=== PATIENT | female | born 1945 | race Caucasian/White ===

== ENCOUNTER 2019-11-10 08:01 | Outpatient (CLI) | payer MEDICARE, SELFPAY ==
--- NOTE | ~2019-11-10 | US_ITS ---
EXAMINATION: US art doppler w press LE BI DATE: 11/10/2019 08:52 INDICATION: Bilateral lower limb peripheral arterial occlusive disease. TECHNIQUE: Segmental pressures and plethysmographic and Doppler waveforms of the brachial and lower e xtremity arteries were obtained. COMPARISON: None. FINDINGS: Right brachial artery pressure of 104 mm Hg. Left brachial artery pressure unable to be obtained due to the presence of a dialysis graft. The right and left high-thigh pressure indices are 1.06 and 1.15 , respectively (normal > 1.2). The right ankle-brachial index (TY) is 1.22 (normal >= 0.9-1). The right great toe-brachial index (T BI) is 0.97 (normal >= 0.6-0.8). The right lower extremity segmental pressure gradients are increased between the right above and below the knee popliteal arteries between the sysvy-giz-zuaa popliteal a rtery and the right dorsalis pedis artery and between the right dorsalis pedis and posterior tibial a rteries (normal gradients <= 20-30 mmHg between adjacent levels on the same leg or the same levels on the two legs). Arterial waveforms are biphasic with brisk systolic upstrokes throughout. The left TY is 0.52. The left TBI is 0.64. The left lower extremity segmental pressure gradients are increased between the left yrvkv-yta-iffk popliteal artery and left dorsalis pedis artery as well as between the left dorsalis pedis artery and the contralateral right dorsalis pedis artery. Arterial w aveforms are biphasic with brisk systolic upstrokes throughout with the exception of the left posteri or tibial artery which no flow is evident on color Doppler. IMPRESSION: 1. Normal right TY and TBI with no significant arterial occlusive disease to the right lower limb. 2. Arterial occlusive disease in the left lower limb with no evident flow in the left posterior tibia l artery and with decreased pressures at the left dorsalis pedis artery resulting in moderately decre ased left TY. The left TBI however remains within normal limits. Reviewed, dictated and finalized at location A. IMPRESSION: 1. Normal right TY and TBI with no significant arterial occlusive disease to t he right lower limb. 2. Arterial occlusive disease in the left lower limb with no evident flow in th e left posterior tibial artery and with decreased pressures at the left dorsali s pedis artery resulting in moderately decreased left TY. The left TBI however remains within normal limits.
== END 2019-11-10 08:02 | disposition home or self-care (01) ==
PROVIDERS: PCP Nurse Practitioner Family; Visit Provider Podiatrist Foot & Ankle Surgery
DX: I73.9 Peripheral vascular disease, unspecified (principal)
CPT/HCPCS: 93923

== ENCOUNTER 2019-12-20 12:03 | Inpatient (IN) | payer MEDICARE, SELFPAY ==
[2019-12-20] VITALS (9 sets, daily range): BP systolic 84–152; BP diastolic 49–73; PULSE 70–106; RESP 16–20; TEMP 36.4–36.9; O2SAT 96–100; BMI 18.1
[2019-12-20 12:25] LABS: Basophils Absolute Auto 0.1 K/mm3 (0.0-0.1); Basophils Percent Auto 0.5 % (0.2-1.2); Eosinophils Absolute Auto 0.1 K/mm3 (0-0.3); Eosinophils Percent Auto 0.8 % (0-4.4); Hematocrit 37.5 % (37.0-47.0); Hemoglobin 12.2 g/dL (12.0-15.0); Immature Granulocyte Absolute 0.02 K/mm3 (0.00-0.031); Immature Granulocyte Percent A 0.2 % (0-0.5); Lymphocytes Absolute Auto 1.59 K/mm3 (0.9-3.2); Lymphocytes Percent Auto 16.5 % (18.3-44.2); Mean Corpuscular HGB Conc 32.5 g/dl (32-36); Mean Corpuscular Hemoglobin 31.4 pg (26-34); Mean Corpuscular Volume 96.4 fl (80-100); Mean Platelet Volume 9.7 fl (7.4-10.4); Monocytes Absolute Auto 0.6 K/mm3 (0.1-0.6); Monocytes Percent Auto 6.1 % (2.6-8.5); Neutrophils Absolute Auto 7.3 K/mm3 (1.3-6.7); Neutrophils Percent Auto 75.9 % (45.5-73.1); Platelet Count Result 330 k/mm3 (150-375); Red Blood Count 3.89 M/mm3 (4.2-5.4); White Blood Count 9.6 K/mm3 (4.5-10.0)
[2019-12-20 12:39] LABS: Alanine Aminotransferase 11 U/L (4-35); Albumin Level 4.6 g/dL (3.5-5.1); Alkaline Phosphatase 92 U/L (38-126); Aspartate Amino Transferase 19 U/L (14-36); Bilirubin,Total 0.5 mg/dL (0.2-1.3); Blood Urea Nitrogen 71 mg/dL (7-17); Carbon Dioxide 16 mmol/L (22-30); Chloride 102 mmol/L (98-107); Estimated CRCL calculation 8 ml/min; Estimated Glomerular Filt Rate 10; Glucose 102 mg/dL (65-105); Lipase 198 U/L (23-300); Potassium 4.3 mmol/L (3.4-5.0); Sodium 133 mmol/L (137-145)
[2019-12-20 13:19] LABS: Add Urine Microscopic? YES; Appearance Urine Cloudy (Clear); Bacteria Urine Trace /hpf; Bilirubin Urine Negative (Negative); Blood Urine 1+ (Negative); Color Urine Yellow (Yellow); Glucose Urine UA Negative (Negative); Ketones Urine Negative (Negative); Leukocyte Esterase Ur 3+ LEU/UL (Negative); Mucus Urine Rare /lpf; Nitrate Urine Negative (Negative); Protein Urine 1+ mg/dL (Negative); RBC Urine 21-50 /hpf (0-2); Specific Grav Ur 1.011 (1.001-1.035); Squamous Epithelial Cell Urine Few /hpf (Few); Urobilinogen Urine Negative mg/dL (<2.0); WBC Urine >75 /hpf
--- NOTE | 2019-12-20 13:49 | ED.GENADULT ---
HPI - General Adult General Chief complaint: Nausea/Vomiting/Diarrhea Stated complaint: n/v Time Seen by Provider: 12/20/19 13:16 Source: patient and family History of Present Illness HPI narrative: 74 years old white female, on dialysis for the last 2 years, last dialysis was 2 days ago, patient did not finish the whole course of treatment because of developing nausea and dry heaves, patient was sent home at that time. 1 day later patient was doing okay, woke up this morning with dry heaves. Patient tripped and fell yesterday, hit the head on the wall and the way down, did not black out. Patient on Eliquis for atrial fibrillation. Currently her main complaint is nausea. Patient denies any fever, chills, vomiting, diarrhea, constipation, urinary symptoms. Patient is able to make urine. Patient lives in a [place] [facility]. Patient denying any pain. Or exposure to anybody with known COVID-19. Related Data Home Medications Medication Instructions Recorded Confirmed apixaban [Eliquis] 2.5 mg PO BID 12/20/19 aspirin [Aspir-81] 81 mg PO DAILY 12/20/19 atorvastatin 40 mg PO DAILY 12/20/19 azathioprine 25 mg PO DAILY 12/20/19 cholecalciferol (vitamin D3) 50 mcg PO DAILY 12/20/19 [Vitamin D3] furosemide 80 mg PO BID 12/20/19 metoprolol succinate 25 mg PO DAILY 12/20/19 vit A,C and A-yihybv-hqoazqcp 1 tablet PO BID 12/20/19 [I-Boris] vitamin B complex 1 tablet PO DAILY 12/20/19 Allergies Allergy/AdvReac Type Severity Reaction Status Date / Time No Known Allergies Allergy Verified 12/20/19 12:52 Review of Systems Review of Systems: Narrative: CONSTITUTIONAL: Denies fever, chills, or sweats. EYES: Denies visual changes, redness, or discharge. ENT: Denies rhinorrhea, congestion, sore throat, or otalgia. CARDIOVASCULAR: Denies chest pain, palpitations, or edema. RESPIRATORY: Denies cough or dyspnea. GASTROINTESTINAL: Denies abdominal pain, nausea, vomiting, or diarrhea. GENITOURINARY: Denies dysuria or hematuria. SKIN: Denies rash or itching. MUSCULOSKELETAL: Denies back pain, joint pain, or myalgia. NEUROLOGIC: Denies headache, numbness, or weakness. PSYCHIATRIC: Denies anxiety or depression. PMFSH Social History Social History Gender identity (if verbalized by the patient): Female Exam Narrative: Exam Narrative: General appearance: Well-developed, well-nourished, patient looks comfortable, malnourished, laying down in bed without any sign of distress or pain, patient son at the bedside. Skin: Normal color Head: Normocephalic, nontraumatic Eyes: Clear conjunctiva ENT: Oropharynx normal, ears normal, nose normal Neck: Supple, nontender Chest and respiratory: Airway patent, no respiratory distress, no accessory muscle use Heart: Regular rate/rhythm Abdomen: Soft, nontender, no organomegaly, quiet bowel sounds Vascular: Normal peripheral pulses, normal capillary refill. Musculoskeletal: Normal range of motion, nontender back Neurologic: Alert and oriented ?3, [facility] is normal as tested, no gross motor deficit Course Course Emergency Course: Stable Vital Signs Vital signs: Vital Signs Temperature 36.9 C 12/20/19 12:13 Pulse Rate 90 12/20/19 12:13 Respiratory Rate 17 12/20/19 12:13 Blood Pressure 96/49 L 12/20/19 12:13 Pulse Oximetry 96 12/20/19 12:13 Temperature 36.9 C 12/20/19 12:13 Pulse Rate 75 12/20/19 13:08 Respiratory Rate 17 12/20/19 13:08 Blood Pressure 121/65 12/20/19 13:08 Pulse Oximetry 100 12/20/19 13:08 Medical Decision Making MDM Narrative Medical decision making narrative: Patient main complaint is nausea. Patient believes
--- NOTE | 2019-12-20 16:00 | PC.NURSE ---
This patient, Chichi Amado, was admitted to Medical Room 348-. Patient/family oriented to hospital policies and general routines including ID bracelet, bed and alarms, visiting hours, pain management, procedures, bathroom and other care routines, personal items, smoking policy, room service/diet, and visiting hours. Valuables list has been completed. Information on how to activate the Rapid Response Team has been discussed. Patient/Family are encouraged to report perceived risks to care and to ask questions if they do not understand what they are told or what they should do.
[2019-12-20] MEDS: LACTATED RINGERS 1,000 ML 50 ML IV CONT (16:49)
--- NOTE | 2019-12-20 22:31 | PM.IMHP ---
H&P: HPI History of Present Illness Chief complaint: urinary tract infection,nausea,dialysis patient Narrative: Chichi Amado is a 74 year old female who has end-stage renal disease and is on dialysis Saturday. The patient does still continue to make some urine. She has not had any urinary symptoms but has been having dry heaves. She said that the dry heaves started Saturday when she was in dialysis. And they gave her something for it and ended helped a little bit but not much. The next day on Saturday she was feeling fine and did a lot of things on Saturday but then for the in the evening she started to feel little queasy again. When she woke up today she was feeling nauseated and having dry heaves. She stated that she could tailor ate the dry he is any longer. She was also feeling weak and she lives at the [facility] and she has rales in the bathroom. The patient stated that she felt a little dizzy get off the toilet and she just slid on the wall and hit her head and the rales caught her and she had a small bowel bladder her head. She is on Eliquis for history of PE had a cardiac emboli. She has not had any exposure that she is aware of any infectious disease. She has not had any fever chills but is feeling weak and having dry heaves. Urine was positive for UTI. The patient stated it was a voided specimen. Dr. Roman has been consulted for Nephrology. Patient was started on Rocephin. Patient's dialysis was cut short on Saturday but they felt like she had had enough of it. Date of service 12/20/2019 Review of Systems Review of Systems: All systems reviewed & are unremarkable except as noted in HPI and below Constitutional: Constitutional: Reports as per HPI and Reports no additional constitutional complaints Eyes: Eyes: Reports as per HPI and Reports no additional eye complaints ENT: Reports system reviewed and no additional complaints, except as documented and Reports Normal hearing present Cardiovascular: Cardiovascular: Reports no additional cardiovascular complaints Respiratory: Respiratory: Reports no additional respiratory complaints and Reports no additional respiratory complaints Gastrointestinal: Gastrointestinal: Reports as per HPI and Reports no additional gastrointestinal complaints Musculoskeletal: Musculoskeletal: Reports no additional musculoskeletal complaints Integumentary/Breasts: Skin/Breast: Reports system reviewed and no additional complaints, except as docu and Reports as per HPI Neurologic: Reports system reviewed and no additional complaints, except as documented, Reports as per HPI and Reports Normal hearing present Psychiatric: Psychiatric: Reports no additional psychiatric complaints and Reports as per HPI Endocrine: Endocrine: Reports no additional endocrine complaints Hematologic/Lymphatic: Hematologic/Lymphatic: Reports no additional hematologic/lymphatic complaints Allergic/Immunologic: Allergic/Immunologic: Reports no additional allergic/immunologic complaints [facility] Past Medical History Medical History (Updated 12/20/19 @ 22:40 by Karolina Hamlin NP) Chronic anemia Diastolic dysfunction Grade 3 History of CVA (cerebrovascular accident) History of iritis History of pulmonary embolism On Eliquis History of thrombosis Ascending aorta thrombus Hyperlipidemia Hypertension Moderate mitral valve regurgitation Osteoarthritis Rheumatoid arthritis Surgical History Surgical History (Updated 12/20/19 @ 22:40 by Karolina Hamlin NP) H/O bilateral cataract extraction History of bilateral tubal ligation History of shoulder surgery S/P dialysis catheter insertion Av fistula left forearm Family History Family History Mother Cancer Father Diabetes mellitus Sibling Lymphoma Colon cancer Pancreatic cancer Social History Social History (Updated 12/20/19 @ 22:41 by Karolina Hamlin NP) Social History
[2019-12-21] VITALS (18 sets, daily range): BP systolic 65–136; BP diastolic 31–64; PULSE 75–104; RESP 12–18; TEMP 36–37.1; O2SAT 95–100; BMI 18.1
[2019-12-21 05:51] LABS: Basophils Absolute Auto 0.1 K/mm3 (0.0-0.1); Basophils Percent Auto 0.8 % (0.2-1.2); Eosinophils Absolute Auto 0.2 K/mm3 (0-0.3); Hematocrit 35.2 % (37.0-47.0); Hemoglobin 11.5 g/dL (12.0-15.0); Immature Granulocyte Absolute 0.03 K/mm3 (0.00-0.031); Immature Granulocyte Percent A 0.4 % (0-0.5); Lymphocytes Percent Auto 20.6 % (18.3-44.2); Mean Corpuscular HGB Conc 32.7 g/dl (32-36); Mean Corpuscular Hemoglobin 31.3 pg (26-34); Mean Corpuscular Volume 95.9 fl (80-100); Mean Platelet Volume 9.9 fl (7.4-10.4); Monocytes Absolute Auto 0.7 K/mm3 (0.1-0.6); Monocytes Percent Auto 9.9 % (2.6-8.5); Neutrophils Absolute Auto 4.8 K/mm3 (1.3-6.7); Neutrophils Percent Auto 65.3 % (45.5-73.1); Platelet Count Result 297 k/mm3 (150-375); Red Blood Count 3.67 M/mm3 (4.2-5.4); Red Cell Distribution Width 12.9 % (11.5-14.5); White Blood Count 7.3 K/mm3 (4.5-10.0)
[2019-12-21 06:16] LABS: Alanine Aminotransferase 10 U/L (4-35); Alkaline Phosphatase 81 U/L (38-126); Aspartate Amino Transferase 16 U/L (14-36); Bilirubin,Total 0.1 mg/dL (0.2-1.3); Blood Urea Nitrogen 75 mg/dL (7-17); CRP 0.7 mg/dL (<1.0); Calcium 9.2 mg/dL (8.4-10.2); Carbon Dioxide 16 mmol/L (22-30); Chloride 105 mmol/L (98-107); Estimated CRCL calculation 9 ml/min; Estimated Glomerular Filt Rate 11; Glucose 86 mg/dL (65-105); Lipase 188 U/L (23-300); Magnesium 2.5 mg/dL (1.6-2.3); Potassium 3.7 mmol/L (3.4-5.0); Sodium 134 mmol/L (137-145)
[2019-12-21 06:56] LABS: Hepatitis B Surface Antigen Negative (Negative)
[2019-12-21 07:02] LABS: HAV RESULT Negative (Negative); Hepatitis B Core IgM Result Negative (Negative)
--- NOTE | 2019-12-21 07:14 | PM.CNNEP ---
Assessment and Plan Assessment and plan (1) Dialysis patient: Code(s): Z99.2 - Dependence on renal dialysis Status: Acute Assessment and Plan: Chichi has been on dialysis for couple of years. She has been doing well on the treatments. She does not look like she has much fluid on. Will try for a L today. She did get some IV fluids in the emergency room last night. Her potassium is okay. (2) Urinary tract infection: Qualifiers: Hematuria presence: without hematuria Urinary tract infection type: site unspecified Qualified Code(s): N39.0 - Urinary tract infection, site not specified Code(s): N39.0 - Urinary tract infection, site not specified Status: Acute Assessment and Plan: The patient has a bladder infection. Cultures are pending. Ceftriaxone is on board. She does make some urine. She does not have any pain with urination. I suspect this is the cause for her nausea and vomiting. She is doing better today with symptomatic medications and treatment of the UTI. Lipase is okay. Something wrong with the pancreas. She has no belly pain and her symptoms are resolved now. (3) Moderate mitral valve regurgitation: Code(s): I34.0 - Nonrheumatic mitral (valve) insufficiency Status: Acute Assessment and Plan: She has had this issue for a long time. Her volume status is been well-controlled with the dialysis. (4) Chronic anemia: Code(s): D64.9 - Anemia, unspecified Status: Chronic Assessment and Plan: She has anemia of chronic kidney disease. She gets Epogen at the dialysis unit. She also gets occasional Iron a for Tsats are low. (5) Hypertension: Code(s): I10 - Essential (primary) hypertension Status: Chronic Assessment and Plan: Blood pressure had historically been high. She does well now with just metoprolol. (6) Rheumatoid arthritis: Code(s): M06.9 - Rheumatoid arthritis, unspecified Status: Chronic History of Present Illness Reason for Consult Consult date: 12/21/19 Chief Complaint Chief complaint: urinary tract infection,nausea,dialysis patient History of Present Illness Narrative: But really is a very pleasant 74-year-old lady who has multiple medical problems including end-stage renal disease on dialysis 3 times a week, hyperlipidemia, hypertension, rheumatoid arthritis on Azathioprine, diastolic dysfunction, mitral regurgitation,, anemia, history of a stroke, pulmonary embolism on Eliquis, who says she was well until Saturday when she started having nausea and vomiting. This took her off dialysis a little early. She went home and she eventually felt better. She slept well Saturday night and Saturday. Then Saturday night she developed nausea and vomiting again. Once again she could not hold anything down. This continued until yesterday when she went to the emergency room. In the ER she was evaluated. No x-rays were done. Labs were unremarkable. She was admitted and given symptomatic medications. She feels better now. She has no skin rash. No chest pain or shortness of breath. No belly pain. No bloody or black bowel movements. No coffee-ground emesis or blood in her emesis. Nobody else in her house is sick. She has not had any fevers. Review of Systems Constitutional: Constitutional: Reports no additional constitutional complaints Eyes: Eyes: Reports no additional eye complaints ENT: Reports system reviewed and no additional complaints, except as documented Cardiovascular: Cardiovascular: Reports no additional cardiovascular complaints Respiratory: Respiratory: Reports no additional respiratory complaints Gastrointestinal: Gastrointestinal: Reports no additional gastrointestinal complaints Genitourinary: Genitourinary: Reports no additional female genitourinary complaints Musculoskeletal: Musculoskeletal: Reports no additional musculoskeletal complaints Integumentary/Breasts:
[2019-12-21 07:21] LABS: Hepatitis B Surface Anti Res Indeterminate
[2019-12-21] MEDS: APIXABAN 2.5 MG TABLET PO ×2 (08:15→17:22)
[2019-12-21] MEDS: FUROSEMIDE 80 MG TABLET PO ×2 (08:16→17:22)
[2019-12-21] MEDS: OPTI-GEN TAB 1 TABLET PO ×2 (08:16→17:22)
[2019-12-21] MEDS: azaTHIOprine 25 MG TABLET PO (08:16)
[2019-12-21] MEDS: VITAMIN B COMPLEX CAPSULE 1 CAP PO (08:17)
[2019-12-21 08:20] LABS: Hepatitis C Virus Antibody Negative (Negative)
[2019-12-21] MEDS: CHOLECALCIFEROL 1,000 UNIT TABLET 2000 UNITS PO (13:46)
--- NOTE | 2019-12-21 13:59 | PM.EVENT ---
Event Note Event Note Event Note: The patient is on dialysis and tolerating it well. her blood pressure is doing well. No cramping or shortness of breath. She was seen at 12:50 p.m.
[2019-12-21] MEDS: ONDANSETRON INJ 4 MG/2 ML VIAL IV PUSH (14:25)
--- NOTE | 2019-12-21 16:24 | PM.IMPN ---
Progress Note: A&P Assessment and Plan (1) Urinary tract infection: Qualifiers: Hematuria presence: without hematuria Urinary tract infection type: site unspecified Qualified Code(s): N39.0 - Urinary tract infection, site not specified Code(s): N39.0 - Urinary tract infection, site not specified Status: Acute Assessment and Plan: Patient was started on Rocephin. Blood cultures pending and urine culture growing 100,000 gram-negative rods. Patient still urinates on her own. Patient had d dialysis today. And minimal fluid removed with her nausea and decreased oral intake she had at home. (2) Dialysis patient: Code(s): Z99.2 - Dependence on renal dialysis Status: Acute Assessment and Plan: Resumed per Nephrology, Saturday. (3) Hyperlipidemia: Code(s): E78.5 - Hyperlipidemia, unspecified Status: Chronic Assessment and Plan: Continue with Lipitor. (4) Diastolic dysfunction: Code(s): I51.89 - Other ill-defined heart diseases Status: Chronic Assessment and Plan: Continue with Lasix and metoprolol. Above with soft blood pressure decrease metoprolol to only 12.5 HS (5) Rheumatoid arthritis: Code(s): M06.9 - Rheumatoid arthritis, unspecified Status: Chronic Assessment and Plan: Continue with imuran (6) Hypertension: Code(s): I10 - Essential (primary) hypertension Status: Chronic Assessment and Plan: Continue with Lasix and metoprolol. For and has above decrease metoprolol to 12.5 HS (7) Chronic anemia: Code(s): D64.9 - Anemia, unspecified Status: Chronic Assessment and Plan: Patient's H&H actually is within normal limits at this time. Patient is on Eliquis for history of having a a cardiac emboli and a PE. Subjective Date/time seen: 12/21/19 16:24 Interval history: Date of visit 12/20. 74-year-old white female on chronic hemodialysis admitted with nausea and urinary tract infection. No fever no chills but is on immunosuppressant for her rheumatoid arthritis. Feels better today and tolerated breakfast. Saw her at hemodialysis Exam Narrative: Exam Narrative: Blood pressure 110/60 pulse is 84 and regular afebrile Lungs clear CV regular rate rhythm Abdomen is soft nontender bowel sounds normal active Extremities without edema distal pulse 2 + Neuro alert cooperative no focal deficits Objective Data Vital Signs Vital Signs: Vital Signs - 24 hr 12/20/19 20:00 12/21/19 00:00 12/21/19 04:27 Temperature 36.4 C 36.1 C L 36.4 C L Pulse Rate 70 81 96 Pulse Rate [Left] Respiratory Rate 16 12 18 Blood Pressure 122/58 L 136/58 L 119/56 L Pulse Oximetry 98 98 97 12/21/19 10:24 12/21/19 10:45 12/21/19 11:00 Temperature Pulse Rate 79 75 84 Pulse Rate [Left] Respiratory Rate Blood Pressure 120/41 L 131/64 100/53 L Pulse Oximetry 12/21/19 11:30 12/21/19 11:45 12/21/19 12:00 Temperature Pulse Rate 83 100 104 H Pulse Rate [Left] Respiratory Rate Blood Pressure 117/55 L 97/54 L 71/38 L Pulse Oximetry 12/21/19 12:15 12/21/19 12:30 12/21/19 12:34 Temperature Pulse Rate 91 94 92 Pulse Rate [Left] Respiratory Rate Blood Pressure 100/52 L 65/31 L 91/45 L Pulse Oximetry 12/21/19 12:45 12/21/19 13:00 12/21/19 13:30 Temperature 37.1 C Pulse Rate 89 81 Pulse Rate [Left] Respiratory Rate Blood Pressure 91/48 L 90/40 L Pulse Oximetry 12/21/19 13:34 12/21/19 14:00 Temperature 36.4 C Pulse Rate 90 Pulse Rate [Left] 86 Respiratory Rate 16 12 Blood Pressure 86/49 L Pulse Oximetry 95 Intake/Output Intake/Output: Intake & Output 12/18/19 12/19/19 12/20/19 12/21/19 23:59 23:59 23:59 23:59 Intake Total 686 540 Output Total 250 850 Balance 436 -310 Meds/Results Medications: Active Medications Generic Name Dose Route Start Last Admin Trade Name Freq PRN Reason S
[2019-12-21] MEDS: ACETAMINOPHEN 325 MG TABLET 650 MG PO (18:33)
[2019-12-21] MEDS: ATORVASTATIN 40 MG TABLET PO (20:27)
[2019-12-21] MEDS: ASPIRIN 81 MG ENTERIC TABLET PO (20:27)
[2019-12-22 04:00] VITALS: BP 98/50; PULSE 89; RESP 16; TEMP 36.6; O2SAT 95
[2019-12-22 05:25] LABS: Hemoglobin 11.4 g/dL (12.0-15.0); Mean Corpuscular HGB Conc 33.5 g/dl (32-36); Mean Corpuscular Hemoglobin 31.1 pg (26-34); Mean Corpuscular Volume 92.9 fl (80-100); Platelet Count Result 314 k/mm3 (150-375); Red Blood Count 3.66 M/mm3 (4.2-5.4); Red Cell Distribution Width 12.9 % (11.5-14.5); White Blood Count 8.1 K/mm3 (4.5-10.0)
[2019-12-22 05:40] LABS: Albumin Level 4.1 g/dL (3.5-5.1); Blood Urea Nitrogen 42 mg/dL (7-17); Calcium 9.4 mg/dL (8.4-10.2); Carbon Dioxide 23 mmol/L (22-30); Chloride 95 mmol/L (98-107); Estimated CRCL calculation 12 ml/min; Estimated Glomerular Filt Rate 15; Glucose 92 mg/dL (65-105); Phosphorus 5.4 mg/dL (2.5-4.5); Potassium 3.7 mmol/L (3.4-5.0); Sodium 131 mmol/L (137-145)
--- NOTE | 2019-12-22 07:41 | PM.PNNEP ---
Progress Note: A&P Assessment and Plan (1) Dialysis patient: Code(s): Z99.2 - Dependence on renal dialysis Status: Acute Assessment and Plan: Patient has end-stage renal disease. She is due for dialysis tomorrow if she is still here. (2) Urinary tract infection: Qualifiers: Hematuria presence: without hematuria Urinary tract infection type: site unspecified Qualified Code(s): N39.0 - Urinary tract infection, site not specified Code(s): N39.0 - Urinary tract infection, site not specified Status: Acute Assessment and Plan: The patient has a bladder infection. Cultures Show E coli, pansensitive. Ceftriaxone is on board. She does make some urine. She does not have any pain with urination. Generally improving with treatment. Okay for discharge from kidney standpoint a time others or ready. (3) Moderate mitral valve regurgitation: Code(s): I34.0 - Nonrheumatic mitral (valve) insufficiency Status: Acute Assessment and Plan: She has had this issue for a long time. Her volume status is been well-controlled with the dialysis. (4) Chronic anemia: Code(s): D64.9 - Anemia, unspecified Status: Chronic Assessment and Plan: She has anemia of chronic kidney disease. Hemoglobin above 11 so will hold off on EPO. (5) Hypertension: Code(s): I10 - Essential (primary) hypertension Status: Chronic Assessment and Plan: Blood pressure had historically been high. Blood pressure a bit low overnight so will not take any fluid off tomorrow. (6) Rheumatoid arthritis: Code(s): M06.9 - Rheumatoid arthritis, unspecified Status: Chronic Assessment and Plan: Seems to be well controlled. Subjective Date/time seen: 12/22/19 07:41 Interval history: Patient is alert. She feels better today. She had some nausea yesterday after dialysis. She was not very hungry last night after dialysis for dinner. Review of Systems Cardiovascular: Cardiovascular: Reports no additional cardiovascular complaints Respiratory: Respiratory: Reports no additional respiratory complaints Gastrointestinal: Gastrointestinal: Reports no additional gastrointestinal complaints Genitourinary: Genitourinary: Reports no additional female genitourinary complaints Exam Narrative: Exam Narrative: WDWN in NAD skin no rash head ncat lungs clear cor reg no rub abd BS+ nontender and soft ext no edema. Objective Data Vital Signs Vital Signs: Vital Signs - 24 hr 12/21/19 10:24 12/21/19 10:45 12/21/19 11:00 Temperature Pulse Rate 79 75 84 Pulse Rate [Left] Respiratory Rate Blood Pressure 120/41 L 131/64 100/53 L Pulse Oximetry 12/21/19 11:30 12/21/19 11:45 12/21/19 12:00 Temperature Pulse Rate 83 100 104 H Pulse Rate [Left] Respiratory Rate Blood Pressure 117/55 L 97/54 L 71/38 L Pulse Oximetry 12/21/19 12:15 12/21/19 12:30 12/21/19 12:34 Temperature Pulse Rate 91 94 92 Pulse Rate [Left] Respiratory Rate Blood Pressure 100/52 L 65/31 L 91/45 L Pulse Oximetry 12/21/19 12:45 12/21/19 13:00 12/21/19 13:30 Temperature 37.1 C Pulse Rate 89 81 Pulse Rate [Left] Respiratory Rate Blood Pressure 91/48 L 90/40 L Pulse Oximetry 12/21/19 13:34 12/21/19 14:00 12/21/19 20:26 Temperature 36.4 C 36.8 C Pulse Rate 90 96 Pulse Rate [Left] 86 Respiratory Rate 16 12 14 Blood Pressure 86/49 L 100/52 L Pulse Oximetry 95 100 12/22/19 04:00 Temperature 36.6 C Pulse Rate 89 Pulse Rate [Left] Respiratory Rate 16 Blood Pressure 98/50 L Pulse Oximetry 95 Intake/Output Intake/Output: Intake & Output 12/19/19 12/20/19 12/21/19 12/22/19 23:59 23:59 23:59 23:59 Intake Total 686 660 200 Output Total 250 950 Balance 436 -290 200 Meds/Results Medications: Active Medications Generic Name Dose Route Start Last Admin
[2019-12-22] MEDS: APIXABAN 2.5 MG TABLET PO ×2 (08:24→16:49)
[2019-12-22] MEDS: CHOLECALCIFEROL 1,000 UNIT TABLET 2000 UNITS PO (08:25)
[2019-12-22] MEDS: OPTI-GEN TAB 1 TABLET PO ×2 (08:25→16:49)
[2019-12-22] MEDS: azaTHIOprine 25 MG TABLET PO (08:25)
[2019-12-22] MEDS: VITAMIN B COMPLEX CAPSULE 1 CAP PO (08:25)
[2019-12-22] MEDS: FUROSEMIDE 80 MG TABLET PO ×2 (08:25→16:49)
[2019-12-22] MEDS: CALCIUM CARBONATE (TUMS) 500 MG (200 MG ELEMENTAL) PO (09:38)
[2019-12-22 14:31] VITALS: BP 125/54; PULSE 81; RESP 14; TEMP 36.3; O2SAT 99
[2019-12-22 15:06] LABS: SARS-CoV-2 RNA PCR Negative
--- NOTE | 2019-12-22 15:27 | PM.DS ---
DS: Admitting Diagnosis Admitting Diagnosis Admitting Diagnosis: Urinary tract infection, site not specified DS: Discharge Diagnosis Discharge Diagnosis (1) Urinary tract infection: Qualifiers: Hematuria presence: without hematuria Urinary tract infection type: site unspecified Qualified Code(s): N39.0 - Urinary tract infection, site not specified Code(s): N39.0 - Urinary tract infection, site not specified Status: Acute Assessment and Plan: Patient was started on Rocephin. Blood cultures NGTD. Urine culture growing 100,000 colonies of EColi that is galo sensitive. Rocephin started and now Day 3. Clinically improving. Continue abx to complete a course. (2) Dialysis patient: Code(s): Z99.2 - Dependence on renal dialysis Status: Acute Assessment and Plan: Stable. HD resumed per Nephrology. We continued her Icqnpm-Uidrzczlo-Caawsz schedule. (3) Hyperlipidemia: Code(s): E78.5 - Hyperlipidemia, unspecified Status: Chronic Assessment and Plan: LFTs okay. We continued with Lipitor. (4) Diastolic dysfunction: Code(s): I51.89 - Other ill-defined heart diseases Status: Chronic Assessment and Plan: Stable. HD to control fluid status. Continue with Lasix and metoprolol. Soft blood pressure so we decreased metoprolol to only 12.5 HS. (5) Rheumatoid arthritis: Code(s): M06.9 - Rheumatoid arthritis, unspecified Status: Chronic Assessment and Plan: Stable. Continue with imuran. (6) Hypertension: Code(s): I10 - Essential (primary) hypertension Status: Chronic Assessment and Plan: Blood pressure monitored closely. We continued with Lasix and metoprolol but decreased the dose of the metoprolol. (7) Chronic anemia: Code(s): D64.9 - Anemia, unspecified Status: Chronic Assessment and Plan: Hgb stable in the 11-12 range. Patient is on Eliquis for history of having a a cardiac emboli and a PE. DS: Summary Hospital Course Reason for hospitalization: 74yo female with ESRD here for n/v felt related to UTI. Please see H&Pfor details. Hospital Course: Se above. Time Spent with Patient Time attestation: Total time spent providing and/or coordinating discharge services:32 minutes Time spent: Greater than 30 minutes Specific discharge activities: Discussed with nephrology and with patient education and discharge instructions. Exam Narrative: Exam Narrative: AF 125/52 81 14 99% Gen - NARD Chest - CTA bilaterally, nml RR CV - RRR S1/S2 Abd -soft, NT/ND Ext - thrill and bruit in the LUE. no pedal edema. Neuro - nonfocal. DS: Data Data Completed and Pending Labs on day of discharge: Labs from last 24 hours 12/22/19 12/22/19 12/22/19 05:37 05:12 05:12 WBC 8.1 RBC 3.66 L Hgb 11.4 L Hct 34.0 L MCV 92.9 MCH 31.1 MCHC 33.5 RDW 12.9 Plt Count 314 MPV 10.0 Sodium 131 L Potassium 3.7 Chloride 95 L Carbon Dioxide 23 BUN 42 H D Creatinine 3.00 H Estim Creat Clear Calc 12 Estimated GFR 15 L Glucose 92 Calcium 9.4 Phosphorus 5.4 H Albumin 4.1 SARS-CoV-2 RNA (RT-PCR) Negative Preliminary micro results at discharge 12/20/19 22:56 Blood Culture - Preliminary Blood 12/20/19 22:54 Blood Culture - Preliminary Blood Discharge Plan Discharge Attending physician on discharge: Leon Underwood Consulting providers: Veronica Roman Discharging Clinician: Leon Underwood Anticipated Discharge Date/Time: 12/22/19 15:39 Patient Disposition: NH Care Home/Asst Living Activity: as tolerated Diet: renal Discharge Instructions: Take precaution to avoid falls Rise slowly from a lying or sitting position. Pause before standing or walking. Patient Instructions: Ceftriaxone (By injection), Apixaban (By mouth), Urinary Tract Infection in
--- NOTE | 2019-12-22 17:48 | PC.NURSE ---
Proof of Negative Covid test sent with Patient.
--- NOTE | 2019-12-28 11:16 | PC.NURSE ---
Blood cx is negative
== END 2019-12-22 17:10 | DRG 689 ==
LOC: ANHED 14:58 → ANH3MED 16:03
PROVIDERS: Family Medicine; General Practice; Internal Medicine Nephrology; Nurse Practitioner; Admitting Provider Family Medicine; Emergency Provider Emergency Medicine; PCP Nurse Practitioner Family; Visit Provider Internal Medicine
DX: N39.0 Urinary tract infection, site not specified (principal); N18.6 End stage renal disease; I13.11 Hypertensive heart and chronic kidney disease without heart failure, with stage 5 chronic kidney disease, or end stage renal disease; D63.1 Anemia in chronic kidney disease; Z99.2 Dependence on renal dialysis; B96.20 Unspecified Escherichia coli [E. coli] as the cause of diseases classified elsewhere; Z11.59 Encounter for screening for other viral diseases; I34.0 Nonrheumatic mitral (valve) insufficiency; I48.91 Unspecified atrial fibrillation; E78.5 Hyperlipidemia, unspecified; M06.9 Rheumatoid arthritis, unspecified; M19.90 Unspecified osteoarthritis, unspecified site; Z66 Do not resuscitate; Z79.01 Long term (current) use of anticoagulants; Z79.82 Long term (current) use of aspirin; Z86.711 Personal history of pulmonary embolism; Z86.73 Personal history of transient ischemic attack (TIA), and cerebral infarction without residual deficits; Z87.891 Personal history of nicotine dependence; Z98.42 Cataract extraction status, left eye; Z98.41 Cataract extraction status, right eye
CPT/HCPCS: 36415; 80053; 80069; 80074; 81001; 83690; 83735; 84443; 85025; 85027; 86140; 86706; 87040; 87077; 87086; 87088; 87186; 87635; 96365; 99285; A9270; C9803; J0696; J2405; J7120; U0003

== ENCOUNTER 2023-05-07 09:37 | Outpatient (CLI) | payer MEDICARE, SELFPAY ==
--- NOTE | ~2023-05-07 | US_ITS ---
EXAMINATION: US carotid duplex BI DATE: 05/07/2023 10:50 INDICATION: Carotid bruits TECHNIQUE: Grayscale, color Doppler, and pulsed Doppler images of the cervical carotid arteries were obtained. The degree of vessel stenosis is placed in one of the following categories: normal, <50%, 5 0-69%, >=70% but less than near-occlusion, near-occlusion, or total occlusion. Note that percent sten osis relative to normal distal artery lumen diameter is indirectly measured from velocity measurement s as described by Davy, et al. Radiology 2003; 229:340-346. Notes: Normal: Peak systolic velocity <125 centimeters/sec and no plaque <50%. Peak systolic velocity <125 ( EDV <40; ICA/CCA PSV ratio <2.0; used these factors only a tandem lesions or low cardiac output or co ntralateral disease) 50-69 %: PSV 125-230 (EDV 40-100; ratio 2-4) >= 70% but less than near occlusion: PSV greater than 230 (EDV > 100; ratio> 4.0) Near Occlusion: PSV that is variable; markedly narrowed lumen Occlusion: Absent flow on color/spectral Doppler and no lumen on null scale. COMPARISON: 04/29/2018. FINDINGS: RIGHT: The right common carotid artery (CCA) peak systolic velocity (PSV) is 126 cm/s. The right internal ca rotid artery (ICA) PSV is 129 cm/s. The right ICA end-diastolic velocity (EDV) is 31 cm/s. The right ICA/CCA PSV ratio is 1.0. The external carotid artery (ECA) PSV is 42 cm/s. There is antegrade flow i n the right vertebral artery. LEFT: The left CCA PSV is 155 cm/s. The left ICA PSV is 135 cm/s. The left ICA EDV is 31 cm/s. The left ICA /CCA PSV ratio is 0.9. The ECA PSV is 143 cm/s. There is antegrade flow in the left vertebral artery . IMPRESSION: 1. 50-69% stenosis in the right internal carotid artery by sonographic criteria. 2. 50-69% stenosis in the left internal carotid artery by sonographic criteria. Reviewed, dictated and finalized at location L. [employer] IMPRESSION: 1. 50-69% stenosis in the right internal carotid artery by sonographic criteria . 2. 50-69% stenosis in the left internal carotid artery by sonographic criteria.
== END 2023-05-07 09:38 | disposition home or self-care (01) ==
PROVIDERS: PCP Nurse Practitioner Family; Visit Provider Internal Medicine Cardiovascular Disease
DX: R09.89 Other specified symptoms and signs involving the circulatory and respiratory systems (principal); I65.23 Occlusion and stenosis of bilateral carotid arteries
CPT/HCPCS: 93880

== ENCOUNTER 2023-10-08 08:59 | Outpatient (CLI) | payer MEDICARE, SELFPAY ==
--- NOTE | ~2023-10-08 | US_ITS ---
EXAMINATION: US art doppler w press LE DATE: 10/08/2023 10:14 INDICATION: Peripheral arterial disease. Claudication. Atherosclerosis of picayune arteries of extremit ies. TECHNIQUE: Segmental pressures and plethysmographic and Doppler waveforms of the brachial and lower e xtremity arteries were obtained. COMPARISON: Arterial Doppler and segmental pressures 11/10/2019 FINDINGS: Right brachial artery pressure is 86 mm Hg. Left brachial artery pressure was not measured due to the dialysis graft. The right ankle-brachial index (TY) is 1.12 (normal >= 0.9-1.0). The right great toe-brachial index (TBI) is .044 (normal >= 0.65). Arterial Doppler waveforms are biphasic from common femoral artery to dorsalis pedis and monophasic in posterior tibial artery. The left TY could not be measured due to inability to cuff occlude the arteries. The left TBI is 1.1 3. Arterial Doppler waveforms are biphasic in common femoral artery, at least triphasic in superficia l femoral artery and popliteal artery, and monophasic at the ankle. IMPRESSION: 1. Decreased right TBI and normal right TY, consistent with right-sided arterial occlusive disease. Note that TY may be overestimated if arteries are calcified. 2. No significant left-sided arterial occlusive disease. Reviewed, dictated and finalized at location A. IMPRESSION: 1. Decreased right TBI and normal right TY, consistent with right-sided arteri al occlusive disease. Note that TY may be overestimated if arteries are calcif ied. 2. No significant left-sided arterial occlusive disease.
== END 2023-10-08 09:00 | disposition home or self-care (01) ==
PROVIDERS: PCP Nurse Practitioner Family; Visit Provider Internal Medicine Cardiovascular Disease
DX: I70.213 Atherosclerosis of native arteries of extremities with intermittent claudication, bilateral legs (principal)
CPT/HCPCS: 93923

== ENCOUNTER 2023-12-19 15:46 | Outpatient (CLI) | payer MEDICARE, MEDICAID, SELFPAY ==
[2023-12-19 16:17] LABS: Hematocrit 36.1 % (37.0-47.0); Hemoglobin 11.2 g/dL (12.0-15.0); Mean Corpuscular Hemoglobin 29.4 pg (26-34); Mean Corpuscular Volume 94.8 fl (80-100); Mean Platelet Volume 8.5 fl (7.4-10.4); Platelet Count Result 339 k/mm3 (150-375); Red Blood Count 3.81 M/mm3 (4.2-5.4); Red Cell Distribution Width 13.3 % (11.5-14.5); White Blood Count 2.3 K/mm3 (4.5-10.0)
[2023-12-19 16:29] LABS: Band Neutrophils Percent 6 % (0-6); Metamyelocytes Percent 14 %; Monocytes Absolute Manual 0.41 K/mm3 (0.1-0.90); Monocytes Percent Manual 18 % (3-9); Neutrophils Absolute Manual 0.46 K/mm3 (1.7-7.2); Neutrophils Percent Manual 14 % (46-73); Total Cells Counted 50
[2023-12-19 16:30] LABS: Platelet Estimate Adequate (Adequate); Schistocytes None Seen
[2023-12-19 16:31] LABS: Atypical Lymphocytes Present
[2023-12-19 17:06] LABS: Iron 21 ug/dL (37-170)
[2023-12-19 17:10] LABS: Alanine Aminotransferase 18 U/L (6-35); Albumin Level 4.2 g/dL (3.5-5.1); Alkaline Phosphatase 104 U/L (38-126); Anion Gap 12 mmol/L (4-12); Aspartate Amino Transferase 22 U/L (14-36); Bilirubin,Total 0.3 mg/dL (0.2-1.3); Blood Urea Nitrogen 41 mg/dL (7-17); Calcium 9.6 mg/dL (8.4-10.2); Carbon Dioxide 27 mmol/L (22-30); Chloride 96 mmol/L (98-107); Estimated Glomerular Filt Rate 19; Glucose 97 mg/dL (65-110); Potassium 4.5 mmol/L (3.4-5.0); Sodium 135 mmol/L (137-145)
[2023-12-19 17:15] LABS: Percent Iron Saturation 10 % (20-50)
[2023-12-19 18:22] LABS: Folic Acid > 20.0 ng/mL (2.76->20)
[2023-12-24 08:17] LABS: Anti Nuclear Antibody Pattern Nuclear, Homogeneous
[2023-12-24 10:48] LABS: Soluble Transferrin Receptor 1.04 mg/L (0.76-1.76)
[2023-12-26 23:13] LABS: Methylmalonic Acid 497 nmol/L (69-390)
[2023-12-27 15:18] LABS: Erythropoietin (EPO) 9.8 mIU/mL (2.6-18.5)
== END 2023-12-19 15:47 | disposition home or self-care (01) ==
PROVIDERS: PCP Nurse Practitioner Family; Visit Provider Internal Medicine Hematology & Oncology
DX: D72.819 Decreased white blood cell count, unspecified (principal); D64.9 Anemia, unspecified
CPT/HCPCS: 36415; 80053; 82607; 82668; 82728; 82746; 83540; 83550; 83921; 84238; 85025; 86038; 86039; 88184

== ENCOUNTER 2024-01-07 07:53 | Outpatient (CLI) | payer MEDICARE, MEDICAID, SELFPAY ==
--- NOTE | ~2024-01-07 | US_ITS ---
US abdomen complete EXAMINATION: US Abdomen Complete INDICATION: Leukopenia PROCEDURE: Realtime High Resolution abdomen ultrasound. COMPARISON: No prior studies for comparison FINDINGS: Gallbladder within normal limits. No gallstones, pericholecystic fluid, gallbladder wall t hickening or biliary dilatation. Common bile duct measures 3 mm. Liver echotexture within normal limits without focal mass. Pancreas within normal limits. Pancreati c tail is obscured by bowel gas. Spleen contains calcifications, consistent with chronic granulomato us disease.. Renal echotexture is within normal limits bilaterally without hydronephrosis, contour de forming mass or renal stone. There are small bilateral renal cysts, largest in the right kidney measu ring 1.1 cm. Right kidney measures 8.1 cm. Left kidney measures 8.9 cm. Visualized aspects of the aorta and IVC are within normal limits. Portal vein is patent. No sonograph ic Lees's sign indicated by the technologist. IMPRESSION: 1: Small bilateral renal cysts. Reviewed, dictated and finalized at location B.
== END 2024-01-07 07:54 | disposition home or self-care (01) ==
PROVIDERS: PCP Internal Medicine Hematology & Oncology; Visit Provider Internal Medicine Hematology & Oncology
DX: N20.0 Calculus of kidney (principal); D72.819 Decreased white blood cell count, unspecified
CPT/HCPCS: 76700

== ENCOUNTER 2024-06-05 13:08 | Outpatient (CLI) | payer MEDICARE, MEDICAID, SELFPAY ==
[2024-06-05 13:34] LABS: Hematocrit 35.8 % (37.0-47.0); Hemoglobin 11.3 g/dL (12.0-15.0); Mean Corpuscular HGB Conc 31.6 g/dl (32-36); Mean Corpuscular Hemoglobin 30.1 pg (26-34); Mean Corpuscular Volume 95.5 fl (80-100); Platelet Count Result 283 k/mm3 (150-375); Red Blood Count 3.75 M/mm3 (4.2-5.4); Red Cell Distribution Width 13.8 % (11.5-14.5); White Blood Count 2.7 K/mm3 (4.5-10.0)
[2024-06-05 13:43] LABS: Atypical Lymphocytes Present; Band Neutrophils Percent 2 % (0-6); Eosinophils Absolute Manual 0.05 K/mm3 (0.02-0.50); Eosinophils Percent Manual 2 % (0-4); Lymphocytes Absolute Manual 1.13 K/mm3 (1.1-4.5); Monocytes Percent Manual 15 % (3-9); Neutrophils Percent Manual 39 % (46-73); Platelet Estimate Adequate (Adequate); Schistocytes None Seen; Total Cells Counted 100
[2024-06-05 13:44] LABS: Giant Platelets Present
[2024-06-05 15:54] LABS: Iron 63 ug/dL (37-170)
[2024-06-05 16:16] LABS: Percent Iron Saturation 30 % (20-50); TOTAL IRON BINDING CAPACITY 213 ug/dL (261-462)
[2024-06-05 16:19] LABS: Anion Gap 0 mmol/L (4-12); Blood Urea Nitrogen 12 mg/dL (7-17); Calcium 9.1 mg/dL (8.4-10.2); Carbon Dioxide 37 mmol/L (22-30); Chloride 98 mmol/L (98-107); Estimated Glomerular Filt Rate 40; Glucose 150 mg/dL (65-110); Potassium 3.5 mmol/L (3.4-5.0); Sodium 135 mmol/L (137-145)
[2024-06-05 17:27] LABS: Folic Acid > 20.0 ng/mL (2.76->20); Vitamin B12 > 1000.0 pg/mL (239-931)
[2024-06-10 20:49] LABS: Methylmalonic Acid 275 nmol/L (69-390)
== END 2024-06-05 13:09 | disposition home or self-care (01) ==
LOC: ANHLAB 13:10
PROVIDERS: PCP Internal Medicine Hematology & Oncology; Visit Provider Internal Medicine Hematology & Oncology
DX: D64.9 Anemia, unspecified (principal)
CPT/HCPCS: 36415; 80048; 82607; 82728; 82746; 83540; 83550; 83921; 85025; 88184

== ENCOUNTER 2024-12-10 14:00 | Outpatient (CLI) | payer MEDICARE, MEDICAID, SELFPAY ==
--- OUTSIDE RECORDS SUMMARY | 2024-12-10 14:03 | XMS_ITS | Clinical Summary ---
Author Organization [facility] Doris Mireles Address [address] [address] Care Team Providers Care Internist Medical Doctor Md Name Role Phone Unavailable Primary Care Provider Unavailabl e Allergies No known active allergies Medications apixaban (ELIQUIS) 2.5 mg tablet Take 2.5 mg by mouth 2 times daily. Active atorvastatin (LIPITOR) 40 mg tablet Take 40 mg by mouth. 07/29/2021 Active ezetimibe (ZETIA) 10 mg tablet Take 10 mg by mouth daily. 05/30/2021 Active lisinopriL (PRINIVIL) 10 mg tablet Take 10 mg by mouth daily. Active aspirin (ECOTRIN EC) 81 mg Tablet, Delayed Release (E.C.) Take 81 mg by mouth daily. Active CALCIUM CARBONATE-VITAM IN D3 ORAL Take by mouth. Active vitamin B complex-vitamin C-folic acid 1 mg Capsule Take 1 Capsule by mouth daily. Active Vit C-Vit A-Mipwnk-TyJb-L utein (PRESERVISION) 226-90-0.8-5 mg Capsule Take 1 Capsule by mouth daily. Active cyanocobalamin (VITAMIN B-12) 500 mcg tablet Take 500 mcg by mouth daily. Active Active Problems Problem Noted Date Diagnosed Date Leukopenia 01/03/2024 Encounters Date Type Department Care Team Description 11/18/2024 External Device Data STL ABSTRACTION Provider, Abstract 11/17/2024 External Device Data STL ABSTRACTION Provider, Abstract 10/22/2024 External Device Data STL ABSTRACTION Provider, Abstract 10/21/2024 External Device Data ST[facility] ABSTRACTION Provider, Abstract 10/20/2024 External Device Data STL ABSTRACTION Provider, Abstract 10/06/2024 External Device Data STL ABSTRACTION Provider, Abstract from Last 3 Months Family History Medical History Relation Name Comments No Known Problems Brother 1 gene Diabetes Brother 2 cash Heart Disease Brother 2 cash Pancreatic Cancer Brother 2 cash Colon Cancer Brother 3 vani Diabetes Brother 4 avinash Heart Disease Brother 4 avinash Lymphoma Brother 4 avinash No Known Problems Child 1 No Known Problems Child 2 Heart Disease Father Cancer Mother Relation Name Status Comments Brother 1 gene Brother 2 cash Brother 3 vani Brother 4 avinash Child 1 Alive Child 2 Alive Father Mother Social History Tobacco Use Types Packs/Day Years Used Date Smoking Tobacco: Former Cigarettes 2 50 Q uit: 12/18/2006 Tobacco Cessation:Counseling Given: Not Answered Alcohol Use Standard Drinks/Week Comments Yes 0 (1 standard drink = 0.6 oz pur e alcohol) socially Comments Unknown Sex and Gender Information Value Date Recorded Sex Assigned at Not on file Legal Sex Female 10:18 AM CDT Gender Identity Not on file Sexual Orientation Not on file Last Filed Vital Signs Vital Sign Reading Time Taken Comments Blood Pressure 139/73 06/16/2024 3:40 PM HOSE TURNER Pulse 62 06/16/2024 3:40 PM HO[facility] TURNER Temperature 36.1 C (97 F) 06/16/2024 3:40 PM HO[facility] TURNER Respiratory Rate 16 06/16/2024 3:40 PM HO[facility] TURNER Oxygen Saturation 92% 06/16/2024 3:40 PM HO[facility] TURNER Inhaled Oxygen Concentration - - Weight 57.6 kg (127 lb) 06/16/2024 3:40 PM HO[facility] TURNER Height 167.6 cm (5' 6) 12/19/2023 2:53 PM CDT Body Mass Index 20.5 12/19/2023 2:53 PM CDT Plan of Treatment Upcoming Encounters Date Type Department Care Team (Late st Contact Info) Description 12/10/2024 2:30 PM CDT Office Visit [facility] Oncology and Hematology - Carlos A [address] [place] [address] William Barcenas MD [address] [place] [address] Health Maintenance Due Date Last Done Comments Traditional Medicare (ACO) A nnual Wellness Visit 1964 OSTEOPOROSIS SCREENING 2010 ZOSTER VACCINE (2 of 3) 02/28/2012 01/03/2012 RSV VACCINE (60+ or ) (1 - 1-dose 75+ series) 2020 INFLUENZA VACCINE (#1) 2025 02/15/2019 DTAP/TDAP/TD VACCINES (3 - T d or Tdap) 03/03/2030 03/03/2020, 07/16/2011, 06/03/2004 PNEUMOCOCCAL VACCINE 50+ YEARS Completed 1 , 01/15/2018, 05/16/2017, Additional history exists Procedures Procedure Name Priority Date/Time Associated Diagnosis Comments VITAMIN B12 AND FOLATE Routine 12/05/2024 10:09 AM CDT Chronic anemia IRON, TIBC, AND PERCENT SATURATION Routine 12/05/2024 10:09 AM CDT Chronic anemia FERRITIN Routine 12/05/2024 10:09 AM CDT Chronic anemia from Last 3 Months Results * (ABNORMAL) VITAMIN B12 AND FOLATE (12/05/2024 10:09 AM CDT) VITAMIN B12 1175(H) 200 - 1100 pg/mL [email or web address] FOLATE, SERUM >24.0 ng/mL [email or web address] Comment: Reference Range Low: <3.4 Borderline: 3.4-5.4 Normal: >5.4 FASTING:YES FASTING: YES Test Performed at: [facility] [address] [place] [address] Analia Brown MD Blood 12/05/2024 10:0 9 AM CDT 12/05/2024 10:10 AM CDT us William Barcenas MD CHEMISTRY ORDERABLES Final Resu lt [facility] [phone] [facility] [address] [place] [address] * (ABNORMAL) IRON, TIBC, AND PERCENT SATURATION (12/05/2024 10:09 AM CDT) IRON 67 45 - 160 mcg/dL [facility] TIBC 224(L) 250 - 450 mcg/dL (calc) [facility] IRON % SATURATION 30 16 - 45 % (calc) [facility] Comment: FASTING:YES FASTING: YES Test Performed at: [email or web address] [address] [place] [address] Analia Brown MD Blood 12/05/2024 10:0 9 AM CDT 12/05/2024 10:10 AM CDT William Barcenas MD CHEMISTRY ORDERABLES Final Resu lt Performing Organization Address City/[facility]/ZIP Co de Phone Number [facility] [phone] [facility] [address] * (ABNORMAL) FERRITIN (12/05/2024 10:09 AM CDT) FERRITIN 479(H) 16 - 288 ng/mL [facility] Comment: Test Performed at: [email or web address] [address] JenniferPriya Brown MD Blood 12/05/2024 10:0 9 AM CDT 12/05/2024 10:10 AM CDT William Barcenas MD CHEMISTRY ORDERABLES Final Resu lt [facility] [phone] [facility] [address] from Last 3 Months Insurance MEDICARE PART A AND B [facility] [place] L[place]URPHY [id number] [facility] [address]
--- OUTSIDE RECORDS SUMMARY | 2024-12-10 14:04 | XMS_ITS | Data Portability ---
Author Organization [place] - [facility] Badge, Main Office Address [address] [place] [address] Assessment No assessment recorded. Plan of Treatment Reminders Order Date Submit Date Provider Last Modified By Organization Details Last Modified Time Details Appointments Medicare Wellness 2024 08:00A Malena Lee NP Not available Not available Not available Lab TSH, serum or plasma 2023 024 Not available 08/22/2023 09:09:39 vitamin D, 25-hydrox y, total, serum 2023 024 Not available 08/22/2023 09:09:26 BMP, serum or plasma 2023 024 Not available 08/22/2023 09:08:39 CBC w/ auto diff 2023 024 Not available 08/22/2023 09:08:53 lipid panel, serum 2023 024 Not available 08/22/2023 09:09:04 hepatic function panel, serum 2023 024 Not available 08/22/2023 09:09:15 Referral home health referral - wound care referral Call son Stoney Amado to schedule an appointme nt. 2023 024 [facility], [address] [place], [address], 09/07/2023 09:06:45 Procedures None recorded. Surgeries None recorded. Imaging None recorded. Medication Orders atorvasta tin 40 mg tablet 2024 025 [facility] #[id number], [address], [place], [id number], 08/27/2024 08:43:08 atorvasta tin 40 mg tablet 2023 024 [facility] #[id number], [address], [place], [id number], 02/27/2024 08:44:19 clotrimaz ole-betam ethasone 1 %-0.05 % topical cream 2023 024 [facility] #46659, [address], [place], [id number], 02/27/2024 08:44:18 zinc oxide 20 % topical ointment 2023 024 [email or web address] 77 [facility] #[id number], [address], [place], [id number], 02/27/2024 08:30:41 Eliquis 5 mg tablet 2022 023 [email or web address] [facility] #[id number], [address], [place], [id number], 02/12/2023 08:52:27 Patient TargetsNo targets recorded. Patient Instructions Encounter Date Encounter Id Patient Instructions Last Modified By Organization Details Last Modified Time 02/27/2024 [id number] dementia rating scale-2* YANELIS Not available 02/27/2024 09:33:20 depression screening* YANELIS Not available 02/27/2024 09:33:10 alcohol misuse* YANELIS Not available 02/27/2024 09:33:04 multi-dimensiona l health assessment questionnaire* YANELIS Not available 02/27/2024 09:33:15 Personalized a [facility] Plan and Screening Recommendations Advance Directives - Do you have one? No I have no recommendations Advance Directives - Do we have your advance directive on file in your health record? I have no recommendations Primary Prevention/Interven tion (prevents or decreases the chance of common diseases from occurring) Smoking Risk: Non Smoker I have no recommendations Alcohol Misuse Screening: Negative I have no recommendations Weight: Appropriate try to lose 10% of your body weight Physical activity: Need more exercise/physical activity minimum of 20-30 minutes activity that causes mild breathlessness/day Nutrition: Average Eat Heart Healthy Diet Fall Risk (screened today): Low I have no recommendations Vaccines Pneumococcal: No further needed Influenza: Recommended today Chronic Disease Risks Stroke: Low Risk I have no recommendations Heart Attack: Low risk I have no recommendations Clogging of the Arteries: Low risk I have no recommendations Diabetes: Low Risk I have no recommendations Secondary Prevention/Interven tion (detects treatable diseases before they may cause symptoms, disability, or ) Breast Cancer Screening with mammogram: No screening necessary Cervical/Uterine/Ov sterling Cancer Screening: No screening necessary Osteoporosis Screening: No screening necessary Date Screening Last Performed: Colon Cancer Screening: No screening necessary Date Screening Last Performed: Eye Disease Screening: Recommended today Dementia Risk: Low I have no recommendations Depression Screening: Negative I have no recommendations [email or web address] Not available 02/26/2024 15:01:32 Reason for Referral Home Health Referral for Pre ssure injury of sacral region of back wound care referral Call son Stoney Amado [phone] to schedule an appointment. Referring Physician: Nohemy Valdez, Family Medicine, Encounter Date: 08/22/2023 Results Created Date Observation Date Name Description Value Unit Range Abnormal Flag Note LastModifiedBy Organization Detail LastModifiedTime 08/22/19 24 08/22/2023 CBC/C OMPLE TE BLD COUNT W/DIF F white blood cells 1.9 x10'3 /uL 4.2-10 .8 critical low Not Available [facility] (Lab) [address] [place], [address], 08/22/2023 22:01:42 08/22/19 24 08/22/2023 CBC/C OMPLE TE BLD COUNT W/DIF F red blood cells 4.21 x10'6 /uL 3.80-5 .20 Not Available [facility] (Lab) [address] [place], [address], 08/22/2023 22:01:42 08/22/19 24 08/22/2023 CBC/C OMPLE TE BLD COUNT W/DIF F hemoglobin 12.7 g/dL 12.0-1 5.6 Not Available [facility] (Lab) [address] [place], [address], 08/22/2023 22:01:42 08/22/19 24 08/22/2023 CBC/C OMPLE TE BLD COUNT W/DIF F hematocrit 39.8 % 35.7-4 5.7 Not Available [facility] (Lab) [address] [place], [address], 08/22/2023 22:01:42 08/22/19 24 08/22/2023 CBC/C OMPLE TE BLD COUNT W/DIF F mean red cell volume 94.5 fL 82.0-9 9.0 Not Available [facility] (Lab) [address] [place], [address], 08/22/2023 22:01:42 08/22/19 24 08/22/2023 CBC/C OMPLE TE BLD COUNT W/DIF F mean red cell hemoglobin 30.2 pg 27.0-3 3.0 Not Available [facility] (Lab) [address] [place], [address], 08/22/2023 22:01:42 08/22/19 24 08/22/2023 CBC/C OMPLE TE BLD COUNT W/DIF F mean RBC HGB concentratio n 31.9 g/dL 31.0-3 6.0 Not Available [facility] (Lab) [address] [place], [address], 08/22/2023 22:01:42 08/22/19 24 08/22/2023 CBC/C OMPLE TE BLD COUNT W/DIF F red cell distribution width 13.5 % 11.8-1 5.5 Not Available [facility] (Lab) [address] [place], [address], 08/22/2023 22:01:42 08/22/19 24 08/22/2023 CBC/C OMPLE TE BLD COUNT W/DIF F platelets 335 x10'3 /uL 150-40 0 Not Available [facility] (Lab) [address] [place], [address], 08/22/2023 22:01:42 08/22/19 24 08/22/2023 CBC/C OMPLE TE BLD COUNT W/DIF F mean platelet volume 10.0 fL 9.0-12 .4 Not Available [facility] (Lab) [address] [place], [address], 08/22/2023 22:01:42 08/22/19 24 08/22/2023 CBC/C OMPLE TE BLD COUNT W/DIF F neutrophils 23 % 39.0-7 2.0 low Not Available [facility] (Lab) [address] [place], [address], 08/22/2023 22:01:42 08/22/19 24 08/22/2023 CBC/C OMPLE TE BLD COUNT W/DIF F bands 1 % 0-3 Not Available [facility] (Lab) [address] [place], [address], 08/22/2023 22:01:42 08/22/19 24 08/22/2023 CBC/C OMPLE TE BLD COUNT W/DIF F lymphocytes 47 % 16.0-4 7.0 Not Available [facility] (Lab) [address] [place], [address], 08/22/2023 22:01:42 08/22/19 24 08/22/2023 CBC/C OMPLE TE BLD COUNT W/DIF F monocytes 27 % 5.0-12 .0 high Not Available [facility] (Lab) [address] [place], [address], 08/22/2023 22:01:42 08/22/19 24 08/22/2023 CBC/C OMPLE TE BLD COUNT W/DIF F eosinophils 2 % 1.0-7. 0 Not Available [facility] (Lab) [address] [place], [address], 08/22/2023 22:01:42 08/22/19 24 08/22/2023 CBC/C OMPLE TE BLD COUNT W/DIF F neutrophils, absolute count 0.52 x10'3 /uL 1.5-8. 0 low Not Available [facility] (Lab) [address] [place], [address], 08/22/2023 22:01:42 08/22/19 24 08/22/2023 CBC/C OMPLE TE BLD COUNT W/DIF F nucleated red blood cells 0.0 % -0 Not Available [facility] (Lab) [address] [place], [address], 08/22/2023 22:01:42 08/22/19 24 08/22/2023 CBC/C OMPLE TE BLD COUNT W/DIF F NRBC# 0.00 x10'3 /uL Not Available [facility] (Lab) [address] [place], [address], 08/22/2023 22:01:42 08/22/19 24 08/22/2023 BASIC METAB OLIC PANEL sodium 136 mmol/ L 137-14 5 low Not Available [facility] (Lab) [address] [place], [address], 08/22/2023 20:51:30 08/22/19 24 08/22/2023 BASIC METAB OLIC PANEL potassium 4.9 mmol/ L 3.5-5. 1 Not Available [facility] (Lab) [address] [place], [address], 08/22/2023 20:51:30 08/22/19 24 08/22/2023 BASIC METAB OLIC PANEL chloride 99 mmol/ L 98-107 Not Available [facility] (Lab) [address] [place], [address], 08/22/2023 20:51:30 08/22/19 24 08/22/2023 BASIC METAB OLIC PANEL carbon dioxide 30 mmol/ L 22-30 Not Available [facility] (Lab) [address] [place], [address], 08/22/2023 20:51:30 08/22/19 24 08/22/2023 BASIC METAB OLIC PANEL anion gap 11.9 mmol/ L 14-22 low Not Available [facility] (Lab) [address] [place], [address], 08/22/2023 20:51:30 08/22/19 24 08/22/2023 BASIC METAB OLIC PANEL glucose 104 mg/dL 70-99 high Not Available [facility] (Lab) [address] [place], [address], 08/22/2023 20:51:30 08/22/19 24 08/22/2023 BASIC METAB OLIC PANEL BUN 38 mg/dL 8-19 high Not Available [facility] (Lab) [address] [place], [address], 08/22/2023 20:51:30 08/22/19 24 08/22/2023 BASIC METAB OLIC PANEL creatinine 2.23 mg/dL 0.66-1 .25 high Not Available [facility] (Lab) [address] [place], [address], 08/22/2023 20:51:30 08/22/19 24 08/22/2023 BASIC METAB OLIC PANEL GFR 21 Refer ence Range : Hermann ge GFR Healt hy Adult : >60 mL/mi n/1.7 3 m2 Chron ic Kidne y Disea se: 15-60 mL/mi n/1.7 3 m2 Kidne y Failu re: <15/m L/min /1.73 m2 www.n iddk. nih.g ov The MDRD study equat ion has not been valid ated in child placido <18 years of age; pregn ant women ; the elder ly >85 years of age; or in some racia l or ethni c subgr oups, such as Hispa nics. Outsi de the valid ated romulo eters , estim ated GFR is less accur ate, requi ring clini renae judgm ent on a case- by-ca se basis . Clini renae inter preta tion for other races and ages must be made by the clini fabi. The MDRD study equat ion has not been valid ated for the evalu ation of serum creat inine relat ed to nutri lalitha l statu s or medic ation usage . For perso ns <18 years of age, a pedia tric GFR calcu lator is avail able on the [facility] websi te: https ://lucy mcqueen.darius sears.o rg/pr sudheer waller s/pardeepo qi/gf r_cal culat or Not Available [facility] (Lab) [address] [place], [address], 08/22/2023 20:51:30 08/22/1908/22/2023 BASIC METAB OLIC PANEL calcium 9.6 mg/dL 8.4-10 .2 Not Available [facility] (Lab) [address] [place], [address], 08/22/2023 20:51:30 08/22/1908/22/2023 LIPID PANEL cholesterol 109 mg/dL 140-19 9 low NIH YESENIA NSUS RECOM MENDA TION FOR TONIO STERO L: ADULT CHILD LOW RISK: <200 <170 BORDE RLINE : <200- 239 ----- HIGH RISK: >240 >200 Not Available [facility] (Lab) [address] [place], [address], 08/22/2023 20:51:35 08/22/19 24 08/22/2023 LIPID PANEL triglyceride s 104 mg/dL 0-150 NIH YESENIA NSUS REPOR T RECOM MENDA TION FOR TRIGL YCERI DARRYN: ADULT CHILD LOW RISK: <150 ----- BODER LINE: 150-1 99 ----- HIGH RISK: >200 ----- Not Available [facility] (Lab) [address] [place], [address], 08/22/2023 20:51:35 08/22/19 24 08/22/2023 LIPID PANEL HDL cholesterol 47 mg/dL 40- Not Available [facility] (Lab) [address] [place], [address], 08/22/2023 20:51:35 08/22/19 24 08/22/2023 LIPID PANEL LDL cholesterol, calculated 41 mg/dL 0-130 NIH YESENIA NSUS REPOR T RECOM MENDA TIONS FOR LDL: ADULT CHILD LOW RISK <130 <110 (OPTI MAL LDL) <100 ----- HOSSEINDE RLINE : 130-1 59 ----- HIGH RISK: >160 >130 A TRIGL YCERI DE RESUL T >400 INVAL IDATE S THE CALCU LATIO N FOR LDL FRACT IONAT ION - THE LDL RESUL T WILL NOT BE REPOR BIANCA. Not Available [facility] (Lab) [address] [place], [address], 08/22/2023 20:51:35 08/22/19 24 08/22/2023 HEPAT IC/LI SERGEY PANEL alkaline phosphatase 96 U/L 38-126 Not Available [facility] (Lab) [address] [place], [address], 08/22/2023 20:51:40 08/22/19 24 08/22/2023 HEPAT IC/LI SERGEY PANEL alanine aminotransfe rase 19 U/L 0-35 Not Available [facility] (Lab) [address] [place], [address], 08/22/2023 20:51:40 08/22/19 24 08/22/2023 HEPAT IC/LI SERGEY PANEL aspartate aminotransfe rase 29 U/L 15-37 Not Available [facility] (Lab) [address] [place], [address], 08/22/2023 20:51:40 08/22/19 24 08/22/2023 HEPAT IC/LI SERGEY PANEL bilirubin, total 0.50 mg/dL 0.20-1 .30 Not Available [facility] (Lab) [address] [place], [address], 08/22/2023 20:51:40 08/22/19 24 08/22/2023 HEPAT IC/LI SERGEY PANEL bilirubin, conjugated (direct) 0.00 mg/dL 0.00-0 .30 Not Available [facility] (Lab) [address] [place], [address], 08/22/2023 20:51:40 08/22/19 24 08/22/2023 HEPAT IC/LI SERGEY PANEL biliurubin,u ncong. (indirect) 0.30 mg/dL 0.00-1 .1 Not Available [facility] (Lab) [address] [place], [address], 08/22/2023 20:51:40 08/22/19 24 08/22/2023 HEPAT IC/LI SERGEY PANEL total protein 6.2 g/dL 6.3-8. 2 low Not Available [facility] (Lab) [address] [place], [address], 08/22/2023 20:51:40 08/22/19 24 08/22/2023 HEPAT IC/LI SERGEY PANEL albumin 3.8 g/dL 3.0-4. 4 Not Available [facility] (Lab) [address] [place], [address], 08/22/2023 20:51:40 08/22/19 24 08/22/2023 HEPAT IC/LI SERGEY PANEL globulin 2.4 g/dL 2.6-4. 2 low Not Available [facility] (Lab) [address] [place], [address], 08/22/2023 20:51:40 08/22/19 24 08/22/2023 HEPAT IC/LI SERGEY PANEL A/G ratio 1.6 ratio 1.0-2. 0 Not Available [facility] (Lab) [address] [place], [address], 08/22/2023 20:51:40 08/22/19 24 08/22/2023 TSH thyroid-stim ulating hormone 1.540 uIU/m L 0.465- 4.680 Not Available [facility] (Lab) [address] [place], [address], 08/22/2023 21:01:53 08/22/19 24 08/22/2023 VITAM IN D 25-HY DROXY [id number] 60.1 NG/mL 30-100 Vitam in D Statu s: Defic ient: <20 ng/mL Insuf ficie nt: 20-29 ng/mL Suffi cient : 30-10 0 ng/mL Not Available [facility] (Lab) [address] [place], [address], 08/22/2023 21:06:02 05/07/20 23 05/07/2023 US, duple x, carot id arter y No observ ation record ed. [email or web address] [facility] [address], [place], [address], 05/08/2023 09:03:29 05/07/20 23 05/07/2023 US, echoc ardio gram, trans thora cic, compl ete No observ ation record ed. [email or web address] [facility] [address], [place], [address], 05/08/2023 09:03:46 10/08/19 24 10/08/2023 US, doppl er, arter ial No observ ation record ed. [email or web address] [facility] [address], [place], [address], 11/26/2023 16:10:58 Result Notes None recorded. 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 Not Available [facility] 3 00:53:09 Urinary tract infectious disease 68417010 Active Not Available [facility] 3 00:53:09 Acid reflux 617276190 Active 2017 Not Available [facility] 3 00:53:09 Rheumatoid arthritis 82700479 Active 2017 Not Available [facility] 3 00:53:09 Kidney disease 94454563 Active 2017 Not Available [facility] 3 00:53:09 Esophageal dysphagia 55358032 Active 2022 MARS Osborn [address], [place], [address] , [facility] 3 08:33:25 Constipation 28372663 Active 2022 MARS Osborn [address], [address], [place], [address] , [facility] 3 08:36:52 Hyperlipidemi a 57412520 Active 2023 Nohemy Valdez MD [address], [place], [address] , [facility] 4 16:03:38 Pressure injury of sacral region of back 339178816 Active 2023 Nohemy Valdez MD [address], [place], [address] , [facility] 4 08:45:01 Vitamin D deficiency 83473131 Active 2023 Nohemy Valdez MD [address], [place], [address] , [facility] 4 08:54:22 Unintentional weight loss 452960484 Active 2023 Nohemy Valdez MD [address], [place], [address] , [facility] 4 08:54:30 Hypoxia 186585019 Active 2023 Nohemy Valdez MD [address], [place], [address] , [facility] 4 09:05:03 Skin irritation 263631621 Active 2023 PRIMITIVO Hartley [address] [place], [address] , [facility] 4 08:43:15 Problem Notes None recorded. Procedures Surgical History Date Name Laterality Status Provider Name and Address Organization Details Recorded Time 4 Medicare Wellness CPT Code, subsequent completed Kati Noguera RN [employer] 02/26/2024 14:44:35 3 Medicare Wellness CPT Code, subsequent completed MARS Osborn [address] [address], [place], [address], [facility] 08/09/2022 08:30:20 Imaging Results None recorded. Procedure Notes None recorded. Medical Equipment None Reported. Allergies Allergen ID Allergen Name Allergen Category Reaction Reaction Severity Criticality Documentation Date Start Date Code Code System Note Provider Name and Address Organization Details Recorded Time 1116 lisinopri l medicatio n Not available Not available Not available 08/01/2022 72681 RxNorm Not Available [facility] 3 01:00:59 1117 egg extract food,medi cation Not available Not available Not available 08/01/2022 96755 15 RxNorm Nohemy Valdez MD [address], [place], [address], [facility] 4 08:50:53 1118 Diovan medicatio n Not available Not available Not available 08/01/2022 22870 2 RxNorm Not Available [facility] 3 01:00:59 Medications Name Sig Start Date Stop Date Status Note LastModified by Organization Details LastModified Time furosemide 40 mg tablet 10/08 completed renal Not Available Not Available Not Available atorvastat in 40 mg tablet TAKE 1 TABLET BY MOUTH EVERY DAY 2024 active Not Available Not Available Not Avai lable Augmentin 875 mg-125 mg tablet Take 1 tablet every 12 hours by oral route for 10 days. 02/06 completed Not Available Not Available Not Available atorvastat in 80 mg tablet Take 1 tablet every day by oral route for 90 days. active Not Available Not Available No t Available prednisone 10 mg tablet 07/21 completed Not Available Not Available Not Available pravastati n 40 mg tablet 02/26 completed Not Available Not Available Not Available sucralfate 1 gram tablet 07/21 completed Not Available Not Available Not Available lisinopril 20 mg tablet TK 1 T PO QD active Not Available Not Available No t Available ondansetro n HCl 4 mg tablet TAKE 1 TABLET BY MOUTH THREE TIMES DAILY NEEDED 08/21 completed Not Available Not Available Not Available prednisone 20 mg tablet 08/21 completed Not Available Not Available Not Available prednisone 5 mg tablet 07/21 completed Not Available Not Available Not Available metolazone 5 mg tablet 11/20 completed Not Available Not Available Not Available amoxicilli n 250 mg-potassi um clavulanat e 125 mg tablet TAKE 1 TABLET BY MOUTH TWICE DAILY 08/27 completed Not Available Not Available Not Available azathiopri ne 50 mg tablet TAKE 1/2 TABLET BY MOUTH EVERY OTHER DAY 08/21 completed Not Available Not Available Not Available ciprofloxa elieser 250 mg tablet TAKE 1 TABLET BY MOUTH TWICE DAILY UNTIL ALL TAKEN 02/26 completed Not Available Not Available Not Available levofloxac in 250 mg tablet 07/21 completed Not Available Not Available Not Available amlodipine 5 mg tablet active Not Available Not Available Not Available ciprofloxa elieser 500 mg tablet TK 1 T PO AFTER DIALYSIS ON 12/22 AND AGAIN ON 12/24 THEN STOP active Not Available Not Available No t Available zinc oxide 20 % topical ointment apply to affected area bid 02/26 completed Not Available Not Available Not Available ondansetro n 8 mg disintegra ting tablet Place 1 tablet every 8 hours by translin gual route as needed. 08/21 completed Not Available Not Available Not Available oxycodone- acetaminop hen 5 mg-325 mg tablet 08/21 completed Not Available Not Available Not Available potassium chloride ER 20 mEq tablet,ext ended release(pa rt/cryst) 10/08 completed renal Not Available Not Available Not Available famotidine 20 mg tablet 08/21 completed Not Available Not Available Not Available pravastati n 80 mg tablet Take 1 tablet every day by oral route for 90 days. 08/21 completed Not Available Not Available Not Available prednisolo ne acetate 1 % eye drops,susp ension 08/21 completed Not Available Not Available Not Available furosemide 80 mg tablet Take 1 tablet twice daily by oral route. 02/12 completed Not Available Not Available Not Available sodium bicarbonat e 650 mg tablet TK 1 T PO QD 10/08 completed caused dry heaves Not Available Not Available Not Available amlodipine 10 mg tablet Take 1 tablet every day by oral route for 90 days. 11/20 completed Not Available Not Available Not Available pantoprazo le 40 mg tablet,del ayed release 07/21 completed Not Available Not Available Not Available clotrimazo le-betamet hasone 1 %-0.05 % topical cream APPLY TOPICALL Y TO THE AFFECTED AND SURROUND ING AREAS TWICE DAILY IN THE MORNING AND IN THE EVENING active Not Available Not Available No t Available lisinopril 10 mg tablet TAKE 1 TABLET BY MOUTH FOUR DAYS A WEEK ON NON-DIAL YSIS DAYS active Not Available Not Available No t Available promethazi ne 25 mg tablet Take 1 tablet every 8 hours by oral route as needed for 15 days. 08/21 completed Not Available Not Available Not Available losartan 25 mg tablet 08/21 completed Not Available Not Available Not Available nitroglyce rin 0.4 mg sublingual tablet active Not Available Not Available Not Available hydrocorti sone 2.5 % topical cream APPLY THIN LAYER TOPICALL Y TO THE AFFECTED AREA TWICE DAILY FOR ITCHING active Not Available Not Available No t Available pravastati n 20 mg tablet active Not Available Not Available Not Available lisinopril 5 mg tablet active Not Available Not Available Not Available furosemide 20 mg tablet 08/02 completed Not Available Not Available Not Available gabapentin 100 mg capsule 04/02 completed Not Available Not Available Not Available metoprolol succinate ER 25 mg tablet,ext ended release 24 hr Take one tablet PO daily for BPs greater than 150/90 active Not Available Not Available No t Available ergocalcif grzegorz (vitamin D2) 1,250 mcg (50,000 unit) capsule Take 1 capsule every week by oral route. 02/26 completed Not Available Not Available Not Available hydroxychl oroquine 200 mg tablet 08/21 completed Not Available Not Available Not Available levofloxac in 500 mg tablet 07/21 completed Not Available Not Available Not Available methylpred nisolone 4 mg tablets in a dose pack active Not Available Not Available Not Available albuterol sulfate HFA 90 mcg/actuat ion aerosol inhaler Inhale 2 puffs q 4hrs prn sob 08/21 completed Not Available Not Available Not Available clindamyci n phosphate 1 % topical solution ANNI 2 GTS D TO PROCEDUR E SITE active Not Available Not Available No t Available oxycodone 5 mg tablet 08/21 completed Not Available Not Available Not Available ezetimibe 10 mg tablet active Not Available Not Available Not Available nitrofuran toin monohydrat e/macrocry stals 100 mg capsule TK 1 C PO Q 12 H FOR 7 DAYS 07/21 completed Not Available Not Available Not Available calcium acetate(ph osphate binders) 667 mg capsule 03/12 completed Not Available Not Available Not Available Antacid 200 mg (as calcium carbonate 500 mg) chewable tablet [employer] T[employer] SPECIALIST ONE T PO Q 6 H PRF INGESTIO N. 08/21 completed Not Available Not Available Not Available aspirin Take one 81mg tablet daily 2018 active Not Available Not Available Not Avai lable Nexium 08/21 completed Not Available Not Available Not Available sevelamer carbonate 800 mg tablet 03/12 completed Not Available Not Available Not Available Kionex (with sorbitol) 15 gram-19.3 gram/60 mL oral suspension 03/12 completed Not Available Not Available Not Available Uloric 40 mg tablet 04/02 completed Not Available Not Available Not Available Uloric 80 mg tablet 07/21 completed Not Available Not Available Not Available Suprep Bowel Prep Kit 17.5 gram-3.13 gram-1.6 gram oral solution 07/21 completed Not Available Not Available Not Available Vitamin D3 50 mcg (2,000 unit) capsule TK 1 T PO DAILY 02/26 completed Not Available Not Available Not Available ICaps AREDS Take 1 tablet BID with food 2018 active Not Available Not Available Not Avai lable Eliquis 5 mg tablet TAKE 1/2 (ONE-SAMANTHA F) TABLET BY MOUTH TWICE DAILY active Not Available Not Available No t Available Eliquis 2.5 mg tablet Take 1 tablet twice a day by oral route. 02/26 completed Not Available Not Available Not Available Prolensa 0.07 % eye drops 08/21 completed Not Available Not Available Not Available Humira(CF) 40 mg/0.4 mL subcutaneo us syringe kit Inject 0.4 mL every 2 weeks by subcutan eous route. 08/21 completed Not Available Not Available Not Available Vitals Date Recorded Body height Body mass index (BMI) Body weight Body temperature Heart rate Oxygen saturation Oxygen saturation in Arterial blood by Pulse oximetry Systolic And Diastolic Provider Name and Address Organization Details Last Updated DateTime 4 172.72 cm 18.9 kg/m2 91108.4 5 g 97.3 [degF] 103 /min 93 % 93 % 110/64 mm[Hg] Gregorio Marina RN [place] [facility] 4 08:21:09 Date Recorded Body height Body mass index (BMI) Body weight Body temperature Heart rate Oxygen saturation Oxygen saturation in Arterial blood by Pulse oximetry Systolic And Diastolic Provider Name and Address Organization Details Last Updated DateTime 5 172.72 cm 19.3 kg/m2 62273.2 3 g 98.5 [degF] 97 /min 93 % 93 % 118/60 mm[Hg] Rosario Nunez MA [facility] [employer] [facility] 5 08:29:33 Date Recorded Body temperature Provider Name a nd Address Organization Details Last Updated DateTime 10/17/2023 97.6 [degF] Nohemy Valdez MD [address] [place] [address], [facility] [address], [place], [address], [facility] [employer] [facility] 10/17/2023 11:17:40 Date Recorded Body height Body mass index (BMI) Body weight Heart rate Oxygen saturation Oxygen saturation in Arterial blood by Pulse oximetry Systolic And Diastolic Provider Name and Address Organization Details Last Updated DateTime 4 172.72 cm 19.3 kg/m2 50022.2 3 g 100 /min 91 % 91 % 112/62 mm[Hg] Gregorio Marina RN [facility] [employer] [facility] 4 11:16:46 Date Recorded Body height Body mass index (BMI) Body weight Body temperature Heart rate Oxygen saturation Oxygen saturation in Arterial blood by Pulse oximetry Systolic And Diastolic Provider Name and Address Organization Details Last Updated DateTime 3 172.72 cm 19.3 kg/m2 52963.2 3 g 94 [degF] 99 /min 94 % 94 % 112/60 mm[Hg] Maria A Lemus RN [facility] [employer] [facility] 3 08:19:10 Date Recorded Body height Body mass index (BMI) Body weight Body temperature Heart rate Oxygen saturation Oxygen saturation in Arterial blood by Pulse oximetry Systolic And Diastolic Provider Name and Address Organization Details Last Updated DateTime 4 172.72 cm 18.9 kg/m2 09777.4 5 g 96.9 [degF] 112 /min 96 % 96 % 110/64 mm[Hg] Gregorio Marina RN [facility] [employer] [facility] 4 08:28:28 Social History Question Answer Notes LastModified by Organizat ion Details LastModified Time Tobacco Smoking Status Former Smoker Not Available [employer] 08/01/2022 00:45:10 Do You Wear A Helmet When Biking? No MIGRATION.[id number] Information not available 08/01/2022 What Is Your Level Of Caffeine Consumption? Occasional MIGRATION.[id number] Information not available 08/01/2022 In The 14 Days Before Symptom Onset, Have You Had Close Contact With A Laboratory-confir med COVID-19 While That Case Was Ill? No MIGRATION.[id number] 5623 Information not available 08/01/2022 In The 14 Days Before Symptom Onset, Have You Had Close Contact With A Person Who Is Under Investigation For COVID-19 While That Person Was Ill? No MIGRATION.485070 9714 Information not available 08/01/2022 What Type Of Diet Are You Following? REGULAR MIGRATION.834140 5649 Information not available 08/01/2022 What Is The Highest Grade Or Level Of School You Have Completed Or The Highest Degree You Have Received? [id number] MIGRATION.812887 3207 Information not available 08/01/2022 Have There Been Any Changes To Your Family Or Social Situation? No MIGRATION.212288 2758 Information not available 08/01/2022 When Did You Quit Smoking? 6-10yearssince lastcigarette MIGRATION.259144 6192 Information not available 08/01/2022 Are There Any Guns Present In Your Home? No MIGRATION.544712 6801 Information not available 08/01/2022 Do You Use Insect Repellent Routinely? No MIGRATION.893972 2865 Information not available 08/01/2022 What Was The Date Of Your Most Recent Tobacco Screening? 08/27/2024 Information not available 08/27/2024 Do You Have Any Pets? No MIGRATION.201259 7669 Information not available 08/01/2022 What Is Your Relationship Status? MIGRATION.911190 2597 Information not available 08/01/2022 Do You Use Your Seat Belt Or Car Seat Routinely? Yes MIGRATION.857545 9443 Information not available 08/01/2022 Do You Have Smoke And Carbon Monoxide Detectors In Your Home? Yes MIGRATION.484940 8999 Information not available 08/01/2022 Are You Passively Exposed To Smoke? No MIGRATION.877947 9868 Information not available 08/01/2022 Are There Any Smokers In Your House? No MIGRATION.468792 9547 Information not available 08/01/2022 Do You Participate In Social Media? No MIGRATION.267364 0938 Information not available 08/01/2022 Do You Use Sunscreen Routinely? Yes MIGRATION.218893 1833 Information not available 08/01/2022 Has Tobacco Cessation Counseling Been Provided? No MIGRATION.061792 8408 Information not available 08/01/2022 Have You Recently Traveled Abroad? No MIGRATION.823470 7338 Information not available 08/01/2022 Are You Currently In School? No Information not available 08/27/2024 Do You Have Any Dietary Restrictions? No MIGRATION.810390 3408 Information not available 08/01/2022 Sex: Unknown Functional Status Question Answer Note LastModified by Organizat ion Details LastModified Time Do you use any illicit or recreational drugs? No MIGRATION.[id number] 26 Information not available 08/01/2022 Do you or have you ever used any other forms of tobacco or nicotine? No MIGRATION.68866048 26 Information not available 08/01/2022 What is your level of alcohol consumption? None MIGRATION.68100151 26 Information not available 08/01/2022 Are you currently employed? No Information not available 08/27/2024 Are you able to walk? YESLIMIT MIGRATION.26751314 26 Information not available 08/01/2022 What is your exercise level? None MIGRATION.77047921 26 Information not available 08/01/2022 Mental Status Question Answer Note LastModified by Organizat ion Details LastModified Time Do you feel stressed (tense, restless, nervous, or anxious, or unable to sleep at night)? [id number] MIGRATION.[id number] 6 Information not available 08/01/2022 Family History Nothing Reported. Medical History No medical history recorded. Gynecological History Statement/Question Response How many live births 2 Date of Last Colonoscopy Most Recent Bone Density Date of LMP Dislike of Light during Menstrual Headac he N Menses Monthly N Date of Last Pap Smear Current Control Method Menopause Most Recent Mammogram Obstetrics History GPAL:G 2 P 2 0 0 2 Type Value Multiple Births 0 Full Term 2 Induced 0 Spontaneous 0 Premature 0 Living 2 Ectopics 0 Total 2 Immunizations Vaccine Type Date Status Note Provider Nam e and Address Organization Details Recorded Time COVID-19, mRNA, LNP-S, PF, 30 mcg/0.3 mL dose 1 completed Not Available [facility] 08/01/2022 01:00:46 COVID-19, mRNA, LNP-S, PF, 30 mcg/0.3 mL dose 1 completed Not Available [facility] 08/01/2022 01:00:46 Influenza, split virus, quadrivalent, preservative 9 completed Not Available [facility] 08/01/2022 01:00:46 SARS-COV-2 (COVID-19) vaccine, UNSPECIFIED 1 completed Not Available [facility] 08/01/2022 01:00:46 Pneumococcal conjugate PCV 13 9 completed Not Available [facility] 08/01/2022 01:00:46 pneumococcal polysaccharide PPV23 8 completed Not Available [facility] 08/01/2022 01:00:46 Tdap 0 completed Not Available [facility] 08/01/2022 01:00:46 Past Encounters Encounter ID Performer Location Encounter Start Date Encounter Closed Date Diagnosis/Indication Diagnosis SNOMED-CT Code Diagnosis ICD10 Code Diagnosis Note [id number] [facility] [place] [address] [place] [address] 08/02/2020 00:00:00 08/03/2020 19:56:[id number] [facility] Primary [facility] [place] [address] [place] [address] 02/07/2021 00:00:00 02/07/2021 14:03:[id number] [facility] Primary [facility] [place] [address] [place] [address] 08/03/2021 00:00:00 08/03/2021 13:13:[id number] [facility] Primary [facility] [place] [address] [place] [address] 12/12/2021 00:00:00 12/12/2021 13:57:[id number] [facility] Primary Care [place] brabour [address] [facility] [address] [place] [address] 02/06/2022 00:00:00 02/06/2022 11:02:[id number] [facility] Primary Care [place] barbour [address] [facility] [address] [place] [address] 08/09/2022 08:08:40 08/09/2022 08:53:18 Adult health examination 047232748 Z00.01 Screening for disorder 847554126 Z13.9 Esophageal dysphagia 408 82249 R13.19 ChronicPt reports previous esophageal dilations unsuccessf ul.Will refer to GI for further evaluation /tx. Advised to cut food up smaller, chew food thoroughly , and drink water frequently between bites of food. History of cerebrovascular accident 497478541 Z86.73 stable with blood thinners. No c/o BRIAN, cp, sob, mental status changes, new or worsening weakness. No difficulty with speech. Continue with Eliquis 2.5mg BID (cuts 5mg dose in half). Constipation 23562525 K5 9.00 New problemPat ient presents with constipati on. Recommend increasing oral fluids with non-caffei nated, non-alcoho lic beverages. Increase daily dietary fiber. May drink prune juice or pear juice to initiate bowel regularity and then decrease as needed to maintain a once daily or every other day bowel habit. Tylenol or Motrin may be used as needed for cramping. High fiber diet with whole grains, fruits and veggies. Fiber supplement with Metamucil or Citracel. Increase water, fluid intake-Rec ommend at least 6-8 8oz glasses day. Avoid straining. May take miralax BID. Follow up as needed, or sooner if new symptoms develop. Kidney disease 95051303 N08 ChronicCon tinue to f/u with renal (Dr. Quintanilla) as scheduled. Dialysis 3x/week. Dialysis fistula in left arm patent. Strong bruit. [id number] Nohemy Valdez MD [facility] Primary Care [facility] [address] [facility] [address] [place] [address] 02/12/2023 08:10:06 02/12/2023 08:59:31 Esophageal dysphagia 51774574 R13.19 ChronicPt reports previous esophageal dilations unsuccessf ul.Referre d to GI previously , but pt declines. Advised to cut food up smaller, chew food thoroughly , and drink water frequently between bites of food. Constipation 36658854 K5 9.00 StablePati ent presents with well controlled constipati on. Continue with increased oral fluids with non-caffei nated, non-alcoho lic beverages. Increase daily dietary fiber. May drink prune juice or pear juice to initiate bowel regularity and then decrease as needed to maintain a once daily or every other day bowel habit. Tylenol or Motrin may be used as needed for cramping. High fiber diet with whole grains, fruits and veggies. Fiber supplement with Metamucil or Citracel. Maintain good water/flui d intake. Recommend at least 6-8 8oz glasses day. Avoid straining. May take miralax BID. Follow up as needed, or sooner if new symptoms develop. History of cerebrovascular accident 265263195 Z86.73 Stable with blood thinners.N o c/o BRIAN, cp, sob, mental status changes, new or worsening weakness. No difficulty with speech. Continue with Eliquis 2.5mg BID (cuts 5mg dose in half). Kidney disease 91603666 N08 ChronicCon tinue to f/u with renal (Dr. Quintanilla) as scheduled. Dialysis 3x/week (MWF). Dialysis fistula in left arm patent. Strong bruit. [id number] Nohemy Valdez MD [facility] Primary Care [address] [place] [address] 08/22/2023 08:09:57 08/22/2023 09:00:11 Chronic kidney disease stage 3 741622138 N18.30 Hyperlipidemia 59217495 E78.5 Pressure i njury of sacral region of back 456494479 L89.159 stage 1 ulcerTry to increase protein intake by 30 grams per dayZinc oxide bid to affected areaStand 5 minutes each hourAir mattress orderedHom e health referral wound care orderedf/u in 6-8 weeks or sooner if needed Vitamin D deficiency 347 03983 E55.9 Unintentio nal weight loss 416790530 R63.4 Hypoxia 293637545 R09.02 resolved nowok to discontinu e oxygen and equipment [id number] Nohemy Valdez MD [facility] Primary Care [address] [address] 10/17/2023 11:11:18 10/17/2023 11:28:56 Pressure injury of sacral region of back 220971796 L89.159 stage 1 ulcerTry to increase protein intake by 30 grams per dayZinc oxide bid to affected areaStand 5 minutes each hourAir mattress orderedHom e health referral wound care orderedf/u in 6-8 weeks or sooner if needed 10/17/23: healed well, f/u prn Chronic ki dney disease stage 3 169446391 N18.30 has dialysis 3x per weeklabs done at least once per week Unintentio nal weight loss 611879584 R63.4 resolved nowf/u in 6 [id number] [facility] Primary Care [address] [address] 02/27/2024 08:21:24 02/27/2024 08:49:17 Adult health examination 482049839 Z00.00 Discussed medication compliance and routine follow up.Discuss ed healthy diet and routine exercise.David saldivarwed vaccine records and made recommenda tions as needed.Enc ouraged annual eye and dental exams, as well as twice yearly dental cleanings. Will check screening labs as listed below. Screening for disorder 675388326 Z13.9 Chronic ki dney disease stage 3 908174524 N18.30 dialysis MWF Hyperlipidemia 06916274 E78.5 Will refill medication s as listed below.Labs are UTD. Rheumatoid arthritis 698 73041 M06.9 Vitamin D deficiency 347 61332 E55.9 Skin irritation 48657082 7 L30.[id number] [facility] Primary Care [address] [address] 08/27/2024 08:22:45 08/27/2024 08:43:12 Chronic kidney disease stage 3 220292543 N18.30 dialysis MWF Hyperlipidemia 50723962 E78.5 Will refill medication s as listed below.Labs are UTD. Rheumatoid arthritis 698 74475 M06.9 Vitamin D deficiency 347 83629 E55.9 Health Concerns Section Related Observation LastModified by Organization Detai ls LastModified Time None Recorded Concern Status LastModified by Organization Details LastModified Time None Recorded Advance Directives Directive None Recorded Payers Insurance Date Sequence Insurance Name Policy Number Policy Trejo Covered Member ID Trejo Member ID Guarantor Name 08/27/2024 1 [place] Chichi Amado [id number] Chichi Amado 08/27/2024 2 [place] [id number] Chichi Amado [id number] Chichi Amado Notes Date Note Type Note Provider Name and Address Organization Details Recorded Time 02/12/2023 text/html 1. Pt in office with son for 6 month f/u appt. Pts son reports nephrology took her off the furosemide a couple of months ago and she has been getting labs done weekly. Still going to dialysis MWF.2. Pts son reports pt is not hearing well. Pt states she is fine.3. Pt states she hasn't been having any issues with swallowing lately. Didn't go to see GI as previously recommended. MARS Osborn [address] [employer], [address], [place], [address], [employer] 02/12/2023 18:45:39 08/22/2023 text/html Here to f/u accompanied by her son she has sore on her tailbone, has been present for several months and getting worse. Can be painful. She is putting hydrocortisone cream that she had on hand. Has lesion on right neck x 7-8 months, has gotten bigger, no tenderness, no drainage. appetite is down but stable, weight down about 3 pounds she was given oxygen and equipment in the past, does not need it now and would like the equipment picked up Nohemy Valdez MD [address], [address], [place], [address], [employer] 08/22/2023 09:06:00 10/17/2023 text/html Here to f/u accompanied by her son she has sore on her tailbone, has been present for several months and getting worse. Can be painful. She is putting hydrocortisone cream that she had on hand. Has lesion on right neck x 7-8 months, has gotten bigger, no tenderness, no drainage. appetite is down but stable, weight down about 3 pounds 10/17/23: sore is well healed, appetite is fine, weight is up 3 pounds. No change in sleep or bowel habits. Nohemy Valdez MD [address], [address], [place], [address], [employer] 10/20/2023 09:45:22 02/27/2024 text/html Patient is a 78 year old female that presents to the office accompanied by son for Medicare wellness. Patient reports she is doing well on current medications. Patient goes to [facility] for dialysis Saturday and Saturday. Patient sees a new property and equipment clerk next week because hers moved, she will be staying with the same office. Patient reports skin irritation of buttock is still present, has been present for about 6 months. Patient reports it will periodically improve but then comes back. Patient has tried Desonide cream and Hydrocortisone cream. Patient reports it rarely bothers her but it does often itch. Patient denies chest pain and shortness of breath, nausea vomiting and diarrhea. [id number] d Mar [id number] DRSV-scheduled Mar 19 PRIMITIVO Hartley [address], [address], [place], [address], [employer] 02/27/2024 09:56:39 08/27/2024 text/html Patient is a 78 year old female that presents to the office accompanied by son for 6 month follow up. Patient reports she is doing well and has no concerns at this time. Patient goes to [facility] for dialysis Saturday and Saturday. Patient sees Cardiology annually. Patient reports skin irritation of buttock has greatly improved since switching to Hydrocortisone cream. PRIMITIVO Hartley [address], [address], [place], [address], [employer] 08/27/2024 08:43:44 OBGyn Episode No OBEpisode recorded.
--- OUTSIDE RECORDS SUMMARY | 2024-12-10 14:04 | XMS_ITS | Clinical Summary ---
Author Organization [facility] Address [address] [place] [address] Care Team Providers Care Sales Stock Associate Name Role Phone Roxann Faulkner Malena TERRAZZO WORKER APPRENTICE-CURRICULUM DIRECTOR Primary Care Provider Source Comments [facility],non-owned Affiliates and Associated Physician Practices is amultiple site organization consisting of ambulatory clinics and hospital sitesin [place], [place], [place] and [place]. This disclosure is being madepursuant to the Care Everywhere program and may not contain all information available regarding this patient. Last updated 18.[facility] Allergies No known active allergies Medications * Be aware that medications may not be up to date on this document. Alwaysverify current medications with the patient. apixaban (ELIQUIS) 2.5 MG tablet Take 2.5 mg by mouth 2 times daily Active aspirin (ASPIRIN) 81 MG tablet Take one 81mg tablet daily Active metoprolol succinate XL 24hr (TOPROL XL) 25 MG tablet Take 37.5 mg by mouth once daily Active atorvastatin (LIPITOR) 40 MG tablet Take 40 mg by mouth once daily 04/11/2018 Active furosemide (LASIX) 80 MG tablet Take 80 mg by mouth 2 times daily Active Cholecalciferol (VITAMIN D3) 400 units tablet Take 2,000 Units by mouth once daily Active Multiple Vitamins-Mineral s (ICAPS AREDS 2) CHEW Take 1 tablet by mouth 2 times daily Active B Complex-C (SUPER B COMPLEX PO) Take 1 tablet by mouth once daily Active calcium carbonate (TUMS) 500 MG chew tablet Take 1 tablet by mouth daily with food Active Active Problems Problem Noted Date Diagnosed Date ESRD (end stage renal disease) 06/02/2019 Stage 5 chronic kidney disease 11/05/2018 Chronic diastolic heart failure 10/08/2018 Benign essential hypertension 09/14/2018 Aortic atherosclerosis 06/23/2018 CVA, old, alterations of sensations 06/23/2018 Rheumatoid arthritis 07/04/2017 Peripheral vascular disease 09/07/2016 Mixed hyperlipidemia 09/08/2007 Social History Tobacco Use Types Packs/Day Years Used Date Smoking Tobacco: Former Cigarettes Q uit: 2006 Smokeless Tobacco: Never Tobacco Cessation:Counseling Given: No Alcohol Use Standard Drinks/Week Comments Not Currently 0 (1 standard drink = 0.6 oz pur e alcohol) Comments No Sex and Gender Information Value Date Recorded Sex Assigned at Not on file Legal Sex Female 6:56 AM [employer]STRUMENT SHOP SUPERVISOR Gender Identity Not on file Sexual Orientation Not on file Last Filed Vital Signs Vital Sign Reading Time Taken Comments Blood Pressure 154/67 06/02/2019 3:35 PM [employer]STRUMENT [employer] SUPERVISOR Pulse 76 06/02/2019 3:35 PM [employer]STRUMENT [employer]OP SUPERVISOR Temperature 36.4 C (97.5 F) 06/02/2019 3:35 PM INSTRUMENT SHOP SUPERVISOR Respiratory Rate 16 04/23/2019 9:28 AM INSTRUMENT SHOP SUPERVISOR Oxygen Saturation 97% 06/02/2019 3:35 PM INSTRUMENT SHOP SUPERVISOR Inhaled Oxygen Concentration - - Weight 47.2 kg (104 lb) 06/02/2019 3:35 PM INSTRUMENT SHOP SUPERVISOR Height 167.6 cm (5' 6) 06/02/2019 3:35 PM INSTRUMENT SHOP SUPERVISOR Body Mass Index 16.79 06/02/2019 3:35 PM INSTRUMENT SHOP SUPERVISOR Plan of Treatment Health Maintenance Due Date Last Done Comments BONE DENSITY TESTING 1945 DTAP/TDAP/TD VACCINES (1 - Tdap) 1964 PNEUMOCOCCAL VACCINE 50+ (1 of 1 - PCV) 1995 ZOSTER VACCINE (1 of 2) 1995 Respiratory Syncytial Virus (RSV) Vaccine Pt: or over 60 yrs (1 - 1-dose 75+ series) 2020 COVID-19 VACCINE (2023-2 5 season) 2024 DEPRESSION SCREENING 06/03/2024 INFLUENZA VACCINE (Season Ended) 2025 02/16/20 19 HEPATITIS B VACCINE Aged Out No longe r eligible based on patient's age to complete this topic HIB VACCINE Aged Out No longer eligi ble based on patient's age to complete this topic HPV VACCINE Aged Out No longer eligi ble based on patient's age to complete this topic MENINGOCOCCAL (Group B) VACC INE SHARED DECISION-MAKING Aged Out No longer eligibl e based on patient's age to complete this topic MENINGOCOCCAL GROUPS A/C/Y/W VACCINE Aged Out No longer eligible b ased on patient's age to complete this topic Medical Devices Implanted Type Area Brimmer Blocker Device Identifier Shelf Expiration Date Model / Serial / Lot Stent Eprsth 5cm 7mm Hep Ntnl Eptfe Vbhn Implanted:Qty: 1 on 04/23/2019 by Deric Lopez MD at [facility] Left: Arm [employer] 04/15/2021 [id number] / / [id number] [place] [address] MEDICARE [facility] MEDICARE [facility] Member Subscriber Plan / Payer (Ef fective 2011-Present) Name:Genie Amado Relation to Subscriber:Self Name:GENIE AMADO Payer ID:[id number] (NAIC) Type:PPO Address: [address] [place] [id number] Care Teams Sales Stock Associate Relationship Specialty Start Date End Date Roxann Faulkner, TERRAZZO WORKER APPRENTICE-CURRICULUM DIRECTOR [address] [phone] PCP - General 12/30/18
--- OUTSIDE RECORDS SUMMARY | 2024-12-10 14:04 | XMS_ITS | Clinical Summary ---
Author Organization [facility] [address] [facility] [address] Address [address] [place] [address] Care Team Providers Care Tax Consultant Name Role Phone Saba Lee NP Primary Care Provider [phone] Allergies Active Allergy Reactions Criticality Noted Date Comments Alcohol Antiseptic Pads Itching Low 08/09/2020 Chlorhexidine Rash Medium 08/09/2020 Povidone-Iodine Rash Medium 08/09/2020 Valsartan Unknown 02/26/2023 Medications aspirin 81 mg tablet Take 1 tablet (81 mg total) by mouth daily Active cholecalcifero l (VITAMIN D-3) 1,000 unit Take 1 tablet/capsule (1,000 Units total) by mouth daily Active vit C/E/Zn/coppr/l utein/zeaxan (PRESERVISION AREDS-2 ORAL) Take 2 tablets by mouth daily Active oxygenIndicati ons:Dyspnea Administer into each nostril as needed Active vitamin b complex tablet Take 1 tablet by mouth daily Active calcium carbonate (TUMS) 500 mg calcium (200 mg of elemental calcium) chewable tablet Take 1 tablet/chew tab (500 mg total) by mouth daily Active atorvastatin (LIPITOR) 80 mg tablet Take 1 tablet (80 mg total) by mouth daily 90 tablet 3 11/23/19 21 Active Additional Information Patient taking differently: 40 mgoral Daily, Reported on 02/26/2023 lisinopriL (PRINIVIL,ZEST RIL) 10 mg tablet TAKE 1 TABLET BY MOUTH FOUR DAYS A WEEK ON NON-DIALYSIS DAYS 03/18/20 24 Active cyanocobalamin (Vitamin B-12) 500 mcg tabletIndicati ons:Prevention of Vitamin B12 Deficiency Take 1 tablet (500 mcg total) by mouth daily Active ezetimibe (ZETIA) 10 mg tablet TAKE 1 TABLET(10 MG) BY MOUTH DAILY 90 tablet 1 08/04/19 25 Active Eliquis 5 mg tablet TAKE 1/2 TABLET(2.5 MG) BY MOUTH TWICE DAILY 30 tablet 5 12/08/19 25 Active apixaban (ELIQUIS) 5 mg tablet Take 0.5 tablets (2.5 mg total) by mouth 2 (two) times a day 30 tablet 5 05/21/20 24 025 Discontinued Active Problems Problem Noted Date Diagnosed Date Bilateral carotid artery stenosis 02/26/2023 Mixed hyperlipidemia 05/30/2021 Labile hypertension 11/22/2020 Dizziness 04/05/2020 ESRD on hemodialysis ([facility]) 03/02/2019 Anemia due to chronic kidney disease, on chronic dialysis 03/02/2019 PADILLA (dyspnea on exertion) 10/30/2018 Acute renal failure superimp osed on stage 3 chronic kidney disease 10/30/2018 Chronic heart failure with p reserved ejection fraction ([facility]) 10/08/2018 Pulmonary HTN ([facility] 10/08/2018 CVA, old, alterations of sensations 06/23/2018 Aortic atherosclerosis 06/23/2018 Essential hypertension 06/23/2018 PVC (premature ventricular contraction) 06/23/19 19 Weakness 06/23/2018 Claudication in peripheral vascular disease ([facility]) 06/23/2018 Chronic anticoagulation 06/23/2018 Recurrent falls 06/23/2018 Resolved Problems Problem Noted Date Diagnosed Date Resolved Date Stage 3 chronic kidney disease 10/08/2018 08/29/2023 Dyslipidemia 06/23/2018 05/30/2021 Medical History Medical History Date Comments Chronic kidney disease COPD (chronic obstructive pulmonary disease) (HC C) Rheumatoid arthritis (HCC) Hypertension Cataract Stroke (HCC) Family History Medical History Relation Name Comments Cancer Brother 1 Theodore Pringle Cancer Brother 2 Kurt Pringle Memory loss Brother 3 Antony Pringle Relation Name Status Comments Brother 1 Theodore Pringle Brother 2 Kurt Ayalayer Brother 3 Antony Pringle Social History Tobacco Use Types Packs/Day Years Used Date Smoking Tobacco: Former Cigarettes Q uit: 2007 Smokeless Tobacco: Never Tobacco Cessation:Counseling Given: Not Answered Alcohol Use Standard Drinks/Week Comments No 0 (1 standard drink = 0.6 oz pur e alcohol) Comments Unknown Sex and Gender Information Value Date Recorded Sex Assigned at Not on file 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 Gender Identity Not on file Sexual Orientation Not on file Obstetrics History Last Filed Vital Signs Vital Sign Reading Time Taken Comments Blood Pressure 96/50 03/11/2024 1:41 PM CDT Pulse 84 03/11/2024 1:41 PM CDT Temperature 36.4 C (97.5 F) 01/12/2020 3:07 PM CDT Respiratory Rate 16 12/03/2019 10:12 AM CDT Oxygen Saturation 94% 03/11/2024 1:41 PM CDT Inhaled Oxygen Concentration - - Weight 56.7 kg (125 lb) 03/11/2024 1:41 PM CDT Height 167.6 cm (5' 6) 03/11/2024 1:41 PM CDT Body Mass Index 20.18 03/11/2024 1:41 PM CDT Plan of Treatment Health Maintenance Due Date Last Done Comments Depression Screening 1945 Fall Risk Assessment 1945 Hepatitis C Screening 1945 Osteoporosis Screening-Bone Density Scan 1945 Hepatitis B Screening 1963 Well Visit 65+ 2010 Zoster Vaccine (2 of 3) 02/28/2012 01/03/2012 Influenza Vaccine (#1) 2025 02/15/2019, 2017 DTaP/Tdap/Td Vaccine (3 - Td or Tdap) 03/03/2030 03/03/2020, 07/16/2011, 06/03/2004 Breast Cancer Screening-Mammogram Discontinued 02/14/2017, 12/12/2015, 12/09/2014, Additional history exists Pneumococcal vaccine 65+ Completed 019, 01/15/2018, 05/16/2017, Additional history exists Insurance MEDICARE [facility] MEDICARE [facility] MEDICARE [facility] Care Teams Tax Consultant Relationship Specialty Start Date End Date Saba Lee NP [address] [place] [address] PCP - General Family Medicine 03/11/24
--- OUTSIDE RECORDS SUMMARY | 2024-12-10 14:04 | XMS_ITS | Referral Summary ---
Author Organization [facility] [address] [facility] [address] Address [address] [place] [address] Care Team Providers Care Electronics Processor Name Role Phone Saba Lee NP Primary Care Provider [phone] Allergies Active Allergy Reactions Criticality Noted Date [...] hypertension 11/22/2020 Dizziness 04/05/2020 ESRD on hemodialysis ([facility]) 03/02/2019 Anemia due to chronic kidney disease, on chronic dialysis 03/02/2019 PADILLA (dyspnea on exertion) 10/30/2018 Acute renal failure superimp osed on stage 3 chronic kidney disease 10/30/2018 Chronic heart failure with p reserved ejection fraction ([facility]) 10/08/2018 Pulmonary HTN ([facility]) 10/08/2018 CVA, old, alterations of sensations 06/23/2018 Aortic atherosclerosis 06/23/2018 Essential hypertension 06/23/2018 PVC (premature ventricular contraction) 06/23/19 19 Weakness 06/23/2018 Claudication in peripheral vascular disease ([facility]) 06/23/2018 Chronic anticoagulation 06/23/2018 Recurrent falls 06/23/2018 Resolved Problems Problem Noted Date Diagnosed Date Resolved Date Stage 3 chronic kidney disease 10/08/2018 08/29/2023 Dyslipidemia 06/23/2018 05/30/2021 Social History Tobacco Use Types Packs/Day Years Used Date Smoking Tobacco: Former Cigarettes Q uit: 2007 Smokeless Tobacco: Never Tobacco Cessation:Counseling Given: Not Answered Alcohol Use Standard Drinks/Week Comments No 0 (1 standard drink = 0.6 oz pur e alcohol) Comments Unknown Sex and Gender Information Value Date Recorded Sex Assigned at Not on file 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
--- OUTSIDE RECORDS SUMMARY | 2024-12-10 14:04 | XMS_ITS | Clinical Summary ---
Author Organization [facility] Address [address] [place] [phone] Phone Care Team Providers Care Data Support Specialist Name Role Phone Kaushik Alejandrochristie Malena [facility] Primary Care Provider [phone] Allergies No known active allergies Medications amLODIPine (NORVASC) 5 MG tablet Take 5 mg by mouth 1 (one) time each day. Active apixaban (ELIQUIS) 5 MG tablet Take 5 mg by mouth 2 (two) times a day. Active metoprolol succinate XL (TOPROL-XL) 25 MG 24 hr tablet Take 37.5 mg by mouth 1 (one) time each day. Active atorvastatin (LIPITOR) 20 MG tablet Take 20 mg by mouth 1 (one) time each day. Active aspirin 81 MG tablet Take 81 mg by mouth 1 (one) time each day. Active adalimumab (HUMIRA) 40 MG/0.8ML Prefilled Syringe Kit Inject 40 mg under the skin every 14 (fourteen) days. Active Cholecalciferol (VITAMIN D3) 2000 units tablet Take by mouth. Active Active Problems Problem Noted Date Diagnosed Date Stage 5 chronic kidney disease 11/05/2018 Chronic kidney disease stage 4 09/14/2018 Benign essential hypertension 09/14/2018 Hyperlipidemia 09/14/2018 Social History Tobacco Use Types Packs/Day Years Used Date Smoking Tobacco: Former Cigarettes Q uit: 09/18/2006 Smokeless Tobacco: Never Alcohol Use Standard Drinks/Week Comments No 0 (1 standard drink = 0.6 oz pur e alcohol) AUDIT-C Answer Date Recorded Frequency of Alcohol Consumption Never 09/18/2018 Average Number of Drinks Not on file 019 Frequency of Binge Drinking Not on file 09/01 Comments Unknown Sex and Gender Information Value Date Recorded Sex Assigned at Not on file Legal Sex Female 8:10 AM MDT Gender Identity Not on file Sexual Orientation Not on file Last Filed Vital Signs Vital Sign Reading Time Taken Comments Blood Pressure 126/70 09/18/2018 9:04 AM CDT Pulse 84 09/18/2018 9:04 AM CDT Temperature 36.5 C (97.7 F) 09/18/2018 9:04 AM CDT Respiratory Rate - - Oxygen Saturation - - Inhaled Oxygen Concentration - - Weight 56.2 kg (124 lb) 09/18/2018 9:04 AM CDT Height 167.6 cm (5' 6) 09/18/2018 9:04 AM CDT Body Mass Index 20.01 09/18/2018 9:04 AM CDT Plan of Treatment Health Maintenance Due Date Last Done Comments Pneumococcal PPSV23/PCV13 65 + Years / Low and Medium Risk (1 of 2 - PCV) 1995 Influenza Vaccine (#1) [address] [place] [address] [place] [phone] [facility] Care Teams Data Support Specialist Relationship Specialty Start Date End Date Roxann Faulkner, MARS [address] [place] [address] [place] [address] PCP - General 09/18/18
[2024-12-10 14:25] LABS: Hematocrit 38.1 % (37.0-47.0); Hemoglobin 12.3 g/dL (12.0-15.0); Immature Granulocyte Percent A 0.3 % (0-0.5); Lymphocytes Absolute Auto 0.98 K/mm3 (0.9-3.2); Mean Corpuscular HGB Conc 32.3 g/dl (32-36); Mean Corpuscular Hemoglobin 30.2 pg (26-34); Mean Corpuscular Volume 93.6 fl (80-100); Nucleated Red Blood Cells Absolute Auto 0.000 K/mm3 (0.0-0.012); Nucleated Red Blood Cells Perc 0.0 % (0.0-0.2); Platelet Count Result 279 k/mm3 (150-375); Red Blood Count 4.07 M/mm3 (4.2-5.4); White Blood Count 3.7 K/mm3 (4.5-10.0)
[2024-12-10 14:29] LABS: Blood Urea Nitrogen 37 mg/dL (8-26); Carbon Dioxide 28 mmol/L (22-30); Chloride 99 mmol/L (98-109); Estimated Glomerular Filt Rate 18; Glucose 112 mg/dL (70-105); Ionized Calcium (POC) 1.20 mmol/L (1.11-1.31); Potassium 4.3 mmol/L (3.5-4.9); Sodium 138 mmol/L (138-146)
== END 2024-12-10 14:01 | disposition home or self-care (01) ==
PROVIDERS: PCP Internal Medicine Hematology & Oncology; Visit Provider Internal Medicine Hematology & Oncology
DX: D64.9 Anemia, unspecified (principal)
CPT/HCPCS: 36415; 80047; 85025

== ENCOUNTER 2025-01-27 17:09 | Emergency (ER) | payer MEDICARE, MEDICAID, SELFPAY ==
--- NOTE | ~2025-01-27 | XR_ITS ---
EXAMINATION: XR hip RT 2V w AP pelvis, 01/27/2025 17:20 CDT HISTORY: PAIN NO INJURY COMPARISON: No comparisons available. Findings: No acute fracture or malalignment. No significant degenerative changes. Soft tissues unremarkable. Impression: No acute fracture or malalignment. Reviewed, dictated and finalized at location A. Impression: No acute fracture or malalignment.
--- OUTSIDE RECORDS SUMMARY | 2025-01-27 17:11 | XMS_ITS | Clinical Summary ---
Author Organization [facility] Address [address] [place] [address] Phone Care Team Providers Care Speech/Language Therapist Name Role Phone Kaushik Alejandrochristie Malena [facility] Primary Care Provider [phone] Allergies No known active allergies Medications amLODIPine [...] 1995 Influenza Vaccine (#1) 2025 Insurance MEDICARE [facility] Care Teams Speech/Language Therapist Relationship Specialty Start Date End Date Roxann Faulkner, AMRS [address] [place] [address] [place] [address] PCP - General 09/18/18
--- OUTSIDE RECORDS SUMMARY | 2025-01-27 17:11 | XMS_ITS | Clinical Summary ---
Author Organization [facility] Doris Mireles Address [address] [place] [address] Care Team Providers Care Applications Architect Name Role Phone Unavailable Primary Care Provider [...] Capsule by mouth daily. Active Vit C-Vit Z-Phtfcy-QvIr-L utein (PRESERVISION) 226-90-0.8-5 mg Capsule Take 1 Capsule by mouth daily. Active cyanocobalamin (VITAMIN B-12) 500 mcg tablet Take 500 mcg by mouth daily. Active Active Problems Problem Noted Date Diagnosed Date Leukopenia 01/03/2024 Encounters Date Type Department Care Team Description 01/19/2025 External Device Data STL ABSTRACTION Provider, Abstract 12/16/2024 External Device Data STL ABSTRACTION Provider, Abstract 12/16/2024 External Device Data ST[facility] ABSTRACTION Provider, Abstract 12/16/2024 External Device Data ST[place] ABSTRACTION Provider, Abstract 12/15/2024 External Device Data ST[place] ABSTRACTION Provider, Abstract 12/10/2024 2:30 PM CDT Office Visit [facility] - [place] [address] [facility] [address] [place] [address] William Barcenas MD Chronic anemia (Primary Dx) 11/18/2024 External Device Data STL ABSTRACTION Provider, [...] Sign Reading Time Taken Comments Blood Pressure 114/60 12/10/2024 2:30 PM CDT Pulse 78 12/10/2024 2:30 PM CDT Temperature 36.4 C (97.5 F) 12/10/2024 2:30 PM CDT Respiratory Rate 15 12/10/2024 2:30 PM CDT Oxygen Saturation 93% 12/10/2024 2:30 PM CDT Inhaled Oxygen Concentration - - Weight 60.4 kg (133 lb 3.2 oz) 12/10/2024 2:30 P M CDT Height 167.6 cm (5' 6) 12/19/2023 2:53 PM CDT Body Mass Index 21.5 12/19/2023 2:53 PM CDT Plan of Treatment Upcoming Encounters Date Type Department Care Team (Late st Contact Info) Description 06/29/2025 2:15 PM FLIGHT CREW SCHEDULER Office Visit [facility] [place] [address] [facility] [address] [place] [address] [place] [phone] William Barcenas MD [address] [facility] [address] [place] [phone] Health Maintenance Due Date Last Done Comments OSTEOPOROSIS SCREENING 2010 ZOSTER VACCINE (2 of [...] VITAMIN B12 1175(H) 200 - 1100 pg/mL [facility] FOLATE, SERUM >24.0 ng/mL [facility] Comment: Reference Range Low: <3.4 Borderline: 3.4-5.4 Normal: >5.4 FASTING:YES FASTING: YES Test Performed at: [facility] [address] [place] [address] Analia Brown MD Blood 12/05/2024 10:0 9 AM CDT 12/05/2024 10:10 AM CDT William Barcenas MD CHEMISTRY ORDERABLES Final Resu lt [facility] [phone] [facility] [address] [place] [address] * (ABNORMAL) IRON, TIBC, AND PERCENT SATURATION (12/05/2024 10:09 AM CDT) IRON 67 45 - 160 mcg/dL [facility] TIBC 224(L) 250 - 450 mcg/dL (calc) [facility] IRON % SATURATION 30 16 - 45 % (calc) [facility] Comment: FASTING:YES FASTING: YES Test Performed at: [facility] [address] [address] [place] [address] Analia Brown MD Blood 12/05/2024 10:0 9 AM CDT 12/05/2024 10:10 AM CDT us William Barcenas MD CHEMISTRY ORDERABLES Final Resu lt [facility] [phone] [facility] [address] [place] [address] * (ABNORMAL) FERRITIN (12/05/2024 10:09 AM CDT) FERRITIN 479(H) 16 - 288 ng/mL [facility] Comment: Test Performed at: [facility] [address] [address] [place] [address] Analia Brown MD Blood 12/05/2024 10:0 9 AM CDT 12/05/2024 10:10 AM CDT us William Barcenas MD CHEMISTRY ORDERABLES Final Resu lt [facility] [phone] [facility] [address] [place] [address] from Last 3 Months Insurance MEDICARE PART A AND B [facility] Member Subscriber Plan / Payer (Ef fective 2023-Present) Name:Chichi Amado Relation to Subscriber:Self Name:Chichi Amado Payer ID:Not on file Group ID:Not on file Type:HMO Address: [address]
--- OUTSIDE RECORDS SUMMARY | 2025-01-27 17:11 | XMS_ITS | Clinical Summary ---
Author Organization [facility] Address [address] [place] [address] Care Team Providers Care Dining Room Cashier Name Role Phone Roxann Faulkner Malena SHUTTLE REPAIRER-LINUX CONSULTANT Primary Care Provider Source Comments [facility],non-owned Affiliates and Associated Physician Practices is amultiple site organization consisting of ambulatory clinics and hospital sitesin [place], [place], [place] and [place]. This disclosure is being madepursuant to the Care Everywhere program and may not contain all information available regarding this patient. 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 Gender Identity Not on file Sexual Orientation Not on file Last Filed Vital Signs Vital Sign Reading Time Taken Comments Blood Pressure 154/67 06/02/2019 3:35 PM ABRASIVE WATER JET CUTTER OPERATOR Pulse 76 06/02/2019 3:35 PM ABRASIVE WATER JET CUTTER OPERATOR Temperature 36.4 C (97.5 F) 06/02/2019 3:35 PM ABRASIVE WATER JET CUTTER OPERATOR Respiratory Rate 16 04/23/2019 9:28 AM ABRASIVE WATER JET CUTTER OPERATOR Oxygen Saturation 97% 06/02/2019 3:35 PM ABRASIVE WATER JET CUTTER OPERATOR Inhaled Oxygen Concentration - - Weight 47.2 kg (104 lb) 06/02/2019 3:35 PM ABRASIVE WATER JET CUTTER OPERATOR Height 167.6 cm (5' 6) 06/02/2019 3:35 PM ABRASIVE WATER JET CUTTER OPERATOR Body Mass Index 16.79 06/02/2019 3:35 PM ABRASIVE WATER JET CUTTER OPERATOR Plan of Treatment Health Maintenance Due Date Last Done Comments BONE DENSITY TESTING 1945 DTAP/TDAP/TD VACCINES (1 - Tdap) 1964 PNEUMOCOCCAL VACCINE 50+ (1 of 1 - PCV) 1995 ZOSTER VACCINE (1 of 2) 1995 Respiratory Syncytial Virus (RSV) Vaccine Pt: or over 60 yrs (1 - 1-dose 75+ series) 2020 COVID-19 VACCINE (2023-2 5 season) 2024 DEPRESSION SCREENING 06/03/2024 INFLUENZA VACCINE (#1) 2025 02/15/2019 HEPATITIS B VACCINE Aged Out No longe [...] this topic Medical Devices Implanted Type Area Maintenance And Engineering Manager Device Identifier Shelf Expiration Date Model / Serial / Lot Stent Eprsth 5cm 7mm Hep Ntnl Eptfe Vbhn Implanted:Qty: 1 on 04/23/2019 by Deric Lopez MD at [facility] Left: Arm [employer] 04/15/2021 [id number] / / [id number] [place] [address] MEDICARE [facility] MEDICARE [facility] Member Subscriber Plan / Payer (Ef fective 2011-Present) Name:Genie Amado Relation to Subscriber:Self Name:GENIE AMADO Payer ID:[id number] (NAIC) Type:PPO Address: [address] [place] [id number] Care Teams Dining Room Cashier Relationship Specialty Start Date End Date Roxann Faulkner, SHUTTLE REPAIRER-LINUX CONSULTANT [address] [place] [phone] PCP - General 12/30/18
--- OUTSIDE RECORDS SUMMARY | 2025-01-27 17:11 | XMS_ITS | Clinical Summary ---
Author Organization [facility] [address] [facility] [address] Address [address] [place] [address] Care Team Providers Care Handstitching Machine Armhole Feller Name Role Phone Saba Lee NP Primary Care Provider Allergies Active Allergy Reactions Criticality Noted Date Comments Alcohol Antiseptic Pads Itching Low 08/09/2020 Chlorhexidine Rash Medium 08/09/2020 Povidone-Iodine Rash Medium 08/09/2020 Valsartan Unknown 02/26/2023 Medications aspirin 81 mg tablet Take 1 tablet (81 mg total) by mouth daily Active cholecalciferol (VITAMIN D-3) 1,000 unit Take 1 tablet/capsule (1,000 Units total) by mouth daily Active vit C/E/Zn/coppr/serina tein/zeaxan (PRESERVISION AREDS-2 ORAL) Take 2 tablets by mouth daily Active oxygenIndicatio ns:Dyspnea Administer into each nostril as needed Active vitamin b complex tablet Take 1 tablet by mouth daily Active calcium carbonate (TUMS) 500 mg calcium (200 mg of elemental calcium) chewable tablet Take 1 tablet/chew tab (500 mg total) by mouth daily Active atorvastatin (LIPITOR) 80 mg tablet Take 1 tablet (80 mg total) by mouth daily 90 tablet 3 1 Active Additional Information Patient taking differently: 40 mgoral Daily, Reported on 02/26/2023 lisinopriL (PRINIVIL,ZESTR [place]) 10 mg tablet TAKE 1 TABLET BY MOUTH FOUR DAYS A WEEK ON NON-DIALYSIS DAYS 4 Active cyanocobalamin (Vitamin B-12) 500 mcg tabletIndicatio ns:Prevention of Vitamin B12 Deficiency Take 1 tablet (500 mcg total) by mouth daily Active ezetimibe (ZETIA) 10 mg tablet TAKE 1 TABLET(10 MG) BY MOUTH DAILY 90 tablet 1 5 Active Eliquis 5 mg tablet TAKE 1/2 TABLET(2.5 MG) BY MOUTH TWICE DAILY 30 tablet 5 5 Active Active Problems Problem Noted Date Diagnosed Date Bilateral carotid artery stenosis 02/26/2023 Mixed hyperlipidemia 05/30/2021 Labile hypertension 11/22/2020 Dizziness 04/05/2020 ESRD on hemodialysis ([facility]) 03/02/2019 Anemia due to chronic kidney disease, on chronic dialysis 03/02/2019 PADILLA (dyspnea on exertion) 10/30/2018 Acute renal failure superimp osed on stage 3 chronic kidney disease 10/30/2018 Chronic heart failure with p reserved ejection fraction ([facility]) 10/08/2018 Pulmonary HTN ([facility]) 10/08/2018 CVA, old, alterations of sensations 06/23/2018 Aortic atherosclerosis 06/23/2018 Essential hypertension 06/23/2018 PVC (premature ventricular contraction) 06/23/19 19 Weakness 06/23/2018 Claudication in peripheral vascular disease ([facility]) 06/23/2018 Chronic anticoagulation 06/23/2018 Recurrent falls 06/23/2018 Resolved Problems Problem Noted Date Diagnosed Date Resolved Date Stage 3 chronic kidney disease 10/08/2018 08/29/2023 Dyslipidemia 06/23/2018 05/30/2021 Medical History Medical History Date Comments Chronic kidney disease COPD (chronic obstructive pulmonary disease) Rheumatoid arthritis ([facility] Hypertension Cataract Stroke ([facility]) Family History Medical History Relation Name Comments [...] on file Legal 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
--- NOTE | 2025-01-27 19:55 | ED.GENADULT ---
HPI - General Adult General Chief complaint: Unspecified Stated complaint: RIGHT HIP PAIN Time Seen by Provider: 01/27/25 19:50 History of Present Illness HPI narrative: Patient is a 79-year-old female who presents to the emergency department this evening complaining of right hip pain for the past 2 days. Patient denies any recent falls or trauma, denies any MVC, states that she just woke up and noticed that her right hip was sore. Denies any history of hip replacement, denies any additional symptoms or concerns. Related Data Home Medications ?Medication ?Instructions ?Recorded ?Confirmed ?Last Taken ?Type apixaban 2.5 mg tablet (Eliquis) 2.5 mg PO BID 12/20/19 12/20/19 12/20/19 09:00 History aspirin 81 mg tablet,delayed 81 mg PO DAILY 12/20/19 12/20/19 Unknown History release (Aspir-) atorvastatin 40 mg tablet 40 mg PO DAILY 12/20/19 12/20/19 Unknown History azathioprine 50 mg tablet 25 mg PO DAILY 12/20/19 12/20/19 12/20/19 09:00 History cholecalciferol (vitamin D3) 50 50 mcg PO DAILY 12/20/19 12/20/19 12/20/19 09:00 History mcg (2,000 unit) capsule (Vitamin D3) furosemide 80 mg tablet 80 mg PO BID 12/20/19 12/20/19 12/20/19 09:00 History vit A 300 mcg-C 200 mg-E 27 1 tablet PO BID 12/20/19 12/20/19 12/20/19 09:00 History mg-lutein 2 mg and minerals tablet (I-Boris) vitamin B complex 1 tablet PO DAILY 12/20/19 12/20/19 12/20/19 09:00 History Allergies Allergy/AdvReac Type Severity Reaction Status Date / Time No Known Allergies Allergy Verified 05/08/23 09:13 Review of Systems Review of Systems: All systems are reviewed and are negative unless stated otherwise in the HPI. [facility] Past Medical History Medical History Osteoarthritis History of CVA (cerebrovascular accident) History of iritis Hypertension Rheumatoid arthritis Chronic anemia Diastolic dysfunction Grade 3 Moderate mitral valve regurgitation Hyperlipidemia History of pulmonary embolism On Eliquis History of thrombosis Ascending aorta thrombus Surgical History Surgical History History of shoulder surgery H/O bilateral cataract extraction History of bilateral tubal ligation S/P dialysis catheter insertion Av fistula left forearm Family History Family History Mother Cancer Father Diabetes mellitus Sibling Lymphoma Colon cancer Pancreatic cancer Social History Social History Social History: The patient is . She has a son and a daughter. Her son Toby is her durable power erisa attorney for healthcare. She is retired from [employer]. She [facility] at [facility]. She smoked 1 and half to 2 packs of cigarettes a day for 45 years but quit in 2006. She denies any alcohol use marijuana use or substance abuse. The patient is a DNR. Smoking status: Former smoker Alcohol intake: former Substance use: never Gender identity (if verbalized by the patient): Female Spiritual care concerns: No Exam Narrative: General: Alert, awake, afebrile, in no acute distress. HEENT: PERRL, no rhinorrhea, no post nasal drip, oropharynx clear. Neck: Trachea midline, no JVD, no lymphadenopathy. Cardiovascular: Regular rate and rhythm, no murmurs, rubs or gallops, no peripheral edema. Respiratory: Clear to auscultation bilaterally, no tachypnea, no wheezing, no rhonchi, no rubs, no respiratory distress. Abdomen: Soft, nontender, nondistended, no rebound, no guarding, no peritoneal signs. Musculoskeletal: No joint swelling or deformity, normal muscle tone, intact bilateral hip flexions and knee extension. Skin: No rashes or petechia, no signs of infection. Psychiatric: Alert and oriented, normal behavior and judgment for situation. Neurological: Alert and oriented to person, place, and time. Follows all commands. No focal deficits, speech is clear and fluent. Medical Decision Making MDM Narrative Medical decision making narrative: The patient was evaluated by myself in the emergency department. History is obtained from patient who is an independent historian and physical exam was performed. External medical records were reviewed at this time. Imaging studies obtained included AP pelvis with right hip x-rays which was independently interpreted by me revealing no acute process, which is pending final radiology interpretation. Differential diagnosis considerations include fracture, dislocation, osteoarthritis. Comorbidities impacting this visit include none. I have evaluated and discussed social determinants of health with the patient that could potentially impact subsequent diagnosis and treatment plans. On repeat assessment of the patient, reevaluation revealed that the patient is doing well and is in no acute distress. Patient symptoms have improved since she arrived to our emergency department. Repeat vital signs were all reviewed and noted to be stable. Differential diagnosis and treatment plan were discussed with the patient at bedside. Patient agrees with discussion and after shared medical decision making agrees with discharge. All questions were answered to the patient's satisfaction. Patient will follow up with Orthopedics in 3-5 days. Patient was provided with strict return precautions and instructed to return to the emergency department if any new or worsening symptoms develop. The patient was discharged in stable condition. Discharge Plan Discharge Clinical Impression: Acute pain of right hip Patient Disposition: Home Condition: Improved Instructions: Antibiotic Form, Hip Pain (ED) Additional Instructions: Please follow-up with your orthopedic doctor you were provided with today within the next 3-5 days. Return to emergency department if any new or worsening symptoms develop. Patient Language: Swedish Prescriptions: No Action atorvastatin 40 mg Tablet 40 mg PO DAILY azathioprine 50 mg Tablet 25 mg PO DAILY aspirin [Aspir-81] 81 mg Tablet,Delayed Release (Dr/Ec) 81 mg PO DAILY furosemide 80 mg Tablet 80 mg PO BID vitamin B complex Tablet 1 tablet PO DAILY I-Boris 1,000 unit-200 mg-60 unit-2 mg Tablet 1 tablet PO BID cholecalciferol (vitamin D3) [Vitamin D3] 50 mcg (2,000 unit) Capsule 50 mcg PO DAILY Eliquis 2.5 mg Tablet 2.5 mg PO BID metoprolol succinate 25 mg capsule,sprinkle,ER 24hr 12.5 mg PO HS Qty: 15 2RF ciprofloxacin HCl [Cipro] 500 mg tablet 500 mg PO .q48 Qty: 2 0RF Rx Instructions: Given AFTER dialysis on 12/22 and again on 12/24 then stop Follow-up/Referrals: William Barcenas MD [Primary Care Provider, Hematology] Raad Muniz MD [Physician, Orthopedics] - 3 Days Time of Disposition: 19:55
--- OUTSIDE RECORDS SUMMARY | 2025-01-27 20:03 | XMS_ITS | Clinical Summary ---
Author Organization [facility] Address [address] [place] [id number] Phone Care Team Providers Care Distribution A Class Lineman Name Role Phone Kaushik Alejandrochristie Malena [facility] Primary Care Provider [phone] Allergies No known active allergies Medications amLODIPine [...] 1995 Influenza Vaccine (#1) 2025 Insurance MEDICARE [facility] Care Teams Distribution A Class Lineman Relationship Specialty Start Date End Date Roxann Faulkner, MARS [address] [place] [address] [place] [address] PCP - General 09/18/18
--- OUTSIDE RECORDS SUMMARY | 2025-01-27 20:03 | XMS_ITS | Clinical Summary ---
Author Organization [facility] Doris Mireles Address [address] [place] [address] Care Team Providers Care Livestock Farm Workers Name Role Phone Unavailable Primary Care Provider [...] Capsule by mouth daily. 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 [address] [place] [phone] Health Maintenance Due Date Last Done [...] VITAMIN B12 1175(H) 200 - 1100 pg/mL [facility] FOLATE, SERUM >24.0 ng/mL [facility] Comment: Reference Range Low: <3.4 Borderline: 3.4-5.4 Normal: >5.4 FASTING:YES FASTING: YES Test Performed at: [facility] [address] [place] [address] Analia Brown MD Blood 12/05/2024 10:0 9 AM CDT 12/05/2024 10:10 AM CDT William Barcenas MD CHEMISTRY ORDERABLES Final Resu lt [facility] [phone] [facility] [address] [place] [address] * (ABNORMAL) IRON, TIBC, AND PERCENT SATURATION (12/05/2024 10:09 AM CDT) IRON 67 45 - 160 mcg/dL [facility] TIBC 224(L) 250 - 450 mcg/dL (calc) [facility] IRON % SATURATION 30 16 - 45 % (calc) [facility] Comment: FASTING:YES FASTING: YES Test Performed at: [facility] [address] [place] [address] Analia Brown MD Blood 12/05/2024 10:0 9 AM CDT 12/05/2024 10:10 AM CDT us William Barcenas MD CHEMISTRY ORDERABLES Final Resu lt [facility] [phone] [facility] [address] [place] [address] * (ABNORMAL) FERRITIN (12/05/2024 10:09 AM CDT) FERRITIN 479(H) 16 - 288 ng/mL [facility] Comment: Test Performed at: [facility] [address] [facility] [place] [address] Analia Brown MD Blood 12/05/2024 10:0 9 AM CDT 12/05/2024 10:10 AM CDT us William Barcenas MD CHEMISTRY ORDERABLES Final Resu lt [facility] [phone] [facility] [address] [place] [address] from Last 3 Months Insurance MEDICARE PART A AND B [facility] Member Subscriber Plan / Payer (Ef fective 2023-Present) Name:Chichi Amado Relation to Subscriber:Self Name:Chichi Amado Payer ID:Not on file Group ID:Not on file Type:HMO Address: [address]
--- OUTSIDE RECORDS SUMMARY | 2025-01-27 20:03 | XMS_ITS | Clinical Summary ---
Author Organization [facility] Address [address] [place] [address] Care Team Providers Care Crystalizer Operator Name Role Phone Roxann Faulkner Malena INSPECTOR BICYCLE-NEUROCRITICAL CARE PHYSICIAN Primary Care Provider Source Comments [facility],non-owned Affiliates and Associated Physician Practices is amultiple site organization consisting of ambulatory clinics and hospital sitesin [place], [place], [place] and [place]. This disclosure is being madepursuant to the Care Everywhere program and may not contain all information available regarding this patient. 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 NAILING MACHINE OPERATOR Gender Identity Not on file Sexual Orientation Not on file Last Filed Vital Signs Vital Sign Reading Time Taken Comments Blood Pressure 154/67 06/02/2019 3:35 PM AUTOMATIC NAILING MACHINE OPERATOR Pulse 76 06/02/2019 3:35 PM AUTOMATIC NAILING MACHINE OPERATOR Temperature 36.4 C (97.5 F) 06/02/2019 3:35 PM AUTOMATIC NAILING MACHINE OPERATOR Respiratory Rate 16 04/23/2019 9:28 AM AUTOMATIC NAILING MACHINE OPERATOR Oxygen Saturation 97% 06/02/2019 3:35 PM AUTOMATIC NAILING MACHINE OPERATOR Inhaled Oxygen Concentration - - Weight 47.2 kg (104 lb) 06/02/2019 3:35 PM AUTOMATIC NAILING MACHINE OPERATOR Height 167.6 cm (5' 6) 06/02/2019 3:35 PM AUTOMATIC NAILING MACHINE OPERATOR Body Mass Index 16.79 06/02/2019 3:35 PM AUTOMATIC NAILING MACHINE OPERATOR Plan of Treatment Health Maintenance Due [...] this topic Medical Devices Implanted Type Area Guard Dance Hall Device Identifier Shelf Expiration Date Model / Serial / Lot Stent Eprsth 5cm 7mm Hep Ntnl Eptfe Vbhn Implanted:Qty: 1 on 04/23/2019 by Deric Lopez MD at [facility] Left: Arm [employer] 04/15/2021 [id number] / / [id number] [place] [address] MEDICARE [facility] MEDICARE [facility] Member Subscriber Plan / Payer (Ef fective 2011-Present) Name:Genie Amado Relation to Subscriber:Self Name:GENIE AMADO Payer ID:[id number] (NAIC) Type:PPO Address: [address] [place] [id number] Care Teams Crystalizer Operator Relationship Specialty Start Date End Date Roxann Faulkner, INSPECTOR BICYCLE-NEUROCRITICAL CARE PHYSICIAN [address] [place] [phone] PCP - General 12/30/18
--- OUTSIDE RECORDS SUMMARY | 2025-01-27 20:03 | XMS_ITS ---
Author Organization [facility] ([facility]) Address [address] [place] [id number] Care Team Providers Care Customer Support Specialist Name Role Phone Unavailable Unavailable Unavailable Allergies, Adverse Reactions, Alerts Allergy Name Allergy Type Status Severity Reaction(s) Onset Date Inactive Date Treating Clinician Comments Chlorhexidine Allergy Active Moderate Allergy 2021-06 17:59: 16 Betadine Allergy Active Moderate Allergy 2021-06 17:58: 58 Alcohol Allergy Active Mild Allergy 2021-06 17:58: 32 Medications Ordered Medication Name Filled Medication Name Start Date Stop Date Current Medication? Ordering Clinician Indication Dosage Frequency Signature (SIG) Comments Components ONS [facility] 08-27 16:16: 26 Yes [id number] Number of Repeats Allowed: Frequency: Every Dialysis Treatment Venofer 2022-06 17:39: 07 Yes [id number] Number of Repeats Allowed: Frequency: One time a weekDosesO rdered: Maintenanc e Dose 50 Milligram Route: Intravenou s clonidine 2021-06 06:00: 00 Yes [id number] Number of Repeats Allowed: Frequency: Every 4 hours as needed acetaminoph en 2021-06 06:00: 00 Yes [id number] Number of Repeats Allowed: Frequency: Every 4 hours as needed Normal Saline Solution 0.9% NaCl 2021-06 06:00: 00 Yes [id number] Number of Repeats Allowed: Frequency: As needed Oxygen 2021-06 06:00: 00 Yes [id number] Number of Repeats Allowed: Frequency: As needed Antacid Extra Strength 2021-06 06:00: 00 Yes [id number] Number of Repeats Allowed: Frequency: Every 4 hours as needed Insta-Gluco se 2021-06 06:00: 00 Yes [id number] Number of Repeats Allowed: Frequency: Every 30 minutes as needed ondansetron hydrochlori de 2021-06 06:00: 00 Yes [id number] Number of Repeats Allowed: Frequency: Every 4 hours as needed diphenhydra mine hydrochlori de 2021-06 06:00: 00 Yes [id number] Number of Repeats Allowed: Frequency: Every 4 hours as needed Problems This patient has no known problems. Procedures Procedure Date / Time Performed Performing Clinician Janice ce Details AV Fistula 2019-01-29 05:00:00 Access Site Upper Arm (Left) Access Use Start Date 2019-05-06 06:00:0 0 DIALYSIS TREATMENT INFORMATION Conventional Hemodialysis Date Type Treatment Start Date Treatment End Date Pre-Treatment Vitals Post-Treatment Vitals Weight Gain BFR DFR Actual UF Dialysis Access Augus t 2024 In-Ce nter Hemod ialys is Treat ment 2025-01-27 T11:06:01. 000Z 2025-01-27 T14:04:46. 000Z BP Sitting (Pre-Dialysis) 168/64 mmHg BP Sitting (Post-D ialysis ) 140/ 69 mmHg Sitting Heart Rate Pre-Dialysis 98 BPM BP Standing (Post-Dialysis) 106/47 mmHg Temperature Pre-Dialysis 97.5 degF Sitting Heart Ra te Post-Dialysis 101 BPM Standing Heart Rate Post-Rosemary lysis 131 BPM Temperature Post-Dialysis 97 .5 degF January 25, 2025 In-Center Hemodialysis Treatment 5596-07-09A00:02:22.000Z 0114-60-75W10:04:27.000Z BP Sitting (Pre-Dialysis) 157/90 mmHg BP Sitting (Post-Dialysis) 122/51 mmHg Concurrent Access: falseAV Fistula Upper Arm (Left) Arterial Sitting Heart Rate Pre-Dialysis 97 BPM BP Standing (Post-Dialysis) 134/92 mmHg Temperature Pre-Dialysis 97.1 degF Sitting Heart Ra te Post-Dialysis 82 BPM Standing Heart Rate Post-Rosemary lysis 69 BPM Temperature Post-Dialysis 97 .8 degF January 22, 2025 In-Center Hemodialysis Treatment 1937-54-31Z11:04:55.000Z 3200-69-67T97:05:20.000Z BP Sitting (Pre-Dialysis) 152/71 mmHg BP Sitting (Post-Dialysis) 125/58 mmHg Concurrent Access: falseAV Fistula Upper Arm (Left) Arterial BP Standing (Pre-Dialysis) 148/68 mmHg BP Standing (P ost-Dialysis) 114/58 mmHg Sitting Heart Rate Pre-Dialysis 77 BPM Sitting Heart Rate Post-Dialysis 80 BPM Standing Heart Rate Pre-Dialysis 72 BPM Standing Heart Rate Post-Dialysis 83 BPM Temperature Pre-Dialysis 97.3 degF Temperature Post -Dialysis 97.4 degF January 20, 2025 In-Center Hemodialysis Treatment 6132-95-74W03:14:56.000Z 2544-69-04I37:12:51.000Z BP Sitting (Pre-Dialysis) 165/49 mmHg BP Sitting (Post-Dialysis) 115/61 mmHg Concurrent Access: falseAV Fistula Upper Arm (Left) Arterial Sitting Heart Rate Pre-Dialysis 78 BPM BP Standing (Post-Dialysis) 122/59 mmHg Temperature Pre-Dialysis 97.3 degF Sitting Heart Ra te Post-Dialysis 98 BPM Standing Heart Rate Post-Rosemary lysis 78 BPM Temperature Post-Dialysis 97 .5 degF January 18, 2025 In-Center Hemodialysis Treatment 4675-80-16X97:04:32.000Z 8785-46-29R63:08:15.000Z BP Sitting (Pre-Dialysis) 133/71 mmHg BP Sitting (Post-Dialysis) 102/44 mmHg Concurrent Access: falseAV Fistula Upper Arm (Left) Arterial Sitting Heart Rate Pre-Dialysis 79 BPM Sitting H eart Rate Post-Dialysis 84 BPM Temperature Pre-Dialysis 97.5 degF Temperature Post -Dialysis 97.6 degF January 15, 2025 In-Center Hemodialysis Treatment 8700-23-04H01:08:58.000Z 0996-63-22Y53:11:28.000Z BP Sitting (Pre-Dialysis) 220/101 mmHg BP Sitting (Post-Dialysis) 108/47 mmHg Concurrent Access: falseAV Fistula Upper Arm (Left) Arterial BP Standing (Pre-Dialysis) 147/109 mmHg Sitti ng Heart Rate Post-Dialysis 79 BPM Sitting Heart Rate Pre-Dialysis 79 BPM Temperatu re Post-Dialysis 97.5 degF Standing Heart Rate Pre-Dialysis 90 BPM Temperature Pre-Dialysis 96.8 degF January 13, 2025 In-Center Hemodialysis Treatment 8015-75-28B85:04:51.000Z 4623-43-12A45:04:51.000Z BP Sitting (Pre-Dialysis) 158/64 mmHg BP Sitting (Post-Dialysis) 112/48 mmHg Concurrent Access: falseAV Fistula Upper Arm (Left) Arterial BP Standing (Pre-Dialysis) 162/70 mmHg Sitti ng Heart Rate Post-Dialysis 76 BPM Sitting Heart Rate Pre-Dialysis 82 BPM Temperatu re Post-Dialysis 97.6 degF Standing Heart Rate Pre-Dialysis 86 BPM Temperature Pre-Dialysis 97.2 degF January 11, 2025 In-Center Hemodialysis Treatment 8330-31-55O64:10:00.000Z 1855-57-95B19:14:10.000Z BP Sitting (Pre-Dialysis) 168/79 mmHg BP Sitting (Post-Dialysis) 136/73 mmHg Concurrent Access: falseAV Fistula Upper Arm (Left) Arterial Sitting Heart Rate Pre-Dialysis 87 BPM BP Standing (Post-Dialysis) 124/67 mmHg Temperature Pre-Dialysis 97.2 degF Sitting Heart Ra te Post-Dialysis 104 BPM Standing Heart Rate Post-Rosemary lysis 91 BPM Temperature Post-Dialysis 97 .7 degF January 08, 2025 In-Center Hemodialysis Treatment 0624-27-26K45:14:14.000Z 1026-16-99P42:14:14.000Z BP Sitting (Pre-Dialysis) 152/68 mmHg BP Sitting (Post-Dialysis) 99/43 mmHg Concurrent Access: falseAV Fistula Upper Arm (Left) Arterial Sitting Heart Rate Pre-Dialysis 79 BPM Sitting H eart Rate Post-Dialysis 88 BPM Temperature Pre-Dialysis 97.5 degF Temperature Post -Dialysis 97.9 degF January 06, 2025 In-Center Hemodialysis Treatment 9507-07-12Q81:07:27.000Z 4102-49-70A54:08:17.000Z BP Sitting (Pre-Dialysis) 163/75 mmHg BP Sitting (Post-Dialysis) 121/49 mmHg Concurrent Access: falseAV Fistula Upper Arm (Left) Arterial Sitting Heart Rate Pre-Dialysis 80 BPM BP Standi ng (Post-Dialysis) 95/56 mmHg Temperature Pre-Dialysis 97.8 degF Sitting Heart Ra te Post-Dialysis 79 BPM Standing Heart Rate Post-Rosemary lysis 105 BPM Temperature Post-Dialysis 96 .8 degF January 04, 2025 In-Center Hemodialysis Treatment 6779-67-43R99:08:57.000Z 5051-60-77L21:09:22.000Z BP Sitting (Pre-Dialysis) 222/97 mmHg BP Sitting (Post-Dialysis) 147/54 mmHg Concurrent Access: falseAV Fistula Upper Arm (Left) Arterial Sitting Heart Rate Pre-Dialysis 89 BPM Sitting H eart Rate Post-Dialysis 87 BPM Temperature Pre-Dialysis 97.9 degF Temperature Post -Dialysis 97.5 degF January 01, 2025 In-Center Hemodialysis Treatment 3598-70-15X50:12:52.000Z 1143-45-06E01:05:22.000Z BP Sitting (Pre-Dialysis) 157/86 mmHg BP Sitting (Post-Dialysis) 109/49 mmHg Concurrent Access: falseAV Fistula Upper Arm (Left) Arterial BP Standing (Pre-Dialysis) 128/63 mmHg Sitti ng Heart Rate Post-Dialysis 81 BPM Sitting Heart Rate Pre-Dialysis 84 BPM Temperatu re Post-Dialysis 97.3 degF Standing Heart Rate Pre-Dialysis 97 BPM Temperature Pre-Dialysis 97.2 degF December 30, 2024 In-Center Hemodialysis Treatment 7287-83-66L80:05:50.000Z 4789-98-81A92:05:25.000Z BP Sitting (Pre-Dialysis) 174/78 mmHg BP Sitting (Post-Dialysis) 118/47 mmHg Concurrent Access: falseAV Fistula Upper Arm (Left) Arterial Sitting Heart Rate Pre-Dialysis 82 BPM Sitting H eart Rate Post-Dialysis 83 BPM Temperature Pre-Dialysis 97.6 degF Temperature Post -Dialysis 97.2 degF December 28, 2024 In-Center Hemodialysis Treatment 7357-21-72W32:15:59.000Z 8292-42-67V64:16:49.000Z BP Sitting (Pre-Dialysis) 124/68 mmHg BP Sitting (Post-Dialysis) 130/60 mmHg Concurrent Access: falseAV Fistula Upper Arm (Left) Arterial Sitting Heart Rate Pre-Dialysis 71 BPM Sitting H eart Rate Post-Dialysis 79 BPM Temperature Pre-Dialysis 97.7 degF Temperature Post -Dialysis 97.3 degF December 25, 2024 In-Center Hemodialysis Treatment 4226-10-95N26:08:56.000Z 9275-43-88G05:07:16.000Z BP Sitting (Pre-Dialysis) 227/112 mmHg BP Sitting (Post-Dialysis) 149/61 mmHg Concurrent Access: falseAV Fistula Upper Arm (Left) Arterial Sitting Heart Rate Pre-Dialysis 96 BPM BP Standing (Post-Dialysis) 144/57 mmHg Temperature Pre-Dialysis 97.5 degF Sitting Heart Ra te Post-Dialysis 78 BPM Standing Heart Rate Post-Rosemary lysis 80 BPM Temperature Post-Dialysis 97 .3 degF December 23, 2024 In-Center Hemodialysis Treatment 2753-12-81P32:13:01.000Z 9118-47-52B50:13:01.000Z BP Sitting (Pre-Dialysis) 114/59 mmHg BP Sitting (Post-Dialysis) 130/34 mmHg Concurrent Access: falseAV Fistula Upper Arm (Left) Arterial Sitting Heart Rate Pre-Dialysis 94 BPM BP Standi ng (Post-Dialysis) 99/57 mmHg Temperature Pre-Dialysis 97.7 degF Sitting Heart Ra te Post-Dialysis 86 BPM Standing Heart Rate Post-Rosemary lysis 85 BPM Temperature Post-Dialysis 97 .2 degF December 21, 2024 In-Center Hemodialysis Treatment 7205-65-69Q37:12:06.000Z 8638-03-16U03:10:01.000Z BP Sitting (Pre-Dialysis) 155/66 mmHg BP Sitting (Post-Dialysis) 115/42 mmHg Concurrent Access: falseAV Fistula Upper Arm (Left) Arterial BP Standing (Pre-Dialysis) 160/72 mmHg BP Standing (P ost-Dialysis) 114/49 mmHg Sitting Heart Rate Pre-Dialysis 76 BPM Sitting Heart Rate Post-Dialysis 75 BPM Standing Heart Rate Pre-Dialysis 79 BPM Standing Heart Rate Post-Dialysis 77 BPM Temperature Pre-Dialysis 97.2 degF Temperature Post -Dialysis 97.4 degF December 18, 2024 In-Center Hemodialysis Treatment 3195-40-21Y15:06:58.000Z 4268-47-74Q12:07:23.000Z BP Sitting (Pre-Dialysis) 213/98 mmHg BP Sitting (Post-Dialysis) 102/43 mmHg Concurrent Access: falseAV Fistula Upper Arm (Left) Arterial Sitting Heart Rate Pre-Dialysis 84 BPM BP Standing (Post-Dialysis) 109/62 mmHg Temperature Pre-Dialysis 96.6 degF Sitting Heart Ra te Post-Dialysis 82 BPM Standing Heart Rate Post-Rosemary lysis 92 BPM Temperature Post-Dialysis 97 .3 degF December 16, 2024 In-Center Hemodialysis Treatment 4160-76-33V36:03:32.000Z 8356-61-07L06:05:12.000Z BP Sitting (Pre-Dialysis) 147/66 mmHg BP Sitting (Post-Dialysis) 99/50 mmHg Concurrent Access: falseAV Fistula Upper Arm (Left) Arterial BP Standing (Pre-Dialysis) 136/62 mmHg Sitti ng Heart Rate Post-Dialysis 90 BPM Sitting Heart Rate Pre-Dialysis 77 BPM Temperatu re Post-Dialysis 97.3 degF Standing Heart Rate Pre-Dialysis 75 BPM Temperature Pre-Dialysis 97.8 degF December 14, 2024 In-Center Hemodialysis Treatment 9880-49-63K26:05:30.000Z 5050-74-34L45:08:00.000Z BP Sitting (Pre-Dialysis) 164/82 mmHg BP Sitting (Post-Dialysis) 105/60 mmHg Concurrent Access: falseAV Fistula Upper Arm (Left) Arterial BP Standing (Pre-Dialysis) 183/85 mmHg BP Standing (P ost-Dialysis) 99/54 mmHg Sitting Heart Rate Pre-Dialysis 81 BPM Sitting Heart Rate Post-Dialysis 81 BPM Standing Heart Rate Pre-Dialysis 82 BPM Standing Heart Rate Post-Dialysis 80 BPM Temperature Pre-Dialysis 95.7 degF Temperature Post -Dialysis 97.2 degF December 11, 2024 In-Center Hemodialysis Treatment 4720-09-54W77:04:32.000Z 2516-44-91B80:06:12.000Z BP Sitting (Pre-Dialysis) 165/78 mmHg BP Sitting (Post-Dialysis) 98/50 mmHg Concurrent Access: falseAV Fistula Upper Arm (Left) Arterial Sitting Heart Rate Pre-Dialysis 81 BPM Sitting H eart Rate Post-Dialysis 94 BPM Temperature Pre-Dialysis 96.3 degF Temperature Post -Dialysis 97.7 degF December 09, 2024 In-Center Hemodialysis Treatment 2307-56-71N19:06:03.000Z 1049-93-88S81:06:03.000Z BP Sitting (Pre-Dialysis) 150/51 mmHg BP Sitting (Post-Dialysis) 110/46 mmHg Concurrent Access: falseAV Fistula Upper Arm (Left) Arterial BP Standing (Pre-Dialysis) 155/70 mmHg BP Standing (P ost-Dialysis) 103/49 mmHg Sitting Heart Rate Pre-Dialysis 75 BPM Sitting Heart Rate Post-Dialysis 81 BPM Standing Heart Rate Pre-Dialysis 85 BPM Standing Heart Rate Post-Dialysis 84 BPM Temperature Pre-Dialysis 97.3 degF Temperature Post -Dialysis 97.6 degF December 07, 2024 In-Center Hemodialysis Treatment 0130-59-05Z82:13:48.000Z 9640-89-96Y65:14:13.000Z BP Sitting (Pre-Dialysis) 164/75 mmHg BP Sitting (Post-Dialysis) 105/55 mmHg Concurrent Access: falseAV Fistula Upper Arm (Left) Arterial BP Standing (Pre-Dialysis) 169/77 mmHg BP Standing (P ost-Dialysis) 105/58 mmHg Sitting Heart Rate Pre-Dialysis 80 BPM Sitting Heart Rate Post-Dialysis 69 BPM Standing Heart Rate Pre-Dialysis 84 BPM Standing Heart Rate Post-Dialysis 84 BPM Temperature Pre-Dialysis 96.6 degF Temperature Post -Dialysis 97.8 degF December 04, 2024 In-Center Hemodialysis Treatment 1283-43-02E80:05:16.000Z 5177-83-08E94:02:46.000Z BP Sitting (Pre-Dialysis) 139/67 mmHg BP Sitting (Post-Dialysis) 113/61 mmHg Concurrent Access: falseAV Fistula Upper Arm (Left) Arterial BP Standing (Pre-Dialysis) 147/72 mmHg BP Standing (P ost-Dialysis) 131/47 mmHg Sitting Heart Rate Pre-Dialysis 82 BPM Sitting Heart Rate Post-Dialysis 81 BPM Standing Heart Rate Pre-Dialysis 86 BPM Standing Heart Rate Post-Dialysis 77 BPM Temperature Pre-Dialysis 97.1 degF Temperature Post -Dialysis 97.6 degF December 02, 2024 In-Center Hemodialysis Treatment 2418-77-45Z39:03:00.000Z 1056-17-87I85:06:32.000Z BP Sitting (Pre-Dialysis) 177/80 mmHg BP Sitting (Post-Dialysis) 112/60 mmHg Concurrent Access: falseAV Fistula Upper Arm (Left) Arterial Sitting Heart Rate Pre-Dialysis 86 BPM Sitting H eart Rate Post-Dialysis 63 BPM Temperature Pre-Dialysis 97.2 degF Temperature Post -Dialysis 97.8 degF November 30, 2024 In-Center Hemodialysis Treatment 5154-87-13N77:05:01.000Z 8975-56-89F54:04:36.000Z BP Sitting (Pre-Dialysis) 196/86 mmHg BP Sitting (Post-Dialysis) 106/59 mmHg Concurrent Access: falseAV Fistula Upper Arm (Left) Arterial BP Standing (Pre-Dialysis) 121/98 mmHg BP Standing (P ost-Dialysis) 111/51 mmHg Sitting Heart Rate Pre-Dialysis 81 BPM Sitting Heart Rate Post-Dialysis 92 BPM Standing Heart Rate Pre-Dialysis 81 BPM Standing Heart Rate Post-Dialysis 84 BPM Temperature Pre-Dialysis 97.6 degF Temperature Post -Dialysis 97.5 degF November 27, 2024 In-Center Hemodialysis Treatment 2331-50-82Y74:05:51.000Z 9224-80-59Q60:06:16.000Z BP Sitting (Pre-Dialysis) 155/71 mmHg BP Sitting (Post-Dialysis) 100/39 mmHg Concurrent Access: falseAV Fistula Upper Arm (Left) Arterial BP Standing (Pre-Dialysis) 169/72 mmHg BP Standing (P ost-Dialysis) 104/55 mmHg Sitting Heart Rate Pre-Dialysis 71 BPM Sitting Heart Rate Post-Dialysis 83 BPM Standing Heart Rate Pre-Dialysis 73 BPM Standing Heart Rate Post-Dialysis 83 BPM Temperature Pre-Dialysis 97.2 degF Temperature Post -Dialysis 97.6 degF November 25, 2024 In-Center Hemodialysis Treatment 1283-34-33K18:06:04.000Z 2137-80-15C66:05:39.000Z BP Sitting (Pre-Dialysis) 166/74 mmHg BP Sitting (Post-Dialysis) 114/46 mmHg Concurrent Access: falseAV Fistula Upper Arm (Left) Arterial BP Standing (Pre-Dialysis) 153/83 mmHg Sitti ng Heart Rate Post-Dialysis 85 BPM Sitting Heart Rate Pre-Dialysis 79 BPM Temperatu re Post-Dialysis 97.6 degF Standing Heart Rate Pre-Dialysis 104 BPM Temperature Pre-Dialysis 96.2 degF November 23, 2024 In-Center Hemodialysis Treatment 2026-82-31K87:17:07.000Z 5324-72-61F54:19:37.000Z BP Sitting (Pre-Dialysis) 176/77 mmHg BP Sitting (Post-Dialysis) 122/52 mmHg Concurrent Access: falseAV Fistula Upper Arm (Left) Arterial BP Standing (Pre-Dialysis) 139/81 mmHg BP Standing (P ost-Dialysis) 112/54 mmHg Sitting Heart Rate Pre-Dialysis 94 BPM Sitting Heart Rate Post-Dialysis 83 BPM Standing Heart Rate Pre-Dialysis 112 BPM Standing Heart Rate Post-Dialysis 91 BPM Temperature Pre-Dialysis 96.9 degF Temperature Post -Dialysis 97.8 degF November 20, 2024 In-Center Hemodialysis Treatment 4458-93-38V63:04:44.000Z 6129-84-28X64:05:09.000Z BP Sitting (Pre-Dialysis) 153/65 mmHg BP Sitting (Post-Dialysis) 117/52 mmHg Concurrent Access: falseAV Fistula Upper Arm (Left) Arterial BP Standing (Pre-Dialysis) 159/73 mmHg Sitti ng Heart Rate Post-Dialysis 82 BPM Sitting Heart Rate Pre-Dialysis 78 BPM Temperatu re Post-Dialysis 97.8 degF Standing Heart Rate Pre-Dialysis 82 BPM Temperature Pre-Dialysis 97.4 degF November 18, 2024 In-Center Hemodialysis Treatment 6847-62-59H59:12:23.000Z 3136-76-67K93:12:23.000Z BP Sitting (Pre-Dialysis) 180/76 mmHg BP Sitting (Post-Dialysis) 102/39 mmHg Concurrent Access: falseAV Fistula Upper Arm (Left) Arterial BP Standing (Pre-Dialysis) 142/81 mmHg Sitti ng Heart Rate Post-Dialysis 61 BPM Sitting Heart Rate Pre-Dialysis 81 BPM Temperatu re Post-Dialysis 97.8 degF Standing Heart Rate Pre-Dialysis 118 BPM Temperature Pre-Dialysis 95.8 degF November 16, 2024 In-Center Hemodialysis Treatment 5311-83-93A32:05:00.000Z 5342-38-86E81:05:25.000Z BP Sitting (Pre-Dialysis) 169/76 mmHg BP Sitting (Post-Dialysis) 104/45 mmHg Concurrent Access: falseAV Fistula Upper Arm (Left) Arterial Sitting Heart Rate Pre-Dialysis 81 BPM BP Standi ng (Post-Dialysis) 99/48 mmHg Temperature Pre-Dialysis 97.8 degF Sitting Heart Ra te Post-Dialysis 78 BPM Standing Heart Rate Post-Rosemary lysis 75 BPM Temperature Post-Dialysis 97 .2 degF November 13, 2024 In-Center Hemodialysis Treatment 7948-69-36E13:13:11.000Z 6008-38-33T47:16:06.000Z BP Sitting (Pre-Dialysis) 180/79 mmHg BP Sitting (Post-Dialysis) 119/53 mmHg Concurrent Access: falseAV Fistula Upper Arm (Left) Arterial Sitting Heart Rate Pre-Dialysis 83 BPM BP Standi ng (Post-Dialysis) 102/42 mmHg Temperature Pre-Dialysis 97 degF Sitting Heart Ra te Post-Dialysis 86 BPM Standing Heart Rate Post-Rosemary lysis 93 BPM Temperature Post-Dialysis 97 .6 degF November 11, 2024 In-Center Hemodialysis Treatment 1592-40-32O12:05:33.000Z 2106-70-65B48:06:48.000Z BP Sitting (Pre-Dialysis) 160/60 mmHg BP Sitting (Post-Dialysis) 120/48 mmHg Concurrent Access: falseAV Fistula Upper Arm (Left) Arterial Sitting Heart Rate Pre-Dialysis 81 BPM Sitting H eart Rate Post-Dialysis 94 BPM Temperature Pre-Dialysis 97.8 degF Temperature Post -Dialysis 97.8 degF November 09, 2024 In-Center Hemodialysis Treatment 6874-84-21L75:11:40.000Z 0169-57-45K94:12:30.000Z BP Sitting (Pre-Dialysis) 162/77 mmHg BP Sitting (Post-Dialysis) 112/45 mmHg Concurrent Access: falseAV Fistula Upper Arm (Left) Arterial BP Standing (Pre-Dialysis) 176/75 mmHg Sitti ng Heart Rate Post-Dialysis 102 BPM Sitting Heart Rate Pre-Dialysis 78 BPM Temperatu re Post-Dialysis 97.8 degF Standing Heart Rate Pre-Dialysis 81 BPM Temperature Pre-Dialysis 97 degF November 06, 2024 In-Center Hemodialysis Treatment 1610-55-78U12:05:33.000Z 7328-51-69C88:06:23.000Z BP Sitting (Pre-Dialysis) 146/70 mmHg BP Sitting (Post-Dialysis) 123/56 mmHg Concurrent Access: falseAV Fistula Upper Arm (Left) Arterial BP Standing (Pre-Dialysis) 146/67 mmHg BP Standing (P ost-Dialysis) 114/63 mmHg Sitting Heart Rate Pre-Dialysis 80 BPM Sitting Heart Rate Post-Dialysis 78 BPM Standing Heart Rate Pre-Dialysis 82 BPM Standing Heart Rate Post-Dialysis 75 BPM Temperature Pre-Dialysis 97.8 degF Temperature Post -Dialysis 97.2 degF November 04, 2024 In-Center Hemodialysis Treatment 0955-03-09O42:58:02.000Z 7389-87-96E66:58:52.000Z BP Sitting (Pre-Dialysis) 153/69 mmHg BP Sitting (Post-Dialysis) 113/56 mmHg Concurrent Access: falseAV Fistula Upper Arm (Left) Arterial BP Standing (Pre-Dialysis) 172/78 mmHg BP Standing (P ost-Dialysis) 103/52 mmHg Sitting Heart Rate Pre-Dialysis 81 BPM Sitting Heart Rate Post-Dialysis 93 BPM Standing Heart Rate Pre-Dialysis 84 BPM Standing Heart Rate Post-Dialysis 87 BPM Temperature Pre-Dialysis 97.4 degF Temperature Post -Dialysis 97.8 degF November 02, 2024 In-Center Hemodialysis Treatment 4603-30-82A98:06:03.000Z 8539-95-67G38:03:58.000Z BP Sitting (Pre-Dialysis) 196/80 mmHg BP Sitting (Post-Dialysis) 105/45 mmHg Concurrent Access: falseAV Fistula Upper Arm (Left) Arterial BP Standing (Pre-Dialysis) 174/72 mmHg Sitti ng Heart Rate Post-Dialysis 76 BPM Sitting Heart Rate Pre-Dialysis 81 BPM Temperatu re Post-Dialysis 97.2 degF Standing Heart Rate Pre-Dialysis 111 BPM Temperature Pre-Dialysis 97.2 degF October 30, 2024 In-Center Hemodialysis Treatment 2243-25-00L45:03:06.000Z 7455-11-66Q71:06:01.000Z BP Sitting (Pre-Dialysis) 126/48 mmHg BP Sitting (Post-Dialysis) 108/46 mmHg Concurrent Access: falseAV Fistula Upper Arm (Left) Arterial BP Standing (Pre-Dialysis) 146/71 mmHg BP Standing (P ost-Dialysis) 100/45 mmHg Sitting Heart Rate Pre-Dialysis 78 BPM Sitting Heart Rate Post-Dialysis 93 BPM Standing Heart Rate Pre-Dialysis 81 BPM Standing Heart Rate Post-Dialysis 95 BPM Temperature Pre-Dialysis 98 degF Temperature Post -Dialysis 97.8 degF October 28, 2024 In-Center Hemodialysis Treatment 9872-51-89R79:07:53.000Z 6635-14-98D81:08:18.000Z BP Sitting (Pre-Dialysis) 157/71 mmHg BP Sitting (Post-Dialysis) 101/53 mmHg Concurrent Access: falseAV Fistula Upper Arm (Left) Arterial BP Standing (Pre-Dialysis) 171/79 mmHg Sitti ng Heart Rate Post-Dialysis 100 BPM Sitting Heart Rate Pre-Dialysis 95 BPM Temperatu re Post-Dialysis 97.2 degF Standing Heart Rate Pre-Dialysis 98 BPM Temperature Pre-Dialysis 97.8 degF October 26, 2024 In-Center Hemodialysis Treatment 8272-92-95M62:09:20.000Z 2139-99-39H04:08:55.000Z BP Sitting (Pre-Dialysis) 142/44 mmHg BP Sitting (Post-Dialysis) 103/47 mmHg Concurrent Access: falseAV Fistula Upper Arm (Left) Arterial BP Standing (Pre-Dialysis) 172/95 mmHg Sitti ng Heart Rate Post-Dialysis 79 BPM Sitting Heart Rate Pre-Dialysis 95 BPM Temperatu re Post-Dialysis 97.6 degF Standing Heart Rate Pre-Dialysis 103 BPM Temperature Pre-Dialysis 96.6 degF October 23, 2024 In-Center Hemodialysis Treatment 3216-43-19L43:12:11.000Z 5113-02-41P81:10:56.000Z BP Sitting (Pre-Dialysis) 174/71 mmHg BP Sitting (Post-Dialysis) 116/62 mmHg Concurrent Access: falseAV Fistula Upper Arm (Left) Arterial BP Standing (Pre-Dialysis) 181/73 mmHg Sitti ng Heart Rate Post-Dialysis 79 BPM Sitting Heart Rate Pre-Dialysis 69 BPM Temperatu re Post-Dialysis 97.8 degF Standing Heart Rate Pre-Dialysis 78 BPM Temperature Pre-Dialysis 97.8 degF October 21, 2024 In-Center Hemodialysis Treatment 9456-60-07Q65:05:52.000Z 5612-40-69A20:05:27.000Z BP Sitting (Pre-Dialysis) 155/76 mmHg BP Sitting (Post-Dialysis) 110/47 mmHg Concurrent Access: falseAV Fistula Upper Arm (Left) Arterial Sitting Heart Rate Pre-Dialysis 78 BPM BP Standing (Post-Dialysis) 104/45 mmHg Temperature Pre-Dialysis 96.2 degF Sitting Heart Ra te Post-Dialysis 87 BPM Standing Heart Rate Post-Rosemary lysis 84 BPM Temperature Post-Dialysis 97 .6 degF October 19, 2024 In-Center Hemodialysis Treatment 0743-28-80V55:01:45.000Z 8488-50-00W69:03:00.000Z BP Sitting (Pre-Dialysis) 169/79 mmHg BP Sitting (Post-Dialysis) 105/44 mmHg Concurrent Access: falseAV Fistula Upper Arm (Left) Arterial BP Standing (Pre-Dialysis) 167/85 mmHg Sitti ng Heart Rate Post-Dialysis 75 BPM Sitting Heart Rate Pre-Dialysis 79 BPM Temperatu re Post-Dialysis 97.8 degF Standing Heart Rate Pre-Dialysis 81 BPM Temperature Pre-Dialysis 97.8 degF October 16, 2024 In-Center Hemodialysis Treatment 0256-08-54H89:05:00.000Z 4064-62-53B22:08:05.000Z BP Sitting (Pre-Dialysis) 187/85 mmHg BP Sitting (Post-Dialysis) 127/74 mmHg Concurrent Access: falseAV Fistula Upper Arm (Left) Arterial BP Standing (Pre-Dialysis) 179/82 mmHg Sitti ng Heart Rate Post-Dialysis 84 BPM Sitting Heart Rate Pre-Dialysis 86 BPM Temperatu re Post-Dialysis 97.8 degF Standing Heart Rate Pre-Dialysis 81 BPM Temperature Pre-Dialysis 97.8 degF October 14, 2024 In-Center Hemodialysis Treatment [id number]:08:50.000Z [id number]:24:30.000Z BP Sitting (Pre-Dialysis) 152/85 mmHg BP Sitting (Post-Dialysis) 101/57 mmHg Concurrent Access: falseAV Fistula Upper Arm (Left) Arterial BP Standing (Pre-Dialysis) 152/82 mmHg Sitti ng Heart Rate Post-Dialysis 84 BPM Sitting Heart Rate Pre-Dialysis 122 BPM Temperatu re Post-Dialysis 97.2 degF Standing Heart Rate Pre-Dialysis 102 BPM Temperature Pre-Dialysis 97 degF October 12, 2024 In-Center Hemodialysis Treatment [id number]:07:59.000Z 9024-75-54U06:09:28.000Z BP Sitting (Pre-Dialysis) 176/76 mmHg BP Sitting (Post-Dialysis) 101/49 mmHg Concurrent Access: falseAV Fistula Upper Arm (Left) Arterial BP Standing (Pre-Dialysis) 221/85 mmHg Sitti ng Heart Rate Post-Dialysis 89 BPM Sitting Heart Rate Pre-Dialysis 74 BPM Temperatu re Post-Dialysis 97.5 degF Standing Heart Rate Pre-Dialysis 89 BPM Temperature Pre-Dialysis 97.8 degF October 09, 2024 In-Center Hemodialysis Treatment [id number]:08:03.000Z 8719-43-72O43:08:53.000Z BP Sitting (Pre-Dialysis) 132/66 mmHg BP Sitting (Post-Dialysis) 100/58 mmHg Concurrent Access: falseAV Fistula Upper Arm (Left) Arterial BP Standing (Pre-Dialysis) 116/56 mmHg Sitting Heart Rate Post-Dialysis 70 BPM Sitting Heart Rate Pre-Dialysis 95 BPM Temperatu re Post-Dialysis 98 degF Standing Heart Rate Pre-Dialysis 121 BPM Temperature Pre-Dialysis 97.5 degF October 07, 2024 In-Center Hemodialysis Treatment 3616-47-53D29:04:37.000Z 8630-33-98U95:05:02.000Z BP Sitting (Pre-Dialysis) 156/75 mmHg BP Sitting (Post-Dialysis) 118/47 mmHg Concurrent Access: falseAV Fistula Upper Arm (Left) Arterial BP Standing (Pre-Dialysis) 158/79 mmHg Sitti ng Heart Rate Post-Dialysis 92 BPM Sitting Heart Rate Pre-Dialysis 94 BPM Temperatu re Post-Dialysis 97.2 degF Standing Heart Rate Pre-Dialysis 96 BPM Temperature Pre-Dialysis 97.8 degF October 05, 2024 In-Center Hemodialysis Treatment [id number]:06:50.000Z 0972-66-82U70:07:15.000Z BP Sitting (Pre-Dialysis) 186/96 mmHg BP Sitting (Post-Dialysis) 134/51 mmHg Concurrent Access: falseAV Fistula Upper Arm (Left) Arterial BP Standing (Pre-Dialysis) 172/88 mmHg Sitti ng Heart Rate Post-Dialysis 81 BPM Sitting Heart Rate Pre-Dialysis 111 BPM Temperatu re Post-Dialysis 97.6 degF Standing Heart Rate Pre-Dialysis 98 BPM Temperature Pre-Dialysis 96.3 degF October 02, 2024 In-Center Hemodialysis Treatment 2719-33-34V83:06:07.000Z [id number]:05:42.000Z BP Sitting (Pre-Dialysis) 155/73 mmHg BP Sitting (Post-Dialysis) 103/36 mmHg Concurrent Access: falseAV Fistula Upper Arm (Left) Arterial BP Standing (Pre-Dialysis) 124/58 mmHg Sitti ng Heart Rate Post-Dialysis 81 BPM Sitting Heart Rate Pre-Dialysis 85 BPM Temperatu re Post-Dialysis 97.8 degF Standing Heart Rate Pre-Dialysis 101 BPM Temperature Pre-Dialysis 95.4 degF September 30, 2024 In-Center Hemodialysis Treatment [id number]:11:36.000Z 5942-02-80F05:11:36.000Z BP Sitting (Pre-Dialysis) 139/80 mmHg BP Sitting (Post-Dialysis) 99/57 mmHg Concurrent Access: falseAV Fistula Upper Arm (Left) Arterial BP Standing (Pre-Dialysis) 164/66 mmHg Sitti ng Heart Rate Post-Dialysis 100 BPM Sitting Heart Rate Pre-Dialysis 84 BPM Temperatu re Post-Dialysis 97.2 degF Standing Heart Rate Pre-Dialysis 78 BPM Temperature Pre-Dialysis 96.8 degF September 28, 2024 In-Center Hemodialysis Treatment 9847-08-73I50:06:45.000Z 0478-43-22N77:09:40.000Z BP Sitting (Pre-Dialysis) 165/75 mmHg BP Sitting (Post-Dialysis) 105/46 mmHg Concurrent Access: falseAV Fistula Upper Arm (Left) Arterial BP Standing (Pre-Dialysis) 129/73 mmHg Sitting Heart Rate Post-Dialysis 96 BPM Sitting Heart Rate Pre-Dialysis 82 BPM Temperatu re Post-Dialysis 98 degF Standing Heart Rate Pre-Dialysis 127 BPM Temperature Pre-Dialysis 97.8 degF September 25, 2024 In-Center Hemodialysis Treatment 0012-07-97Y74:12:17.000Z 2199-52-35I24:13:32.000Z BP Sitting (Pre-Dialysis) 144/77 mmHg BP Sitting (Post-Dialysis) 95/40 mmHg Concurrent Access: falseAV Fistula Upper Arm (Left) Arterial BP Standing (Pre-Dialysis) 166/74 mmHg Sitti ng Heart Rate Post-Dialysis 71 BPM Sitting Heart Rate Pre-Dialysis 82 BPM Temperatu re Post-Dialysis 97.3 degF Standing Heart Rate Pre-Dialysis 80 BPM Temperature Pre-Dialysis 97.8 degF September 23, 2024 In-Center Hemodialysis Treatment 1184-97-31O34:10:00.000Z 5038-46-87U08:13:06.000Z BP Sitting (Pre-Dialysis) 144/76 mmHg BP Sitting (Post-Dialysis) 118/64 mmHg Concurrent Access: falseAV Fistula Upper Arm (Left) Arterial BP Standing (Pre-Dialysis) 142/74 mmHg Sitti ng Heart Rate Post-Dialysis 63 BPM Sitting Heart Rate Pre-Dialysis 76 BPM Temperatu re Post-Dialysis 97.2 degF Standing Heart Rate Pre-Dialysis 130 BPM Temperature Pre-Dialysis 97.7 degF September 21, 2024 In-Center Hemodialysis Treatment 0683-70-97J67:00:00.000Z 5198-21-27C75:02:05.000Z BP Sitting (Pre-Dialysis) 192/78 mmHg BP Sitting (Post-Dialysis) 113/41 mmHg Concurrent Access: falseAV Fistula Upper Arm (Left) Arterial BP Standing (Pre-Dialysis) 137/82 mmHg BP Standing (P ost-Dialysis) 110/52 mmHg Sitting Heart Rate Pre-Dialysis 76 BPM Sitting Heart Rate Post-Dialysis 88 BPM Standing Heart Rate Pre-Dialysis 106 BPM Standing Heart Rate Post-Dialysis 91 BPM Temperature Pre-Dialysis 96.7 degF Temperature Post -Dialysis 97.5 degF September 18, 2024 In-Center Hemodialysis Treatment 0388-78-93J56:05:00.000Z 7317-92-78H36:11:39.000Z BP Sitting (Pre-Dialysis) 175/76 mmHg BP Sitting (Post-Dialysis) 116/50 mmHg Concurrent Access: falseAV Fistula Upper Arm (Left) Arterial BP Standing (Pre-Dialysis) 110/69 mmHg Sitti ng Heart Rate Post-Dialysis 89 BPM Sitting Heart Rate Pre-Dialysis 77 BPM Temperatu re Post-Dialysis 97.3 degF Standing Heart Rate Pre-Dialysis 123 BPM Temperature Pre-Dialysis 97.1 degF September 16, 2024 In-Center Hemodialysis Treatment 7758-96-44G19:09:34.000Z 0118-74-36B97:10:49.000Z BP Sitting (Pre-Dialysis) 188/94 mmHg BP Sitting (Post-Dialysis) 105/43 mmHg Concurrent Access: falseAV Fistula Upper Arm (Left) Arterial BP Standing (Pre-Dialysis) 137/68 mmHg BP Standing (P ost-Dialysis) 100/53 mmHg Sitting Heart Rate Pre-Dialysis 106 BPM Sitting Heart Rate Post-Dialysis 88 BPM Standing Heart Rate Pre-Dialysis 123 BPM Standing Heart Rate Post-Dialysis 101 BPM Temperature Pre-Dialysis 97.8 degF Temperature Post -Dialysis 97.2 degF September 14, 2024 In-Center Hemodialysis Treatment 7059-18-72L64:04:17.000Z 8220-84-15G95:04:42.000Z BP Sitting (Pre-Dialysis) 180/80 mmHg BP Sitting (Post-Dialysis) 95/51 mmHg Concurrent Access: falseAV Fistula Upper Arm (Left) Arterial BP Standing (Pre-Dialysis) 157/69 mmHg BP Standing (P ost-Dialysis) 101/51 mmHg Sitting Heart Rate Pre-Dialysis 83 BPM Sitting Heart Rate Post-Dialysis 91 BPM Standing Heart Rate Pre-Dialysis 73 BPM Standing Heart Rate Post-Dialysis 93 BPM Temperature Pre-Dialysis 97.4 degF September 11, 2024 In-Center Hemodialysis Treatment [id number]:06:27.000Z 4951-96-42E63:06:52.000Z BP Sitting (Pre-Dialysis) 155/53 mmHg BP Sitting (Post-Dialysis) 107/44 mmHg Concurrent Access: falseAV Fistula Upper Arm (Left) Arterial BP Standing (Pre-Dialysis) 113/63 mmHg BP Standing (P ost-Dialysis) 101/45 mmHg Sitting Heart Rate Pre-Dialysis 97 BPM Sitting Heart Rate Post-Dialysis 90 BPM Standing Heart Rate Pre-Dialysis 130 BPM Standing Heart Rate Post-Dialysis 89 BPM Temperature Pre-Dialysis 97.6 degF Temperature Post -Dialysis 97.6 degF September 09, 2024 In-Center Hemodialysis Treatment 5767-57-45O97:05:41.000Z 1494-76-10Z42:07:21.000Z BP Sitting (Pre-Dialysis) 121/70 mmHg BP Sitting (Post-Dialysis) 104/43 mmHg Concurrent Access: falseAV Fistula Upper Arm (Left) Arterial BP Standing (Pre-Dialysis) 121/70 mmHg BP Standing (P ost-Dialysis) 114/52 mmHg Sitting Heart Rate Pre-Dialysis 123 BPM Sitting Heart Rate Post-Dialysis 99 BPM Standing Heart Rate Pre-Dialysis 103 BPM Standing Heart Rate Post-Dialysis 96 BPM Temperature Pre-Dialysis 97.4 degF Temperature Post -Dialysis 97.3 degF September 07, 2024 In-Center Hemodialysis Treatment 9879-10-36X29:01:24.000Z 1653-37-98W66:03:54.000Z BP Sitting (Pre-Dialysis) 202/87 mmHg BP Sitting (Post-Dialysis) 100/48 mmHg Concurrent Access: falseAV Fistula Upper Arm (Left) Arterial BP Standing (Pre-Dialysis) 128/77 mmHg Sitti ng Heart Rate Post-Dialysis 105 BPM Sitting Heart Rate Pre-Dialysis 91 BPM Temperatu re Post-Dialysis 97.2 degF Standing Heart Rate Pre-Dialysis 89 BPM Temperature Pre-Dialysis 96.9 degF September 04, 2024 In-Center Hemodialysis Treatment 1300-69-19P75:05:04.000Z 7932-03-82E25:00:29.000Z BP Sitting (Pre-Dialysis) 133/92 mmHg BP Sitting (Post-Dialysis) 99/45 mmHg Concurrent Access: falseAV Fistula Upper Arm (Left) Arterial BP Standing (Pre-Dialysis) 131/71 mmHg BP Standing (P ost-Dialysis) 94/51 mmHg Sitting Heart Rate Pre-Dialysis 82 BPM Sitting Heart Rate Post-Dialysis 95 BPM Standing Heart Rate Pre-Dialysis 103 BPM Standing Heart Rate Post-Dialysis 107 BPM Temperature Pre-Dialysis 97 degF Temperature Post -Dialysis 97.2 degF September 02, 2024 In-Center Hemodialysis Treatment 4128-11-95T25:07:20.000Z 0328-04-94I74:02:20.000Z BP Sitting (Pre-Dialysis) 167/67 mmHg BP Sitting (Post-Dialysis) 91/43 mmHg Concurrent Access: falseAV Fistula Upper Arm (Left) Arterial BP Standing (Pre-Dialysis) 126/66 mmHg Sitti ng Heart Rate Post-Dialysis 91 BPM Sitting Heart Rate Pre-Dialysis 75 BPM Temperatu re Post-Dialysis 97.6 degF Standing Heart Rate Pre-Dialysis 88 BPM Temperature Pre-Dialysis 97.2 degF August 31, 2024 In-Center Hemodialysis Treatment 1851-95-07P71:03:57.000Z 0778-32-45S71:03:32.000Z BP Sitting (Pre-Dialysis) 181/78 mmHg BP Sitting (Post-Dialysis) 94/66 mmHg Concurrent Access: falseAV Fistula Upper Arm (Left) Arterial Sitting Heart Rate Pre-Dialysis 105 BPM Sitting H eart Rate Post-Dialysis 88 BPM Temperature Pre-Dialysis 97.6 degF Temperature Post -Dialysis 97.2 degF August 28, 2024 In-Center Hemodialysis Treatment [id number]:07:46.000Z 9449-61-42C28:07:21.000Z BP Sitting (Pre-Dialysis) 127/54 mmHg BP Sitting (Post-Dialysis) 117/56 mmHg Concurrent Access: falseAV Fistula Upper Arm (Left) Arterial BP Standing (Pre-Dialysis) 128/55 mmHg Sitti ng Heart Rate Post-Dialysis 91 BPM Sitting Heart Rate Pre-Dialysis 100 BPM Temperatu re Post-Dialysis 97.7 degF Standing Heart Rate Pre-Dialysis 113 BPM Temperature Pre-Dialysis 96.4 degF August 26, 2024 In-Center Hemodialysis Treatment 5098-85-87M65:05:56.000Z 7612-81-95D00:06:21.000Z BP Sitting (Pre-Dialysis) 173/79 mmHg BP Sitting (Post-Dialysis) 139/35 mmHg Concurrent Access: falseAV Fistula Upper Arm (Left) Arterial Sitting Heart Rate Pre-Dialysis 77 BPM Sitting H eart Rate Post-Dialysis 89 BPM Temperature Pre-Dialysis 96.7 degF Temperature Post -Dialysis 97.6 degF August 24, 2024 In-Center Hemodialysis Treatment 6743-32-04T67:06:59.000Z 2987-94-94C14:05:44.000Z BP Sitting (Pre-Dialysis) 191/81 mmHg BP Sitting (Post-Dialysis) 104/48 mmHg Concurrent Access: falseAV Fistula Upper Arm (Left) Arterial BP Standing (Pre-Dialysis) 140/84 mmHg Sitti ng Heart Rate Post-Dialysis 82 BPM Sitting Heart Rate Pre-Dialysis 87 BPM Temperatu re Post-Dialysis 97.8 degF Standing Heart Rate Pre-Dialysis 117 BPM Temperature Pre-Dialysis 97.6 degF August 21, 2024 In-Center Hemodialysis Treatment 7955-66-86M61:02:37.000Z 3073-50-25C22:58:27.000Z BP Sitting (Pre-Dialysis) 161/55 mmHg BP Sitting (Post-Dialysis) 105/45 mmHg Concurrent Access: falseAV Fistula Upper Arm (Left) Arterial BP Standing (Pre-Dialysis) 106/59 mmHg Sitti ng Heart Rate Post-Dialysis 95 BPM Sitting Heart Rate Pre-Dialysis 76 BPM Temperatu re Post-Dialysis 97.8 degF Standing Heart Rate Pre-Dialysis 107 BPM Temperature Pre-Dialysis 96.6 degF August 19, 2024 In-Center Hemodialysis Treatment [id number]:59:39.000Z 2465-51-72H16:59:14.000Z BP Sitting (Pre-Dialysis) 140/62 mmHg BP Sitting (Post-Dialysis) 98/49 mmHg Concurrent Access: falseAV Fistula Upper Arm (Left) Arterial Sitting Heart Rate Pre-Dialysis 86 BPM Sitting H eart Rate Post-Dialysis 93 BPM Temperature Pre-Dialysis 97.6 degF Temperature Post -Dialysis 97.3 degF August 17, 2024 In-Center Hemodialysis Treatment 3621-16-51C31:10:21.000Z 5791-75-16T59:13:41.000Z BP Sitting (Pre-Dialysis) 126/57 mmHg BP Sitting (Post-Dialysis) 96/41 mmHg Concurrent Access: falseAV Fistula Upper Arm (Left) Arterial BP Standing (Pre-Dialysis) 129/62 mmHg BP Standing (P ost-Dialysis) 111/62 mmHg Sitting Heart Rate Pre-Dialysis 71 BPM Sitting Heart Rate Post-Dialysis 84 BPM Standing Heart Rate Pre-Dialysis 74 BPM Standing Heart Rate Post-Dialysis 95 BPM Temperature Pre-Dialysis 97.8 degF Temperature Post -Dialysis 97.2 degF August 14, 2024 In-Center Hemodialysis Treatment [id number]:22:12.000Z 6157-59-50M86:18:02.000Z BP Sitting (Pre-Dialysis) 154/74 mmHg BP Sitting (Post-Dialysis) 98/48 mmHg Concurrent Access: falseAV Fistula Upper Arm (Left) Arterial BP Standing (Pre-Dialysis) 148/71 mmHg Sitti ng Heart Rate Post-Dialysis 74 BPM Sitting Heart Rate Pre-Dialysis 101 BPM Temperatu re Post-Dialysis 97.2 degF Standing Heart Rate Pre-Dialysis 98 BPM Temperature Pre-Dialysis 96.6 degF August 12, 2024 In-Center Hemodialysis Treatment 8451-82-21J46:25:00.000Z 9290-04-56Y49:27:11.000Z BP Sitting (Pre-Dialysis) 146/51 mmHg BP Sitting (Post-Dialysis) 111/40 mmHg Concurrent Access: falseAV Fistula Upper Arm (Left) Arterial BP Standing (Pre-Dialysis) 140/58 mmHg BP Standing (P ost-Dialysis) 101/56 mmHg Sitting Heart Rate Pre-Dialysis 77 BPM Sitting Heart Rate Post-Dialysis 79 BPM Standing Heart Rate Pre-Dialysis 76 BPM Standing Heart Rate Post-Dialysis 89 BPM Temperature Pre-Dialysis 97.8 degF Temperature Post -Dialysis 97.5 degF August 10, 2024 In-Center Hemodialysis Treatment 7660-40-07Y54:35:02.000Z 7708-14-40L44:35:02.000Z BP Sitting (Pre-Dialysis) 158/77 mmHg BP Sitting (Post-Dialysis) 110/81 mmHg Concurrent Access: falseAV Fistula Upper Arm (Left) Arterial Sitting Heart Rate Pre-Dialysis 86 BPM BP Standing (Post-Dialysis) 100/46 mmHg Temperature Pre-Dialysis 97.8 degF Sitting Heart Ra te Post-Dialysis 88 BPM Standing Heart Rate Post-Rosemary lysis 92 BPM Temperature Post-Dialysis 97 .3 degF August 07, 2024 In-Center Hemodialysis Treatment 8358-29-66P73:32:51.000Z 2234-89-89D13:34:06.000Z BP Sitting (Pre-Dialysis) 147/73 mmHg BP Sitting (Post-Dialysis) 124/69 mmHg Concurrent Access: falseAV Fistula Upper Arm (Left) Arterial BP Standing (Pre-Dialysis) 125/69 mmHg Sitting Heart Rate Post-Dialysis 77 BPM Sitting Heart Rate Pre-Dialysis 95 BPM Standing Heart Rate Pre-Dialysis 100 BPM Temperature Pre-Dialysis 97.8 degF August 05, 2024 In-Center Hemodialysis Treatment 2894-18-87B11:18:06.000Z 8938-46-04P32:21:01.000Z BP Sitting (Pre-Dialysis) 169/85 mmHg BP Sitting (Post-Dialysis) 149/43 mmHg Concurrent Access: falseAV Fistula Upper Arm (Left) Arterial Sitting Heart Rate Pre-Dialysis 69 BPM Sitting H eart Rate Post-Dialysis 78 BPM Temperature Pre-Dialysis 97.2 degF Temperature Post -Dialysis 97.8 degF August 03, 2024 In-Center Hemodialysis Treatment 8961-67-96F77:25:28.000Z 0612-09-57N62:23:48.000Z BP Sitting (Pre-Dialysis) 178/87 mmHg BP Sitting (Post-Dialysis) 122/64 mmHg Concurrent Access: falseAV Fistula Upper Arm (Left) Arterial Sitting Heart Rate Pre-Dialysis 100 BPM Sitting H eart Rate Post-Dialysis 111 BPM Temperature Pre-Dialysis 97.1 degF Temperature Post -Dialysis 97.2 degF July 31, 2024 In-Center Hemodialysis Treatment 6334-29-47D60:30:25.000Z 8576-39-67K79:29:35.000Z BP Sitting (Pre-Dialysis) 103/54 mmHg BP Sitting (Post-Dialysis) 106/64 mmHg Concurrent Access: falseAV Fistula Upper Arm (Left) Arterial BP Standing (Pre-Dialysis) 108/61 mmHg BP Standing (P ost-Dialysis) 108/43 mmHg Sitting Heart Rate Pre-Dialysis 92 BPM Sitting Heart Rate Post-Dialysis 84 BPM Standing Heart Rate Pre-Dialysis 86 BPM Standing Heart Rate Post-Dialysis 102 BPM Temperature Pre-Dialysis 97.2 degF Temperature Post -Dialysis 97.6 degF July 29, 2024 In-Center Hemodialysis Treatment [id number]:26:58.000Z 2093-13-05F67:26:33.000Z BP Sitting (Pre-Dialysis) 127/61 mmHg BP Sitting (Post-Dialysis) 118/53 mmHg Concurrent Access: falseAV Fistula Upper Arm (Left) Arterial Sitting Heart Rate Pre-Dialysis 90 BPM Sitting H eart Rate Post-Dialysis 100 BPM Temperature Pre-Dialysis 97 degF Temperature Post -Dialysis 97.8 degF July 27, 2024 In-Center Hemodialysis Treatment 7357-73-14U33:24:00.000Z 8541-84-44R45:22:51.000Z BP Sitting (Pre-Dialysis) 124/59 mmHg BP Sitting (Post-Dialysis) 116/52 mmHg Concurrent Access: falseAV Fistula Upper Arm (Left) Arterial BP Standing (Pre-Dialysis) 127/61 mmHg BP Standing (P ost-Dialysis) 121/49 mmHg Sitting Heart Rate Pre-Dialysis 85 BPM Sitting Heart Rate Post-Dialysis 87 BPM Standing Heart Rate Pre-Dialysis 87 BPM Standing Heart Rate Post-Dialysis 104 BPM Temperature Pre-Dialysis 97.8 degF Temperature Post -Dialysis 97.5 degF July 24, 2024 In-Center Hemodialysis Treatment 3859-58-81L18:42:17.000Z 3817-50-58C29:37:17.000Z BP Sitting (Pre-Dialysis) 119/63 mmHg BP Sitting (Post-Dialysis) 107/49 mmHg Concurrent Access: falseAV Fistula Upper Arm (Left) Arterial Sitting Heart Rate Pre-Dialysis 100 BPM BP Standi ng (Post-Dialysis) 97/57 mmHg Temperature Pre-Dialysis 96.7 degF Sitting Heart Ra te Post-Dialysis 87 BPM Standing Heart Rate Post-Rosemary lysis 97 BPM Temperature Post-Dialysis 97 .3 degF July 20, 2024 In-Center Hemodialysis Treatment [id number]:42:29.000Z 6012-00-91Z91:45:24.000Z BP Sitting (Pre-Dialysis) 148/80 mmHg BP Sitting (Post-Dialysis) 103/46 mmHg Concurrent Access: falseAV Fistula Upper Arm (Left) Arterial Sitting Heart Rate Pre-Dialysis 96 BPM Sitting H eart Rate Post-Dialysis 93 BPM Temperature Pre-Dialysis 97.8 degF Temperature Post -Dialysis 97.2 degF July 17, 2024 In-Center Hemodialysis Treatment 4912-36-61L01:17:23.000Z 4176-81-81B42:15:18.000Z BP Sitting (Pre-Dialysis) 131/64 mmHg BP Sitting (Post-Dialysis) 115/55 mmHg Concurrent Access: falseAV Fistula Upper Arm (Left) Arterial Sitting Heart Rate Pre-Dialysis 98 BPM Sitting H eart Rate Post-Dialysis 86 BPM Temperature Pre-Dialysis 97.2 degF Temperature Post -Dialysis 97.2 degF July 15, 2024 In-Center Hemodialysis Treatment 8574-11-55B11:33:27.000Z 2651-20-24Y24:33:19.000Z BP Sitting (Pre-Dialysis) 125/56 mmHg BP Sitting (Post-Dialysis) 94/43 mmHg Concurrent Access: falseAV Fistula Upper Arm (Left) Arterial Sitting Heart Rate Pre-Dialysis 79 BPM Sitting H eart Rate Post-Dialysis 89 BPM Temperature Pre-Dialysis 97.2 degF Temperature Post -Dialysis 97.6 degF July 13, 2024 In-Center Hemodialysis Treatment 2958-75-65Y09:38:06.000Z 3887-94-90I33:41:51.000Z BP Sitting (Pre-Dialysis) 137/63 mmHg BP Sitting (Post-Dialysis) 109/43 mmHg Concurrent Access: falseAV Fistula Upper Arm (Left) Arterial BP Standing (Pre-Dialysis) 175/74 mmHg Sitti ng Heart Rate Post-Dialysis 91 BPM Sitting Heart Rate Pre-Dialysis 78 BPM Temperatu re Post-Dialysis 97.8 degF Standing Heart Rate Pre-Dialysis 80 BPM Temperature Pre-Dialysis 96.8 degF July 10, 2024 In-Center Hemodialysis Treatment 4196-41-98F90:19:18.000Z 5736-63-63N57:20:33.000Z BP Sitting (Pre-Dialysis) 124/63 mmHg BP Sitting (Post-Dialysis) 106/92 mmHg Concurrent Access: falseAV Fistula Upper Arm (Left) Arterial Sitting Heart Rate Pre-Dialysis 80 BPM Sitting H eart Rate Post-Dialysis 92 BPM Temperature Pre-Dialysis 97.2 degF Temperature Post -Dialysis 97.3 degF July 08, 2024 In-Center Hemodialysis Treatment 8057-21-33Y71:26:57.000Z 4841-06-28Q97:31:07.000Z BP Sitting (Pre-Dialysis) 203/91 mmHg BP Sitting (Post-Dialysis) 109/46 mmHg Concurrent Access: falseAV Fistula Upper Arm (Left) Arterial Sitting Heart Rate Pre-Dialysis 80 BPM Sitting H eart Rate Post-Dialysis 79 BPM Temperature Pre-Dialysis 97.2 degF Temperature Post -Dialysis 97.2 degF July 06, 2024 In-Center Hemodialysis Treatment 8542-91-53F30:36:35.000Z 1284-39-55P77:35:20.000Z BP Sitting (Pre-Dialysis) 116/75 mmHg BP Sitting (Post-Dialysis) 97/61 mmHg Concurrent Access: falseAV Fistula Upper Arm (Left) Arterial Sitting Heart Rate Pre-Dialysis 83 BPM Sitting H eart Rate Post-Dialysis 106 BPM Temperature Pre-Dialysis 97.6 degF Temperature Post -Dialysis 97 degF July 03, 2024 In-Center Hemodialysis Treatment 0115-20-44N10:25:26.000Z 4161-27-29S84:27:31.000Z BP Sitting (Pre-Dialysis) 115/63 mmHg BP Sitting (Post-Dialysis) 100/54 mmHg Concurrent Access: falseAV Fistula Upper Arm (Left) Arterial Sitting Heart Rate Pre-Dialysis 103 BPM Sitting H eart Rate Post-Dialysis 88 BPM Temperature Pre-Dialysis 97.8 degF Temperature Post -Dialysis 97.2 degF July 01, 2024 In-Center Hemodialysis Treatment 6771-54-07H01:38:27.000Z 5903-92-76J81:38:52.000Z BP Sitting (Pre-Dialysis) 153/80 mmHg BP Sitting (Post-Dialysis) 104/58 mmHg Concurrent Access: falseAV Fistula Upper Arm (Left) Arterial Sitting Heart Rate Pre-Dialysis 104 BPM Sitting H eart Rate Post-Dialysis 111 BPM Temperature Pre-Dialysis 97.5 degF Temperature Post -Dialysis 97.2 degF June 29, 2024 In-Center Hemodialysis Treatment 8001-08-15O31:19:24.000Z 8177-87-35Q30:20:39.000Z BP Sitting (Pre-Dialysis) 163/69 mmHg BP Sitting (Post-Dialysis) 121/61 mmHg Concurrent Access: falseAV Fistula Upper Arm (Left) Arterial Sitting Heart Rate Pre-Dialysis 80 BPM BP Standing (Post-Dialysis) 104/59 mmHg Temperature Pre-Dialysis 97.8 degF Sitting Heart Ra te Post-Dialysis 100 BPM Standing Heart Rate Post-Rosemary lysis 88 BPM Temperature Post-Dialysis 97 .2 degF June 26, 2024 In-Center Hemodialysis Treatment 5558-21-75J49:28:18.000Z 0060-38-95I77:29:33.000Z BP Sitting (Pre-Dialysis) 168/79 mmHg BP Sitting (Post-Dialysis) 95/45 mmHg Concurrent Access: falseAV Fistula Upper Arm (Left) Arterial Sitting Heart Rate Pre-Dialysis 88 BPM BP Standi ng (Post-Dialysis) 89/55 mmHg Temperature Pre-Dialysis 97.1 degF Sitting Heart Ra te Post-Dialysis 87 BPM Standing Heart Rate Post-Rosemary lysis 85 BPM Temperature Post-Dialysis 97 .2 degF June 24, 2024 In-Center Hemodialysis Treatment 5398-58-32Z24:45:00.000Z 7173-03-68Y99:46:15.000Z BP Sitting (Pre-Dialysis) 174/77 mmHg BP Sitting (Post-Dialysis) 124/54 mmHg Concurrent Access: falseAV Fistula Upper Arm (Left) Arterial Sitting Heart Rate Pre-Dialysis 77 BPM BP Standing (Post-Dialysis) 104/45 mmHg Temperature Pre-Dialysis 97.3 degF Sitting Heart Ra te Post-Dialysis 82 BPM Standing Heart Rate Post-Rosemary lysis 80 BPM Temperature Post-Dialysis 97 .2 degF June 22, 2024 In-Center Hemodialysis Treatment 4074-72-90S49:51:20.000Z 6209-42-32E51:53:25.000Z BP Sitting (Pre-Dialysis) 173/85 mmHg BP Sitting (Post-Dialysis) 126/53 mmHg Concurrent Access: falseAV Fistula Upper Arm (Left) Arterial Sitting Heart Rate Pre-Dialysis 120 BPM BP Standing (Post-Dialysis) 133/61 mmHg Temperature Pre-Dialysis 97.9 degF Sitting Heart Ra te Post-Dialysis 87 BPM Standing Heart Rate Post-Rosemary lysis 88 BPM Temperature Post-Dialysis 97 .6 degF June 19, 2024 In-Center Hemodialysis Treatment 5038-59-10J03:44:53.000Z 9578-37-21C18:44:03.000Z BP Sitting (Pre-Dialysis) 133/65 mmHg BP Sitting (Post-Dialysis) 107/69 mmHg Concurrent Access: falseAV Fistula Upper Arm (Left) Arterial BP Standing (Pre-Dialysis) 116/59 mmHg BP Standing (P ost-Dialysis) 101/65 mmHg Sitting Heart Rate Pre-Dialysis 103 BPM Sitting Heart Rate Post-Dialysis 59 BPM Standing Heart Rate Pre-Dialysis 104 BPM Standing Heart Rate Post-Dialysis 59 BPM Temperature Pre-Dialysis 97.7 degF Temperature Post -Dialysis 97.2 degF June 17, 2024 In-Center Hemodialysis Treatment 7738-30-74G44:29:00.000Z 3663-26-77K21:33:17.000Z BP Sitting (Pre-Dialysis) 102/82 mmHg BP Sitting (Post-Dialysis) 119/41 mmHg Concurrent Access: falseAV Fistula Upper Arm (Left) Arterial Sitting Heart Rate Pre-Dialysis 96 BPM Sitting H eart Rate Post-Dialysis 89 BPM Temperature Pre-Dialysis 97.5 degF Temperature Post -Dialysis 97.5 degF June 15, 2024 In-Center Hemodialysis Treatment 7410-77-68V51:35:04.000Z 5374-32-22L27:35:04.000Z BP Sitting (Pre-Dialysis) 196/73 mmHg BP Sitting (Post-Dialysis) 127/57 mmHg Concurrent Access: falseAV Fistula Upper Arm (Left) Arterial Sitting Heart Rate Pre-Dialysis 80 BPM Sitting H eart Rate Post-Dialysis 80 BPM Temperature Pre-Dialysis 97.3 degF Temperature Post -Dialysis 96.8 degF June 12, 2024 In-Center Hemodialysis Treatment [id number]:28:05.000Z 2641-62-99B99:28:55.000Z BP Sitting (Pre-Dialysis) 117/59 mmHg BP Sitting (Post-Dialysis) 128/57 mmHg Concurrent Access: falseAV Fistula Upper Arm (Left) Arterial Sitting Heart Rate Pre-Dialysis 80 BPM BP Standing (Post-Dialysis) 123/54 mmHg Temperature Pre-Dialysis 97.2 degF Sitting Heart Ra te Post-Dialysis 85 BPM Standing Heart Rate Post-Rosemary lysis 87 BPM Temperature Post-Dialysis 97 .4 degF June 10, 2024 In-Center Hemodialysis Treatment [id number]:55:00.000Z 6938-26-05U15:54:35.000Z BP Sitting (Pre-Dialysis) 175/84 mmHg BP Sitting (Post-Dialysis) 105/59 mmHg Concurrent Access: falseAV Fistula Upper Arm (Left) Arterial BP Standing (Pre-Dialysis) 168/73 mmHg BP Standing (P ost-Dialysis) 106/48 mmHg Sitting Heart Rate Pre-Dialysis 111 BPM Sitting Heart Rate Post-Dialysis 102 BPM Standing Heart Rate Pre-Dialysis 92 BPM Standing Heart Rate Post-Dialysis 92 BPM Temperature Pre-Dialysis 97.2 degF Temperature Post -Dialysis 97.6 degF June 05, 2024 In-Center Hemodialysis Treatment [id number]:26:10.000Z 6381-61-44A18:25:45.000Z BP Sitting (Pre-Dialysis) 106/75 mmHg BP Sitting (Post-Dialysis) 151/59 mmHg Concurrent Access: falseAV Fistula Upper Arm (Left) Arterial BP Standing (Pre-Dialysis) 130/63 mmHg Sitting Heart Rate Post-Dialysis 92 BPM Sitting Heart Rate Pre-Dialysis 81 BPM Temperatu re Post-Dialysis 98 degF Standing Heart Rate Pre-Dialysis 84 BPM Temperature Pre-Dialysis 97.2 degF June 04, 2024 In-Center Hemodialysis Treatment 7667-74-48Y24:31:35.000Z 1365-86-39C10:30:45.000Z BP Sitting (Pre-Dialysis) 163/87 mmHg BP Sitting (Post-Dialysis) 99/50 mmHg Concurrent Access: falseAV Fistula Upper Arm (Left) Arterial Sitting Heart Rate Pre-Dialysis 103 BPM BP Standing (Post-Dialysis) 108/56 mmHg Temperature Pre-Dialysis 96.8 degF Sitting Heart Ra te Post-Dialysis 92 BPM Standing Heart Rate Post-Rosemary lysis 107 BPM Temperature Post-Dialysis 97 .8 degF June 01, 2024 In-Center Hemodialysis Treatment 1113-69-56M86:35:00.000Z 4915-49-68Q57:37:50.000Z BP Sitting (Pre-Dialysis) 174/82 mmHg BP Sitting (Post-Dialysis) 99/59 mmHg Concurrent Access: falseAV Fistula Upper Arm (Left) Arterial Sitting Heart Rate Pre-Dialysis 106 BPM Sitting H eart Rate Post-Dialysis 102 BPM Temperature Pre-Dialysis 97.8 degF Temperature Post -Dialysis 97.2 degF May 29, 2024 In-Center Hemodialysis Treatment 2097-48-60A72:34:52.000Z 1875-49-39T35:33:37.000Z BP Sitting (Pre-Dialysis) 110/67 mmHg BP Sitting (Post-Dialysis) 107/45 mmHg Concurrent Access: falseAV Fistula Upper Arm (Left) Arterial Sitting Heart Rate Pre-Dialysis 82 BPM BP Standing (Post-Dialysis) 101/52 mmHg Temperature Pre-Dialysis 97.2 degF Sitting Heart Ra te Post-Dialysis 85 BPM Standing Heart Rate Post-Rosemary lysis 88 BPM Temperature Post-Dialysis 97 .6 degF May 28, 2024 In-Center Hemodialysis Treatment 9135-06-40Z44:22:03.000Z 9957-38-56T14:20:23.000Z BP Sitting (Pre-Dialysis) 103/52 mmHg BP Sitting (Post-Dialysis) 103/43 mmHg Concurrent Access: falseAV Fistula Upper Arm (Left) Arterial BP Standing (Pre-Dialysis) 121/68 mmHg BP Standing (P ost-Dialysis) 99/55 mmHg Sitting Heart Rate Pre-Dialysis 107 BPM Sitting Heart Rate Post-Dialysis 119 BPM Standing Heart Rate Pre-Dialysis 102 BPM Standing Heart Rate Post-Dialysis 100 BPM Temperature Pre-Dialysis 97 degF Temperature Post -Dialysis 97.2 degF May 25, 2024 In-Center Hemodialysis Treatment 7740-21-85K80:29:34.000Z 0985-03-78K66:29:09.000Z BP Sitting (Pre-Dialysis) 145/74 mmHg BP Sitting (Post-Dialysis) 128/54 mmHg Concurrent Access: falseAV Fistula Upper Arm (Left) Arterial Sitting Heart Rate Pre-Dialysis 85 BPM Sitting H eart Rate Post-Dialysis 83 BPM Temperature Pre-Dialysis 97.2 degF Temperature Post -Dialysis 97.8 degF May 22, 2024 In-Center Hemodialysis Treatment 4116-23-25U12:32:48.000Z 0680-63-54I53:34:28.000Z BP Sitting (Pre-Dialysis) 130/57 mmHg BP Sitting (Post-Dialysis) 138/55 mmHg Concurrent Access: falseAV Fistula Upper Arm (Left) Arterial Sitting Heart Rate Pre-Dialysis 84 BPM Sitting H eart Rate Post-Dialysis 77 BPM Temperature Pre-Dialysis 97 degF Temperature Post -Dialysis 97.5 degF May 20, 2024 In-Center Hemodialysis Treatment 1046-93-07N97:20:33.000Z 0601-54-71T92:20:08.000Z BP Sitting (Pre-Dialysis) 186/83 mmHg BP Sitting (Post-Dialysis) 108/49 mmHg Concurrent Access: falseAV Fistula Upper Arm (Left) Arterial Sitting Heart Rate Pre-Dialysis 84 BPM Sitting H eart Rate Post-Dialysis 90 BPM Temperature Pre-Dialysis 97.2 degF Temperature Post -Dialysis 97.2 degF May 18, 2024 In-Center Hemodialysis Treatment 4497-72-25C34:28:00.000Z 7680-86-55Z51:30:26.000Z BP Sitting (Pre-Dialysis) 177/87 mmHg BP Sitting (Post-Dialysis) 103/42 mmHg Concurrent Access: falseAV Fistula Upper Arm (Left) Arterial BP Standing (Pre-Dialysis) 150/82 mmHg Sitti ng Heart Rate Post-Dialysis 88 BPM Sitting Heart Rate Pre-Dialysis 105 BPM Temperatu re Post-Dialysis 97.2 degF Standing Heart Rate Pre-Dialysis 94 BPM Temperature Pre-Dialysis 97.6 degF May 15, 2024 In-Center Hemodialysis Treatment 9044-25-83G98:09:00.000Z 4992-72-67R65:10:51.000Z BP Sitting (Pre-Dialysis) 140/74 mmHg BP Sitting (Post-Dialysis) 132/59 mmHg Concurrent Access: falseAV Fistula Upper Arm (Left) Arterial Sitting Heart Rate Pre-Dialysis 75 BPM Sitting H eart Rate Post-Dialysis 101 BPM Temperature Pre-Dialysis 97.8 degF Temperature Post -Dialysis 97.8 degF 2024 In-Center Hemodialysis Treatment 9731-33-52U09:44:28.000Z 6075-15-38E01:46:58.000Z BP Sitting (Pre-Dialysis) 123/69 mmHg BP Sitting (Post-Dialysis) 103/44 mmHg Concurrent Access: falseAV Fistula Upper Arm (Left) Arterial Sitting Heart Rate Pre-Dialysis 104 BPM Sitting H eart Rate Post-Dialysis 91 BPM Temperature Pre-Dialysis 97.3 degF Temperature Post -Dialysis 97.8 degF May 11, 2024 In-Center Hemodialysis Treatment 2766-85-53V17:35:08.000Z 5022-34-68F86:32:49.000Z BP Sitting (Pre-Dialysis) 158/72 mmHg BP Sitting (Post-Dialysis) 130/53 mmHg Concurrent Access: falseAV Fistula Upper Arm (Left) Arterial Sitting Heart Rate Pre-Dialysis 107 BPM BP Standing (Post-Dialysis) 116/48 mmHg Temperature Pre-Dialysis 97.2 degF Sitting Heart Ra te Post-Dialysis 88 BPM Standing Heart Rate Post-Rosemary lysis 102 BPM Temperature Post-Dialysis 97 .2 degF May 08, 2024 In-Center Hemodialysis Treatment 4570-83-87Z89:34:04.000Z 4528-24-75T83:33:39.000Z BP Sitting (Pre-Dialysis) 110/41 mmHg BP Sitting (Post-Dialysis) 92/60 mmHg Concurrent Access: falseAV Fistula Upper Arm (Left) Arterial Sitting Heart Rate Pre-Dialysis 98 BPM Sitting H eart Rate Post-Dialysis 77 BPM Temperature Pre-Dialysis 97.2 degF Temperature Post -Dialysis 97.2 degF May 06, 2024 In-Center Hemodialysis Treatment 3446-00-28G27:32:35.000Z 6069-26-24O24:33:50.000Z BP Sitting (Pre-Dialysis) 126/68 mmHg BP Sitting (Post-Dialysis) 125/63 mmHg Concurrent Access: falseAV Fistula Upper Arm (Left) Arterial BP Standing (Pre-Dialysis) 123/62 mmHg Sitti ng Heart Rate Post-Dialysis 105 BPM Sitting Heart Rate Pre-Dialysis 114 BPM Temperatu re Post-Dialysis 97.4 degF Standing Heart Rate Pre-Dialysis 88 BPM Temperature Pre-Dialysis 97.4 degF May 04, 2024 In-Center Hemodialysis Treatment 3816-53-80S72:45:06.000Z 5056-74-62C96:45:56.000Z BP Sitting (Pre-Dialysis) 168/73 mmHg BP Sitting (Post-Dialysis) 104/58 mmHg Concurrent Access: falseAV Fistula Upper Arm (Left) Arterial BP Standing (Pre-Dialysis) 162/72 mmHg BP Standing (P ost-Dialysis) 113/52 mmHg Sitting Heart Rate Pre-Dialysis 98 BPM Sitting Heart Rate Post-Dialysis 94 BPM Standing Heart Rate Pre-Dialysis 98 BPM Standing Heart Rate Post-Dialysis 92 BPM Temperature Pre-Dialysis 97.8 degF Temperature Post -Dialysis 97.2 degF May 01, 2024 In-Center Hemodialysis Treatment 0684-00-41L09:30:55.000Z 6179-36-89W29:30:55.000Z BP Sitting (Pre-Dialysis) 147/75 mmHg BP Sitting (Post-Dialysis) 104/48 mmHg Concurrent Access: falseAV Fistula Upper Arm (Left) Arterial Sitting Heart Rate Pre-Dialysis 79 BPM Sitting H eart Rate Post-Dialysis 76 BPM Temperature Pre-Dialysis 98.4 degF Temperature Post -Dialysis 97.7 degF April 29, 2024 In-Center Hemodialysis Treatment 0213-48-96L86:48:04.000Z 2947-97-42T59:48:07.000Z BP Sitting (Pre-Dialysis) 156/82 mmHg BP Sitting (Post-Dialysis) 114/61 mmHg Concurrent Access: falseAV Fistula Upper Arm (Left) Arterial Sitting Heart Rate Pre-Dialysis 104 BPM BP Standing (Post-Dialysis) 105/50 mmHg Temperature Pre-Dialysis 96.8 degF Sitting Heart Ra te Post-Dialysis 83 BPM Standing Heart Rate Post-Rosemary lysis 109 BPM Temperature Post-Dialysis 97 .7 degF April 27, 2024 In-Center Hemodialysis Treatment 4302-95-74B77:43:53.000Z 5880-40-12S51:46:23.000Z BP Sitting (Pre-Dialysis) 136/68 mmHg BP Sitting (Post-Dialysis) 101/57 mmHg Concurrent Access: falseAV Fistula Upper Arm (Left) Arterial BP Standing (Pre-Dialysis) 135/62 mmHg Sitti ng Heart Rate Post-Dialysis 55 BPM Sitting Heart Rate Pre-Dialysis 84 BPM Temperatu re Post-Dialysis 97.2 degF Standing Heart Rate Pre-Dialysis 84 BPM Temperature Pre-Dialysis 97.2 degF April 24, 2024 In-Center Hemodialysis Treatment 9695-68-53H73:49:00.000Z 9916-66-12B45:51:00.000Z BP Sitting (Pre-Dialysis) 126/72 mmHg BP Sitting (Post-Dialysis) 126/59 mmHg Concurrent Access: falseAV Fistula Upper Arm (Left) Arterial BP Standing (Pre-Dialysis) 131/67 mmHg BP Standing (P ost-Dialysis) 108/48 mmHg Sitting Heart Rate Pre-Dialysis 105 BPM Sitting Heart Rate Post-Dialysis 89 BPM Standing Heart Rate Pre-Dialysis 95 BPM Standing Heart Rate Post-Dialysis 97 BPM Temperature Pre-Dialysis 97.8 degF Temperature Post -Dialysis 97.4 degF April 22, 2024 In-Center Hemodialysis Treatment 1168-94-14A56:48:00.000Z 3337-79-71K01:53:32.000Z BP Sitting (Pre-Dialysis) 120/51 mmHg BP Sitting (Post-Dialysis) 108/45 mmHg Concurrent Access: falseAV Fistula Upper Arm (Left) Arterial BP Standing (Pre-Dialysis) 100/53 mmHg Sitti ng Heart Rate Post-Dialysis 78 BPM Sitting Heart Rate Pre-Dialysis 105 BPM Temperatu re Post-Dialysis 97.5 degF Standing Heart Rate Pre-Dialysis 102 BPM Temperature Pre-Dialysis 97.8 degF April 20, 2024 In-Center Hemodialysis Treatment 7590-36-92P91:50:23.000Z 5136-12-30T40:48:43.000Z BP Sitting (Pre-Dialysis) 136/68 mmHg BP Sitting (Post-Dialysis) 95/41 mmHg Concurrent Access: falseAV Fistula Upper Arm (Left) Arterial Sitting Heart Rate Pre-Dialysis 97 BPM BP Standi ng (Post-Dialysis) 98/47 mmHg Temperature Pre-Dialysis 97.2 degF Sitting Heart Ra te Post-Dialysis 80 BPM Standing Heart Rate Post-Rosemary lysis 110 BPM Temperature Post-Dialysis 97 .3 degF April 17, 2024 In-Center Hemodialysis Treatment 9403-86-90L09:37:48.000Z 8387-19-79L02:30:18.000Z BP Sitting (Pre-Dialysis) 140/62 mmHg BP Sitting (Post-Dialysis) 120/55 mmHg Concurrent Access: falseAV Fistula Upper Arm (Left) Arterial Sitting Heart Rate Pre-Dialysis 75 BPM Sitting H eart Rate Post-Dialysis 94 BPM Temperature Pre-Dialysis 97.7 degF Temperature Post -Dialysis 97.2 degF April 15, 2024 In-Center Hemodialysis Treatment 4399-97-94F46:41:10.000Z 8599-25-83F11:42:50.000Z BP Sitting (Pre-Dialysis) 172/80 mmHg BP Sitting (Post-Dialysis) 114/45 mmHg Concurrent Access: falseAV Fistula Upper Arm (Left) Arterial Sitting Heart Rate Pre-Dialysis 81 BPM BP Standi ng (Post-Dialysis) 93/54 mmHg Temperature Pre-Dialysis 97.2 degF Sitting Heart Ra te Post-Dialysis 69 BPM Standing Heart Rate Post-Rosemary lysis 76 BPM Temperature Post-Dialysis 97 .2 degF April 13, 2024 In-Center Hemodialysis Treatment 9573-76-54I81:43:59.000Z 1051-90-26D47:44:24.000Z BP Sitting (Pre-Dialysis) 139/75 mmHg BP Sitting (Post-Dialysis) 131/60 mmHg Concurrent Access: falseAV Fistula Upper Arm (Left) Arterial Sitting Heart Rate Pre-Dialysis 100 BPM Sitting H eart Rate Post-Dialysis 82 BPM Temperature Pre-Dialysis 97.2 degF Temperature Post -Dialysis 97.4 degF April 10, 2024 In-Center Hemodialysis Treatment 0176-38-18P38:28:16.000Z 9026-43-01A65:28:16.000Z BP Sitting (Pre-Dialysis) 163/67 mmHg BP Sitting (Post-Dialysis) 149/65 mmHg Concurrent Access: falseAV Fistula Upper Arm (Left) Arterial Sitting Heart Rate Pre-Dialysis 87 BPM BP Standing (Post-Dialysis) 143/89 mmHg Temperature Pre-Dialysis 98.2 degF Sitting Heart Ra te Post-Dialysis 88 BPM Standing Heart Rate Post-Rosemary lysis 90 BPM Temperature Post-Dialysis 97 .2 degF April 08, 2024 In-Center Hemodialysis Treatment 1908-12-67Z87:45:59.000Z 0022-80-64A13:40:09.000Z BP Sitting (Pre-Dialysis) 165/69 mmHg BP Sitting (Post-Dialysis) 114/50 mmHg Concurrent Access: falseAV Fistula Upper Arm (Left) Arterial BP Standing (Pre-Dialysis) 160/65 mmHg BP Standing (P ost-Dialysis) 114/57 mmHg Sitting Heart Rate Pre-Dialysis 75 BPM Sitting Heart Rate Post-Dialysis 85 BPM Standing Heart Rate Pre-Dialysis 70 BPM Standing Heart Rate Post-Dialysis 91 BPM Temperature Pre-Dialysis 97.2 degF Temperature Post -Dialysis 97.4 degF April 06, 2024 In-Center Hemodialysis Treatment 8249-45-58N94:38:10.000Z 5119-84-03G19:36:55.000Z BP Sitting (Pre-Dialysis) 151/68 mmHg BP Sitting (Post-Dialysis) 126/57 mmHg Concurrent Access: falseAV Fistula Upper Arm (Left) Arterial BP Standing (Pre-Dialysis) 159/84 mmHg BP Standing (P ost-Dialysis) 115/62 mmHg Sitting Heart Rate Pre-Dialysis 76 BPM Sitting Heart Rate Post-Dialysis 92 BPM Standing Heart Rate Pre-Dialysis 82 BPM Standing Heart Rate Post-Dialysis 108 BPM Temperature Pre-Dialysis 97 degF April 03, 2024 In-Center Hemodialysis Treatment 4686-21-10Y70:57:01.000Z 7966-69-99R97:54:56.000Z BP Sitting (Pre-Dialysis) 173/78 mmHg BP Sitting (Post-Dialysis) 119/43 mmHg Concurrent Access: falseAV Fistula Upper Arm (Left) Arterial Sitting Heart Rate Pre-Dialysis 79 BPM BP Standing (Post-Dialysis) 129/61 mmHg Temperature Pre-Dialysis 97.2 degF Sitting Heart Ra te Post-Dialysis 74 BPM Standing Heart Rate Post-Rosemary lysis 88 BPM Temperature Post-Dialysis 97 .5 degF April 01, 2024 In-Center Hemodialysis Treatment 2012-35-53R11:41:00.000Z 4664-63-25M80:45:07.000Z BP Sitting (Pre-Dialysis) 115/54 mmHg BP Sitting (Post-Dialysis) 124/51 mmHg Concurrent Access: falseAV Fistula Upper Arm (Left) Arterial BP Standing (Pre-Dialysis) 126/63 mmHg Sitti ng Heart Rate Post-Dialysis 95 BPM Sitting Heart Rate Pre-Dialysis 78 BPM Temperatu re Post-Dialysis 97.7 degF Standing Heart Rate Pre-Dialysis 82 BPM Temperature Pre-Dialysis 97.8 degF March 30, 2024 In-Center Hemodialysis Treatment 2308-10-84T63:47:39.000Z 1550-73-04Q76:46:24.000Z BP Sitting (Pre-Dialysis) 156/71 mmHg BP Sitting (Post-Dialysis) 128/70 mmHg Concurrent Access: falseAV Fistula Upper Arm (Left) Arterial BP Standing (Pre-Dialysis) 159/69 mmHg BP Standing (P ost-Dialysis) 136/63 mmHg Sitting Heart Rate Pre-Dialysis 79 BPM Sitting Heart Rate Post-Dialysis 99 BPM Standing Heart Rate Pre-Dialysis 79 BPM Standing Heart Rate Post-Dialysis 104 BPM Temperature Pre-Dialysis 97.8 degF Temperature Post -Dialysis 97.6 degF March 27, 2024 In-Center Hemodialysis Treatment [id number]:34:11.000Z 7987-79-72V46:33:46.000Z BP Sitting (Pre-Dialysis) 164/70 mmHg BP Sitting (Post-Dialysis) 103/56 mmHg Concurrent Access: falseAV Fistula Upper Arm (Left) Arterial Sitting Heart Rate Pre-Dialysis 101 BPM Sitting H eart Rate Post-Dialysis 86 BPM Temperature Pre-Dialysis 98.2 degF Temperature Post -Dialysis 97.8 degF March 25, 2024 In-Center Hemodialysis Treatment 7475-26-57O25:36:39.000Z 1339-39-97N13:39:09.000Z BP Sitting (Pre-Dialysis) 115/50 mmHg BP Sitting (Post-Dialysis) 113/50 mmHg Concurrent Access: falseAV Fistula Upper Arm (Left) Arterial BP Standing (Pre-Dialysis) 106/71 mmHg Sitti ng Heart Rate Post-Dialysis 88 BPM Sitting Heart Rate Pre-Dialysis 98 BPM Temperatu re Post-Dialysis 97.8 degF Standing Heart Rate Pre-Dialysis 89 BPM Temperature Pre-Dialysis 97.8 degF March 23, 2024 In-Center Hemodialysis Treatment 2058-10-91L84:47:33.000Z 9933-25-39L93:45:03.000Z BP Sitting (Pre-Dialysis) 157/69 mmHg BP Sitting (Post-Dialysis) 108/61 mmHg Concurrent Access: falseAV Fistula Upper Arm (Left) Arterial BP Standing (Pre-Dialysis) 162/70 mmHg Sitti ng Heart Rate Post-Dialysis 92 BPM Sitting Heart Rate Pre-Dialysis 78 BPM Temperatu re Post-Dialysis 97.8 degF Standing Heart Rate Pre-Dialysis 83 BPM Temperature Pre-Dialysis 98.2 degF March 20, 2024 In-Center Hemodialysis Treatment 2682-87-61N75:41:35.000Z 2143-30-10J59:42:25.000Z BP Sitting (Pre-Dialysis) 102/52 mmHg BP Sitting (Post-Dialysis) 94/48 mmHg Concurrent Access: falseAV Fistula Upper Arm (Left) Arterial BP Standing (Pre-Dialysis) 100/47 mmHg Sitti ng Heart Rate Post-Dialysis 84 BPM Sitting Heart Rate Pre-Dialysis 85 BPM Temperatu re Post-Dialysis 97.5 degF Standing Heart Rate Pre-Dialysis 88 BPM Temperature Pre-Dialysis 97.1 degF March 18, 2024 In-Center Hemodialysis Treatment 4400-23-69G15:33:38.000Z 3775-64-38B86:34:03.000Z BP Sitting (Pre-Dialysis) 144/72 mmHg BP Sitting (Post-Dialysis) 126/62 mmHg Concurrent Access: falseAV Fistula Upper Arm (Left) Arterial BP Standing (Pre-Dialysis) 140/70 mmHg BP Standing (P ost-Dialysis) 121/63 mmHg Sitting Heart Rate Pre-Dialysis 105 BPM Sitting Heart Rate Post-Dialysis 87 BPM Standing Heart Rate Pre-Dialysis 100 BPM Standing Heart Rate Post-Dialysis 97 BPM Temperature Pre-Dialysis 97.2 degF Temperature Post -Dialysis 97.4 degF March 16, 2024 In-Center Hemodialysis Treatment 4459-78-19B34:48:30.000Z 5375-93-24K35:51:27.000Z BP Sitting (Pre-Dialysis) 136/63 mmHg BP Sitting (Post-Dialysis) 123/60 mmHg Concurrent Access: falseAV Fistula Upper Arm (Left) Arterial BP Standing (Pre-Dialysis) 122/60 mmHg BP Standing (P ost-Dialysis) 95/49 mmHg Sitting Heart Rate Pre-Dialysis 84 BPM Sitting Heart Rate Post-Dialysis 103 BPM Standing Heart Rate Pre-Dialysis 81 BPM Standing Heart Rate Post-Dialysis 118 BPM Temperature Pre-Dialysis 97 degF Temperature Post -Dialysis 97.4 degF March 13, 2024 In-Center Hemodialysis Treatment 7889-36-68N13:34:00.000Z 4414-47-58F04:33:35.000Z BP Sitting (Pre-Dialysis) 121/53 mmHg BP Sitting (Post-Dialysis) 118/56 mmHg Concurrent Access: falseAV Fistula Upper Arm (Left) Arterial BP Standing (Pre-Dialysis) 120/49 mmHg BP Standing (P ost-Dialysis) 98/42 mmHg Sitting Heart Rate Pre-Dialysis 83 BPM Sitting Heart Rate Post-Dialysis 89 BPM Standing Heart Rate Pre-Dialysis 92 BPM Standing Heart Rate Post-Dialysis 94 BPM Temperature Pre-Dialysis 97.2 degF Temperature Post -Dialysis 97.6 degF March 11, 2024 In-Center Hemodialysis Treatment 2883-21-72J39:36:32.000Z 0305-62-02X33:36:07.000Z BP Sitting (Pre-Dialysis) 123/63 mmHg BP Sitting (Post-Dialysis) 127/64 mmHg Concurrent Access: falseAV Fistula Upper Arm (Left) Arterial Sitting Heart Rate Pre-Dialysis 79 BPM Sitting H eart Rate Post-Dialysis 84 BPM Temperature Pre-Dialysis 98.2 degF Temperature Post -Dialysis 97.4 degF March 09, 2024 In-Center Hemodialysis Treatment 6782-52-62N99:48:54.000Z 8545-57-40E16:46:49.000Z BP Sitting (Pre-Dialysis) 143/66 mmHg BP Sitting (Post-Dialysis) 120/56 mmHg Concurrent Access: falseAV Fistula Upper Arm (Left) Arterial BP Standing (Pre-Dialysis) 148/68 mmHg Sitti ng Heart Rate Post-Dialysis 85 BPM Sitting Heart Rate Pre-Dialysis 79 BPM Temperatu re Post-Dialysis 97.5 degF Standing Heart Rate Pre-Dialysis 76 BPM Temperature Pre-Dialysis 97 degF March 06, 2024 In-Center Hemodialysis Treatment 9173-62-19Y71:39:11.000Z 6332-42-98H24:38:46.000Z BP Sitting (Pre-Dialysis) 131/58 mmHg BP Sitting (Post-Dialysis) 104/55 mmHg Concurrent Access: falseAV Fistula Upper Arm (Left) Arterial Sitting Heart Rate Pre-Dialysis 78 BPM Sitting H eart Rate Post-Dialysis 83 BPM Temperature Pre-Dialysis 98.2 degF Temperature Post -Dialysis 97.6 degF March 04, 2024 In-Center Hemodialysis Treatment 3908-87-25M62:57:56.000Z 2807-96-09W19:00:26.000Z BP Sitting (Pre-Dialysis) 102/43 mmHg BP Sitting (Post-Dialysis) 102/49 mmHg Concurrent Access: falseAV Fistula Upper Arm (Left) Arterial BP Standing (Pre-Dialysis) 92/39 mmHg BP Standing (P ost-Dialysis) 104/52 mmHg Sitting Heart Rate Pre-Dialysis 62 BPM Sitting Heart Rate Post-Dialysis 85 BPM Standing Heart Rate Pre-Dialysis 68 BPM Standing Heart Rate Post-Dialysis 84 BPM Temperature Pre-Dialysis 98.6 degF Temperature Post -Dialysis 97.7 degF March 02, 2024 In-Center Hemodialysis Treatment 7324-15-60Y19:32:22.000Z 8640-80-90K49:31:57.000Z BP Sitting (Pre-Dialysis) 135/68 mmHg BP Sitting (Post-Dialysis) 118/53 mmHg Concurrent Access: falseAV Fistula Upper Arm (Left) Arterial Sitting Heart Rate Pre-Dialysis 93 BPM BP Standing (Post-Dialysis) 130/62 mmHg Temperature Pre-Dialysis 97.5 degF Sitting Heart Ra te Post-Dialysis 79 BPM Standing Heart Rate Post-Rosemary lysis 88 BPM Temperature Post-Dialysis 97 .8 degF February 28, 2024 In-Center Hemodialysis Treatment 5842-95-29R20:41:12.000Z 1501-50-38L90:42:27.000Z BP Sitting (Pre-Dialysis) 127/56 mmHg BP Sitting (Post-Dialysis) 102/54 mmHg Concurrent Access: falseAV Fistula Upper Arm (Left) Arterial BP Standing (Pre-Dialysis) 125/50 mmHg Sitti ng Heart Rate Post-Dialysis 97 BPM Sitting Heart Rate Pre-Dialysis 88 BPM Temperatu re Post-Dialysis 97.3 degF Standing Heart Rate Pre-Dialysis 81 BPM Temperature Pre-Dialysis 97.2 degF February 26, 2024 In-Center Hemodialysis Treatment 0712-73-63M20:35:48.000Z 7207-65-60M86:37:03.000Z BP Sitting (Pre-Dialysis) 121/60 mmHg BP Sitting (Post-Dialysis) 96/46 mmHg Concurrent Access: falseAV Fistula Upper Arm (Left) Arterial BP Standing (Pre-Dialysis) 121/57 mmHg BP Standing (P ost-Dialysis) 105/54 mmHg Sitting Heart Rate Pre-Dialysis 85 BPM Sitting Heart Rate Post-Dialysis 104 BPM Standing Heart Rate Pre-Dialysis 86 BPM Standing Heart Rate Post-Dialysis 66 BPM Temperature Pre-Dialysis 98.2 degF Temperature Post -Dialysis 97.6 degF February 24, 2024 In-Center Hemodialysis Treatment 8536-58-97Z19:32:00.000Z 0587-67-52N82:35:41.000Z BP Sitting (Pre-Dialysis) 121/69 mmHg BP Sitting (Post-Dialysis) 121/63 mmHg Concurrent Access: falseAV Fistula Upper Arm (Left) Arterial Sitting Heart Rate Pre-Dialysis 99 BPM BP Standing (Post-Dialysis) 116/55 mmHg Temperature Pre-Dialysis 97.7 degF Sitting Heart Ra te Post-Dialysis 94 BPM Standing Heart Rate Post-Rosemary lysis 67 BPM Temperature Post-Dialysis 97 .4 degF February 21, 2024 In-Center Hemodialysis Treatment 5889-00-29G28:40:24.000Z 0802-74-47R00:34:59.000Z BP Sitting (Pre-Dialysis) 134/62 mmHg BP Sitting (Post-Dialysis) 101/57 mmHg Concurrent Access: falseAV Fistula Upper Arm (Left) Arterial Sitting Heart Rate Pre-Dialysis 101 BPM BP Standing (Post-Dialysis) 114/46 mmHg Temperature Pre-Dialysis 97.5 degF Sitting Heart Ra te Post-Dialysis 100 BPM Standing Heart Rate Post-Rosemary lysis 80 BPM Temperature Post-Dialysis 97 .2 degF February 19, 2024 In-Center Hemodialysis Treatment 2476-11-77Z88:30:00.000Z 0565-38-45B35:36:25.000Z BP Sitting (Pre-Dialysis) 133/67 mmHg BP Sitting (Post-Dialysis) 107/59 mmHg Concurrent Access: falseAV Fistula Upper Arm (Left) Arterial Sitting Heart Rate Pre-Dialysis 81 BPM Sitting H eart Rate Post-Dialysis 95 BPM Temperature Pre-Dialysis 97.7 degF Temperature Post -Dialysis 97.2 degF February 17, 2024 In-Center Hemodialysis Treatment 8722-43-78A43:33:06.000Z 6800-10-75X19:34:21.000Z BP Sitting (Pre-Dialysis) 148/71 mmHg BP Sitting (Post-Dialysis) 109/63 mmHg Concurrent Access: falseAV Fistula Upper Arm (Left) Arterial Sitting Heart Rate Pre-Dialysis 78 BPM Sitting H eart Rate Post-Dialysis 90 BPM Temperature Pre-Dialysis 97.7 degF Temperature Post -Dialysis 97.6 degF February 14, 2024 In-Center Hemodialysis Treatment 7480-03-79S99:27:31.000Z 9150-94-44P97:26:16.000Z BP Sitting (Pre-Dialysis) 150/65 mmHg BP Sitting (Post-Dialysis) 109/50 mmHg Concurrent Access: falseAV Fistula Upper Arm (Left) Arterial BP Standing (Pre-Dialysis) 147/66 mmHg Sitti ng Heart Rate Post-Dialysis 90 BPM Sitting Heart Rate Pre-Dialysis 86 BPM Temperatu re Post-Dialysis 97.4 degF Standing Heart Rate Pre-Dialysis 59 BPM Temperature Pre-Dialysis 97.2 degF February 12, 2024 In-Center Hemodialysis Treatment 0307-31-48L06:33:43.000Z 8033-38-19Y59:34:58.000Z BP Sitting (Pre-Dialysis) 122/74 mmHg BP Sitting (Post-Dialysis) 105/49 mmHg Concurrent Access: falseAV Fistula Upper Arm (Left) Arterial Sitting Heart Rate Pre-Dialysis 93 BPM BP Standi ng (Post-Dialysis) 99/54 mmHg Temperature Pre-Dialysis 98.2 degF Sitting Heart Ra te Post-Dialysis 85 BPM Standing Heart Rate Post-Rosemary lysis 89 BPM Temperature Post-Dialysis 97 .6 degF February 10, 2024 In-Center Hemodialysis Treatment [id number]:42:00.000Z 9067-10-16B69:49:17.000Z BP Sitting (Pre-Dialysis) 130/60 mmHg BP Sitting (Post-Dialysis) 120/53 mmHg Concurrent Access: falseAV Fistula Upper Arm (Left) Arterial Sitting Heart Rate Pre-Dialysis 73 BPM BP Standing (Post-Dialysis) 114/55 mmHg Temperature Pre-Dialysis 97.8 degF Sitting Heart Ra te Post-Dialysis 79 BPM Standing Heart Rate Post-Rosemary lysis 88 BPM Temperature Post-Dialysis 97 .8 degF February 07, 2024 In-Center Hemodialysis Treatment [id number]:18:00.000Z [id number]:50:44.000Z BP Sitting (Pre-Dialysis) 108/55 mmHg BP Sitting (Post-Dialysis) 109/49 mmHg Concurrent Access: falseAV Fistula Upper Arm (Left) Arterial Sitting Heart Rate Pre-Dialysis 76 BPM BP Standing (Post-Dialysis) 106/53 mmHg Temperature Pre-Dialysis 97.3 degF Sitting Heart Ra te Post-Dialysis 89 BPM Standing Heart Rate Post-Rosemary lysis 84 BPM Temperature Post-Dialysis 97 .6 degF February 05, 2024 In-Center Hemodialysis Treatment [id number]:26:00.000Z [id number]:29:11.000Z BP Sitting (Pre-Dialysis) 146/60 mmHg BP Sitting (Post-Dialysis) 118/50 mmHg Concurrent Access: falseAV Fistula Upper Arm (Left) Arterial BP Standing (Pre-Dialysis) 148/68 mmHg BP Standing (P ost-Dialysis) 111/55 mmHg Sitting Heart Rate Pre-Dialysis 75 BPM Sitting Heart Rate Post-Dialysis 88 BPM Standing Heart Rate Pre-Dialysis 78 BPM Standing Heart Rate Post-Dialysis 86 BPM Temperature Pre-Dialysis 97.8 degF Temperature Post -Dialysis 97.4 degF February 03, 2024 In-Center Hemodialysis Treatment [id number]:49:00.000Z 7308-95-23F52:46:30.000Z BP Sitting (Pre-Dialysis) 139/72 mmHg BP Sitting (Post-Dialysis) 101/57 mmHg Concurrent Access: falseAV Fistula Upper Arm (Left) Arterial BP Standing (Pre-Dialysis) 144/73 mmHg Sitti ng Heart Rate Post-Dialysis 69 BPM Sitting Heart Rate Pre-Dialysis 103 BPM Temperatu re Post-Dialysis 97.2 degF Standing Heart Rate Pre-Dialysis 99 BPM Temperature Pre-Dialysis 97.3 degF January 31, 2024 In-Center Hemodialysis Treatment 6061-18-05L60:32:00.000Z 1024-50-98H66:38:50.000Z BP Sitting (Pre-Dialysis) 98/49 mmHg BP Sitting (Post-Dialysis) 113/52 mmHg Concurrent Access: falseAV Fistula Upper Arm (Left) Arterial BP Standing (Pre-Dialysis) 124/71 mmHg BP Standing (P ost-Dialysis) 101/50 mmHg Sitting Heart Rate Pre-Dialysis 104 BPM Sitting Heart Rate Post-Dialysis 85 BPM Standing Heart Rate Pre-Dialysis 103 BPM Standing Heart Rate Post-Dialysis 79 BPM Temperature Pre-Dialysis 96.8 degF Temperature Post -Dialysis 97.8 degF January 29, 2024 In-Center Hemodialysis Treatment [id number]:26:00.000Z 8163-36-97G73:29:27.000Z BP Sitting (Pre-Dialysis) 123/69 mmHg BP Sitting (Post-Dialysis) 114/55 mmHg Concurrent Access: falseAV Fistula Upper Arm (Left) Arterial BP Standing (Pre-Dialysis) 122/64 mmHg BP Standing (P ost-Dialysis) 128/57 mmHg Sitting Heart Rate Pre-Dialysis 69 BPM Sitting Heart Rate Post-Dialysis 100 BPM Standing Heart Rate Pre-Dialysis 63 BPM Standing Heart Rate Post-Dialysis 82 BPM Temperature Pre-Dialysis 97.2 degF Temperature Post -Dialysis 98 degF January 27, 2024 In-Center Hemodialysis Treatment 6824-15-03N03:43:00.000Z 2862-61-11E07:43:24.000Z BP Sitting (Pre-Dialysis) 134/69 mmHg BP Sitting (Post-Dialysis) 130/55 mmHg Concurrent Access: falseAV Fistula Upper Arm (Left) Arterial BP Standing (Pre-Dialysis) 111/55 mmHg Sitti ng Heart Rate Post-Dialysis 100 BPM Sitting Heart Rate Pre-Dialysis 101 BPM Temperatu re Post-Dialysis 97.8 degF Standing Heart Rate Pre-Dialysis 99 BPM Temperature Pre-Dialysis 98.8 degF January 24, 2024 In-Center Hemodialysis Treatment 8243-40-41O66:27:00.000Z 1300-83-20I06:29:40.000Z BP Sitting (Pre-Dialysis) 117/59 mmHg BP Sitting (Post-Dialysis) 122/60 mmHg Concurrent Access: falseAV Fistula Upper Arm (Left) Arterial BP Standing (Pre-Dialysis) 98/52 mmHg BP Standing (P ost-Dialysis) 114/56 mmHg Sitting Heart Rate Pre-Dialysis 114 BPM Sitting Heart Rate Post-Dialysis 102 BPM Standing Heart Rate Pre-Dialysis 113 BPM Standing Heart Rate Post-Dialysis 104 BPM Temperature Pre-Dialysis 97.2 degF Temperature Post -Dialysis 97.8 degF January 22, 2024 In-Center Hemodialysis Treatment [id number]:36:00.000Z 0105-75-00Q52:40:35.000Z BP Sitting (Pre-Dialysis) 117/59 mmHg BP Sitting (Post-Dialysis) 101/53 mmHg Concurrent Access: falseAV Fistula Upper Arm (Left) Arterial BP Standing (Pre-Dialysis) 116/65 mmHg Sitti ng Heart Rate Post-Dialysis 116 BPM Sitting Heart Rate Pre-Dialysis 104 BPM Temperatu re Post-Dialysis 97.6 degF Standing Heart Rate Pre-Dialysis 102 BPM Temperature Pre-Dialysis 97.8 degF January 20, 2024 In-Center Hemodialysis Treatment [id number]:30:00.000Z 5819-03-37M99:34:25.000Z BP Sitting (Pre-Dialysis) 96/43 mmHg BP Sitting (Post-Dialysis) 107/54 mmHg Concurrent Access: falseAV Fistula Upper Arm (Left) Arterial BP Standing (Pre-Dialysis) 114/61 mmHg BP Standing (P ost-Dialysis) 108/42 mmHg Sitting Heart Rate Pre-Dialysis 109 BPM Sitting Heart Rate Post-Dialysis 91 BPM Standing Heart Rate Pre-Dialysis 108 BPM Standing Heart Rate Post-Dialysis 95 BPM Temperature Pre-Dialysis 96.8 degF Temperature Post -Dialysis 97.6 degF January 17, 2024 In-Center Hemodialysis Treatment 4760-08-91H56:33:00.000Z 1514-39-51C23:36:02.000Z BP Sitting (Pre-Dialysis) 136/87 mmHg BP Sitting (Post-Dialysis) 114/43 mmHg Concurrent Access: falseAV Fistula Upper Arm (Left) Arterial BP Standing (Pre-Dialysis) 144/83 mmHg Sitti ng Heart Rate Post-Dialysis 90 BPM Sitting Heart Rate Pre-Dialysis 101 BPM Temperatu re Post-Dialysis 97.4 degF Standing Heart Rate Pre-Dialysis 102 BPM Temperature Pre-Dialysis 98 degF January 15, 2024 In-Center Hemodialysis Treatment [id number]:30:00.000Z 4770-53-33G77:34:12.000Z BP Sitting (Pre-Dialysis) 113/56 mmHg BP Sitting (Post-Dialysis) 106/54 mmHg Concurrent Access: falseAV Fistula Upper Arm (Left) Arterial BP Standing (Pre-Dialysis) 109/56 mmHg BP Standing (P ost-Dialysis) 108/50 mmHg Sitting Heart Rate Pre-Dialysis 102 BPM Sitting Heart Rate Post-Dialysis 102 BPM Standing Heart Rate Pre-Dialysis 102 BPM Standing Heart Rate Post-Dialysis 85 BPM Temperature Pre-Dialysis 97.8 degF Temperature Post -Dialysis 97.6 degF January 13, 2024 In-Center Hemodialysis Treatment 7431-74-25R12:34:56.000Z [id number]:34:06.000Z BP Sitting (Pre-Dialysis) 118/67 mmHg BP Sitting (Post-Dialysis) 97/41 mmHg Concurrent Access: falseAV Fistula Upper Arm (Left) Arterial BP Standing (Pre-Dialysis) 110/60 mmHg Sitti ng Heart Rate Post-Dialysis 100 BPM Sitting Heart Rate Pre-Dialysis 109 BPM Temperatu re Post-Dialysis 97.8 degF Standing Heart Rate Pre-Dialysis 109 BPM Temperature Pre-Dialysis 97.5 degF January 10, 2024 In-Center Hemodialysis Treatment 7890-06-83T80:22:00.000Z 6338-06-50V86:25:44.000Z BP Sitting (Pre-Dialysis) 112/62 mmHg BP Sitting (Post-Dialysis) 113/49 mmHg Concurrent Access: falseAV Fistula Upper Arm (Left) Arterial Sitting Heart Rate Pre-Dialysis 103 BPM BP Standing (Post-Dialysis) 117/58 mmHg Temperature Pre-Dialysis 97.2 degF Sitting Heart Ra te Post-Dialysis 84 BPM Standing Heart Rate Post-Rosemary lysis 103 BPM Temperature Post-Dialysis 97 .6 degF January 08, 2024 In-Center Hemodialysis Treatment 9973-11-96N79:24:00.000Z 0704-99-24N36:27:07.000Z BP Sitting (Pre-Dialysis) 156/80 mmHg BP Sitting (Post-Dialysis) 133/58 mmHg Concurrent Access: falseAV Fistula Upper Arm (Left) Arterial Sitting Heart Rate Pre-Dialysis 103 BPM Sitting H eart Rate Post-Dialysis 97 BPM Temperature Pre-Dialysis 97.8 degF Temperature Post -Dialysis 97.8 degF January 06, 2024 In-Center Hemodialysis Treatment 7727-49-40D59:29:00.000Z 7230-18-13A71:31:46.000Z BP Sitting (Pre-Dialysis) 138/73 mmHg BP Sitting (Post-Dialysis) 109/65 mmHg Concurrent Access: falseAV Fistula Upper Arm (Left) Arterial Sitting Heart Rate Pre-Dialysis 84 BPM Sitting H eart Rate Post-Dialysis 98 BPM Temperature Pre-Dialysis 97.2 degF Temperature Post -Dialysis 97.6 degF January 03, 2024 In-Center Hemodialysis Treatment 4154-67-28C45:31:46.000Z 2785-82-86F00:32:11.000Z BP Sitting (Pre-Dialysis) 116/64 mmHg BP Sitting (Post-Dialysis) 133/56 mmHg Concurrent Access: falseAV Fistula Upper Arm (Left) Arterial Sitting Heart Rate Pre-Dialysis 80 BPM BP Standing (Post-Dialysis) 130/74 mmHg Temperature Pre-Dialysis 97.2 degF Sitting Heart Ra te Post-Dialysis 96 BPM Standing Heart Rate Post-Rosemary lysis 95 BPM Temperature Post-Dialysis 98 .6 degF January 01, 2024 In-Center Hemodialysis Treatment [id number]:25:00.000Z 8825-63-64J74:28:37.000Z BP Sitting (Pre-Dialysis) 128/69 mmHg BP Sitting (Post-Dialysis) 134/69 mmHg Concurrent Access: falseAV Fistula Upper Arm (Left) Arterial BP Standing (Pre-Dialysis) 124/59 mmHg Sitti ng Heart Rate Post-Dialysis 108 BPM Sitting Heart Rate Pre-Dialysis 99 BPM Temperatu re Post-Dialysis 97.7 degF Standing Heart Rate Pre-Dialysis 101 BPM Temperature Pre-Dialysis 96.8 degF December 30, 2023 In-Center Hemodialysis Treatment 1572-12-46V18:27:54.000Z 8384-36-56L70:27:29.000Z BP Sitting (Pre-Dialysis) 152/67 mmHg BP Sitting (Post-Dialysis) 134/54 mmHg Concurrent Access: falseAV Fistula Upper Arm (Left) Arterial Sitting Heart Rate Pre-Dialysis 83 BPM Sitting H eart Rate Post-Dialysis 99 BPM Temperature Pre-Dialysis 97.2 degF Temperature Post -Dialysis 97.2 degF December 27, 2023 In-Center Hemodialysis Treatment 9025-86-57Y94:30:00.000Z 2292-81-56N42:41:02.000Z BP Sitting (Pre-Dialysis) 150/72 mmHg BP Sitting (Post-Dialysis) 126/58 mmHg Concurrent Access: falseAV Fistula Upper Arm (Left) Arterial Sitting Heart Rate Pre-Dialysis 100 BPM BP Standing (Post-Dialysis) 108/56 mmHg Temperature Pre-Dialysis 97.8 degF Sitting Heart Ra te Post-Dialysis 87 BPM Standing Heart Rate Post-Rosemary lysis 132 BPM Temperature Post-Dialysis 97 .6 degF December 25, 2023 In-Center Hemodialysis Treatment [id number]:35:00.000Z 2900-58-65O77:40:56.000Z BP Sitting (Pre-Dialysis) 117/88 mmHg BP Sitting (Post-Dialysis) 123/55 mmHg Concurrent Access: falseAV Fistula Upper Arm (Left) Arterial Sitting Heart Rate Pre-Dialysis 94 BPM Sitting H eart Rate Post-Dialysis 109 BPM Temperature Pre-Dialysis 97.4 degF Temperature Post -Dialysis 97.8 degF December 23, 2023 In-Center Hemodialysis Treatment 1734-11-44I83:34:35.000Z 5625-95-80A80:35:00.000Z BP Sitting (Pre-Dialysis) 157/70 mmHg BP Sitting (Post-Dialysis) 136/56 mmHg Concurrent Access: falseAV Fistula Upper Arm (Left) Arterial Sitting Heart Rate Pre-Dialysis 78 BPM BP Standing (Post-Dialysis) 138/84 mmHg Temperature Pre-Dialysis 97.2 degF Sitting Heart Ra te Post-Dialysis 81 BPM Standing Heart Rate Post-Rosemary lysis 85 BPM Temperature Post-Dialysis 97 .6 degF December 20, 2023 In-Center Hemodialysis Treatment [id number]:42:50.000Z 7518-73-13D68:41:34.000Z BP Sitting (Pre-Dialysis) 145/65 mmHg BP Sitting (Post-Dialysis) 134/68 mmHg Concurrent Access: falseAV Fistula Upper Arm (Left) Arterial Sitting Heart Rate Pre-Dialysis 90 BPM Sitting H eart Rate Post-Dialysis 85 BPM Temperature Pre-Dialysis 97.2 degF Temperature Post -Dialysis 97.2 degF December 18, 2023 In-Center Hemodialysis Treatment 2227-10-62N44:27:00.000Z 6419-01-03H06:33:57.000Z BP Sitting (Pre-Dialysis) 111/66 mmHg BP Sitting (Post-Dialysis) 133/55 mmHg Concurrent Access: falseAV Fistula Upper Arm (Left) Arterial BP Standing (Pre-Dialysis) 127/69 mmHg Sitting Heart Rate Post-Dialysis 90 BPM Sitting Heart Rate Pre-Dialysis 105 BPM Standing Heart Rate Pre-Dialysis 107 BPM Temperature Pre-Dialysis 97.9 degF December 16, 2023 In-Center Hemodialysis Treatment [id number]:41:40.000Z 6577-57-88K23:39:10.000Z BP Sitting (Pre-Dialysis) 140/65 mmHg BP Sitting (Post-Dialysis) 134/58 mmHg Concurrent Access: falseAV Fistula Upper Arm (Left) Arterial Sitting Heart Rate Pre-Dialysis 75 BPM BP Standing (Post-Dialysis) 132/66 mmHg Temperature Pre-Dialysis 97.3 degF Sitting Heart Ra te Post-Dialysis 81 BPM Standing Heart Rate Post-Rosemary lysis 89 BPM Temperature Post-Dialysis 98 .4 degF December 13, 2023 In-Center Hemodialysis Treatment [id number]:46:40.000Z 7330-73-27J99:46:40.000Z BP Sitting (Pre-Dialysis) 156/66 mmHg BP Sitting (Post-Dialysis) 144/74 mmHg Concurrent Access: falseAV Fistula Upper Arm (Left) Arterial Sitting Heart Rate Pre-Dialysis 82 BPM Sitting H eart Rate Post-Dialysis 94 BPM Temperature Pre-Dialysis 97.2 degF Temperature Post -Dialysis 97.3 degF December 11, 2023 In-Center Hemodialysis Treatment 1339-36-98Q55:28:00.000Z 4781-39-22L61:32:19.000Z BP Sitting (Pre-Dialysis) 122/64 mmHg BP Sitting (Post-Dialysis) 108/57 mmHg Concurrent Access: falseAV Fistula Upper Arm (Left) Arterial BP Standing (Pre-Dialysis) 133/72 mmHg Sitti ng Heart Rate Post-Dialysis 101 BPM Sitting Heart Rate Pre-Dialysis 102 BPM Temperatu re Post-Dialysis 97.2 degF Standing Heart Rate Pre-Dialysis 106 BPM Temperature Pre-Dialysis 97.8 degF December 09, 2023 In-Center Hemodialysis Treatment 4709-66-43F59:40:57.000Z 6165-32-80X52:40:32.000Z BP Sitting (Pre-Dialysis) 135/74 mmHg BP Sitting (Post-Dialysis) 115/49 mmHg Concurrent Access: falseAV Fistula Upper Arm (Left) Arterial Sitting Heart Rate Pre-Dialysis 91 BPM Sitting H eart Rate Post-Dialysis 87 BPM Temperature Pre-Dialysis 97.2 degF Temperature Post -Dialysis 97.2 degF December 06, 2023 In-Center Hemodialysis Treatment 5896-07-42Z41:29:24.000Z 4376-18-39W76:29:24.000Z BP Sitting (Pre-Dialysis) 145/76 mmHg BP Sitting (Post-Dialysis) 120/54 mmHg Concurrent Access: falseAV Fistula Upper Arm (Left) Arterial Sitting Heart Rate Pre-Dialysis 115 BPM BP Standing (Post-Dialysis) 101/50 mmHg Temperature Pre-Dialysis 97.2 degF Sitting Heart Ra te Post-Dialysis 83 BPM Standing Heart Rate Post-Rosemary lysis 80 BPM Temperature Post-Dialysis 97 .2 degF December 04, 2023 In-Center Hemodialysis Treatment 7385-15-63B19:41:00.000Z 0371-26-78M23:40:20.000Z BP Sitting (Pre-Dialysis) 125/66 mmHg BP Sitting (Post-Dialysis) 113/58 mmHg Concurrent Access: falseAV Fistula Upper Arm (Left) Arterial Sitting Heart Rate Pre-Dialysis 99 BPM Sitting H eart Rate Post-Dialysis 69 BPM Temperature Pre-Dialysis 97.2 degF Temperature Post -Dialysis 96.5 degF December 02, 2023 In-Center Hemodialysis Treatment 3261-86-73M25:31:29.000Z 1377-47-95B98:31:04.000Z BP Sitting (Pre-Dialysis) 125/59 mmHg BP Sitting (Post-Dialysis) 132/60 mmHg Concurrent Access: falseAV Fistula Upper Arm (Left) Arterial BP Standing (Pre-Dialysis) 127/60 mmHg Sitti ng Heart Rate Post-Dialysis 88 BPM Sitting Heart Rate Pre-Dialysis 80 BPM Temperatu re Post-Dialysis 97.6 degF Standing Heart Rate Pre-Dialysis 82 BPM Temperature Pre-Dialysis 97.2 degF November 29, 2023 In-Center Hemodialysis Treatment [id number]:38:32.000Z 8725-73-48K49:33:57.000Z BP Sitting (Pre-Dialysis) 130/61 mmHg BP Sitting (Post-Dialysis) 104/50 mmHg Concurrent Access: falseAV Fistula Upper Arm (Left) Arterial BP Standing (Pre-Dialysis) 146/71 mmHg BP Standing (P ost-Dialysis) 101/47 mmHg Sitting Heart Rate Pre-Dialysis 77 BPM Sitting Heart Rate Post-Dialysis 96 BPM Standing Heart Rate Pre-Dialysis 90 BPM Standing Heart Rate Post-Dialysis 95 BPM Temperature Pre-Dialysis 97.2 degF Temperature Post -Dialysis 97.2 degF November 27, 2023 In-Center Hemodialysis Treatment 1012-36-03I34:32:00.000Z 9890-37-29K03:38:20.000Z BP Sitting (Pre-Dialysis) 142/66 mmHg BP Sitting (Post-Dialysis) 151/55 mmHg Concurrent Access: falseAV Fistula Upper Arm (Left) Arterial Sitting Heart Rate Pre-Dialysis 87 BPM BP Standing (Post-Dialysis) 114/52 mmHg Temperature Pre-Dialysis 97.2 degF Sitting Heart Ra te Post-Dialysis 86 BPM Standing Heart Rate Post-Rosemary lysis 85 BPM Temperature Post-Dialysis 97 .2 degF November 25, 2023 In-Center Hemodialysis Treatment [id number]:30:00.000Z 2029-95-31R76:30:29.000Z BP Sitting (Pre-Dialysis) 142/69 mmHg BP Sitting (Post-Dialysis) 113/54 mmHg Concurrent Access: falseAV Fistula Upper Arm (Left) Arterial Sitting Heart Rate Pre-Dialysis 98 BPM Sitting H eart Rate Post-Dialysis 59 BPM Temperature Pre-Dialysis 97.4 degF Temperature Post -Dialysis 97.2 degF November 22, 2023 In-Center Hemodialysis Treatment 8797-52-13M01:36:00.000Z 9783-19-82P35:36:04.000Z BP Sitting (Pre-Dialysis) 129/76 mmHg BP Sitting (Post-Dialysis) 97/58 mmHg Concurrent Access: falseAV Fistula Upper Arm (Left) Arterial Sitting Heart Rate Pre-Dialysis 98 BPM Sitting H eart Rate Post-Dialysis 115 BPM Temperature Pre-Dialysis 97.3 degF Temperature Post -Dialysis 97.2 degF November 20, 2023 In-Center Hemodialysis Treatment [id number]:31:01.000Z 6994-84-52D03:34:21.000Z BP Sitting (Pre-Dialysis) 115/62 mmHg BP Sitting (Post-Dialysis) 93/53 mmHg Concurrent Access: falseAV Fistula Upper Arm (Left) Arterial BP Standing (Pre-Dialysis) 116/64 mmHg Sitti ng Heart Rate Post-Dialysis 68 BPM Sitting Heart Rate Pre-Dialysis 100 BPM Temperatu re Post-Dialysis 97.2 degF Standing Heart Rate Pre-Dialysis 102 BPM Temperature Pre-Dialysis 97.7 degF November 18, 2023 In-Center Hemodialysis Treatment 6305-09-34U31:37:35.000Z 4512-99-17K18:31:45.000Z BP Sitting (Pre-Dialysis) 137/68 mmHg BP Sitting (Post-Dialysis) 113/56 mmHg Concurrent Access: falseAV Fistula Upper Arm (Left) Arterial Sitting Heart Rate Pre-Dialysis 68 BPM BP Standing (Post-Dialysis) 104/60 mmHg Temperature Pre-Dialysis 97.2 degF Sitting Heart Ra te Post-Dialysis 95 BPM Standing Heart Rate Post-Rosemary lysis 99 BPM Temperature Post-Dialysis 97 .2 degF November 15, 2023 In-Center Hemodialysis Treatment [id number]:35:43.000Z 0164-84-65J77:35:43.000Z BP Sitting (Pre-Dialysis) 150/71 mmHg BP Sitting (Post-Dialysis) 129/67 mmHg Concurrent Access: falseAV Fistula Upper Arm (Left) Arterial BP Standing (Pre-Dialysis) 136/66 mmHg Sitti ng Heart Rate Post-Dialysis 87 BPM Sitting Heart Rate Pre-Dialysis 100 BPM Temperatu re Post-Dialysis 97.5 degF Standing Heart Rate Pre-Dialysis 108 BPM Temperature Pre-Dialysis 97.7 degF November 13, 2023 In-Center Hemodialysis Treatment 9055-55-98H21:33:00.000Z 2727-57-50Y86:35:11.000Z BP Sitting (Pre-Dialysis) 148/70 mmHg BP Sitting (Post-Dialysis) 104/54 mmHg Concurrent Access: falseAV Fistula Upper Arm (Left) Arterial Sitting Heart Rate Pre-Dialysis 101 BPM Sitting H eart Rate Post-Dialysis 90 BPM Temperature Pre-Dialysis 97.7 degF Temperature Post -Dialysis 97.2 degF November 11, 2023 In-Center Hemodialysis Treatment 0223-25-32F74:03:49.000Z 6551-65-43T10:15:29.000Z BP Sitting (Pre-Dialysis) 142/68 mmHg BP Sitting (Post-Dialysis) 111/57 mmHg Concurrent Access: falseAV Fistula Upper Arm (Left) Arterial Sitting Heart Rate Pre-Dialysis 77 BPM Sitting H eart Rate Post-Dialysis 91 BPM Temperature Pre-Dialysis 97.2 degF Temperature Post -Dialysis 97.5 degF November 08, 2023 In-Center Hemodialysis Treatment [id number]:38:00.000Z 8398-43-20J61:40:46.000Z BP Sitting (Pre-Dialysis) 136/72 mmHg BP Sitting (Post-Dialysis) 125/65 mmHg Concurrent Access: falseAV Fistula Upper Arm (Left) Arterial BP Standing (Pre-Dialysis) 141/79 mmHg Sitti ng Heart Rate Post-Dialysis 97 BPM Sitting Heart Rate Pre-Dialysis 82 BPM Temperatu re Post-Dialysis 97.5 degF Standing Heart Rate Pre-Dialysis 89 BPM Temperature Pre-Dialysis 97.9 degF November 06, 2023 In-Center Hemodialysis Treatment 7683-66-84K26:34:00.000Z 7993-48-21F07:34:00.000Z BP Sitting (Pre-Dialysis) 155/78 mmHg BP Sitting (Post-Dialysis) 128/52 mmHg Concurrent Access: falseAV Fistula Upper Arm (Left) Arterial Sitting Heart Rate Pre-Dialysis 99 BPM Sitting H eart Rate Post-Dialysis 84 BPM Temperature Pre-Dialysis 97.2 degF Temperature Post -Dialysis 97.3 degF November 04, 2023 In-Center Hemodialysis Treatment 7405-84-89G87:36:00.000Z 6855-87-88W20:43:34.000Z BP Sitting (Pre-Dialysis) 143/78 mmHg BP Sitting (Post-Dialysis) 107/42 mmHg Concurrent Access: falseAV Fistula Upper Arm (Left) Arterial Sitting Heart Rate Pre-Dialysis 107 BPM BP Standing (Post-Dialysis) 107/42 mmHg Temperature Pre-Dialysis 97.7 degF Sitting Heart Ra te Post-Dialysis 102 BPM Standing Heart Rate Post-Rosemary lysis 102 BPM Temperature Post-Dialysis 97 .1 degF November 01, 2023 In-Center Hemodialysis Treatment [id number]:42:00.000Z 6902-08-97T01:44:42.000Z BP Sitting (Pre-Dialysis) 117/47 mmHg BP Sitting (Post-Dialysis) 104/52 mmHg Concurrent Access: falseAV Fistula Upper Arm (Left) Arterial BP Standing (Pre-Dialysis) 115/65 mmHg Sitti ng Heart Rate Post-Dialysis 96 BPM Sitting Heart Rate Pre-Dialysis 93 BPM Temperatu re Post-Dialysis 97.1 degF Standing Heart Rate Pre-Dialysis 96 BPM Temperature Pre-Dialysis 97.9 degF October 30, 2023 In-Center Hemodialysis Treatment [id number]:35:44.000Z 2403-91-93H07:36:09.000Z BP Sitting (Pre-Dialysis) 107/61 mmHg BP Sitting (Post-Dialysis) 122/60 mmHg Concurrent Access: falseAV Fistula Upper Arm (Left) Arterial Sitting Heart Rate Pre-Dialysis 107 BPM Sitting H eart Rate Post-Dialysis 86 BPM Temperature Pre-Dialysis 96.1 degF Temperature Post -Dialysis 97.6 degF October 28, 2023 In-Center Hemodialysis Treatment 7543-45-34S33:38:00.000Z 0427-36-32Z73:37:24.000Z BP Sitting (Pre-Dialysis) 188/65 mmHg BP Sitting (Post-Dialysis) 101/54 mmHg Concurrent Access: falseAV Fistula Upper Arm (Left) Arterial BP Standing (Pre-Dialysis) 121/69 mmHg Sitti ng Heart Rate Post-Dialysis 99 BPM Sitting Heart Rate Pre-Dialysis 102 BPM Temperatu re Post-Dialysis 97.2 degF Standing Heart Rate Pre-Dialysis 102 BPM Temperature Pre-Dialysis 97.8 degF October 25, 2023 In-Center Hemodialysis Treatment 4947-11-25B68:39:42.000Z 4159-35-31H68:39:17.000Z BP Sitting (Pre-Dialysis) 149/84 mmHg BP Sitting (Post-Dialysis) 107/53 mmHg Concurrent Access: falseAV Fistula Upper Arm (Left) Arterial BP Standing (Pre-Dialysis) 140/62 mmHg BP Standing (P ost-Dialysis) 93/54 mmHg Sitting Heart Rate Pre-Dialysis 111 BPM Sitting Heart Rate Post-Dialysis 90 BPM Standing Heart Rate Pre-Dialysis 86 BPM Standing Heart Rate Post-Dialysis 107 BPM Temperature Pre-Dialysis 97.2 degF Temperature Post -Dialysis 97.3 degF October 23, 2023 In-Center Hemodialysis Treatment 2339-04-03C69:24:00.000Z 6741-90-05V12:28:34.000Z BP Sitting (Pre-Dialysis) 135/70 mmHg BP Sitting (Post-Dialysis) 107/65 mmHg Concurrent Access: falseAV Fistula Upper Arm (Left) Arterial BP Standing (Pre-Dialysis) 140/74 mmHg BP Standing (P ost-Dialysis) 120/54 mmHg Sitting Heart Rate Pre-Dialysis 69 BPM Sitting Heart Rate Post-Dialysis 86 BPM Standing Heart Rate Pre-Dialysis 65 BPM Standing Heart Rate Post-Dialysis 100 BPM Temperature Pre-Dialysis 98.2 degF Temperature Post -Dialysis 97.2 degF October 21, 2023 In-Center Hemodialysis Treatment [id number]:42:58.000Z 3904-69-77M65:42:33.000Z BP Sitting (Pre-Dialysis) 104/50 mmHg BP Sitting (Post-Dialysis) 109/59 mmHg Concurrent Access: falseAV Fistula Upper Arm (Left) Arterial Sitting Heart Rate Pre-Dialysis 78 BPM Sitting H eart Rate Post-Dialysis 93 BPM Temperature Pre-Dialysis 97.2 degF Temperature Post -Dialysis 97.6 degF October 18, 2023 In-Center Hemodialysis Treatment 0602-07-13E81:32:00.000Z 5802-81-30Q20:35:31.000Z BP Sitting (Pre-Dialysis) 104/60 mmHg BP Sitting (Post-Dialysis) 101/53 mmHg Concurrent Access: falseAV Fistula Upper Arm (Left) Arterial BP Standing (Pre-Dialysis) 108/58 mmHg Sitti ng Heart Rate Post-Dialysis 96 BPM Sitting Heart Rate Pre-Dialysis 98 BPM Temperatu re Post-Dialysis 97.4 degF Standing Heart Rate Pre-Dialysis 86 BPM Temperature Pre-Dialysis 97.9 degF October 16, 2023 In-Center Hemodialysis Treatment 2819-63-63O04:40:00.000Z 9607-36-16S77:38:36.000Z BP Sitting (Pre-Dialysis) 118/55 mmHg BP Sitting (Post-Dialysis) 127/65 mmHg Concurrent Access: falseAV Fistula Upper Arm (Left) Arterial BP Standing (Pre-Dialysis) 120/57 mmHg BP Standing (P ost-Dialysis) 123/63 mmHg Sitting Heart Rate Pre-Dialysis 98 BPM Sitting Heart Rate Post-Dialysis 88 BPM Standing Heart Rate Pre-Dialysis 99 BPM Standing Heart Rate Post-Dialysis 98 BPM Temperature Pre-Dialysis 97.7 degF Temperature Post -Dialysis 97.8 degF October 14, 2023 In-Center Hemodialysis Treatment [id number]:44:00.000Z 8813-73-42E30:46:31.000Z BP Sitting (Pre-Dialysis) 141/71 mmHg BP Sitting (Post-Dialysis) 111/55 mmHg Concurrent Access: falseAV Fistula Upper Arm (Left) Arterial BP Standing (Pre-Dialysis) 137/72 mmHg BP Standing (P ost-Dialysis) 100/52 mmHg Sitting Heart Rate Pre-Dialysis 101 BPM Sitting Heart Rate Post-Dialysis 100 BPM Standing Heart Rate Pre-Dialysis 100 BPM Standing Heart Rate Post-Dialysis 110 BPM Temperature Pre-Dialysis 98.4 degF Temperature Post -Dialysis 97.6 degF October 11, 2023 In-Center Hemodialysis Treatment [id number]:28:19.000Z [id number]:27:29.000Z BP Sitting (Pre-Dialysis) 94/45 mmHg BP Sitting (Post-Dialysis) 93/52 mmHg Concurrent Access: falseAV Fistula Upper Arm (Left) Arterial Sitting Heart Rate Pre-Dialysis 80 BPM BP Standing (Post-Dialysis) 105/93 mmHg Temperature Pre-Dialysis 97.7 degF Sitting Heart Ra te Post-Dialysis 125 BPM Standing Heart Rate Post-Rosemary lysis 100 BPM Temperature Post-Dialysis 97 degF October 09, 2023 In-Center Hemodialysis Treatment [id number]:43:00.000Z 9464-12-66O78:44:11.000Z BP Sitting (Pre-Dialysis) 119/64 mmHg BP Sitting (Post-Dialysis) 114/56 mmHg Concurrent Access: falseAV Fistula Upper Arm (Left) Arterial BP Standing (Pre-Dialysis) 121/66 mmHg BP Standing (P ost-Dialysis) 122/56 mmHg Sitting Heart Rate Pre-Dialysis 102 BPM Sitting Heart Rate Post-Dialysis 104 BPM Standing Heart Rate Pre-Dialysis 105 BPM Standing Heart Rate Post-Dialysis 105 BPM Temperature Pre-Dialysis 97.7 degF Temperature Post -Dialysis 98.2 degF October 07, 2023 In-Center Hemodialysis Treatment [id number]:31:00.000Z [id number]:34:34.000Z BP Sitting (Pre-Dialysis) 139/69 mmHg BP Sitting (Post-Dialysis) 105/54 mmHg Concurrent Access: falseAV Fistula Upper Arm (Left) Arterial BP Standing (Pre-Dialysis) 141/70 mmHg Sitti ng Heart Rate Post-Dialysis 98 BPM Sitting Heart Rate Pre-Dialysis 92 BPM Temperatu re Post-Dialysis 97.3 degF Standing Heart Rate Pre-Dialysis 95 BPM Temperature Pre-Dialysis 97.4 degF October 04, 2023 In-Center Hemodialysis Treatment [id number]:30:49.000Z [id number]:23:44.000Z BP Sitting (Pre-Dialysis) 135/65 mmHg BP Sitting (Post-Dialysis) 101/66 mmHg Concurrent Access: falseAV Fistula Upper Arm (Left) Arterial BP Standing (Pre-Dialysis) 137/69 mmHg BP Standing (P ost-Dialysis) 130/65 mmHg Sitting Heart Rate Pre-Dialysis 90 BPM Sitting Heart Rate Post-Dialysis 100 BPM Standing Heart Rate Pre-Dialysis 111 BPM Standing Heart Rate Post-Dialysis 106 BPM Temperature Pre-Dialysis 96.8 degF Temperature Post -Dialysis 97.2 degF October 02, 2023 In-Center Hemodialysis Treatment [id number]:36:02.000Z 3964-80-84S08:30:12.000Z BP Sitting (Pre-Dialysis) 115/59 mmHg BP Sitting (Post-Dialysis) 135/74 mmHg Concurrent Access: falseAV Fistula Upper Arm (Left) Arterial BP Standing (Pre-Dialysis) 111/66 mmHg Sitti ng Heart Rate Post-Dialysis 94 BPM Sitting Heart Rate Pre-Dialysis 100 BPM Temperatu re Post-Dialysis 97.2 degF Standing Heart Rate Pre-Dialysis 104 BPM Temperature Pre-Dialysis 97.3 degF September 30, 2023 In-Center Hemodialysis Treatment [id number]:44:00.000Z [id number]:48:14.000Z BP Sitting (Pre-Dialysis) 113/66 mmHg BP Sitting (Post-Dialysis) 126/57 mmHg Concurrent Access: falseAV Fistula Upper Arm (Left) Arterial BP Standing (Pre-Dialysis) 126/64 mmHg Sitti ng Heart Rate Post-Dialysis 88 BPM Sitting Heart Rate Pre-Dialysis 99 BPM Temperatu re Post-Dialysis 97.2 degF Standing Heart Rate Pre-Dialysis 107 BPM Temperature Pre-Dialysis 97.3 degF September 27, 2023 In-Center Hemodialysis Treatment [id number]:41:00.000Z 1433-02-61G35:40:38.000Z BP Sitting (Pre-Dialysis) 103/56 mmHg BP Sitting (Post-Dialysis) 99/48 mmHg Concurrent Access: falseAV Fistula Upper Arm (Left) Arterial BP Standing (Pre-Dialysis) 108/60 mmHg Sitti ng Heart Rate Post-Dialysis 98 BPM Sitting Heart Rate Pre-Dialysis 94 BPM Temperatu re Post-Dialysis 97.7 degF Standing Heart Rate Pre-Dialysis 85 BPM Temperature Pre-Dialysis 97.3 degF September 25, 2023 In-Center Hemodialysis Treatment [id number]:43:08.000Z 9029-87-05W28:43:08.000Z BP Sitting (Pre-Dialysis) 134/67 mmHg BP Sitting (Post-Dialysis) 135/71 mmHg Concurrent Access: falseAV Fistula Upper Arm (Left) Arterial BP Standing (Pre-Dialysis) 145/70 mmHg BP Standing (P ost-Dialysis) 99/57 mmHg Sitting Heart Rate Pre-Dialysis 76 BPM Sitting Heart Rate Post-Dialysis 93 BPM Standing Heart Rate Pre-Dialysis 73 BPM Standing Heart Rate Post-Dialysis 92 BPM Temperature Pre-Dialysis 97.2 degF Temperature Post -Dialysis 97.7 degF September 23, 2023 In-Center Hemodialysis Treatment [id number]:46:20.000Z 7201-03-16Z95:43:50.000Z BP Sitting (Pre-Dialysis) 136/76 mmHg BP Sitting (Post-Dialysis) 127/66 mmHg Concurrent Access: falseAV Fistula Upper Arm (Left) Arterial Sitting Heart Rate Pre-Dialysis 59 BPM BP Standing (Post-Dialysis) 101/50 mmHg Temperature Pre-Dialysis 97.2 degF Sitting Heart Ra te Post-Dialysis 84 BPM Standing Heart Rate Post-Rosemary lysis 91 BPM Temperature Post-Dialysis 97 .8 degF September 20, 2023 In-Center Hemodialysis Treatment [id number]:26:00.000Z 2506-54-64C27:29:10.000Z BP Sitting (Pre-Dialysis) 181/83 mmHg BP Sitting (Post-Dialysis) 107/53 mmHg Concurrent Access: falseAV Fistula Upper Arm (Left) Arterial Sitting Heart Rate Pre-Dialysis 96 BPM BP Standing (Post-Dialysis) 104/65 mmHg Temperature Pre-Dialysis 97.4 degF Sitting Heart Ra te Post-Dialysis 94 BPM Standing Heart Rate Post-Rosemary lysis 95 BPM Temperature Post-Dialysis 97 .6 degF September 18, 2023 In-Center Hemodialysis Treatment [id number]:45:00.000Z 3570-02-75M44:47:26.000Z BP Sitting (Pre-Dialysis) 130/61 mmHg BP Sitting (Post-Dialysis) 104/48 mmHg Concurrent Access: falseAV Fistula Upper Arm (Left) Arterial BP Standing (Pre-Dialysis) 139/70 mmHg BP Standing (P ost-Dialysis) 103/50 mmHg Sitting Heart Rate Pre-Dialysis 75 BPM Sitting Heart Rate Post-Dialysis 85 BPM Standing Heart Rate Pre-Dialysis 82 BPM Standing Heart Rate Post-Dialysis 104 BPM Temperature Pre-Dialysis 97.9 degF Temperature Post -Dialysis 97.8 degF September 16, 2023 In-Center Hemodialysis Treatment 1407-28-21K93:35:08.000Z 3505-11-49L55:34:18.000Z BP Sitting (Pre-Dialysis) 122/63 mmHg BP Sitting (Post-Dialysis) 107/58 mmHg Concurrent Access: falseAV Fistula Upper Arm (Left) Arterial BP Standing (Pre-Dialysis) 120/65 mmHg Sitti ng Heart Rate Post-Dialysis 102 BPM Sitting Heart Rate Pre-Dialysis 97 BPM Temperatu re Post-Dialysis 97.2 degF Standing Heart Rate Pre-Dialysis 95 BPM Temperature Pre-Dialysis 97.2 degF September 13, 2023 In-Center Hemodialysis Treatment [id number]:48:00.000Z 1841-63-25F14:49:29.000Z BP Sitting (Pre-Dialysis) 153/77 mmHg BP Sitting (Post-Dialysis) 108/55 mmHg Concurrent Access: falseAV Fistula Upper Arm (Left) Arterial Sitting Heart Rate Pre-Dialysis 99 BPM Sitting H eart Rate Post-Dialysis 98 BPM Temperature Pre-Dialysis 97.6 degF Temperature Post -Dialysis 97.2 degF September 11, 2023 In-Center Hemodialysis Treatment [id number]:48:00.000Z 3340-62-58K96:51:19.000Z BP Sitting (Pre-Dialysis) 132/70 mmHg BP Sitting (Post-Dialysis) 91/49 mmHg Concurrent Access: falseAV Fistula Upper Arm (Left) Arterial BP Standing (Pre-Dialysis) 133/66 mmHg Sitti ng Heart Rate Post-Dialysis 88 BPM Sitting Heart Rate Pre-Dialysis 82 BPM Temperatu re Post-Dialysis 97.2 degF Standing Heart Rate Pre-Dialysis 88 BPM Temperature Pre-Dialysis 97.8 degF September 09, 2023 In-Center Hemodialysis Treatment [id number]:45:12.000Z 8515-00-69D86:48:07.000Z BP Sitting (Pre-Dialysis) 122/61 mmHg BP Sitting (Post-Dialysis) 104/78 mmHg Concurrent Access: falseAV Fistula Upper Arm (Left) Arterial BP Standing (Pre-Dialysis) 123/63 mmHg Sitti ng Heart Rate Post-Dialysis 92 BPM Sitting Heart Rate Pre-Dialysis 88 BPM Temperatu re Post-Dialysis 97.2 degF Standing Heart Rate Pre-Dialysis 87 BPM Temperature Pre-Dialysis 97.4 degF September 06, 2023 In-Center Hemodialysis Treatment [id number]:28:00.000Z 2159-92-65Y67:31:36.000Z BP Sitting (Pre-Dialysis) 146/72 mmHg BP Sitting (Post-Dialysis) 110/54 mmHg Concurrent Access: falseAV Fistula Upper Arm (Left) Arterial BP Standing (Pre-Dialysis) 167/77 mmHg Sitti ng Heart Rate Post-Dialysis 87 BPM Sitting Heart Rate Pre-Dialysis 95 BPM Temperatu re Post-Dialysis 98.2 degF Standing Heart Rate Pre-Dialysis 96 BPM Temperature Pre-Dialysis 97.7 degF September 04, 2023 In-Center Hemodialysis Treatment [id number]:31:46.000Z 1292-04-54V40:33:26.000Z BP Sitting (Pre-Dialysis) 115/56 mmHg BP Sitting (Post-Dialysis) 103/45 mmHg Concurrent Access: falseAV Fistula Upper Arm (Left) Arterial BP Standing (Pre-Dialysis) 132/72 mmHg Sitti ng Heart Rate Post-Dialysis 87 BPM Sitting Heart Rate Pre-Dialysis 82 BPM Temperatu re Post-Dialysis 97.2 degF Standing Heart Rate Pre-Dialysis 102 BPM Temperature Pre-Dialysis 97.7 degF September 02, 2023 In-Center Hemodialysis Treatment [id number]:26:24.000Z 0189-48-50L12:25:59.000Z BP Sitting (Pre-Dialysis) 125/69 mmHg BP Sitting (Post-Dialysis) 115/47 mmHg Concurrent Access: falseAV Fistula Upper Arm (Left) Arterial BP Standing (Pre-Dialysis) 128/61 mmHg Sitti ng Heart Rate Post-Dialysis 78 BPM Sitting Heart Rate Pre-Dialysis 78 BPM Temperatu re Post-Dialysis 97.8 degF Standing Heart Rate Pre-Dialysis 77 BPM Temperature Pre-Dialysis 98.2 degF August 30, 2023 In-Center Hemodialysis Treatment [id number]:42:00.000Z 5881-10-86J63:44:00.000Z BP Sitting (Pre-Dialysis) 129/56 mmHg BP Sitting (Post-Dialysis) 129/54 mmHg Concurrent Access: falseAV Fistula Upper Arm (Left) Arterial BP Standing (Pre-Dialysis) 129/62 mmHg Sitti ng Heart Rate Post-Dialysis 92 BPM Sitting Heart Rate Pre-Dialysis 79 BPM Temperatu re Post-Dialysis 97.1 degF Standing Heart Rate Pre-Dialysis 80 BPM Temperature Pre-Dialysis 97.5 degF August 28, 2023 In-Center Hemodialysis Treatment [id number]:41:05.000Z 4909-94-59T30:39:00.000Z BP Sitting (Pre-Dialysis) 169/75 mmHg BP Sitting (Post-Dialysis) 111/58 mmHg Concurrent Access: falseAV Fistula Upper Arm (Left) Arterial BP Standing (Pre-Dialysis) 161/76 mmHg BP Standing (P ost-Dialysis) 104/52 mmHg Sitting Heart Rate Pre-Dialysis 91 BPM Sitting Heart Rate Post-Dialysis 88 BPM Standing Heart Rate Pre-Dialysis 95 BPM Standing Heart Rate Post-Dialysis 94 BPM Temperature Pre-Dialysis 97.2 degF Temperature Post -Dialysis 97 degF August 26, 2023 In-Center Hemodialysis Treatment [id number]:41:23.000Z 5176-87-94F03:38:03.000Z BP Sitting (Pre-Dialysis) 130/65 mmHg BP Sitting (Post-Dialysis) 125/69 mmHg Concurrent Access: falseAV Fistula Upper Arm (Left) Arterial BP Standing (Pre-Dialysis) 137/67 mmHg Sitti ng Heart Rate Post-Dialysis 79 BPM Sitting Heart Rate Pre-Dialysis 72 BPM Temperatu re Post-Dialysis 97.2 degF Standing Heart Rate Pre-Dialysis 77 BPM Temperature Pre-Dialysis 97.2 degF August 23, 2023 In-Center Hemodialysis Treatment [id number]:29:40.000Z 1859-43-10Z35:29:15.000Z BP Sitting (Pre-Dialysis) 130/53 mmHg BP Sitting (Post-Dialysis) 119/55 mmHg Concurrent Access: falseAV Fistula Upper Arm (Left) Arterial BP Standing (Pre-Dialysis) 121/61 mmHg BP Standing (P ost-Dialysis) 92/40 mmHg Sitting Heart Rate Pre-Dialysis 77 BPM Sitting Heart Rate Post-Dialysis 82 BPM Standing Heart Rate Pre-Dialysis 78 BPM Standing Heart Rate Post-Dialysis 121 BPM Temperature Pre-Dialysis 97.2 degF Temperature Post -Dialysis 97.2 degF August 21, 2023 In-Center Hemodialysis Treatment [id number]:03:55.000Z 0751-59-09B69:49:20.000Z BP Sitting (Pre-Dialysis) 132/66 mmHg BP Sitting (Post-Dialysis) 123/64 mmHg Concurrent Access: falseAV Fistula Upper Arm (Left) Arterial BP Standing (Pre-Dialysis) 127/79 mmHg Sitti ng Heart Rate Post-Dialysis 78 BPM Sitting Heart Rate Pre-Dialysis 81 BPM Temperatu re Post-Dialysis 98.2 degF Standing Heart Rate Pre-Dialysis 90 BPM Temperature Pre-Dialysis 97.8 degF August 19, 2023 In-Center Hemodialysis Treatment 4128-27-98V79:39:00.000Z 2384-45-10F52:43:07.000Z BP Sitting (Pre-Dialysis) 154/77 mmHg BP Sitting (Post-Dialysis) 125/66 mmHg Concurrent Access: falseAV Fistula Upper Arm (Left) Arterial BP Standing (Pre-Dialysis) 155/73 mmHg Sitti ng Heart Rate Post-Dialysis 107 BPM Sitting Heart Rate Pre-Dialysis 97 BPM Temperatu re Post-Dialysis 98.2 degF Standing Heart Rate Pre-Dialysis 96 BPM Temperature Pre-Dialysis 97.5 degF August 16, 2023 In-Center Hemodialysis Treatment 0712-70-45K37:22:48.000Z 0232-50-22O36:24:53.000Z BP Sitting (Pre-Dialysis) 133/69 mmHg BP Sitting (Post-Dialysis) 138/62 mmHg Concurrent Access: falseAV Fistula Upper Arm (Left) Arterial Sitting Heart Rate Pre-Dialysis 105 BPM BP Standing (Post-Dialysis) 114/53 mmHg Temperature Pre-Dialysis 98.2 degF Sitting Heart Ra te Post-Dialysis 99 BPM Standing Heart Rate Post-Rosemary lysis 105 BPM Temperature Post-Dialysis 97 .8 degF August 14, 2023 In-Center Hemodialysis Treatment [id number]:40:05.000Z 3524-75-19F61:40:05.000Z BP Sitting (Pre-Dialysis) 177/81 mmHg BP Sitting (Post-Dialysis) 115/53 mmHg Concurrent Access: falseAV Fistula Upper Arm (Left) Arterial Sitting Heart Rate Pre-Dialysis 96 BPM Sitting H eart Rate Post-Dialysis 84 BPM Temperature Pre-Dialysis 98.2 degF Temperature Post -Dialysis 97 degF August 12, 2023 In-Center Hemodialysis Treatment [id number]:46:17.000Z [id number]:43:47.000Z BP Sitting (Pre-Dialysis) 151/65 mmHg BP Sitting (Post-Dialysis) 120/57 mmHg Concurrent Access: falseAV Fistula Upper Arm (Left) Arterial BP Standing (Pre-Dialysis) 149/67 mmHg Sitti ng Heart Rate Post-Dialysis 85 BPM Sitting Heart Rate Pre-Dialysis 72 BPM Temperatu re Post-Dialysis 97.2 degF Standing Heart Rate Pre-Dialysis 70 BPM Temperature Pre-Dialysis 97.2 degF August 09, 2023 In-Center Hemodialysis Treatment [id number]:38:35.000Z 6731-50-25C93:40:40.000Z BP Sitting (Pre-Dialysis) 124/60 mmHg BP Sitting (Post-Dialysis) 100/48 mmHg Concurrent Access: falseAV Fistula Upper Arm (Left) Arterial BP Standing (Pre-Dialysis) 113/59 mmHg Sitti ng Heart Rate Post-Dialysis 92 BPM Sitting Heart Rate Pre-Dialysis 75 BPM Temperatu re Post-Dialysis 97.8 degF Standing Heart Rate Pre-Dialysis 76 BPM Temperature Pre-Dialysis 97.2 degF August 07, 2023 In-Center Hemodialysis Treatment 2228-45-28M77:39:02.000Z 0281-74-56D07:37:47.000Z BP Sitting (Pre-Dialysis) 179/82 mmHg BP Sitting (Post-Dialysis) 104/39 mmHg Concurrent Access: falseAV Fistula Upper Arm (Left) Arterial BP Standing (Pre-Dialysis) 113/57 mmHg Sitting Heart Rate Post-Dialysis 82 BPM Sitting Heart Rate Pre-Dialysis 96 BPM Temperatu re Post-Dialysis 97 degF Standing Heart Rate Pre-Dialysis 69 BPM Temperature Pre-Dialysis 98.2 degF August 05, 2023 In-Center Hemodialysis Treatment 6590-46-06S66:30:00.000Z 2455-89-65T60:32:09.000Z BP Sitting (Pre-Dialysis) 150/77 mmHg BP Sitting (Post-Dialysis) 109/56 mmHg Concurrent Access: falseAV Fistula Upper Arm (Left) Arterial Sitting Heart Rate Pre-Dialysis 101 BPM Sitting H eart Rate Post-Dialysis 107 BPM Temperature Pre-Dialysis 97.8 degF Temperature Post -Dialysis 97.2 degF August 02, 2023 In-Center Hemodialysis Treatment [id number]:54:00.000Z [id number]:49:36.000Z BP Sitting (Pre-Dialysis) 110/72 mmHg BP Sitting (Post-Dialysis) 111/49 mmHg Concurrent Access: falseAV Fistula Upper Arm (Left) Arterial BP Standing (Pre-Dialysis) 113/88 mmHg BP Standing (P ost-Dialysis) 111/55 mmHg Sitting Heart Rate Pre-Dialysis 86 BPM Sitting Heart Rate Post-Dialysis 96 BPM Standing Heart Rate Pre-Dialysis 89 BPM Standing Heart Rate Post-Dialysis 102 BPM Temperature Pre-Dialysis 96.8 degF Temperature Post -Dialysis 97.2 degF July 31, 2023 In-Center Hemodialysis Treatment [id number]:48:42.000Z 0922-12-35Z95:49:57.000Z BP Sitting (Pre-Dialysis) 134/69 mmHg BP Sitting (Post-Dialysis) 116/54 mmHg Concurrent Access: falseAV Fistula Upper Arm (Left) Arterial Sitting Heart Rate Pre-Dialysis 82 BPM Sitting H eart Rate Post-Dialysis 85 BPM Temperature Pre-Dialysis 97.2 degF Temperature Post -Dialysis 97.3 degF July 29, 2023 In-Center Hemodialysis Treatment [id number]:29:00.000Z 8438-64-22K06:32:24.000Z BP Sitting (Pre-Dialysis) 188/70 mmHg BP Sitting (Post-Dialysis) 110/63 mmHg Concurrent Access: falseAV Fistula Upper Arm (Left) Arterial BP Standing (Pre-Dialysis) 190/80 mmHg BP Standing (P ost-Dialysis) 94/65 mmHg Sitting Heart Rate Pre-Dialysis 70 BPM Sitting Heart Rate Post-Dialysis 80 BPM Standing Heart Rate Pre-Dialysis 77 BPM Standing Heart Rate Post-Dialysis 80 BPM Temperature Pre-Dialysis 97.5 degF Temperature Post -Dialysis 97.5 degF July 26, 2023 In-Center Hemodialysis Treatment [id number]:23:00.000Z 2400-06-97W29:26:03.000Z BP Sitting (Pre-Dialysis) 132/64 mmHg BP Sitting (Post-Dialysis) 112/64 mmHg Concurrent Access: falseAV Fistula Upper Arm (Left) Arterial BP Standing (Pre-Dialysis) 110/59 mmHg Sitti ng Heart Rate Post-Dialysis 87 BPM Sitting Heart Rate Pre-Dialysis 75 BPM Temperatu re Post-Dialysis 97.2 degF Standing Heart Rate Pre-Dialysis 80 BPM Temperature Pre-Dialysis 98.1 degF July 24, 2023 In-Center Hemodialysis Treatment [id number]:36:00.000Z 6957-64-52V66:40:21.000Z BP Sitting (Pre-Dialysis) 119/62 mmHg BP Sitting (Post-Dialysis) 110/51 mmHg Concurrent Access: falseAV Fistula Upper Arm (Left) Arterial BP Standing (Pre-Dialysis) 133/64 mmHg BP Standing (P ost-Dialysis) 111/55 mmHg Sitting Heart Rate Pre-Dialysis 80 BPM Sitting Heart Rate Post-Dialysis 82 BPM Standing Heart Rate Pre-Dialysis 82 BPM Standing Heart Rate Post-Dialysis 79 BPM Temperature Pre-Dialysis 97 degF Temperature Post -Dialysis 97.2 degF July 22, 2023 In-Center Hemodialysis Treatment [id number]:45:44.000Z 6892-67-54R05:48:39.000Z BP Sitting (Pre-Dialysis) 153/71 mmHg BP Sitting (Post-Dialysis) 134/66 mmHg Concurrent Access: falseAV Fistula Upper Arm (Left) Arterial Sitting Heart Rate Pre-Dialysis 69 BPM Sitting H eart Rate Post-Dialysis 96 BPM Temperature Pre-Dialysis 97.2 degF Temperature Post -Dialysis 97 degF July 19, 2023 In-Center Hemodialysis Treatment 1925-08-61Q67:30:00.000Z 8016-03-39B39:33:37.000Z BP Sitting (Pre-Dialysis) 179/88 mmHg BP Sitting (Post-Dialysis) 123/60 mmHg Concurrent Access: falseAV Fistula Upper Arm (Left) Arterial Sitting Heart Rate Pre-Dialysis 101 BPM Sitting H eart Rate Post-Dialysis 102 BPM Temperature Pre-Dialysis 97.6 degF Temperature Post -Dialysis 97.2 degF July 17, 2023 In-Center Hemodialysis Treatment [id number]:41:04.000Z 4038-71-38E07:33:34.000Z BP Sitting (Pre-Dialysis) 104/67 mmHg BP Sitting (Post-Dialysis) 115/55 mmHg Concurrent Access: falseAV Fistula Upper Arm (Left) Arterial BP Standing (Pre-Dialysis) 92/52 mmHg BP Standing (P ost-Dialysis) 118/58 mmHg Sitting Heart Rate Pre-Dialysis 50 BPM Sitting Heart Rate Post-Dialysis 89 BPM Standing Heart Rate Pre-Dialysis 98 BPM Standing Heart Rate Post-Dialysis 90 BPM Temperature Pre-Dialysis 97.2 degF Temperature Post -Dialysis 97.2 degF July 15, 2023 In-Center Hemodialysis Treatment 1330-23-89P17:51:00.000Z 1864-88-87B99:51:31.000Z BP Sitting (Pre-Dialysis) 124/70 mmHg BP Sitting (Post-Dialysis) 113/36 mmHg Concurrent Access: falseAV Fistula Upper Arm (Left) Arterial BP Standing (Pre-Dialysis) 156/91 mmHg Sitti ng Heart Rate Post-Dialysis 79 BPM Sitting Heart Rate Pre-Dialysis 97 BPM Temperatu re Post-Dialysis 97.7 degF Standing Heart Rate Pre-Dialysis 100 BPM Temperature Pre-Dialysis 96.8 degF July 12, 2023 In-Center Hemodialysis Treatment [id number]:46:19.000Z 0243-76-35M66:45:54.000Z BP Sitting (Pre-Dialysis) 109/56 mmHg BP Sitting (Post-Dialysis) 116/56 mmHg Concurrent Access: falseAV Fistula Upper Arm (Left) Arterial BP Standing (Pre-Dialysis) 96/65 mmHg Sitti ng Heart Rate Post-Dialysis 77 BPM Sitting Heart Rate Pre-Dialysis 79 BPM Temperatu re Post-Dialysis 97.5 degF Standing Heart Rate Pre-Dialysis 101 BPM Temperature Pre-Dialysis 97.5 degF July 10, 2023 In-Center Hemodialysis Treatment [id number]:48:00.000Z 0155-05-95U40:51:07.000Z BP Sitting (Pre-Dialysis) 116/59 mmHg BP Sitting (Post-Dialysis) 119/44 mmHg Concurrent Access: falseAV Fistula Upper Arm (Left) Arterial Sitting Heart Rate Pre-Dialysis 78 BPM BP Standing (Post-Dialysis) 118/57 mmHg Temperature Pre-Dialysis 97.8 degF Sitting Heart Ra te Post-Dialysis 80 BPM Standing Heart Rate Post-Rosemary lysis 81 BPM Temperature Post-Dialysis 97 .7 degF July 08, 2023 In-Center Hemodialysis Treatment [id number]:43:00.000Z 5631-58-82T37:42:52.000Z BP Sitting (Pre-Dialysis) 165/83 mmHg BP Sitting (Post-Dialysis) 153/60 mmHg Concurrent Access: falseAV Fistula Upper Arm (Left) Arterial BP Standing (Pre-Dialysis) 173/82 mmHg BP Standing (P ost-Dialysis) 110/57 mmHg Sitting Heart Rate Pre-Dialysis 99 BPM Sitting Heart Rate Post-Dialysis 78 BPM Standing Heart Rate Pre-Dialysis 104 BPM Standing Heart Rate Post-Dialysis 75 BPM Temperature Pre-Dialysis 97.7 degF Temperature Post -Dialysis 97.2 degF July 05, 2023 In-Center Hemodialysis Treatment [id number]:35:40.000Z [id number]:35:40.000Z BP Sitting (Pre-Dialysis) 133/72 mmHg BP Sitting (Post-Dialysis) 127/58 mmHg Concurrent Access: falseAV Fistula Upper Arm (Left) Arterial Sitting Heart Rate Pre-Dialysis 96 BPM Sitting H eart Rate Post-Dialysis 76 BPM Temperature Pre-Dialysis 97.2 degF Temperature Post -Dialysis 98.2 degF July 03, 2023 In-Center Hemodialysis Treatment [id number]:42:15.000Z 2687-84-53A04:38:55.000Z BP Sitting (Pre-Dialysis) 125/65 mmHg BP Sitting (Post-Dialysis) 144/72 mmHg Concurrent Access: falseAV Fistula Upper Arm (Left) Arterial BP Standing (Pre-Dialysis) 95/56 mmHg BP Standing (P ost-Dialysis) 95/56 mmHg Sitting Heart Rate Pre-Dialysis 93 BPM Sitting H eart Rate Post-Dialysis 100 BPM Standing Heart Rate Pre-Dialysis 108 BPM Standing Heart Rate Post-Dialysis 108 BPM Temperature Pre-Dialysis 97.2 degF Temperature Post -Dialysis 98 degF July 01, 2023 In-Center Hemodialysis Treatment 3120-02-79X39:41:00.000Z 5121-76-47Q81:42:30.000Z BP Sitting (Pre-Dialysis) 168/79 mmHg BP Sitting (Post-Dialysis) 104/53 mmHg Concurrent Access: falseAV Fistula Upper Arm (Left) Arterial BP Standing (Pre-Dialysis) 134/77 mmHg Sitting Heart Rate Post-Dialysis 89 BPM Sitting Heart Rate Pre-Dialysis 94 BPM Standing Heart Rate Pre-Dialysis 122 BPM Temperature Pre-Dialysis 97.8 degF June 28, 2023 In-Center Hemodialysis Treatment [id number]:41:00.000Z 6323-86-69L00:43:47.000Z BP Sitting (Pre-Dialysis) 161/73 mmHg BP Sitting (Post-Dialysis) 142/78 mmHg Concurrent Access: falseAV Fistula Upper Arm (Left) Arterial Sitting Heart Rate Pre-Dialysis 102 BPM BP Standing (Post-Dialysis) 140/80 mmHg Temperature Pre-Dialysis 97.7 degF Sitting Heart Ra te Post-Dialysis 98 BPM Standing Heart Rate Post-Rosemary lysis 99 BPM Temperature Post-Dialysis 98 .2 degF June 26, 2023 In-Center Hemodialysis Treatment [id number]:28:07.000Z 7836-91-61R83:26:52.000Z BP Sitting (Pre-Dialysis) 113/66 mmHg BP Sitting (Post-Dialysis) 154/78 mmHg Concurrent Access: falseAV Fistula Upper Arm (Left) Arterial BP Standing (Pre-Dialysis) 112/65 mmHg Sitti ng Heart Rate Post-Dialysis 90 BPM Sitting Heart Rate Pre-Dialysis 93 BPM Temperatu re Post-Dialysis 97.7 degF Standing Heart Rate Pre-Dialysis 90 BPM Temperature Pre-Dialysis 97.7 degF June 24, 2023 In-Center Hemodialysis Treatment [id number]:39:30.000Z 0976-58-53M54:44:55.000Z BP Sitting (Pre-Dialysis) 202/100 mmHg BP Sitting (Post-Dialysis) 125/65 mmHg Concurrent Access: falseAV Fistula Upper Arm (Left) Arterial BP Standing (Pre-Dialysis) 189/84 mmHg Sitti ng Heart Rate Post-Dialysis 104 BPM Sitting Heart Rate Pre-Dialysis 92 BPM Temperatu re Post-Dialysis 97.4 degF Standing Heart Rate Pre-Dialysis 90 BPM Temperature Pre-Dialysis 96.8 degF June 21, 2023 In-Center Hemodialysis Treatment [id number]:33:00.000Z 6208-73-40Y44:36:33.000Z BP Sitting (Pre-Dialysis) 165/79 mmHg BP Sitting (Post-Dialysis) 119/62 mmHg Concurrent Access: falseAV Fistula Upper Arm (Left) Arterial BP Standing (Pre-Dialysis) 136/82 mmHg BP Standing (P ost-Dialysis) 108/60 mmHg Sitting Heart Rate Pre-Dialysis 98 BPM Sitting Heart Rate Post-Dialysis 94 BPM Standing Heart Rate Pre-Dialysis 135 BPM Standing Heart Rate Post-Dialysis 118 BPM Temperature Pre-Dialysis 97.3 degF Temperature Post -Dialysis 97.5 degF June 19, 2023 In-Center Hemodialysis Treatment 3654-18-89U60:29:00.000Z 7634-75-52V79:31:16.000Z BP Sitting (Pre-Dialysis) 121/68 mmHg BP Sitting (Post-Dialysis) 112/64 mmHg Concurrent Access: falseAV Fistula Upper Arm (Left) Arterial BP Standing (Pre-Dialysis) 127/71 mmHg BP Standing (P ost-Dialysis) 117/64 mmHg Sitting Heart Rate Pre-Dialysis 93 BPM Sitting Heart Rate Post-Dialysis 98 BPM Standing Heart Rate Pre-Dialysis 97 BPM Standing Heart Rate Post-Dialysis 101 BPM Temperature Pre-Dialysis 97 degF Temperature Post -Dialysis 97.7 degF June 17, 2023 In-Center Hemodialysis Treatment [id number]:41:00.000Z [id number]:39:02.000Z BP Sitting (Pre-Dialysis) 168/81 mmHg BP Sitting (Post-Dialysis) 135/68 mmHg Concurrent Access: falseAV Fistula Upper Arm (Left) Arterial Sitting Heart Rate Pre-Dialysis 96 BPM BP Standi ng (Post-Dialysis) 125/72 mmHg Temperature Pre-Dialysis 97 degF Sitting Heart Ra te Post-Dialysis 98 BPM Standing Heart Rate Post-Rosemary lysis 82 BPM Temperature Post-Dialysis 97 .7 degF June 14, 2023 In-Center Hemodialysis Treatment [id number]:42:46.000Z [id number]:41:56.000Z BP Sitting (Pre-Dialysis) 129/71 mmHg BP Sitting (Post-Dialysis) 166/65 mmHg Concurrent Access: falseAV Fistula Upper Arm (Left) Arterial BP Standing (Pre-Dialysis) 141/72 mmHg BP Standing (P ost-Dialysis) 154/60 mmHg Sitting Heart Rate Pre-Dialysis 92 BPM Sitting Heart Rate Post-Dialysis 84 BPM Standing Heart Rate Pre-Dialysis 98 BPM Standing Heart Rate Post-Dialysis 68 BPM Temperature Pre-Dialysis 97.6 degF Temperature Post -Dialysis 97.5 degF June 12, 2023 In-Center Hemodialysis Treatment [id number]:42:30.000Z [id number]:43:20.000Z BP Sitting (Pre-Dialysis) 122/64 mmHg BP Sitting (Post-Dialysis) 106/45 mmHg Concurrent Access: falseAV Fistula Upper Arm (Left) Arterial BP Standing (Pre-Dialysis) 141/60 mmHg Sitti ng Heart Rate Post-Dialysis 94 BPM Sitting Heart Rate Pre-Dialysis 90 BPM Temperatu re Post-Dialysis 97.2 degF Standing Heart Rate Pre-Dialysis 94 BPM Temperature Pre-Dialysis 97 degF June 10, 2023 In-Center Hemodialysis Treatment [id number]:42:46.000Z [id number]:41:55.000Z BP Sitting (Pre-Dialysis) 137/71 mmHg BP Sitting (Post-Dialysis) 114/41 mmHg Concurrent Access: falseAV Fistula Upper Arm (Left) Arterial BP Standing (Pre-Dialysis) 115/63 mmHg BP Standing (P ost-Dialysis) 105/45 mmHg Sitting Heart Rate Pre-Dialysis 81 BPM Sitting Heart Rate Post-Dialysis 88 BPM Standing Heart Rate Pre-Dialysis 137 BPM Standing Heart Rate Post-Dialysis 85 BPM Temperature Pre-Dialysis 96.8 degF Temperature Post -Dialysis 97.2 degF June 07, 2023 In-Center Hemodialysis Treatment [id number]:40:00.000Z [id number]:41:25.000Z BP Sitting (Pre-Dialysis) 99/56 mmHg BP Sitting (Post-Dialysis) 111/53 mmHg Concurrent Access: falseAV Fistula Upper Arm (Left) Arterial BP Standing (Pre-Dialysis) 108/71 mmHg BP Standing (P ost-Dialysis) 109/46 mmHg Sitting Heart Rate Pre-Dialysis 97 BPM Sitting Heart Rate Post-Dialysis 78 BPM Standing Heart Rate Pre-Dialysis 97 BPM Standing Heart Rate Post-Dialysis 102 BPM Temperature Pre-Dialysis 97 degF Temperature Post -Dialysis 97.6 degF June 05, 2023 In-Center Hemodialysis Treatment [id number]:40:00.000Z 4635-84-57M79:42:04.000Z BP Sitting (Pre-Dialysis) 154/95 mmHg BP Sitting (Post-Dialysis) 133/60 mmHg Concurrent Access: falseAV Fistula Upper Arm (Left) Arterial BP Standing (Pre-Dialysis) 132/73 mmHg BP Standing (P ost-Dialysis) 135/64 mmHg Sitting Heart Rate Pre-Dialysis 63 BPM Sitting Heart Rate Post-Dialysis 86 BPM Standing Heart Rate Pre-Dialysis 135 BPM Standing Heart Rate Post-Dialysis 87 BPM Temperature Pre-Dialysis 97 degF Temperature Post -Dialysis 97.8 degF June 02, 2023 In-Center Hemodialysis Treatment 3126-06-68A44:40:00.000Z 6419-30-76I70:40:27.000Z BP Sitting (Pre-Dialysis) 171/87 mmHg BP Sitting (Post-Dialysis) 145/47 mmHg Concurrent Access: falseAV Fistula Upper Arm (Left) Arterial BP Standing (Pre-Dialysis) 174/83 mmHg Sitti ng Heart Rate Post-Dialysis 78 BPM Sitting Heart Rate Pre-Dialysis 99 BPM Temperatu re Post-Dialysis 97.7 degF Standing Heart Rate Pre-Dialysis 100 BPM Temperature Pre-Dialysis 97 degF May 31, 2023 In-Center Hemodialysis Treatment [id number]:45:39.000Z 8703-64-00M58:44:24.000Z BP Sitting (Pre-Dialysis) 120/70 mmHg BP Sitting (Post-Dialysis) 134/59 mmHg Concurrent Access: falseAV Fistula Upper Arm (Left) Arterial BP Standing (Pre-Dialysis) 140/78 mmHg Sitti ng Heart Rate Post-Dialysis 96 BPM Sitting Heart Rate Pre-Dialysis 96 BPM Temperatu re Post-Dialysis 97.2 degF Standing Heart Rate Pre-Dialysis 98 BPM Temperature Pre-Dialysis 96.8 degF May 29, 2023 In-Center Hemodialysis Treatment [id number]:42:00.000Z 1062-16-08S27:44:30.000Z BP Sitting (Pre-Dialysis) 165/81 mmHg BP Sitting (Post-Dialysis) 137/75 mmHg Concurrent Access: falseAV Fistula Upper Arm (Left) Arterial BP Standing (Pre-Dialysis) 183/87 mmHg Sitting Heart Rate Post-Dialysis 80 BPM Sitting Heart Rate Pre-Dialysis 79 BPM Temperatu re Post-Dialysis 97 degF Standing Heart Rate Pre-Dialysis 97 BPM Temperature Pre-Dialysis 97.7 degF May 26, 2023 In-Center Hemodialysis Treatment [id number]:41:28.000Z 4192-57-63B90:38:08.000Z BP Sitting (Pre-Dialysis) 144/76 mmHg BP Sitting (Post-Dialysis) 128/53 mmHg Concurrent Access: falseAV Fistula Upper Arm (Left) Arterial BP Standing (Pre-Dialysis) 138/79 mmHg Sitti ng Heart Rate Post-Dialysis 92 BPM Sitting Heart Rate Pre-Dialysis 103 BPM Temperatu re Post-Dialysis 97.2 degF Standing Heart Rate Pre-Dialysis 107 BPM Temperature Pre-Dialysis 97.2 degF May 24, 2023 In-Center Hemodialysis Treatment 3232-06-13B27:42:59.000Z 0518-06-26F48:42:00.000Z BP Sitting (Pre-Dialysis) 136/70 mmHg BP Sitting (Post-Dialysis) 130/56 mmHg Concurrent Access: falseAV Fistula Upper Arm (Left) Arterial BP Standing (Pre-Dialysis) 165/75 mmHg BP Standing (P ost-Dialysis) 126/50 mmHg Sitting Heart Rate Pre-Dialysis 98 BPM Sitting Heart Rate Post-Dialysis 87 BPM Standing Heart Rate Pre-Dialysis 79 BPM Standing Heart Rate Post-Dialysis 80 BPM Temperature Pre-Dialysis 96.8 degF Temperature Post -Dialysis 98.2 degF May 22, 2023 In-Center Hemodialysis Treatment [id number]:34:00.000Z 5867-04-80I73:35:53.000Z BP Sitting (Pre-Dialysis) 165/78 mmHg BP Sitting (Post-Dialysis) 124/60 mmHg Concurrent Access: falseAV Fistula Upper Arm (Left) Arterial BP Standing (Pre-Dialysis) 131/76 mmHg Sitting Heart Rate Post-Dialysis 79 BPM Sitting Heart Rate Pre-Dialysis 78 BPM Temperatu re Post-Dialysis 97 degF Standing Heart Rate Pre-Dialysis 108 BPM Temperature Pre-Dialysis 97.7 degF May 20, 2023 In-Center Hemodialysis Treatment [id number]:36:00.000Z 7515-96-03K94:36:06.000Z BP Sitting (Pre-Dialysis) 178/87 mmHg BP Sitting (Post-Dialysis) 160/66 mmHg Concurrent Access: falseAV Fistula Upper Arm (Left) Arterial BP Standing (Pre-Dialysis) 112/45 mmHg Sitti ng Heart Rate Post-Dialysis 92 BPM Sitting Heart Rate Pre-Dialysis 96 BPM Temperatu re Post-Dialysis 98.2 degF Standing Heart Rate Pre-Dialysis 109 BPM Temperature Pre-Dialysis 97 degF May 17, 2023 In-Center Hemodialysis Treatment [id number]:36:00.000Z 5694-22-81I36:40:04.000Z BP Sitting (Pre-Dialysis) 145/75 mmHg BP Sitting (Post-Dialysis) 116/46 mmHg Concurrent Access: falseAV Fistula Upper Arm (Left) Arterial Sitting Heart Rate Pre-Dialysis 81 BPM BP Standing (Post-Dialysis) 114/48 mmHg Temperature Pre-Dialysis 97.6 degF Sitting Heart Ra te Post-Dialysis 80 BPM Standing Heart Rate Post-Rosemary lysis 80 BPM Temperature Post-Dialysis 97 .7 degF May 15, 2023 In-Center Hemodialysis Treatment [id number]:37:56.000Z 5895-95-11H83:35:51.000Z BP Sitting (Pre-Dialysis) 145/74 mmHg BP Sitting (Post-Dialysis) 93/51 mmHg Concurrent Access: falseAV Fistula Upper Arm (Left) Arterial BP Standing (Pre-Dialysis) 155/75 mmHg BP Standing (P ost-Dialysis) 99/53 mmHg Sitting Heart Rate Pre-Dialysis 91 BPM Sitting Heart Rate Post-Dialysis 105 BPM Standing Heart Rate Pre-Dialysis 97 BPM Standing Heart Rate Post-Dialysis 110 BPM Temperature Pre-Dialysis 96.8 degF Temperature Post -Dialysis 97.6 degF 2023 In-Center Hemodialysis Treatment [id number]:44:00.000Z 5499-94-36M13:42:04.000Z BP Sitting (Pre-Dialysis) 193/86 mmHg BP Sitting (Post-Dialysis) 115/54 mmHg Concurrent Access: falseAV Fistula Upper Arm (Left) Arterial BP Standing (Pre-Dialysis) 142/82 mmHg BP Standing (P ost-Dialysis) 118/61 mmHg Sitting Heart Rate Pre-Dialysis 82 BPM Sitting Heart Rate Post-Dialysis 83 BPM Standing Heart Rate Pre-Dialysis 106 BPM Standing Heart Rate Post-Dialysis 72 BPM Temperature Pre-Dialysis 97.8 degF Temperature Post -Dialysis 97.7 degF May 10, 2023 In-Center Hemodialysis Treatment 2788-78-18O00:39:00.000Z 3954-35-77R29:39:40.000Z BP Sitting (Pre-Dialysis) 146/72 mmHg BP Sitting (Post-Dialysis) 107/56 mmHg Concurrent Access: falseAV Fistula Upper Arm (Left) Arterial BP Standing (Pre-Dialysis) 135/67 mmHg BP Standing (P ost-Dialysis) 98/58 mmHg Sitting Heart Rate Pre-Dialysis 82 BPM Sitting Heart Rate Post-Dialysis 95 BPM Standing Heart Rate Pre-Dialysis 80 BPM Standing Heart Rate Post-Dialysis 76 BPM Temperature Pre-Dialysis 97.3 degF Temperature Post -Dialysis 97 degF May 08, 2023 In-Center Hemodialysis Treatment 1410-22-19L85:39:00.000Z 0415-42-69K99:40:33.000Z BP Sitting (Pre-Dialysis) 152/73 mmHg BP Sitting (Post-Dialysis) 135/66 mmHg Concurrent Access: falseAV Fistula Upper Arm (Left) Arterial BP Standing (Pre-Dialysis) 120/80 mmHg Sitti ng Heart Rate Post-Dialysis 90 BPM Sitting Heart Rate Pre-Dialysis 76 BPM Temperatu re Post-Dialysis 96.8 degF Standing Heart Rate Pre-Dialysis 75 BPM Temperature Pre-Dialysis 97.7 degF May 06, 2023 In-Center Hemodialysis Treatment 2896-11-97F54:42:00.000Z 6942-19-76B66:46:37.000Z BP Sitting (Pre-Dialysis) 179/83 mmHg BP Sitting (Post-Dialysis) 117/49 mmHg Concurrent Access: falseAV Fistula Upper Arm (Left) Arterial BP Standing (Pre-Dialysis) 159/75 mmHg Sitti ng Heart Rate Post-Dialysis 60 BPM Sitting Heart Rate Pre-Dialysis 79 BPM Temperatu re Post-Dialysis 97.2 degF Standing Heart Rate Pre-Dialysis 71 BPM Temperature Pre-Dialysis 97.5 degF May 03, 2023 In-Center Hemodialysis Treatment 7813-63-76I14:30:36.000Z 4445-83-92K42:30:11.000Z BP Sitting (Pre-Dialysis) 136/93 mmHg BP Sitting (Post-Dialysis) 114/57 mmHg Concurrent Access: falseAV Fistula Upper Arm (Left) Arterial BP Standing (Pre-Dialysis) 154/79 mmHg BP Standing (P ost-Dialysis) 112/55 mmHg Sitting Heart Rate Pre-Dialysis 62 BPM Sitting Heart Rate Post-Dialysis 62 BPM Standing Heart Rate Pre-Dialysis 65 BPM Standing Heart Rate Post-Dialysis 60 BPM Temperature Pre-Dialysis 97.2 degF Temperature Post -Dialysis 98 degF May 01, 2023 In-Center Hemodialysis Treatment 8330-29-01G99:28:00.000Z [id number]:33:53.000Z BP Sitting (Pre-Dialysis) 198/85 mmHg BP Sitting (Post-Dialysis) 115/44 mmHg Concurrent Access: falseAV Fistula Upper Arm (Left) Arterial BP Standing (Pre-Dialysis) 202/94 mmHg Sitti ng Heart Rate Post-Dialysis 78 BPM Sitting Heart Rate Pre-Dialysis 85 BPM Temperatu re Post-Dialysis 97.6 degF Standing Heart Rate Pre-Dialysis 90 BPM Temperature Pre-Dialysis 97.3 degF April 29, 2023 In-Center Hemodialysis Treatment [id number]:58:11.000Z 0622-89-07A08:56:31.000Z BP Sitting (Pre-Dialysis) 175/89 mmHg BP Sitting (Post-Dialysis) 171/77 mmHg Concurrent Access: falseAV Fistula Upper Arm (Left) Arterial BP Standing (Pre-Dialysis) 172/85 mmHg Sitti ng Heart Rate Post-Dialysis 77 BPM Sitting Heart Rate Pre-Dialysis 90 BPM Temperatu re Post-Dialysis 94.3 degF Standing Heart Rate Pre-Dialysis 89 BPM Temperature Pre-Dialysis 97.2 degF April 26, 2023 In-Center Hemodialysis Treatment [id number]:34:39.000Z 9504-37-22B55:32:45.000Z BP Sitting (Pre-Dialysis) 162/79 mmHg BP Sitting (Post-Dialysis) 101/44 mmHg Concurrent Access: falseAV Fistula Upper Arm (Left) Arterial BP Standing (Pre-Dialysis) 152/88 mmHg BP Standing (P ost-Dialysis) 104/54 mmHg Sitting Heart Rate Pre-Dialysis 99 BPM Sitting Heart Rate Post-Dialysis 83 BPM Standing Heart Rate Pre-Dialysis 130 BPM Standing Heart Rate Post-Dialysis 101 BPM Temperature Pre-Dialysis 96.8 degF Temperature Post -Dialysis 97.8 degF April 23, 2023 In-Center Hemodialysis Treatment [id number]:17:47.000Z 1115-62-80G95:20:10.000Z BP Sitting (Pre-Dialysis) 137/81 mmHg BP Sitting (Post-Dialysis) 128/79 mmHg Concurrent Access: falseAV Fistula Upper Arm (Left) Arterial Sitting Heart Rate Pre-Dialysis 93 BPM BP Standing (Post-Dialysis) 132/60 mmHg Temperature Pre-Dialysis 97.2 degF Sitting Heart Ra te Post-Dialysis 92 BPM Standing Heart Rate Post-Rosemary lysis 94 BPM Temperature Post-Dialysis 97 .2 degF April 21, 2023 In-Center Hemodialysis Treatment 5160-65-78P39:30:00.000Z 3291-83-20V43:30:13.000Z BP Sitting (Pre-Dialysis) 113/99 mmHg BP Sitting (Post-Dialysis) 155/91 mmHg Concurrent Access: falseAV Fistula Upper Arm (Left) Arterial BP Standing (Pre-Dialysis) 129/89 mmHg Sitti ng Heart Rate Post-Dialysis 74 BPM Sitting Heart Rate Pre-Dialysis 104 BPM Temperatu re Post-Dialysis 97.3 degF Standing Heart Rate Pre-Dialysis 99 BPM Temperature Pre-Dialysis 98.2 degF April 19, 2023 In-Center Hemodialysis Treatment 9856-43-83W53:29:00.000Z 3979-37-30I81:30:48.000Z BP Sitting (Pre-Dialysis) 146/75 mmHg BP Sitting (Post-Dialysis) 136/63 mmHg Concurrent Access: falseAV Fistula Upper Arm (Left) Arterial BP Standing (Pre-Dialysis) 146/87 mmHg BP Standing (P ost-Dialysis) 109/55 mmHg Sitting Heart Rate Pre-Dialysis 101 BPM Sitting Heart Rate Post-Dialysis 78 BPM Standing Heart Rate Pre-Dialysis 108 BPM Standing Heart Rate Post-Dialysis 102 BPM Temperature Pre-Dialysis 97 degF Temperature Post -Dialysis 97.7 degF April 17, 2023 In-Center Hemodialysis Treatment 8912-86-39V77:39:26.000Z 0838-88-98Z81:37:21.000Z BP Sitting (Pre-Dialysis) 126/70 mmHg BP Sitting (Post-Dialysis) 146/72 mmHg Concurrent Access: falseAV Fistula Upper Arm (Left) Arterial BP Standing (Pre-Dialysis) 133/76 mmHg Sitti ng Heart Rate Post-Dialysis 79 BPM Sitting Heart Rate Pre-Dialysis 112 BPM Temperatu re Post-Dialysis 98.2 degF Standing Heart Rate Pre-Dialysis 111 BPM Temperature Pre-Dialysis 98.2 degF April 15, 2023 In-Center Hemodialysis Treatment 7539-24-58V89:37:00.000Z 9530-83-42H88:39:40.000Z BP Sitting (Pre-Dialysis) 152/83 mmHg BP Sitting (Post-Dialysis) 125/67 mmHg Concurrent Access: falseAV Fistula Upper Arm (Left) Arterial Sitting Heart Rate Pre-Dialysis 96 BPM Sitting H eart Rate Post-Dialysis 93 BPM Temperature Pre-Dialysis 97.6 degF Temperature Post -Dialysis 97.4 degF April 12, 2023 In-Center Hemodialysis Treatment 7207-03-49K99:36:32.000Z 8893-36-02K77:36:07.000Z BP Sitting (Pre-Dialysis) 165/82 mmHg BP Sitting (Post-Dialysis) 159/73 mmHg Concurrent Access: falseAV Fistula Upper Arm (Left) Arterial BP Standing (Pre-Dialysis) 147/80 mmHg Sitti ng Heart Rate Post-Dialysis 79 BPM Sitting Heart Rate Pre-Dialysis 99 BPM Temperatu re Post-Dialysis 97.6 degF Standing Heart Rate Pre-Dialysis 133 BPM Temperature Pre-Dialysis 97.2 degF April 10, 2023 In-Center Hemodialysis Treatment 1177-76-85M07:30:36.000Z 7986-42-99Z74:33:31.000Z BP Sitting (Pre-Dialysis) 169/89 mmHg BP Sitting (Post-Dialysis) 119/61 mmHg Concurrent Access: falseAV Fistula Upper Arm (Left) Arterial BP Standing (Pre-Dialysis) 171/88 mmHg Sitti ng Heart Rate Post-Dialysis 100 BPM Sitting Heart Rate Pre-Dialysis 95 BPM Temperatu re Post-Dialysis 97.4 degF Standing Heart Rate Pre-Dialysis 95 BPM Temperature Pre-Dialysis 97.2 degF April 08, 2023 In-Center Hemodialysis Treatment 3206-16-30H97:02:19.000Z 4743-87-01R30:58:59.000Z BP Sitting (Pre-Dialysis) 150/80 mmHg BP Sitting (Post-Dialysis) 120/69 mmHg Concurrent Access: falseAV Fistula Upper Arm (Left) Arterial BP Standing (Pre-Dialysis) 143/79 mmHg Sitti ng Heart Rate Post-Dialysis 70 BPM Sitting Heart Rate Pre-Dialysis 119 BPM Temperatu re Post-Dialysis 97.2 degF Standing Heart Rate Pre-Dialysis 120 BPM Temperature Pre-Dialysis 97.2 degF April 05, 2023 In-Center Hemodialysis Treatment 4695-82-59B81:29:00.000Z 9254-57-86Y49:28:06.000Z BP Sitting (Pre-Dialysis) 162/92 mmHg BP Sitting (Post-Dialysis) 127/54 mmHg Concurrent Access: falseAV Fistula Upper Arm (Left) Arterial BP Standing (Pre-Dialysis) 147/79 mmHg BP Standing (P ost-Dialysis) 110/66 mmHg Sitting Heart Rate Pre-Dialysis 99 BPM Sitting Heart Rate Post-Dialysis 72 BPM Standing Heart Rate Pre-Dialysis 116 BPM Standing Heart Rate Post-Dialysis 103 BPM Temperature Pre-Dialysis 97.4 degF Temperature Post -Dialysis 97.6 degF April 03, 2023 In-Center Hemodialysis Treatment 2940-22-25A90:23:15.000Z 7415-71-13H80:14:30.000Z BP Sitting (Pre-Dialysis) 163/93 mmHg BP Sitting (Post-Dialysis) 112/55 mmHg Concurrent Access: falseAV Fistula Upper Arm (Left) Arterial BP Standing (Pre-Dialysis) 117/75 mmHg BP Standing (P ost-Dialysis) 115/55 mmHg Sitting Heart Rate Pre-Dialysis 85 BPM Sitting Heart Rate Post-Dialysis 89 BPM Standing Heart Rate Pre-Dialysis 102 BPM Standing Heart Rate Post-Dialysis 99 BPM Temperature Pre-Dialysis 97.2 degF Temperature Post -Dialysis 97.1 degF April 01, 2023 In-Center Hemodialysis Treatment [id number]:18:50.000Z 3648-04-44Y71:24:40.000Z BP Sitting (Pre-Dialysis) 135/80 mmHg BP Sitting (Post-Dialysis) 134/62 mmHg Concurrent Access: falseAV Fistula Upper Arm (Left) Arterial BP Standing (Pre-Dialysis) 147/82 mmHg Sitti ng Heart Rate Post-Dialysis 86 BPM Sitting Heart Rate Pre-Dialysis 110 BPM Temperatu re Post-Dialysis 97.2 degF Standing Heart Rate Pre-Dialysis 116 BPM Temperature Pre-Dialysis 97.7 degF March 29, 2023 In-Center Hemodialysis Treatment 1687-09-84D90:25:00.000Z 1595-30-93B46:30:01.000Z BP Sitting (Pre-Dialysis) 156/84 mmHg BP Sitting (Post-Dialysis) 135/66 mmHg Concurrent Access: falseAV Fistula Upper Arm (Left) Arterial BP Standing (Pre-Dialysis) 116/68 mmHg BP Standing (P ost-Dialysis) 112/63 mmHg Sitting Heart Rate Pre-Dialysis 92 BPM Sitting Heart Rate Post-Dialysis 81 BPM Standing Heart Rate Pre-Dialysis 122 BPM Standing Heart Rate Post-Dialysis 93 BPM Temperature Pre-Dialysis 97 degF Temperature Post -Dialysis 97.2 degF March 27, 2023 In-Center Hemodialysis Treatment [id number]:26:47.000Z 0022-92-55K07:27:37.000Z BP Sitting (Pre-Dialysis) 142/73 mmHg BP Sitting (Post-Dialysis) 145/60 mmHg Concurrent Access: falseAV Fistula Upper Arm (Left) Arterial BP Standing (Pre-Dialysis) 125/77 mmHg Sitti ng Heart Rate Post-Dialysis 92 BPM Sitting Heart Rate Pre-Dialysis 100 BPM Temperatu re Post-Dialysis 97.3 degF Standing Heart Rate Pre-Dialysis 103 BPM Temperature Pre-Dialysis 97.7 degF March 25, 2023 In-Center Hemodialysis Treatment 8756-56-90D06:30:29.000Z 1207-70-80B36:26:19.000Z BP Sitting (Pre-Dialysis) 169/69 mmHg BP Sitting (Post-Dialysis) 152/65 mmHg Concurrent Access: falseAV Fistula Upper Arm (Left) Arterial BP Standing (Pre-Dialysis) 177/77 mmHg BP Standing (P ost-Dialysis) 101/62 mmHg Sitting Heart Rate Pre-Dialysis 70 BPM Sitting Heart Rate Post-Dialysis 83 BPM Standing Heart Rate Pre-Dialysis 79 BPM Standing Heart Rate Post-Dialysis 80 BPM Temperature Pre-Dialysis 97.2 degF Temperature Post -Dialysis 97.2 degF March 22, 2023 In-Center Hemodialysis Treatment [id number]:42:06.000Z 9961-56-57W10:40:51.000Z BP Sitting (Pre-Dialysis) 118/65 mmHg BP Sitting (Post-Dialysis) 135/73 mmHg Concurrent Access: falseAV Fistula Upper Arm (Left) Arterial BP Standing (Pre-Dialysis) 119/62 mmHg BP Standing (P ost-Dialysis) 109/68 mmHg Sitting Heart Rate Pre-Dialysis 100 BPM Sitting Heart Rate Post-Dialysis 94 BPM Standing Heart Rate Pre-Dialysis 122 BPM Standing Heart Rate Post-Dialysis 107 BPM Temperature Pre-Dialysis 97.2 degF Temperature Post -Dialysis 97.2 degF March 20, 2023 In-Center Hemodialysis Treatment [id number]:39:24.000Z 9154-25-13K43:38:09.000Z BP Sitting (Pre-Dialysis) 136/80 mmHg BP Sitting (Post-Dialysis) 127/69 mmHg Concurrent Access: falseAV Fistula Upper Arm (Left) Arterial Sitting Heart Rate Pre-Dialysis 84 BPM BP Standing (Post-Dialysis) 105/56 mmHg Temperature Pre-Dialysis 97.2 degF Sitting Heart Ra te Post-Dialysis 93 BPM Standing Heart Rate Post-Rosemary lysis 89 BPM Temperature Post-Dialysis 97 .6 degF March 18, 2023 In-Center Hemodialysis Treatment 8649-30-08R76:21:09.000Z 2044-96-53W68:22:49.000Z BP Sitting (Pre-Dialysis) 168/85 mmHg BP Sitting (Post-Dialysis) 120/58 mmHg Concurrent Access: falseAV Fistula Upper Arm (Left) Arterial BP Standing (Pre-Dialysis) 106/66 mmHg BP Standing (P ost-Dialysis) 104/51 mmHg Sitting Heart Rate Pre-Dialysis 101 BPM Sitting Heart Rate Post-Dialysis 96 BPM Standing Heart Rate Pre-Dialysis 100 BPM Standing Heart Rate Post-Dialysis 108 BPM Temperature Pre-Dialysis 98 degF Temperature Post -Dialysis 97.6 degF March 15, 2023 In-Center Hemodialysis Treatment 7513-61-77P21:48:00.000Z 1916-30-04E65:49:04.000Z BP Sitting (Pre-Dialysis) 154/79 mmHg BP Sitting (Post-Dialysis) 102/56 mmHg Concurrent Access: falseAV Fistula Upper Arm (Left) Arterial BP Standing (Pre-Dialysis) 112/63 mmHg Sitti ng Heart Rate Post-Dialysis 106 BPM Sitting Heart Rate Pre-Dialysis 84 BPM Temperatu re Post-Dialysis 97.2 degF Standing Heart Rate Pre-Dialysis 93 BPM Temperature Pre-Dialysis 97.5 degF March 13, 2023 In-Center Hemodialysis Treatment 4984-50-28S48:48:12.000Z 2759-55-34M62:48:12.000Z BP Sitting (Pre-Dialysis) 144/77 mmHg BP Sitting (Post-Dialysis) 125/68 mmHg Concurrent Access: falseAV Fistula Upper Arm (Left) Arterial Sitting Heart Rate Pre-Dialysis 119 BPM Sitting H eart Rate Post-Dialysis 95 BPM Temperature Pre-Dialysis 97.3 degF Temperature Post -Dialysis 97.2 degF March 11, 2023 In-Center Hemodialysis Treatment 1556-78-28A25:22:12.000Z 9866-36-60R12:23:02.000Z BP Sitting (Pre-Dialysis) 122/76 mmHg BP Sitting (Post-Dialysis) 128/65 mmHg Concurrent Access: falseAV Fistula Upper Arm (Left) Arterial BP Standing (Pre-Dialysis) 144/71 mmHg BP Standing (P ost-Dialysis) 99/59 mmHg Sitting Heart Rate Pre-Dialysis 76 BPM Sitting Heart Rate Post-Dialysis 77 BPM Standing Heart Rate Pre-Dialysis 71 BPM Standing Heart Rate Post-Dialysis 104 BPM Temperature Pre-Dialysis 97.3 degF Temperature Post -Dialysis 97.4 degF March 08, 2023 In-Center Hemodialysis Treatment 6583-27-19Y72:22:06.000Z 5286-47-66T86:22:06.000Z BP Sitting (Pre-Dialysis) 164/75 mmHg BP Sitting (Post-Dialysis) 117/56 mmHg Concurrent Access: falseAV Fistula Upper Arm (Left) Arterial BP Standing (Pre-Dialysis) 134/72 mmHg Sitti ng Heart Rate Post-Dialysis 92 BPM Sitting Heart Rate Pre-Dialysis 82 BPM Temperatu re Post-Dialysis 97.6 degF Standing Heart Rate Pre-Dialysis 127 BPM Temperature Pre-Dialysis 97.2 degF March 06, 2023 In-Center Hemodialysis Treatment 4478-90-99J40:12:00.000Z 5961-65-16Y56:16:28.000Z BP Sitting (Pre-Dialysis) 171/97 mmHg BP Sitting (Post-Dialysis) 139/63 mmHg Concurrent Access: falseAV Fistula Upper Arm (Left) Arterial BP Standing (Pre-Dialysis) 112/59 mmHg BP Standing (P ost-Dialysis) 121/64 mmHg Sitting Heart Rate Pre-Dialysis 102 BPM Sitting Heart Rate Post-Dialysis 84 BPM Standing Heart Rate Pre-Dialysis 133 BPM Standing Heart Rate Post-Dialysis 94 BPM Temperature Pre-Dialysis 97.2 degF Temperature Post -Dialysis 97.6 degF March 04, 2023 In-Center Hemodialysis Treatment 0523-85-63M75:06:48.000Z 3965-65-57I11:07:58.000Z BP Sitting (Pre-Dialysis) 198/98 mmHg BP Sitting (Post-Dialysis) 115/56 mmHg Concurrent Access: falseAV Fistula Upper Arm (Left) Arterial BP Standing (Pre-Dialysis) 141/78 mmHg BP Standing (P ost-Dialysis) 99/50 mmHg Sitting Heart Rate Pre-Dialysis 98 BPM Sitting Heart Rate Post-Dialysis 90 BPM Standing Heart Rate Pre-Dialysis 119 BPM Standing Heart Rate Post-Dialysis 89 BPM Temperature Pre-Dialysis 97.2 degF Temperature Post -Dialysis 97.2 degF March 01, 2023 In-Center Hemodialysis Treatment [id number]:06:56.000Z 5010-31-58P47:06:31.000Z BP Sitting (Pre-Dialysis) 131/68 mmHg BP Sitting (Post-Dialysis) 152/71 mmHg Concurrent Access: falseAV Fistula Upper Arm (Left) Arterial Sitting Heart Rate Pre-Dialysis 80 BPM BP Standi ng (Post-Dialysis) 92/47 mmHg Temperature Pre-Dialysis 98 degF Sitting Heart Ra te Post-Dialysis 97 BPM Standing Heart Rate Post-Rosemary lysis 100 BPM Temperature Post-Dialysis 97 .2 degF February 27, 2023 In-Center Hemodialysis Treatment [id number]:00:15.000Z 0366-46-40J37:00:15.000Z BP Sitting (Pre-Dialysis) 130/69 mmHg BP Sitting (Post-Dialysis) 117/59 mmHg Concurrent Access: falseAV Fistula Upper Arm (Left) Arterial BP Standing (Pre-Dialysis) 138/69 mmHg Sitti ng Heart Rate Post-Dialysis 77 BPM Sitting Heart Rate Pre-Dialysis 99 BPM Temperatu re Post-Dialysis 97.6 degF Standing Heart Rate Pre-Dialysis 106 BPM Temperature Pre-Dialysis 98.2 degF February 25, 2023 In-Center Hemodialysis Treatment [id number]:50:01.000Z [id number]:50:04.000Z BP Sitting (Pre-Dialysis) 156/84 mmHg BP Sitting (Post-Dialysis) 107/53 mmHg Concurrent Access: falseAV Fistula Upper Arm (Left) Arterial BP Standing (Pre-Dialysis) 138/70 mmHg Sitting Heart Rate Post-Dialysis 93 BPM Sitting Heart Rate Pre-Dialysis 79 BPM Standing Heart Rate Pre-Dialysis 104 BPM Temperature Pre-Dialysis 97.5 degF February 22, 2023 In-Center Hemodialysis Treatment [id number]:50:00.000Z [id number]:54:23.000Z BP Sitting (Pre-Dialysis) 158/78 mmHg BP Sitting (Post-Dialysis) 107/47 mmHg Concurrent Access: falseAV Fistula Upper Arm (Left) Arterial BP Standing (Pre-Dialysis) 124/73 mmHg BP Standing (P ost-Dialysis) 107/56 mmHg Sitting Heart Rate Pre-Dialysis 81 BPM Sitting Heart Rate Post-Dialysis 83 BPM Standing Heart Rate Pre-Dialysis 102 BPM Standing Heart Rate Post-Dialysis 96 BPM Temperature Pre-Dialysis 97 degF Temperature Post -Dialysis 97.6 degF February 20, 2023 In-Center Hemodialysis Treatment [id number]:17:00.000Z [id number]:21:00.000Z BP Sitting (Pre-Dialysis) 160/79 mmHg BP Sitting (Post-Dialysis) 120/54 mmHg Concurrent Access: falseAV Fistula Upper Arm (Left) Arterial BP Standing (Pre-Dialysis) 155/65 mmHg BP Standing (P ost-Dialysis) 122/61 mmHg Sitting Heart Rate Pre-Dialysis 93 BPM Sitting Heart Rate Post-Dialysis 82 BPM Standing Heart Rate Pre-Dialysis 90 BPM Standing Heart Rate Post-Dialysis 89 BPM Temperature Pre-Dialysis 97.6 degF Temperature Post -Dialysis 97.9 degF February 18, 2023 In-Center Hemodialysis Treatment [id number]:57:04.000Z [id number]:57:29.000Z BP Sitting (Pre-Dialysis) 149/84 mmHg BP Sitting (Post-Dialysis) 149/66 mmHg Concurrent Access: falseAV Fistula Upper Arm (Left) Arterial BP Standing (Pre-Dialysis) 130/75 mmHg Sitti ng Heart Rate Post-Dialysis 76 BPM Sitting Heart Rate Pre-Dialysis 96 BPM Temperatu re Post-Dialysis 97.6 degF Standing Heart Rate Pre-Dialysis 120 BPM Temperature Pre-Dialysis 97.2 degF February 15, 2023 In-Center Hemodialysis Treatment [id number]:10:55.000Z [id number]:11:43.000Z BP Sitting (Pre-Dialysis) 139/40 mmHg BP Sitting (Post-Dialysis) 168/70 mmHg Concurrent Access: falseAV Fistula Upper Arm (Left) Arterial BP Standing (Pre-Dialysis) 139/39 mmHg BP Standing (P ost-Dialysis) 111/72 mmHg Sitting Heart Rate Pre-Dialysis 98 BPM Sitting Heart Rate Post-Dialysis 90 BPM Standing Heart Rate Pre-Dialysis 100 BPM Standing Heart Rate Post-Dialysis 92 BPM Temperature Pre-Dialysis 98 degF Temperature Post -Dialysis 97.6 degF February 13, 2023 In-Center Hemodialysis Treatment [id number]:29:44.000Z [id number]:28:29.000Z BP Sitting (Pre-Dialysis) 132/67 mmHg BP Sitting (Post-Dialysis) 148/79 mmHg Concurrent Access: falseAV Fistula Upper Arm (Left) Arterial BP Standing (Pre-Dialysis) 99/69 mmHg BP Standing (P ost-Dialysis) 133/50 mmHg Sitting Heart Rate Pre-Dialysis 89 BPM Sitting Heart Rate Post-Dialysis 76 BPM Standing Heart Rate Pre-Dialysis 128 BPM Standing Heart Rate Post-Dialysis 72 BPM Temperature Pre-Dialysis 97.2 degF Temperature Post -Dialysis 97.6 degF February 11, 2023 In-Center Hemodialysis Treatment [id number]:53:00.000Z [id number]:54:02.000Z BP Sitting (Pre-Dialysis) 158/76 mmHg BP Sitting (Post-Dialysis) 102/49 mmHg Concurrent Access: falseAV Fistula Upper Arm (Left) Arterial BP Standing (Pre-Dialysis) 129/66 mmHg BP Standing (P ost-Dialysis) 99/48 mmHg Sitting Heart Rate Pre-Dialysis 75 BPM Sitting Heart Rate Post-Dialysis 68 BPM Standing Heart Rate Pre-Dialysis 101 BPM Standing Heart Rate Post-Dialysis 65 BPM Temperature Pre-Dialysis 97.7 degF February 08, 2023 In-Center Hemodialysis Treatment [id number]:04:34.000Z [id number]:06:55.000Z BP Sitting (Pre-Dialysis) 98/69 mmHg BP Sitting (Post-Dialysis) 106/48 mmHg Concurrent Access: falseAV Fistula Upper Arm (Left) Arterial BP Standing (Pre-Dialysis) 83/51 mmHg Sitti ng Heart Rate Post-Dialysis 87 BPM Sitting Heart Rate Pre-Dialysis 69 BPM Temperatu re Post-Dialysis 97.2 degF Standing Heart Rate Pre-Dialysis 68 BPM Temperature Pre-Dialysis 97.2 degF February 06, 2023 In-Center Hemodialysis Treatment 4520-54-04I05:48:00.000Z 7508-10-96Z31:40:42.000Z BP Sitting (Pre-Dialysis) 128/72 mmHg BP Sitting (Post-Dialysis) 106/52 mmHg Concurrent Access: falseAV Fistula Upper Arm (Left) Arterial BP Standing (Pre-Dialysis) 95/58 mmHg Sitti ng Heart Rate Post-Dialysis 85 BPM Sitting Heart Rate Pre-Dialysis 111 BPM Temperatu re Post-Dialysis 97.3 degF Standing Heart Rate Pre-Dialysis 108 BPM Temperature Pre-Dialysis 96.8 degF February 04, 2023 In-Center Hemodialysis Treatment 8211-72-00G98:52:00.000Z [id number]:55:48.000Z BP Sitting (Pre-Dialysis) 158/66 mmHg BP Sitting (Post-Dialysis) 112/56 mmHg Concurrent Access: falseAV Fistula Upper Arm (Left) Arterial BP Standing (Pre-Dialysis) 135/65 mmHg BP Standing (P ost-Dialysis) 95/55 mmHg Sitting Heart Rate Pre-Dialysis 73 BPM Sitting Heart Rate Post-Dialysis 84 BPM Standing Heart Rate Pre-Dialysis 100 BPM Standing Heart Rate Post-Dialysis 118 BPM Temperature Pre-Dialysis 97.2 degF Temperature Post -Dialysis 97.6 degF February 01, 2023 In-Center Hemodialysis Treatment [id number]:28:00.000Z 0513-02-36Z72:29:42.000Z BP Sitting (Pre-Dialysis) 151/79 mmHg BP Sitting (Post-Dialysis) 133/63 mmHg Concurrent Access: falseAV Fistula Upper Arm (Left) Arterial BP Standing (Pre-Dialysis) 103/61 mmHg BP Standing (P ost-Dialysis) 113/63 mmHg Sitting Heart Rate Pre-Dialysis 95 BPM Sitting Heart Rate Post-Dialysis 80 BPM Standing Heart Rate Pre-Dialysis 151 BPM Standing Heart Rate Post-Dialysis 85 BPM Temperature Pre-Dialysis 97.6 degF Temperature Post -Dialysis 97.2 degF January 30, 2023 In-Center Hemodialysis Treatment [id number]:44:55.000Z [id number]:51:45.000Z BP Sitting (Pre-Dialysis) 145/60 mmHg BP Sitting (Post-Dialysis) 137/89 mmHg Concurrent Access: falseAV Fistula Upper Arm (Left) Arterial BP Standing (Pre-Dialysis) 107/38 mmHg BP Standing (P ost-Dialysis) 154/91 mmHg Sitting Heart Rate Pre-Dialysis 83 BPM Sitting Heart Rate Post-Dialysis 60 BPM Standing Heart Rate Pre-Dialysis 93 BPM Standing Heart Rate Post-Dialysis 61 BPM Temperature Pre-Dialysis 97.2 degF Temperature Post -Dialysis 97.2 degF January 28, 2023 In-Center Hemodialysis Treatment 9625-84-66E21:14:00.000Z [id number]:00:39.000Z BP Sitting (Pre-Dialysis) 194/96 mmHg BP Sitting (Post-Dialysis) 114/51 mmHg Concurrent Access: falseAV Fistula Upper Arm (Left) Arterial BP Standing (Pre-Dialysis) 143/79 mmHg BP Standing (P ost-Dialysis) 104/46 mmHg Sitting Heart Rate Pre-Dialysis 96 BPM Sitting Heart Rate Post-Dialysis 94 BPM Standing Heart Rate Pre-Dialysis 117 BPM Standing Heart Rate Post-Dialysis 100 BPM Temperature Pre-Dialysis 97 degF Temperature Post -Dialysis 97.6 degF January 25, 2023 In-Center Hemodialysis Treatment [id number]:40:00.000Z [id number]:41:53.000Z BP Sitting (Pre-Dialysis) 166/80 mmHg BP Sitting (Post-Dialysis) 121/48 mmHg Concurrent Access: falseAV Fistula Upper Arm (Left) Arterial Sitting Heart Rate Pre-Dialysis 102 BPM BP Standi ng (Post-Dialysis) 101/49 mmHg Temperature Pre-Dialysis 97 degF Sitting Heart Ra te Post-Dialysis 83 BPM Standing Heart Rate Post-Rosemary lysis 89 BPM Temperature Post-Dialysis 97 .6 degF January 23, 2023 In-Center Hemodialysis Treatment [id number]:45:43.000Z 4270-04-87Y30:37:30.000Z BP Sitting (Pre-Dialysis) 107/64 mmHg BP Sitting (Post-Dialysis) 115/59 mmHg Concurrent Access: falseAV Fistula Upper Arm (Left) Arterial BP Standing (Pre-Dialysis) 103/63 mmHg Sitti ng Heart Rate Post-Dialysis 85 BPM Sitting Heart Rate Pre-Dialysis 89 BPM Temperatu re Post-Dialysis 97.2 degF Standing Heart Rate Pre-Dialysis 118 BPM Temperature Pre-Dialysis 97.9 degF January 21, 2023 In-Center Hemodialysis Treatment 0970-41-01M03:30:00.000Z 3938-77-79U69:30:34.000Z BP Sitting (Pre-Dialysis) 171/88 mmHg BP Sitting (Post-Dialysis) 114/63 mmHg Concurrent Access: falseAV Fistula Upper Arm (Left) Arterial BP Standing (Pre-Dialysis) 132/82 mmHg Sitting Heart Rate Post-Dialysis 103 BPM Sitting Heart Rate Pre-Dialysis 101 BPM Temperatu re Post-Dialysis 98 degF Standing Heart Rate Pre-Dialysis 103 BPM Temperature Pre-Dialysis 97 degF January 18, 2023 In-Center Hemodialysis Treatment [id number]:59:25.000Z 8215-16-57G87:00:00.000Z BP Sitting (Pre-Dialysis) 110/69 mmHg BP Sitting (Post-Dialysis) 120/57 mmHg Concurrent Access: falseAV Fistula Upper Arm (Left) Arterial BP Standing (Pre-Dialysis) 106/68 mmHg BP Standing (P ost-Dialysis) 99/50 mmHg Sitting Heart Rate Pre-Dialysis 100 BPM Sitting Heart Rate Post-Dialysis 69 BPM Standing Heart Rate Pre-Dialysis 115 BPM Standing Heart Rate Post-Dialysis 62 BPM Temperature Pre-Dialysis 97.2 degF Temperature Post -Dialysis 97.2 degF January 16, 2023 In-Center Hemodialysis Treatment [id number]:49:40.000Z [id number]:49:40.000Z BP Sitting (Pre-Dialysis) 169/92 mmHg BP Sitting (Post-Dialysis) 110/78 mmHg Concurrent Access: falseAV Fistula Upper Arm (Left) Arterial BP Standing (Pre-Dialysis) 108/80 mmHg Sitti ng Heart Rate Post-Dialysis 87 BPM Sitting Heart Rate Pre-Dialysis 100 BPM Temperatu re Post-Dialysis 97.6 degF Standing Heart Rate Pre-Dialysis 107 BPM Temperature Pre-Dialysis 97.7 degF January 14, 2023 In-Center Hemodialysis Treatment [id number]:52:25.000Z [id number]:57:25.000Z BP Sitting (Pre-Dialysis) 180/83 mmHg BP Sitting (Post-Dialysis) 99/67 mmHg Concurrent Access: falseAV Fistula Upper Arm (Left) Arterial BP Standing (Pre-Dialysis) 126/75 mmHg BP Standing (P ost-Dialysis) 126/60 mmHg Sitting Heart Rate Pre-Dialysis 85 BPM Sitting Heart Rate Post-Dialysis 79 BPM Standing Heart Rate Pre-Dialysis 130 BPM Standing Heart Rate Post-Dialysis 75 BPM Temperature Pre-Dialysis 97.2 degF Temperature Post -Dialysis 97.2 degF January 11, 2023 In-Center Hemodialysis Treatment 6711-55-45B88:02:00.000Z 8224-71-58F66:01:08.000Z BP Sitting (Pre-Dialysis) 143/75 mmHg BP Sitting (Post-Dialysis) 127/63 mmHg Concurrent Access: falseAV Fistula Upper Arm (Left) Arterial Sitting Heart Rate Pre-Dialysis 105 BPM Sitting H eart Rate Post-Dialysis 79 BPM Temperature Pre-Dialysis 97.6 degF Temperature Post -Dialysis 97.6 degF January 09, 2023 In-Center Hemodialysis Treatment 1884-71-06T02:00:00.000Z [id number]:59:31.000Z BP Sitting (Pre-Dialysis) 152/75 mmHg BP Sitting (Post-Dialysis) 130/63 mmHg Concurrent Access: falseAV Fistula Upper Arm (Left) Arterial BP Standing (Pre-Dialysis) 112/68 mmHg Sitti ng Heart Rate Post-Dialysis 76 BPM Sitting Heart Rate Pre-Dialysis 88 BPM Temperatu re Post-Dialysis 97.6 degF Standing Heart Rate Pre-Dialysis 130 BPM Temperature Pre-Dialysis 97.2 degF January 07, 2023 In-Center Hemodialysis Treatment [id number]:53:00.000Z 6834-48-64F77:55:13.000Z BP Sitting (Pre-Dialysis) 140/68 mmHg BP Sitting (Post-Dialysis) 122/66 mmHg Concurrent Access: falseAV Fistula Upper Arm (Left) Arterial BP Standing (Pre-Dialysis) 143/71 mmHg BP Standing (P ost-Dialysis) 86/62 mmHg Sitting Heart Rate Pre-Dialysis 98 BPM Sitting Heart Rate Post-Dialysis 94 BPM Standing Heart Rate Pre-Dialysis 104 BPM Standing Heart Rate Post-Dialysis 92 BPM Temperature Pre-Dialysis 97.7 degF Temperature Post -Dialysis 97.9 degF January 04, 2023 In-Center Hemodialysis Treatment 6558-16-20S37:41:00.000Z 2952-29-17E61:43:32.000Z BP Sitting (Pre-Dialysis) 156/72 mmHg BP Sitting (Post-Dialysis) 142/63 mmHg Concurrent Access: falseAV Fistula Upper Arm (Left) Arterial BP Standing (Pre-Dialysis) 114/59 mmHg Sitting Heart Rate Post-Dialysis 75 BPM Sitting Heart Rate Pre-Dialysis 82 BPM Standing Heart Rate Pre-Dialysis 112 BPM Temperature Pre-Dialysis 97.2 degF January 02, 2023 In-Center Hemodialysis Treatment 2832-28-02R28:00:00.000Z 5783-99-01F53:02:14.000Z BP Sitting (Pre-Dialysis) 123/69 mmHg BP Sitting (Post-Dialysis) 124/54 mmHg Concurrent Access: falseAV Fistula Upper Arm (Left) Arterial BP Standing (Pre-Dialysis) 117/68 mmHg BP Standing (P ost-Dialysis) 108/60 mmHg Sitting Heart Rate Pre-Dialysis 99 BPM Sitting Heart Rate Post-Dialysis 76 BPM Standing Heart Rate Pre-Dialysis 133 BPM Standing Heart Rate Post-Dialysis 89 BPM Temperature Pre-Dialysis 97.2 degF Temperature Post -Dialysis 97.6 degF December 31, 2022 In-Center Hemodialysis Treatment [id number]:25:00.000Z 6839-53-36U93:25:52.000Z BP Sitting (Pre-Dialysis) 178/80 mmHg BP Sitting (Post-Dialysis) 143/69 mmHg Concurrent Access: falseAV Fistula Upper Arm (Left) Arterial BP Standing (Pre-Dialysis) 108/50 mmHg Sitti ng Heart Rate Post-Dialysis 76 BPM Sitting Heart Rate Pre-Dialysis 85 BPM Temperatu re Post-Dialysis 97.6 degF Standing Heart Rate Pre-Dialysis 92 BPM Temperature Pre-Dialysis 97.2 degF December 28, 2022 In-Center Hemodialysis Treatment 9480-05-41O86:16:41.000Z 6961-79-32G90:14:41.000Z BP Sitting (Pre-Dialysis) 140/87 mmHg BP Sitting (Post-Dialysis) 125/78 mmHg Concurrent Access: falseAV Fistula Upper Arm (Left) Arterial BP Standing (Pre-Dialysis) 138/72 mmHg BP Standing (P ost-Dialysis) 123/63 mmHg Sitting Heart Rate Pre-Dialysis 69 BPM Sitting Heart Rate Post-Dialysis 84 BPM Standing Heart Rate Pre-Dialysis 123 BPM Standing Heart Rate Post-Dialysis 92 BPM Temperature Pre-Dialysis 97.5 degF Temperature Post -Dialysis 97.6 degF December 26, 2022 In-Center Hemodialysis Treatment [id number]:36:42.000Z 2263-63-59G39:30:42.000Z BP Sitting (Pre-Dialysis) 104/66 mmHg BP Sitting (Post-Dialysis) 113/88 mmHg Concurrent Access: falseAV Fistula Upper Arm (Left) Arterial BP Standing (Pre-Dialysis) 101/65 mmHg Sitti ng Heart Rate Post-Dialysis 82 BPM Sitting Heart Rate Pre-Dialysis 52 BPM Temperatu re Post-Dialysis 97.2 degF Standing Heart Rate Pre-Dialysis 112 BPM Temperature Pre-Dialysis 97.2 degF December 24, 2022 In-Center Hemodialysis Treatment [id number]:43:00.000Z [id number]:46:42.000Z BP Sitting (Pre-Dialysis) 115/67 mmHg BP Sitting (Post-Dialysis) 121/67 mmHg Concurrent Access: falseAV Fistula Upper Arm (Left) Arterial BP Standing (Pre-Dialysis) 158/76 mmHg Sitti ng Heart Rate Post-Dialysis 86 BPM Sitting Heart Rate Pre-Dialysis 108 BPM Temperatu re Post-Dialysis 97.2 degF Standing Heart Rate Pre-Dialysis 92 BPM Temperature Pre-Dialysis 97.2 degF December 21, 2022 In-Center Hemodialysis Treatment [id number]:32:37.000Z 2559-85-32N49:25:37.000Z BP Sitting (Pre-Dialysis) 156/89 mmHg BP Sitting (Post-Dialysis) 130/62 mmHg Concurrent Access: falseAV Fistula Upper Arm (Left) Arterial Sitting Heart Rate Pre-Dialysis 81 BPM BP Standing (Post-Dialysis) 129/66 mmHg Temperature Pre-Dialysis 97.2 degF Sitting Heart Ra te Post-Dialysis 81 BPM Standing Heart Rate Post-Rosemary lysis 88 BPM Temperature Post-Dialysis 97 .9 degF December 19, 2022 In-Center Hemodialysis Treatment [id number]:51:00.000Z 8130-74-28A60:53:36.000Z BP Sitting (Pre-Dialysis) 144/81 mmHg BP Sitting (Post-Dialysis) 122/64 mmHg Concurrent Access: falseAV Fistula Upper Arm (Left) Arterial Sitting Heart Rate Pre-Dialysis 86 BPM Sitting H eart Rate Post-Dialysis 86 BPM Temperature Pre-Dialysis 97.8 degF Temperature Post -Dialysis 97.6 degF December 17, 2022 In-Center Hemodialysis Treatment 9524-63-27I54:02:00.000Z 5174-87-32V04:00:36.000Z BP Sitting (Pre-Dialysis) 198/91 mmHg BP Sitting (Post-Dialysis) 97/51 mmHg Concurrent Access: falseAV Fistula Upper Arm (Left) Arterial BP Standing (Pre-Dialysis) 117/73 mmHg BP Standing (P ost-Dialysis) 176/100 mmHg Sitting Heart Rate Pre-Dialysis 100 BPM Sitting Heart Rate Post-Dialysis 101 BPM Standing Heart Rate Pre-Dialysis 103 BPM Standing Heart Rate Post-Dialysis 62 BPM Temperature Pre-Dialysis 97.5 degF Temperature Post -Dialysis 97.3 degF December 14, 2022 In-Center Hemodialysis Treatment 3524-66-19Y18:43:30.000Z 0087-49-74X02:45:30.000Z BP Sitting (Pre-Dialysis) 106/72 mmHg BP Sitting (Post-Dialysis) 133/64 mmHg Concurrent Access: falseAV Fistula Upper Arm (Left) Arterial BP Standing (Pre-Dialysis) 106/72 mmHg Sitti ng Heart Rate Post-Dialysis 101 BPM Sitting Heart Rate Pre-Dialysis 116 BPM Temperatu re Post-Dialysis 97.4 degF Standing Heart Rate Pre-Dialysis 117 BPM Temperature Pre-Dialysis 98 degF December 12, 2022 In-Center Hemodialysis Treatment 0028-54-18D17:49:00.000Z 7916-54-95V97:52:30.000Z BP Sitting (Pre-Dialysis) 156/83 mmHg BP Sitting (Post-Dialysis) 161/78 mmHg Concurrent Access: falseAV Fistula Upper Arm (Left) Arterial BP Standing (Pre-Dialysis) 124/76 mmHg BP Standing (P ost-Dialysis) 148/77 mmHg Sitting Heart Rate Pre-Dialysis 100 BPM Sitting Heart Rate Post-Dialysis 96 BPM Standing Heart Rate Pre-Dialysis 109 BPM Standing Heart Rate Post-Dialysis 93 BPM Temperature Pre-Dialysis 97.5 degF Temperature Post -Dialysis 97.5 degF December 10, 2022 In-Center Hemodialysis Treatment 8466-58-76Y64:45:00.000Z 1036-07-56R21:49:30.000Z BP Sitting (Pre-Dialysis) 115/68 mmHg BP Sitting (Post-Dialysis) 141/68 mmHg Concurrent Access: falseAV Fistula Upper Arm (Left) Arterial BP Standing (Pre-Dialysis) 157/83 mmHg BP Standing (P ost-Dialysis) 136/57 mmHg Sitting Heart Rate Pre-Dialysis 80 BPM Sitting Heart Rate Post-Dialysis 83 BPM Standing Heart Rate Pre-Dialysis 101 BPM Standing Heart Rate Post-Dialysis 95 BPM Temperature Pre-Dialysis 97.9 degF Temperature Post -Dialysis 97.7 degF December 07, 2022 In-Center Hemodialysis Treatment 7280-23-29X15:55:29.000Z 6042-33-27G99:55:29.000Z BP Sitting (Pre-Dialysis) 125/87 mmHg BP Sitting (Post-Dialysis) 147/75 mmHg Concurrent Access: falseAV Fistula Upper Arm (Left) Arterial BP Standing (Pre-Dialysis) 118/68 mmHg Sitti ng Heart Rate Post-Dialysis 87 BPM Sitting Heart Rate Pre-Dialysis 55 BPM Temperatu re Post-Dialysis 97.2 degF Standing Heart Rate Pre-Dialysis 46 BPM Temperature Pre-Dialysis 97.2 degF December 05, 2022 In-Center Hemodialysis Treatment [id number]:48:37.000Z 7937-93-27F72:47:36.000Z BP Sitting (Pre-Dialysis) 157/68 mmHg BP Sitting (Post-Dialysis) 129/61 mmHg Concurrent Access: falseAV Fistula Upper Arm (Left) Arterial BP Standing (Pre-Dialysis) 118/70 mmHg BP Standing (P ost-Dialysis) 112/67 mmHg Sitting Heart Rate Pre-Dialysis 82 BPM Sitting Heart Rate Post-Dialysis 87 BPM Standing Heart Rate Pre-Dialysis 103 BPM Standing Heart Rate Post-Dialysis 84 BPM Temperature Pre-Dialysis 97.4 degF Temperature Post -Dialysis 97.4 degF December 03, 2022 In-Center Hemodialysis Treatment 6915-75-12G32:45:00.000Z [id number]:45:29.000Z BP Sitting (Pre-Dialysis) 164/82 mmHg BP Sitting (Post-Dialysis) 132/68 mmHg Concurrent Access: falseAV Fistula Upper Arm (Left) Arterial Sitting Heart Rate Pre-Dialysis 88 BPM BP Standing (Post-Dialysis) 137/65 mmHg Temperature Pre-Dialysis 97.9 degF Sitting Heart Ra te Post-Dialysis 78 BPM Standing Heart Rate Post-Rosemary lysis 86 BPM Temperature Post-Dialysis 97 .6 degF November 30, 2022 In-Center Hemodialysis Treatment 9088-43-86L96:47:19.000Z [id number]:47:19.000Z BP Sitting (Pre-Dialysis) 151/72 mmHg BP Sitting (Post-Dialysis) 144/67 mmHg Concurrent Access: falseAV Fistula Upper Arm (Left) Arterial BP Standing (Pre-Dialysis) 120/77 mmHg Sitti ng Heart Rate Post-Dialysis 84 BPM Sitting Heart Rate Pre-Dialysis 80 BPM Temperatu re Post-Dialysis 97.2 degF Standing Heart Rate Pre-Dialysis 75 BPM Temperature Pre-Dialysis 97.2 degF November 28, 2022 In-Center Hemodialysis Treatment 7963-17-26I31:56:00.000Z 8455-25-17C50:02:57.000Z BP Sitting (Pre-Dialysis) 174/81 mmHg BP Sitting (Post-Dialysis) 131/69 mmHg Concurrent Access: falseAV Fistula Upper Arm (Left) Arterial BP Standing (Pre-Dialysis) 105/71 mmHg BP Standing (P ost-Dialysis) 92/54 mmHg Sitting Heart Rate Pre-Dialysis 91 BPM Sitting Heart Rate Post-Dialysis 87 BPM Standing Heart Rate Pre-Dialysis 119 BPM Standing Heart Rate Post-Dialysis 105 BPM Temperature Pre-Dialysis 97.5 degF Temperature Post -Dialysis 97.2 degF November 26, 2022 In-Center Hemodialysis Treatment 7920-56-08V39:48:19.000Z [id number]:50:19.000Z BP Sitting (Pre-Dialysis) 168/76 mmHg BP Sitting (Post-Dialysis) 150/71 mmHg Concurrent Access: falseAV Fistula Upper Arm (Left) Arterial BP Standing (Pre-Dialysis) 161/87 mmHg Sitti ng Heart Rate Post-Dialysis 82 BPM Sitting Heart Rate Pre-Dialysis 82 BPM Temperatu re Post-Dialysis 97.9 degF Standing Heart Rate Pre-Dialysis 107 BPM Temperature Pre-Dialysis 97.4 degF November 23, 2022 In-Center Hemodialysis Treatment 4540-72-22B07:56:00.000Z 3328-85-57N06:59:32.000Z BP Sitting (Pre-Dialysis) 139/82 mmHg BP Sitting (Post-Dialysis) 134/63 mmHg Concurrent Access: falseAV Fistula Upper Arm (Left) Arterial BP Standing (Pre-Dialysis) 106/64 mmHg BP Standing (P ost-Dialysis) 108/56 mmHg Sitting Heart Rate Pre-Dialysis 98 BPM Sitting Heart Rate Post-Dialysis 74 BPM Standing Heart Rate Pre-Dialysis 105 BPM Standing Heart Rate Post-Dialysis 104 BPM Temperature Pre-Dialysis 97.5 degF Temperature Post -Dialysis 97.4 degF November 21, 2022 In-Center Hemodialysis Treatment [id number]:44:33.000Z 7073-67-10D31:46:32.000Z BP Sitting (Pre-Dialysis) 143/74 mmHg BP Sitting (Post-Dialysis) 121/36 mmHg Concurrent Access: falseAV Fistula Upper Arm (Left) Arterial BP Standing (Pre-Dialysis) 132/72 mmHg Sitti ng Heart Rate Post-Dialysis 87 BPM Sitting Heart Rate Pre-Dialysis 81 BPM Temperatu re Post-Dialysis 97.7 degF Standing Heart Rate Pre-Dialysis 103 BPM Temperature Pre-Dialysis 97.2 degF November 19, 2022 In-Center Hemodialysis Treatment [id number]:43:29.000Z 8492-96-01W54:44:29.000Z BP Sitting (Pre-Dialysis) 164/81 mmHg BP Sitting (Post-Dialysis) 131/83 mmHg Concurrent Access: falseAV Fistula Upper Arm (Left) Arterial BP Standing (Pre-Dialysis) 130/65 mmHg BP Standing (P ost-Dialysis) 120/67 mmHg Sitting Heart Rate Pre-Dialysis 81 BPM Sitting Heart Rate Post-Dialysis 48 BPM Standing Heart Rate Pre-Dialysis 80 BPM Standing Heart Rate Post-Dialysis 97 BPM Temperature Pre-Dialysis 97.2 degF Temperature Post -Dialysis 97.7 degF November 16, 2022 In-Center Hemodialysis Treatment 4080-41-09M10:46:00.000Z 8247-36-41C18:49:28.000Z BP Sitting (Pre-Dialysis) 154/87 mmHg BP Sitting (Post-Dialysis) 111/50 mmHg Concurrent Access: falseAV Fistula Upper Arm (Left) Arterial BP Standing (Pre-Dialysis) 138/73 mmHg Sitting Heart Rate Post-Dialysis 89 BPM Sitting Heart Rate Pre-Dialysis 95 BPM Temperatu re Post-Dialysis 98 degF Standing Heart Rate Pre-Dialysis 117 BPM Temperature Pre-Dialysis 97.5 degF November 14, 2022 In-Center Hemodialysis Treatment [id number]:53:00.000Z [id number]:55:28.000Z BP Sitting (Pre-Dialysis) 153/66 mmHg BP Sitting (Post-Dialysis) 129/65 mmHg Concurrent Access: falseAV Fistula Upper Arm (Left) Arterial BP Standing (Pre-Dialysis) 118/71 mmHg Sitti ng Heart Rate Post-Dialysis 88 BPM Sitting Heart Rate Pre-Dialysis 82 BPM Temperatu re Post-Dialysis 97.8 degF Standing Heart Rate Pre-Dialysis 109 BPM Temperature Pre-Dialysis 97.7 degF November 12, 2022 In-Center Hemodialysis Treatment [id number]:51:29.000Z 7193-45-13G33:52:28.000Z BP Sitting (Pre-Dialysis) 175/87 mmHg BP Sitting (Post-Dialysis) 158/68 mmHg Concurrent Access: falseAV Fistula Upper Arm (Left) Arterial BP Standing (Pre-Dialysis) 139/77 mmHg BP Standing (P ost-Dialysis) 142/73 mmHg Sitting Heart Rate Pre-Dialysis 69 BPM Sitting Heart Rate Post-Dialysis 77 BPM Standing Heart Rate Pre-Dialysis 101 BPM Standing Heart Rate Post-Dialysis 87 BPM Temperature Pre-Dialysis 97.3 degF Temperature Post -Dialysis 97.6 degF November 09, 2022 In-Center Hemodialysis Treatment [id number]:42:00.000Z [id number]:40:18.000Z BP Sitting (Pre-Dialysis) 162/126 mmHg BP Sitting (Post-Dialysis) 119/53 mmHg Concurrent Access: falseAV Fistula Upper Arm (Left) Arterial BP Standing (Pre-Dialysis) 133/75 mmHg BP Standing (P ost-Dialysis) 129/57 mmHg Sitting Heart Rate Pre-Dialysis 83 BPM Sitting Heart Rate Post-Dialysis 85 BPM Standing Heart Rate Pre-Dialysis 111 BPM Standing Heart Rate Post-Dialysis 91 BPM Temperature Pre-Dialysis 97.6 degF Temperature Post -Dialysis 97.9 degF November 07, 2022 In-Center Hemodialysis Treatment 5935-35-17A15:52:00.000Z 0155-48-76Z98:53:24.000Z BP Sitting (Pre-Dialysis) 138/100 mmHg BP Sitting (Post-Dialysis) 141/74 mmHg Concurrent Access: falseAV Fistula Upper Arm (Left) Arterial BP Standing (Pre-Dialysis) 130/69 mmHg Sitti ng Heart Rate Post-Dialysis 81 BPM Sitting Heart Rate Pre-Dialysis 83 BPM Temperatu re Post-Dialysis 97.2 degF Standing Heart Rate Pre-Dialysis 108 BPM Temperature Pre-Dialysis 97.7 degF November 05, 2022 In-Center Hemodialysis Treatment [id number]:52:25.000Z 5855-96-95Y34:55:24.000Z BP Sitting (Pre-Dialysis) 145/62 mmHg BP Sitting (Post-Dialysis) 141/76 mmHg Concurrent Access: falseAV Fistula Upper Arm (Left) Arterial BP Standing (Pre-Dialysis) 139/65 mmHg Sitti ng Heart Rate Post-Dialysis 93 BPM Sitting Heart Rate Pre-Dialysis 70 BPM Temperatu re Post-Dialysis 97.2 degF Standing Heart Rate Pre-Dialysis 106 BPM Temperature Pre-Dialysis 97.2 degF November 02, 2022 In-Center Hemodialysis Treatment [id number]:52:48.000Z 1303-74-26M60:53:48.000Z BP Sitting (Pre-Dialysis) 118/72 mmHg BP Sitting (Post-Dialysis) 111/78 mmHg Concurrent Access: falseAV Fistula Upper Arm (Left) Arterial BP Standing (Pre-Dialysis) 120/73 mmHg Sitti ng Heart Rate Post-Dialysis 87 BPM Sitting Heart Rate Pre-Dialysis 100 BPM Temperatu re Post-Dialysis 97.2 degF Standing Heart Rate Pre-Dialysis 112 BPM Temperature Pre-Dialysis 97.2 degF October 31, 2022 In-Center Hemodialysis Treatment [id number]:47:00.000Z 8563-30-38G77:50:35.000Z BP Sitting (Pre-Dialysis) 150/108 mmHg BP Sitting (Post-Dialysis) 138/49 mmHg Concurrent Access: falseAV Fistula Upper Arm (Left) Arterial BP Standing (Pre-Dialysis) 111/64 mmHg Sitti ng Heart Rate Post-Dialysis 77 BPM Sitting Heart Rate Pre-Dialysis 52 BPM Temperatu re Post-Dialysis 97.2 degF Standing Heart Rate Pre-Dialysis 60 BPM Temperature Pre-Dialysis 97.7 degF October 29, 2022 In-Center Hemodialysis Treatment [id number]:08:35.000Z 3126-40-68B97:01:35.000Z BP Sitting (Pre-Dialysis) 154/69 mmHg BP Sitting (Post-Dialysis) 134/65 mmHg Concurrent Access: falseAV Fistula Upper Arm (Left) Arterial BP Standing (Pre-Dialysis) 97/60 mmHg BP Standing (P ost-Dialysis) 116/59 mmHg Sitting Heart Rate Pre-Dialysis 81 BPM Sitting Heart Rate Post-Dialysis 81 BPM Standing Heart Rate Pre-Dialysis 104 BPM Standing Heart Rate Post-Dialysis 86 BPM Temperature Pre-Dialysis 97.7 degF Temperature Post -Dialysis 97.6 degF October 26, 2022 In-Center Hemodialysis Treatment [id number]:41:00.000Z 4008-54-26U63:47:28.000Z BP Sitting (Pre-Dialysis) 102/60 mmHg BP Sitting (Post-Dialysis) 108/59 mmHg Concurrent Access: falseAV Fistula Upper Arm (Left) Arterial BP Standing (Pre-Dialysis) 101/61 mmHg Sitti ng Heart Rate Post-Dialysis 83 BPM Sitting Heart Rate Pre-Dialysis 115 BPM Temperatu re Post-Dialysis 97.2 degF Standing Heart Rate Pre-Dialysis 118 BPM Temperature Pre-Dialysis 97.2 degF October 24, 2022 In-Center Hemodialysis Treatment 3885-74-30G23:35:00.000Z 0912-25-30U62:41:43.000Z BP Sitting (Pre-Dialysis) 115/85 mmHg BP Sitting (Post-Dialysis) 101/57 mmHg Concurrent Access: falseAV Fistula Upper Arm (Left) Arterial BP Standing (Pre-Dialysis) 94/53 mmHg Sitti ng Heart Rate Post-Dialysis 62 BPM Sitting Heart Rate Pre-Dialysis 80 BPM Temperatu re Post-Dialysis 97.2 degF Standing Heart Rate Pre-Dialysis 132 BPM Temperature Pre-Dialysis 97.2 degF October 22, 2022 In-Center Hemodialysis Treatment 9213-32-88I73:54:00.000Z 7036-58-53H46:40:48.000Z BP Sitting (Pre-Dialysis) 112/56 mmHg BP Sitting (Post-Dialysis) 144/57 mmHg Concurrent Access: falseAV Fistula Upper Arm (Left) Arterial Sitting Heart Rate Pre-Dialysis 79 BPM Sitting H eart Rate Post-Dialysis 77 BPM Temperature Pre-Dialysis 97.6 degF Temperature Post -Dialysis 97.6 degF October 19, 2022 In-Center Hemodialysis Treatment [id number]:03:03.000Z 2805-53-42D71:56:02.000Z BP Sitting (Pre-Dialysis) 148/69 mmHg BP Sitting (Post-Dialysis) 122/55 mmHg Concurrent Access: falseAV Fistula Upper Arm (Left) Arterial BP Standing (Pre-Dialysis) 105/64 mmHg BP Standing (P ost-Dialysis) 133/65 mmHg Sitting Heart Rate Pre-Dialysis 77 BPM Sitting Heart Rate Post-Dialysis 81 BPM Standing Heart Rate Pre-Dialysis 137 BPM Standing Heart Rate Post-Dialysis 84 BPM Temperature Pre-Dialysis 97.7 degF Temperature Post -Dialysis 97.6 degF October 17, 2022 In-Center Hemodialysis Treatment 7070-96-42M38:53:02.000Z 0322-16-38M43:49:03.000Z BP Sitting (Pre-Dialysis) 155/68 mmHg BP Sitting (Post-Dialysis) 134/77 mmHg Concurrent Access: falseAV Fistula Upper Arm (Left) Arterial BP Standing (Pre-Dialysis) 145/69 mmHg BP Standing (P ost-Dialysis) 116/57 mmHg Sitting Heart Rate Pre-Dialysis 80 BPM Sitting Heart Rate Post-Dialysis 75 BPM Standing Heart Rate Pre-Dialysis 81 BPM Standing Heart Rate Post-Dialysis 86 BPM Temperature Pre-Dialysis 97.2 degF Temperature Post -Dialysis 97.5 degF October 15, 2022 In-Center Hemodialysis Treatment [id number]:40:00.000Z 2461-57-38C61:34:00.000Z BP Sitting (Pre-Dialysis) 168/62 mmHg BP Sitting (Post-Dialysis) 145/98 mmHg Concurrent Access: falseAV Fistula Upper Arm (Left) Arterial BP Standing (Pre-Dialysis) 134/65 mmHg Sitti ng Heart Rate Post-Dialysis 78 BPM Sitting Heart Rate Pre-Dialysis 70 BPM Temperatu re Post-Dialysis 97.2 degF Standing Heart Rate Pre-Dialysis 99 BPM Temperature Pre-Dialysis 97.2 degF October 12, 2022 In-Center Hemodialysis Treatment 7519-27-72W04:50:21.000Z 6029-00-13Y50:47:22.000Z BP Sitting (Pre-Dialysis) 144/98 mmHg BP Sitting (Post-Dialysis) 112/54 mmHg Concurrent Access: falseAV Fistula Upper Arm (Left) Arterial BP Standing (Pre-Dialysis) 119/67 mmHg Sitti ng Heart Rate Post-Dialysis 72 BPM Sitting Heart Rate Pre-Dialysis 80 BPM Temperatu re Post-Dialysis 97.8 degF Standing Heart Rate Pre-Dialysis 123 BPM Temperature Pre-Dialysis 98.1 degF October 10, 2022 In-Center Hemodialysis Treatment 5962-93-55S32:19:00.000Z 1539-08-25I88:58:24.000Z BP Sitting (Pre-Dialysis) 25/103 mmHg BP Sitting (Post-Dialysis) 94/58 mmHg Concurrent Access: falseAV Fistula Upper Arm (Left) Arterial BP Standing (Pre-Dialysis) 91/58 mmHg Sitti ng Heart Rate Post-Dialysis 83 BPM Sitting Heart Rate Pre-Dialysis 106 BPM Temperatu re Post-Dialysis 97.2 degF Standing Heart Rate Pre-Dialysis 103 BPM Temperature Pre-Dialysis 97.7 degF October 08, 2022 In-Center Hemodialysis Treatment 5549-57-52R77:45:00.000Z 6459-49-77D08:47:22.000Z BP Sitting (Pre-Dialysis) 95/80 mmHg BP Sitting (Post-Dialysis) 136/70 mmHg Concurrent Access: falseAV Fistula Upper Arm (Left) Arterial BP Standing (Pre-Dialysis) 72/54 mmHg BP Standing (P ost-Dialysis) 106/63 mmHg Sitting Heart Rate Pre-Dialysis 66 BPM Sitting Heart Rate Post-Dialysis 85 BPM Standing Heart Rate Pre-Dialysis 66 BPM Standing Heart Rate Post-Dialysis 101 BPM Temperature Pre-Dialysis 97.2 degF Temperature Post -Dialysis 97.8 degF October 05, 2022 In-Center Hemodialysis Treatment 1200-91-60Z73:00:00.000Z 0471-87-30Y96:51:13.000Z BP Sitting (Pre-Dialysis) 99/61 mmHg BP Sitting (Post-Dialysis) 109/75 mmHg Concurrent Access: falseAV Fistula Upper Arm (Left) Arterial Sitting Heart Rate Pre-Dialysis 102 BPM BP Standi ng (Post-Dialysis) 119/78 mmHg Temperature Pre-Dialysis 97 degF Sitting Heart Ra te Post-Dialysis 65 BPM Standing Heart Rate Post-Rosemary lysis 89 BPM Temperature Post-Dialysis 97 .6 degF October 03, 2022 In-Center Hemodialysis Treatment 1765-79-98R25:06:00.000Z 4000-75-28G44:02:12.000Z BP Sitting (Pre-Dialysis) 146/69 mmHg BP Sitting (Post-Dialysis) 119/61 mmHg Concurrent Access: falseAV Fistula Upper Arm (Left) Arterial BP Standing (Pre-Dialysis) 97/58 mmHg BP Standing (P ost-Dialysis) 97/61 mmHg Sitting Heart Rate Pre-Dialysis 98 BPM Sitting H eart Rate Post-Dialysis 74 BPM Standing Heart Rate Pre-Dialysis 77 BPM Standing Heart Rate Post-Dialysis 71 BPM Temperature Pre-Dialysis 97.3 degF Temperature Post -Dialysis 97.8 degF October 01, 2022 In-Center Hemodialysis Treatment 3936-06-97P42:15:12.000Z 3634-52-91R18:16:12.000Z BP Sitting (Pre-Dialysis) 119/67 mmHg BP Sitting (Post-Dialysis) 126/68 mmHg Concurrent Access: falseAV Fistula Upper Arm (Left) Arterial BP Standing (Pre-Dialysis) 125/86 mmHg BP Standing (P ost-Dialysis) 119/58 mmHg Sitting Heart Rate Pre-Dialysis 103 BPM Sitting Heart Rate Post-Dialysis 91 BPM Standing Heart Rate Pre-Dialysis 115 BPM Standing Heart Rate Post-Dialysis 100 BPM Temperature Pre-Dialysis 97.2 degF Temperature Post -Dialysis 97.6 degF September 28, 2022 In-Center Hemodialysis Treatment [id number]:49:00.000Z 8961-24-02H35:51:15.000Z BP Sitting (Pre-Dialysis) 136/76 mmHg BP Sitting (Post-Dialysis) 116/59 mmHg Concurrent Access: falseAV Fistula Upper Arm (Left) Arterial BP Standing (Pre-Dialysis) 101/60 mmHg BP Standing (P ost-Dialysis) 98/55 mmHg Sitting Heart Rate Pre-Dialysis 83 BPM Sitting Heart Rate Post-Dialysis 87 BPM Standing Heart Rate Pre-Dialysis 117 BPM Standing Heart Rate Post-Dialysis 95 BPM Temperature Pre-Dialysis 97.5 degF Temperature Post -Dialysis 97.4 degF September 26, 2022 In-Center Hemodialysis Treatment [id number]:45:00.000Z 0638-59-19Q23:48:14.000Z BP Sitting (Pre-Dialysis) 130/67 mmHg BP Sitting (Post-Dialysis) 117/46 mmHg Concurrent Access: falseAV Fistula Upper Arm (Left) Arterial BP Standing (Pre-Dialysis) 90/66 mmHg Sitting Heart Rate Post-Dialysis 85 BPM Sitting Heart Rate Pre-Dialysis 83 BPM Temperatu re Post-Dialysis 97.2 degF Temperature Pre-Dialysis 97.2 degF September 24, 2022 In-Center Hemodialysis Treatment [id number]:40:00.000Z 7553-91-51G59:38:15.000Z BP Sitting (Pre-Dialysis) 100/61 mmHg BP Sitting (Post-Dialysis) 125/71 mmHg Concurrent Access: falseAV Fistula Upper Arm (Left) Arterial BP Standing (Pre-Dialysis) 78/47 mmHg BP Standing (P ost-Dialysis) 110/57 mmHg Sitting Heart Rate Pre-Dialysis 85 BPM Sitting Heart Rate Post-Dialysis 114 BPM Standing Heart Rate Pre-Dialysis 72 BPM Standing Heart Rate Post-Dialysis 89 BPM Temperature Pre-Dialysis 97.2 degF Temperature Post -Dialysis 97.6 degF September 21, 2022 In-Center Hemodialysis Treatment [id number]:56:00.000Z 3488-44-25C24:47:08.000Z BP Sitting (Pre-Dialysis) 136/71 mmHg BP Sitting (Post-Dialysis) 108/58 mmHg Concurrent Access: falseAV Fistula Upper Arm (Left) Arterial Sitting Heart Rate Pre-Dialysis 81 BPM BP Standing (Post-Dialysis) 106/59 mmHg Temperature Pre-Dialysis 97.8 degF Sitting Heart Ra te Post-Dialysis 88 BPM Standing Heart Rate Post-Rosemary lysis 94 BPM Temperature Post-Dialysis 97 .8 degF September 19, 2022 In-Center Hemodialysis Treatment 1801-45-56P22:56:00.000Z 9344-18-68A19:00:09.000Z BP Sitting (Pre-Dialysis) 147/69 mmHg BP Sitting (Post-Dialysis) 132/61 mmHg Concurrent Access: falseAV Fistula Upper Arm (Left) Arterial BP Standing (Pre-Dialysis) 99/63 mmHg BP Standing (P ost-Dialysis) 109/54 mmHg Sitting Heart Rate Pre-Dialysis 113 BPM Sitting Heart Rate Post-Dialysis 95 BPM Standing Heart Rate Pre-Dialysis 96 BPM Standing Heart Rate Post-Dialysis 114 BPM Temperature Pre-Dialysis 97.5 degF Temperature Post -Dialysis 97.5 degF September 17, 2022 In-Center Hemodialysis Treatment 5569-81-09Z24:54:00.000Z 8958-76-64X01:59:11.000Z BP Sitting (Pre-Dialysis) 129/84 mmHg BP Sitting (Post-Dialysis) 115/58 mmHg Concurrent Access: falseAV Fistula Upper Arm (Left) Arterial BP Standing (Pre-Dialysis) 100/66 mmHg BP Standing (P ost-Dialysis) 104/66 mmHg Sitting Heart Rate Pre-Dialysis 97 BPM Sitting Heart Rate Post-Dialysis 87 BPM Standing Heart Rate Pre-Dialysis 104 BPM Standing Heart Rate Post-Dialysis 86 BPM Temperature Pre-Dialysis 97 degF Temperature Post -Dialysis 97.5 degF September 14, 2022 In-Center Hemodialysis Treatment 9429-63-10K10:57:16.000Z 0294-27-02G72:57:15.000Z BP Sitting (Pre-Dialysis) 140/74 mmHg BP Sitting (Post-Dialysis) 125/56 mmHg Concurrent Access: falseAV Fistula Upper Arm (Left) Arterial BP Standing (Pre-Dialysis) 94/64 mmHg BP Standing (P ost-Dialysis) 101/65 mmHg Sitting Heart Rate Pre-Dialysis 110 BPM Sitting Heart Rate Post-Dialysis 80 BPM Standing Heart Rate Pre-Dialysis 92 BPM Standing Heart Rate Post-Dialysis 82 BPM Temperature Pre-Dialysis 97.4 degF Temperature Post -Dialysis 97.8 degF September 12, 2022 In-Center Hemodialysis Treatment 0063-07-67T16:03:00.000Z 8569-94-02X20:02:17.000Z BP Sitting (Pre-Dialysis) 145/73 mmHg BP Sitting (Post-Dialysis) 103/55 mmHg Concurrent Access: falseAV Fistula Upper Arm (Left) Arterial Sitting Heart Rate Pre-Dialysis 116 BPM BP Standing (Post-Dialysis) 117/65 mmHg Temperature Pre-Dialysis 97.6 degF Sitting Heart Ra te Post-Dialysis 85 BPM Standing Heart Rate Post-Rosemary lysis 91 BPM Temperature Post-Dialysis 97 .5 degF September 10, 2022 In-Center Hemodialysis Treatment 6938-39-27N52:46:00.000Z 1753-39-26K98:49:16.000Z BP Sitting (Pre-Dialysis) 74/88 mmHg BP Sitting (Post-Dialysis) 138/68 mmHg Concurrent Access: falseAV Fistula Upper Arm (Left) Arterial BP Standing (Pre-Dialysis) 129/65 mmHg Sitti ng Heart Rate Post-Dialysis 88 BPM Sitting Heart Rate Pre-Dialysis 88 BPM Temperatu re Post-Dialysis 97.2 degF Standing Heart Rate Pre-Dialysis 153 BPM Temperature Pre-Dialysis 97.5 degF September 07, 2022 In-Center Hemodialysis Treatment 2010-26-07Z14:45:00.000Z 7560-30-47W61:51:37.000Z BP Sitting (Pre-Dialysis) 135/67 mmHg BP Sitting (Post-Dialysis) 123/39 mmHg Concurrent Access: falseAV Fistula Upper Arm (Left) Arterial Sitting Heart Rate Pre-Dialysis 87 BPM BP Standi ng (Post-Dialysis) 107/72 mmHg Temperature Pre-Dialysis 98 degF Sitting Heart Ra te Post-Dialysis 69 BPM Standing Heart Rate Post-Rosemary lysis 96 BPM Temperature Post-Dialysis 97 .9 degF September 05, 2022 In-Center Hemodialysis Treatment 5285-35-26O68:05:36.000Z 6626-84-43N95:00:54.000Z BP Sitting (Pre-Dialysis) 99/49 mmHg BP Sitting (Post-Dialysis) 128/55 mmHg Concurrent Access: falseAV Fistula Upper Arm (Left) Arterial BP Standing (Pre-Dialysis) 95/58 mmHg BP Standing (P ost-Dialysis) 99/44 mmHg Sitting Heart Rate Pre-Dialysis 72 BPM Sitting H eart Rate Post-Dialysis 79 BPM Standing Heart Rate Pre-Dialysis 74 BPM Temperature Post-Dialysis 97.2 degF Temperature Pre-Dialysis 97.2 degF September 03, 2022 In-Center Hemodialysis Treatment 9116-13-93A12:18:00.000Z 1616-75-38B54:20:37.000Z BP Sitting (Pre-Dialysis) 127/68 mmHg BP Sitting (Post-Dialysis) 121/61 mmHg Concurrent Access: falseAV Fistula Upper Arm (Left) Arterial BP Standing (Pre-Dialysis) 117/83 mmHg Sitti ng Heart Rate Post-Dialysis 78 BPM Sitting Heart Rate Pre-Dialysis 95 BPM Temperatu re Post-Dialysis 97.2 degF Standing Heart Rate Pre-Dialysis 46 BPM Temperature Pre-Dialysis 97.2 degF August 31, 2022 In-Center Hemodialysis Treatment [id number]:43:47.000Z 7918-77-86F16:44:46.000Z BP Sitting (Pre-Dialysis) 156/87 mmHg BP Sitting (Post-Dialysis) 98/45 mmHg Concurrent Access: falseAV Fistula Upper Arm (Left) Arterial Sitting Heart Rate Pre-Dialysis 82 BPM BP Standing (Post-Dialysis) 102/55 mmHg Temperature Pre-Dialysis 97.6 degF Sitting Heart Ra te Post-Dialysis 67 BPM Standing Heart Rate Post-Rosemary lysis 89 BPM Temperature Post-Dialysis 97 .6 degF August 29, 2022 In-Center Hemodialysis Treatment 0699-77-37W89:50:47.000Z 8994-42-52K30:51:46.000Z BP Sitting (Pre-Dialysis) 159/72 mmHg BP Sitting (Post-Dialysis) 141/64 mmHg Concurrent Access: falseAV Fistula Upper Arm (Left) Arterial Sitting Heart Rate Pre-Dialysis 76 BPM BP Standing (Post-Dialysis) 127/66 mmHg Temperature Pre-Dialysis 97.7 degF Sitting Heart Ra te Post-Dialysis 83 BPM Standing Heart Rate Post-Rosemray lysis 80 BPM Temperature Post-Dialysis 97 .3 degF August 27, 2022 In-Center Hemodialysis Treatment 3987-44-14B63:50:00.000Z 8171-63-22P29:53:21.000Z BP Sitting (Pre-Dialysis) 136/115 mmHg BP Sitting (Post-Dialysis) 94/49 mmHg Concurrent Access: falseAV Fistula Upper Arm (Left) Arterial Sitting Heart Rate Pre-Dialysis 98 BPM Sitting H eart Rate Post-Dialysis 77 BPM Temperature Pre-Dialysis 97.5 degF Temperature Post -Dialysis 96.8 degF August 24, 2022 In-Center Hemodialysis Treatment 8559-54-73Z32:25:00.000Z 6114-33-53D84:27:10.000Z BP Sitting (Pre-Dialysis) 123/64 mmHg BP Sitting (Post-Dialysis) 108/60 mmHg Concurrent Access: falseAV Fistula Upper Arm (Left) Arterial Sitting Heart Rate Pre-Dialysis 98 BPM Sitting H eart Rate Post-Dialysis 80 BPM Temperature Pre-Dialysis 97 degF Temperature Post -Dialysis 96.8 degF August 22, 2022 In-Center Hemodialysis Treatment 5977-45-72N08:44:00.000Z 9145-86-13P50:46:11.000Z BP Sitting (Pre-Dialysis) 137/56 mmHg BP Sitting (Post-Dialysis) 118/62 mmHg Concurrent Access: falseAV Fistula Upper Arm (Left) Arterial Sitting Heart Rate Pre-Dialysis 91 BPM Sitting H eart Rate Post-Dialysis 85 BPM Temperature Pre-Dialysis 97.9 degF Temperature Post -Dialysis 97.7 degF August 20, 2022 In-Center Hemodialysis Treatment 5440-58-53T43:55:00.000Z 7012-29-79F65:56:11.000Z BP Sitting (Pre-Dialysis) 133/58 mmHg BP Sitting (Post-Dialysis) 106/35 mmHg Concurrent Access: falseAV Fistula Upper Arm (Left) Arterial Sitting Heart Rate Pre-Dialysis 75 BPM BP Standing (Post-Dialysis) 111/53 mmHg Temperature Pre-Dialysis 97.5 degF Sitting Heart Ra te Post-Dialysis 76 BPM Standing Heart Rate Post-Rosemary lysis 79 BPM Temperature Post-Dialysis 97 .7 degF August 17, 2022 In-Center Hemodialysis Treatment 4866-46-52L51:41:00.000Z 7333-61-75B06:47:50.000Z BP Sitting (Pre-Dialysis) 158/85 mmHg BP Sitting (Post-Dialysis) 99/66 mmHg Concurrent Access: falseAV Fistula Upper Arm (Left) Arterial Sitting Heart Rate Pre-Dialysis 88 BPM Sitting H eart Rate Post-Dialysis 80 BPM Temperature Pre-Dialysis 96.8 degF Temperature Post -Dialysis 97.6 degF August 15, 2022 In-Center Hemodialysis Treatment 4948-40-29F12:45:00.000Z 4702-69-34X56:48:50.000Z BP Sitting (Pre-Dialysis) 89/57 mmHg BP Sitting (Post-Dialysis) 97/51 mmHg Concurrent Access: falseAV Fistula Upper Arm (Left) Arterial BP Standing (Pre-Dialysis) 72/59 mmHg Sitti ng Heart Rate Post-Dialysis 76 BPM Sitting Heart Rate Pre-Dialysis 43 BPM Temperatu re Post-Dialysis 97.6 degF Standing Heart Rate Pre-Dialysis 49 BPM Temperature Pre-Dialysis 97.2 degF August 13, 2022 In-Center Hemodialysis Treatment 3622-33-86T65:48:51.000Z 2444-08-44I69:49:51.000Z BP Sitting (Pre-Dialysis) 121/93 mmHg BP Sitting (Post-Dialysis) 111/63 mmHg Concurrent Access: falseAV Fistula Upper Arm (Left) Arterial Sitting Heart Rate Pre-Dialysis 82 BPM BP Standing (Post-Dialysis) 111/54 mmHg Temperature Pre-Dialysis 97.8 degF Sitting Heart Ra te Post-Dialysis 75 BPM Standing Heart Rate Post-Rosemary lysis 81 BPM Temperature Post-Dialysis 97 .5 degF August 10, 2022 In-Center Hemodialysis Treatment [id number]:45:00.000Z 5069-63-43B23:49:35.000Z BP Sitting (Pre-Dialysis) 146/93 mmHg BP Sitting (Post-Dialysis) 98/56 mmHg Concurrent Access: falseAV Fistula Upper Arm (Left) Arterial Sitting Heart Rate Pre-Dialysis 74 BPM BP Standing (Post-Dialysis) 104/64 mmHg Temperature Pre-Dialysis 97.2 degF Sitting Heart Ra te Post-Dialysis 84 BPM Standing Heart Rate Post-Rosemary lysis 74 BPM Temperature Post-Dialysis 97 .2 degF August 08, 2022 In-Center Hemodialysis Treatment 4136-89-45P34:27:35.000Z 6084-99-41T70:30:35.000Z BP Sitting (Pre-Dialysis) 162/108 mmHg BP Sitting (Post-Dialysis) 105/60 mmHg Concurrent Access: falseAV Fistula Upper Arm (Left) Arterial Sitting Heart Rate Pre-Dialysis 68 BPM Sitting H eart Rate Post-Dialysis 79 BPM Temperature Pre-Dialysis 97.2 degF Temperature Post -Dialysis 97.4 degF August 06, 2022 In-Center Hemodialysis Treatment 6273-73-60Z05:49:00.000Z 7000-87-24Z44:49:35.000Z BP Sitting (Pre-Dialysis) 141/80 mmHg BP Sitting (Post-Dialysis) 109/64 mmHg Concurrent Access: falseAV Fistula Upper Arm (Left) Arterial Sitting Heart Rate Pre-Dialysis 79 BPM BP Standi ng (Post-Dialysis) 115/70 mmHg Temperature Pre-Dialysis 97 degF Sitting Heart Ra te Post-Dialysis 52 BPM Standing Heart Rate Post-Rosemary lysis 84 BPM Temperature Post-Dialysis 97 .4 degF August 03, 2022 In-Center Hemodialysis Treatment 6667-83-16N78:05:00.000Z 4157-36-27L82:00:34.000Z BP Sitting (Pre-Dialysis) 149/73 mmHg BP Sitting (Post-Dialysis) 116/59 mmHg Concurrent Access: falseAV Fistula Upper Arm (Left) Arterial Sitting Heart Rate Pre-Dialysis 117 BPM Sitting H eart Rate Post-Dialysis 83 BPM Temperature Pre-Dialysis 97.6 degF Temperature Post -Dialysis 97 degF August 01, 2022 In-Center Hemodialysis Treatment 0092-09-81C42:50:00.000Z 3153-28-99Q97:50:34.000Z BP Sitting (Pre-Dialysis) 105/57 mmHg BP Sitting (Post-Dialysis) 102/53 mmHg Concurrent Access: falseAV Fistula Upper Arm (Left) Arterial Sitting Heart Rate Pre-Dialysis 98 BPM BP Standing (Post-Dialysis) 110/57 mmHg Temperature Pre-Dialysis 97.5 degF Sitting Heart Ra te Post-Dialysis 77 BPM Standing Heart Rate Post-Rosemary lysis 79 BPM Temperature Post-Dialysis 97 .4 degF July 30, 2022 In-Center Hemodialysis Treatment 5113-52-40L16:44:00.000Z 3084-58-34O23:45:35.000Z BP Sitting (Pre-Dialysis) 127/90 mmHg BP Sitting (Post-Dialysis) 104/49 mmHg Concurrent Access: falseAV Fistula Upper Arm (Left) Arterial Sitting Heart Rate Pre-Dialysis 75 BPM BP Standing (Post-Dialysis) 114/53 mmHg Temperature Pre-Dialysis 97.6 degF Sitting Heart Ra te Post-Dialysis 79 BPM Standing Heart Rate Post-Rosemary lysis 87 BPM Temperature Post-Dialysis 97 .6 degF July 27, 2022 In-Center Hemodialysis Treatment 3111-03-45B18:58:00.000Z 1461-63-61Q41:56:38.000Z BP Sitting (Pre-Dialysis) 96/51 mmHg BP Sitting (Post-Dialysis) 118/78 mmHg Concurrent Access: falseAV Fistula Upper Arm (Left) Arterial Sitting Heart Rate Pre-Dialysis 130 BPM BP Standing (Post-Dialysis) 129/66 mmHg Temperature Pre-Dialysis 97.6 degF Sitting Heart Ra te Post-Dialysis 104 BPM Standing Heart Rate Post-Rosemary lysis 116 BPM Temperature Post-Dialysis 97 .6 degF July 25, 2022 In-Center Hemodialysis Treatment 5455-17-45F77:46:00.000Z 4544-60-67G24:47:37.000Z BP Sitting (Pre-Dialysis) 95/53 mmHg BP Sitting (Post-Dialysis) 112/56 mmHg Concurrent Access: falseAV Fistula Upper Arm (Left) Arterial Sitting Heart Rate Pre-Dialysis 87 BPM BP Standing (Post-Dialysis) 119/56 mmHg Temperature Pre-Dialysis 97.7 degF Sitting Heart Ra te Post-Dialysis 77 BPM Standing Heart Rate Post-Rosemary lysis 85 BPM Temperature Post-Dialysis 97 .6 degF July 23, 2022 In-Center Hemodialysis Treatment 4925-63-87L42:54:00.000Z 8698-12-13M38:54:38.000Z BP Sitting (Pre-Dialysis) 157/79 mmHg BP Sitting (Post-Dialysis) 112/53 mmHg Concurrent Access: falseAV Fistula Upper Arm (Left) Arterial Sitting Heart Rate Pre-Dialysis 108 BPM BP Standing (Post-Dialysis) 104/63 mmHg Temperature Pre-Dialysis 96.8 degF Sitting Heart Ra te Post-Dialysis 81 BPM Standing Heart Rate Post-Rosemary lysis 93 BPM Temperature Post-Dialysis 97 .6 degF July 20, 2022 In-Center Hemodialysis Treatment 3989-83-94T25:57:57.000Z 1222-25-01U92:58:57.000Z BP Sitting (Pre-Dialysis) 144/106 mmHg BP Sitting (Post-Dialysis) 138/76 mmHg Concurrent Access: falseAV Fistula Upper Arm (Left) Arterial Sitting Heart Rate Pre-Dialysis 79 BPM BP Standing (Post-Dialysis) 130/93 mmHg Temperature Pre-Dialysis 97.7 degF Sitting Heart Ra te Post-Dialysis 101 BPM Standing Heart Rate Post-Rosemary lysis 85 BPM Temperature Post-Dialysis 97 .6 degF July 18, 2022 In-Center Hemodialysis Treatment 6366-89-35N13:47:00.000Z 7350-45-25G43:49:58.000Z BP Sitting (Pre-Dialysis) 116/62 mmHg BP Sitting (Post-Dialysis) 101/69 mmHg Concurrent Access: falseAV Fistula Upper Arm (Left) Arterial Sitting Heart Rate Pre-Dialysis 117 BPM BP Standing (Post-Dialysis) 100/62 mmHg Temperature Pre-Dialysis 97.5 degF Sitting Heart Ra te Post-Dialysis 80 BPM Standing Heart Rate Post-Rosemary lysis 55 BPM Temperature Post-Dialysis 97 .4 degF July 16, 2022 In-Center Hemodialysis Treatment 3274-04-20N99:50:00.000Z 0505-75-83U58:53:49.000Z BP Sitting (Pre-Dialysis) 127/107 mmHg BP Sitting (Post-Dialysis) 106/56 mmHg Concurrent Access: falseAV Fistula Upper Arm (Left) Arterial Sitting Heart Rate Pre-Dialysis 55 BPM BP Standing (Post-Dialysis) 118/67 mmHg Temperature Pre-Dialysis 97.1 degF Sitting Heart Ra te Post-Dialysis 81 BPM Standing Heart Rate Post-Rosemary lysis 90 BPM Temperature Post-Dialysis 97 .5 degF July 13, 2022 In-Center Hemodialysis Treatment 5632-42-05T71:55:00.000Z 5554-57-59T32:53:39.000Z BP Sitting (Pre-Dialysis) 144/76 mmHg BP Sitting (Post-Dialysis) 113/61 mmHg Concurrent Access: falseAV Fistula Upper Arm (Left) Arterial Sitting Heart Rate Pre-Dialysis 68 BPM BP Standing (Post-Dialysis) 121/65 mmHg Temperature Pre-Dialysis 96.2 degF Sitting Heart Ra te Post-Dialysis 65 BPM Standing Heart Rate Post-Rosemary lysis 103 BPM Temperature Post-Dialysis 97 .6 degF July 11, 2022 In-Center Hemodialysis Treatment [id number]:01:00.000Z [id number]:00:42.000Z BP Sitting (Pre-Dialysis) 105/79 mmHg BP Sitting (Post-Dialysis) 118/59 mmHg Concurrent Access: falseAV Fistula Upper Arm (Left) Arterial Sitting Heart Rate Pre-Dialysis 66 BPM BP Standing (Post-Dialysis) 122/62 mmHg Temperature Pre-Dialysis 97.6 degF Sitting Heart Ra te Post-Dialysis 74 BPM Standing Heart Rate Post-Rosemary lysis 81 BPM Temperature Post-Dialysis 97 .6 degF July 09, 2022 In-Center Hemodialysis Treatment [id number]:28:00.000Z [id number]:30:43.000Z BP Sitting (Pre-Dialysis) 131/70 mmHg BP Sitting (Post-Dialysis) 123/59 mmHg Concurrent Access: falseAV Fistula Upper Arm (Left) Arterial Sitting Heart Rate Pre-Dialysis 103 BPM BP Standing (Post-Dialysis) 114/65 mmHg Temperature Pre-Dialysis 97.5 degF Sitting Heart Ra te Post-Dialysis 88 BPM Standing Heart Rate Post-Rosemary lysis 86 BPM Temperature Post-Dialysis 97 .2 degF July 06, 2022 In-Center Hemodialysis Treatment [id number]:35:00.000Z [id number]:35:34.000Z BP Sitting (Pre-Dialysis) 162/76 mmHg BP Sitting (Post-Dialysis) 120/35 mmHg Concurrent Access: falseAV Fistula Upper Arm (Left) Arterial Sitting Heart Rate Pre-Dialysis 110 BPM BP Standing (Post-Dialysis) 116/68 mmHg Temperature Pre-Dialysis 97.2 degF Sitting Heart Ra te Post-Dialysis 80 BPM Standing Heart Rate Post-Rosemary lysis 84 BPM Temperature Post-Dialysis 97 .5 degF July 04, 2022 In-Center Hemodialysis Treatment [id number]:05:00.000Z [id number]:01:19.000Z BP Sitting (Pre-Dialysis) 99/81 mmHg BP Sitting (Post-Dialysis) 100/59 mmHg Concurrent Access: falseAV Fistula Upper Arm (Left) Arterial Sitting Heart Rate Pre-Dialysis 70 BPM BP Standing (Post-Dialysis) 131/61 mmHg Temperature Pre-Dialysis 96.8 degF Sitting Heart Ra te Post-Dialysis 76 BPM Standing Heart Rate Post-Rosemary lysis 86 BPM Temperature Post-Dialysis 97 .5 degF July 02, 2022 In-Center Hemodialysis Treatment [id number]:02:00.000Z [id number]:09:34.000Z BP Sitting (Pre-Dialysis) 142/76 mmHg BP Sitting (Post-Dialysis) 115/43 mmHg Concurrent Access: falseAV Fistula Upper Arm (Left) Arterial Sitting Heart Rate Pre-Dialysis 103 BPM BP Standing (Post-Dialysis) 107/75 mmHg Temperature Pre-Dialysis 97.7 degF Sitting Heart Ra te Post-Dialysis 67 BPM Standing Heart Rate Post-Rosemary lysis 64 BPM Temperature Post-Dialysis 97 .6 degF June 29, 2022 In-Center Hemodialysis Treatment [id number]:22:02.000Z [id number]:12:02.000Z BP Sitting (Pre-Dialysis) 129/102 mmHg BP Sitting (Post-Dialysis) 108/65 mmHg Concurrent Access: falseAV Fistula Upper Arm (Left) Arterial Sitting Heart Rate Pre-Dialysis 59 BPM BP Standing (Post-Dialysis) 123/63 mmHg Temperature Pre-Dialysis 97.2 degF Sitting Heart Ra te Post-Dialysis 66 BPM Standing Heart Rate Post-Rosemary lysis 103 BPM Temperature Post-Dialysis 97 .4 degF June 27, 2022 In-Center Hemodialysis Treatment [id number]:34:02.000Z [id number]:34:01.000Z BP Sitting (Pre-Dialysis) 146/80 mmHg BP Sitting (Post-Dialysis) 97/50 mmHg Concurrent Access: falseAV Fistula Upper Arm (Left) Arterial Sitting Heart Rate Pre-Dialysis 108 BPM BP Standing (Post-Dialysis) 120/68 mmHg Temperature Pre-Dialysis 97.7 degF Sitting Heart Ra te Post-Dialysis 88 BPM Standing Heart Rate Post-Rosemary lysis 88 BPM Temperature Post-Dialysis 97 .6 degF June 25, 2022 In-Center Hemodialysis Treatment [id number]:23:00.000Z [id number]:12:01.000Z BP Sitting (Pre-Dialysis) 125/68 mmHg BP Sitting (Post-Dialysis) 98/58 mmHg Concurrent Access: falseAV Fistula Upper Arm (Left) Arterial Sitting Heart Rate Pre-Dialysis 56 BPM BP Standing (Post-Dialysis) 103/54 mmHg Temperature Pre-Dialysis 98.3 degF Sitting Heart Ra te Post-Dialysis 78 BPM Standing Heart Rate Post-Rosemary lysis 88 BPM Temperature Post-Dialysis 97 .4 degF June 22, 2022 In-Center Hemodialysis Treatment [id number]:48:00.000Z [id number]:49:46.000Z BP Sitting (Pre-Dialysis) 123/67 mmHg BP Sitting (Post-Dialysis) 114/58 mmHg Concurrent Access: falseAV Fistula Upper Arm (Left) Arterial Sitting Heart Rate Pre-Dialysis 113 BPM BP Standing (Post-Dialysis) 129/68 mmHg Temperature Pre-Dialysis 96.8 degF Sitting Heart Ra te Post-Dialysis 75 BPM Standing Heart Rate Post-Rosemary lysis 72 BPM Temperature Post-Dialysis 97 .6 degF June 20, 2022 In-Center Hemodialysis Treatment [id number]:14:00.000Z [id number]:03:47.000Z BP Sitting (Pre-Dialysis) 146/67 mmHg BP Sitting (Post-Dialysis) 140/59 mmHg Concurrent Access: falseAV Fistula Upper Arm (Left) Arterial Sitting Heart Rate Pre-Dialysis 100 BPM BP Standing (Post-Dialysis) 152/71 mmHg Temperature Pre-Dialysis 97.6 degF Sitting Heart Ra te Post-Dialysis 73 BPM Standing Heart Rate Post-Rosemary lysis 92 BPM Temperature Post-Dialysis 97 .5 degF June 18, 2022 In-Center Hemodialysis Treatment [id number]:54:00.000Z [id number]:58:46.000Z BP Sitting (Pre-Dialysis) 103/68 mmHg BP Sitting (Post-Dialysis) 120/78 mmHg Concurrent Access: falseAV Fistula Upper Arm (Left) Arterial Sitting Heart Rate Pre-Dialysis 111 BPM Sitting H eart Rate Post-Dialysis 69 BPM Temperature Pre-Dialysis 96.8 degF Temperature Post -Dialysis 97.6 degF June 15, 2022 In-Center Hemodialysis Treatment [id number]:46:00.000Z [id number]:49:58.000Z BP Sitting (Pre-Dialysis) 147/76 mmHg BP Sitting (Post-Dialysis) 130/69 mmHg Concurrent Access: falseAV Fistula Upper Arm (Left) Arterial Sitting Heart Rate Pre-Dialysis 104 BPM BP Standing (Post-Dialysis) 117/68 mmHg Temperature Pre-Dialysis 97.5 degF Sitting Heart Ra te Post-Dialysis 96 BPM Standing Heart Rate Post-Rosemary lysis 103 BPM Temperature Post-Dialysis 97 .6 degF June 13, 2022 In-Center Hemodialysis Treatment [id number]:38:58.000Z [id number]:42:58.000Z BP Sitting (Pre-Dialysis) 111/50 mmHg BP Sitting (Post-Dialysis) 126/66 mmHg Concurrent Access: falseAV Fistula Upper Arm (Left) Arterial Sitting Heart Rate Pre-Dialysis 84 BPM BP Standi ng (Post-Dialysis) 118/55 mmHg Temperature Pre-Dialysis 97 degF Sitting Heart Ra te Post-Dialysis 80 BPM Standing Heart Rate Post-Rosemary lysis 75 BPM Temperature Post-Dialysis 97 .5 degF June 11, 2022 In-Center Hemodialysis Treatment [id number]:19:58.000Z [id number]:18:58.000Z BP Sitting (Pre-Dialysis) 146/53 mmHg BP Sitting (Post-Dialysis) 153/57 mmHg Concurrent Access: falseAV Fistula Upper Arm (Left) Arterial Sitting Heart Rate Pre-Dialysis 111 BPM BP Standing (Post-Dialysis) 106/56 mmHg Temperature Pre-Dialysis 97.2 degF Sitting Heart Ra te Post-Dialysis 75 BPM Standing Heart Rate Post-Rosemary lysis 70 BPM Temperature Post-Dialysis 98 .3 degF June 08, 2022 In-Center Hemodialysis Treatment [id number]:37:00.000Z [id number]:44:45.000Z BP Sitting (Pre-Dialysis) 110/86 mmHg BP Sitting (Post-Dialysis) 134/69 mmHg Concurrent Access: falseAV Fistula Upper Arm (Left) Arterial Sitting Heart Rate Pre-Dialysis 108 BPM BP Standing (Post-Dialysis) 109/69 mmHg Temperature Pre-Dialysis 97.5 degF Sitting Heart Ra te Post-Dialysis 85 BPM Standing Heart Rate Post-Rosemary lysis 79 BPM Temperature Post-Dialysis 97 .6 degF June 06, 2022 In-Center Hemodialysis Treatment [id number]:53:57.000Z [id number]:54:57.000Z BP Sitting (Pre-Dialysis) 114/61 mmHg BP Sitting (Post-Dialysis) 113/60 mmHg Concurrent Access: falseAV Fistula Upper Arm (Left) Arterial Sitting Heart Rate Pre-Dialysis 111 BPM Sitting H eart Rate Post-Dialysis 78 BPM Temperature Pre-Dialysis 97.7 degF Temperature Post -Dialysis 97.7 degF June 04, 2022 In-Center Hemodialysis Treatment [id number]:00:00.000Z [id number]:00:50.000Z BP Sitting (Pre-Dialysis) 111/64 mmHg BP Sitting (Post-Dialysis) 120/68 mmHg Concurrent Access: falseAV Fistula Upper Arm (Left) Arterial Sitting Heart Rate Pre-Dialysis 128 BPM BP Standi ng (Post-Dialysis) 142/95 mmHg Temperature Pre-Dialysis 97 degF Sitting Heart Ra te Post-Dialysis 85 BPM Standing Heart Rate Post-Rosemary lysis 53 BPM Temperature Post-Dialysis 97 .9 degF June 01, 2022 In-Center Hemodialysis Treatment [id number]:53:00.000Z [id number]:56:05.000Z BP Sitting (Pre-Dialysis) 121/70 mmHg BP Sitting (Post-Dialysis) 106/91 mmHg Concurrent Access: falseAV Fistula Upper Arm (Left) Arterial Sitting Heart Rate Pre-Dialysis 108 BPM BP Standing (Post-Dialysis) 111/62 mmHg Temperature Pre-Dialysis 97.9 degF Sitting Heart Ra te Post-Dialysis 49 BPM Standing Heart Rate Post-Rosemary lysis 92 BPM Temperature Post-Dialysis 97 .2 degF May 30, 2022 In-Center Hemodialysis Treatment [id number]:02:04.000Z [id number]:59:05.000Z BP Sitting (Pre-Dialysis) 136/72 mmHg BP Sitting (Post-Dialysis) 109/58 mmHg Concurrent Access: falseAV Fistula Upper Arm (Left) Arterial Sitting Heart Rate Pre-Dialysis 98 BPM BP Standing (Post-Dialysis) 111/66 mmHg Temperature Pre-Dialysis 97.3 degF Sitting Heart Ra te Post-Dialysis 79 BPM Standing Heart Rate Post-Rosemary lysis 84 BPM Temperature Post-Dialysis 97 .5 degF May 28, 2022 In-Center Hemodialysis Treatment [id number]:46:00.000Z [id number]:47:05.000Z BP Sitting (Pre-Dialysis) 154/67 mmHg BP Sitting (Post-Dialysis) 101/58 mmHg Concurrent Access: falseAV Fistula Upper Arm (Left) Arterial Sitting Heart Rate Pre-Dialysis 78 BPM BP Standi ng (Post-Dialysis) 124/65 mmHg Temperature Pre-Dialysis 97 degF Sitting Heart Ra te Post-Dialysis 79 BPM Standing Heart Rate Post-Rosemary lysis 83 BPM Temperature Post-Dialysis 96 .8 degF May 25, 2022 In-Center Hemodialysis Treatment [id number]:51:00.000Z [id number]:57:02.000Z BP Sitting (Pre-Dialysis) 138/57 mmHg BP Sitting (Post-Dialysis) 119/53 mmHg Concurrent Access: falseAV Fistula Upper Arm (Left) Arterial Sitting Heart Rate Pre-Dialysis 60 BPM BP Standi ng (Post-Dialysis) 135/66 mmHg Temperature Pre-Dialysis 97 degF Sitting Heart Ra te Post-Dialysis 68 BPM Standing Heart Rate Post-Rosemary lysis 95 BPM Temperature Post-Dialysis 97 .6 degF May 23, 2022 In-Center Hemodialysis Treatment [id number]:34:00.000Z [id number]:32:02.000Z BP Sitting (Pre-Dialysis) 140/67 mmHg BP Sitting (Post-Dialysis) 101/56 mmHg Concurrent Access: falseAV Fistula Upper Arm (Left) Arterial Sitting Heart Rate Pre-Dialysis 101 BPM BP Standing (Post-Dialysis) 122/67 mmHg Temperature Pre-Dialysis 97.5 degF Sitting Heart Ra te Post-Dialysis 104 BPM Standing Heart Rate Post-Rosemary lysis 109 BPM Temperature Post-Dialysis 97 .6 degF May 21, 2022 In-Center Hemodialysis Treatment [id number]:15:02.000Z [id number]:56:02.000Z BP Sitting (Pre-Dialysis) 176/79 mmHg BP Sitting (Post-Dialysis) 115/62 mmHg Concurrent Access: falseAV Fistula Upper Arm (Left) Arterial Sitting Heart Rate Pre-Dialysis 97 BPM BP Standing (Post-Dialysis) 124/82 mmHg Temperature Pre-Dialysis 97.6 degF Sitting Heart Ra te Post-Dialysis 93 BPM Standing Heart Rate Post-Rosemary lysis 85 BPM Temperature Post-Dialysis 97 .2 degF May 18, 2022 In-Center Hemodialysis Treatment [id number]:35:00.000Z [id number]:36:13.000Z BP Sitting (Pre-Dialysis) 154/104 mmHg BP Sitting (Post-Dialysis) 153/76 mmHg Concurrent Access: falseAV Fistula Upper Arm (Left) Arterial Sitting Heart Rate Pre-Dialysis 66 BPM BP Standing (Post-Dialysis) 108/58 mmHg Temperature Pre-Dialysis 98.8 degF Sitting Heart Ra te Post-Dialysis 77 BPM Standing Heart Rate Post-Rosemary lysis 90 BPM Temperature Post-Dialysis 97 .4 degF May 16, 2022 In-Center Hemodialysis Treatment [id number]:49:14.000Z [id number]:50:14.000Z BP Sitting (Pre-Dialysis) 149/77 mmHg BP Sitting (Post-Dialysis) 133/63 mmHg Concurrent Access: falseAV Fistula Upper Arm (Left) Arterial Sitting Heart Rate Pre-Dialysis 106 BPM BP Standi ng (Post-Dialysis) 142/68 mmHg Temperature Pre-Dialysis 96 degF Sitting Heart Ra te Post-Dialysis 74 BPM Standing Heart Rate Post-Rosemary lysis 80 BPM Temperature Post-Dialysis 97 .4 degF May 14, 2022 In-Center Hemodialysis Treatment [id number]:55:00.000Z [id number]:53:13.000Z BP Sitting (Pre-Dialysis) 124/64 mmHg BP Sitting (Post-Dialysis) 144/72 mmHg Concurrent Access: falseAV Fistula Upper Arm (Left) Arterial Sitting Heart Rate Pre-Dialysis 95 BPM BP Standing (Post-Dialysis) 140/68 mmHg Temperature Pre-Dialysis 97.6 degF Sitting Heart Ra te Post-Dialysis 78 BPM Standing Heart Rate Post-Rosemary lysis 85 BPM Temperature Post-Dialysis 97 .6 degF DIALYSIS ORDER Dialysis Procedure Orders Type of Dialysis Procedure Order Order Date/Time Observations In-Center Hemodialysis Treatment December Target Weight 60 kg Dialysate Flow Rate 500 mL/min Blood Flow Rate 350 mL/min Treatment Time 180 min(total) Max UF Rate 13 mL/kg/hr Base Sodium Dialysate Base Sodium 138 mE q/L dialysate_temp 37 C BiCarb Dialysate BiCarbonate 38 meq/L Access Concurrent No Arterial Access AV Fistula (Upper Ar m (Left)) Venous Access AV Fistula (Upper Ar m (Left)) Arterial Needle Display NIPRO, TULIP, 16 G x 1, SHARP , TWIN Venous Needle NIPRO, TULIP, 16G x 1, SHARP , TWIN Dialyzer Nipro Elisio 15H 126 4 [email or web address] Dialysate Bath Potassium Potassium 2 mEq /L Dialysate Bath Calcium Calcium 2.5 mEq/L Results Adequacy Description Draw Date Result/Unit Status Ref Range Result Comments Creatinine [Mass/volume] in Serum or Plasma 2025-01-26 16:07:20 2.31 mg/dL F 0.55-1.02 WEIGHT (KG) 2025-01-13 04:50:57 60 kg F stdKT/V Total 2025-01-13 04:50:57 N/A F KT/V PRESCRIBED 2025-01-13 04:50:57 1.82 F Std Renal KT/V 2025-01-13 04:50:57 N/A F HEIGHT IN INCHES 2025-01-13 04:50:57 65 Inches F VM (KT/V MEAN VOL) 2025-01-13 04:50:57 27 F Dialyzer ANA 2025-01-13 04:50:57 1264 Calc F BSA JAMA 2025-01-13 04:50:57 1.66 sq m F Total Kt/V 2025-01-13 04:50:57 1.72 F PRESCRIBED DAYS/WEEK 2025-01-13 04:50:57 3 Day/Wk F URR% 2025-01-13 04:50:57 79 % F PATIENT AGE 2025-01-13 04:50:57 79 Years F DIALYZER FLOW-QD 2025-01-13 04:50:57 500 mL/min F stdKt/V (DIAL) 2025-01-13 04:50:57 N/A F TBW (Sanchez) 2025-01-13 04:50:57 30.32 Liters F Residual kt/v 2025-01-13 04:50:57 F WEIGHT - PRE DAY 1 2025-01-13 04:50:57 60.7 kg F AMPUTATE FACTOR 2025-01-13 04:50:57 0 F VT (KT/V TX VOL) 2025-01-13 04:50:57 26.8 L F WEIGHT - POST DAY 1 2025-01-13 04:50:57 59.9 kg F spKt/V 2025-01-13 04:50:57 1.72 F BLOOD FLOW-QWB 2025-01-13 04:50:57 349 F nPCR 2025-01-13 04:50:57 0.79 G/KG/D F eKt/V 2025-01-13 04:50:57 1.42 F TOTAL HOURS/WEEK DIALYSIS 2025-01-13 04:50:57 9 hrs F CURRENT KRU 2025-01-13 04:50:57 F LENGTH OF DIALYSIS 2025-01-13 04:50:57 182 min F Urea nitrogen [Mass/volume] in Serum or Plasma 2025-01-13 04:49:19 48 mg/dL F 9.0-23.0 Urea nitrogen [Mass/volume] in Serum or Plasma --post dialysis 2025-01-12 21:35:13 10 mg/dL F 9.0-23.0 Creatinine [Mass/volume] in Serum or Plasma 2024-12-29 22:50:15 2.28 mg/dL F 0.55-1.02 CURRENT KRU 2024-12-22 21:53:59 F Unable to calculate: Post BUN lab result is unknown stdKT/V Total 2024-12-22 21:53:59 N/A F Dialyzer ANA 2024-12-22 21:53:59 1264 Calc F WEIGHT (KG) 2024-12-22 21:53:59 60 kg F Total Kt/V 2024-12-22 21:53:59 1.63 F stdKt/V (DIAL) 2024-12-22 21:53:59 N/A F VM (KT/V MEAN VOL) 2024-12-22 21:53:59 27.1 F TBW (Sanchez) 2024-12-22 21:53:59 30.37 Liters F spKt/V 2024-12-22 21:53:59 1.63 F WEIGHT - POST DAY 1 2024-12-22 21:53:59 60.1 kg F URR% 2024-12-22 21:53:59 79 % F HEIGHT IN INCHES 2024-12-22 21:53:59 65 Inches F BLOOD FLOW-QWB 2024-12-22 21:53:59 349 F Residual kt/v 2024-12-22 21:53:59 F Unable to calculate: Post BUN lab result is unknown Std Renal KT/V 2024-12-22 21:53:59 N/A F PATIENT AGE 2024-12-22 21:53:59 79 Years F DIALYZER FLOW-QD 2024-12-22 21:53:59 500 mL/min F eKt/V 2024-12-22 21:53:59 1.35 F WEIGHT - PRE DAY 1 2024-12-22 21:53:59 60.1 kg F BSA JAMA 2024-12-22 21:53:59 1.66 sq m F TOTAL HOURS/WEEK DIALYSIS 2024-12-22 21:53:59 9 hrs F LENGTH OF DIALYSIS 2024-12-22 21:53:59 179 min F nPCR 2024-12-22 21:53:59 0.86 G/KG/D F KT/V PRESCRIBED 2024-12-22 21:53:59 1.79 F PRESCRIBED DAYS/WEEK 2024-12-22 21:53:59 3 Day/Wk F AMPUTATE FACTOR 2024-12-22 21:53:59 0 F VT (KT/V TX VOL) 2024-12-22 21:53:59 27.7 L F Urea nitrogen [Mass/volume] in Serum or Plasma --post dialysis 2024-12-22 21:52:15 12 mg/dL F 9.0-23.0 Urea nitrogen [Mass/volume] in Serum or Plasma 2024-12-22 19:40:19 56 mg/dL F 9.0-23.0 URR% 2024-12-17 12:58:52 F Recollect - Shipping temp out of range,Unable to Calculate. Urea nitrogen [Mass/volume] in Serum or Plasma 2024-12-17 12:58:16 F Recollect - Shipping temp out of range Urea nitrogen [Mass/volume] in Serum or Plasma --post dialysis 2024-12-17 12:55:00 F Recollect - Shipping temp out of range AMPUTATE FACTOR 2024-12-15 16:55:34 0 F WEIGHT (KG) 2024-12-15 16:55:34 60 kg F HEIGHT IN INCHES 2024-12-15 16:55:34 65 Inches F PATIENT AGE 2024-12-15 16:55:34 79 Years F Creatinine [Mass/volume] in Serum or Plasma 2024-11-25 03:20:15 2.16 mg/dL F 0.55-1.02 VT (KT/V TX VOL) 2024-11-11 03:32:57 26.7 L F stdKT/V Total 2024-11-11 03:32:57 N/A F spKt/V 2024-11-11 03:32:57 1.71 F BLOOD FLOW-QWB 2024-11-11 03:32:57 349 F BSA JAMA 2024-11-11 03:32:57 1.65 sq m F PRESCRIBED DAYS/WEEK 2024-11-11 03:32:57 3 Day/Wk F Residual kt/v 2024-11-11 03:32:57 F Unable to calculate: Post BUN lab result is unknown eKt/V 2024-11-11 03:32:57 1.41 F URR% 2024-11-11 03:32:57 80 % F HEIGHT IN INCHES 2024-11-11 03:32:57 65 Inches F WEIGHT - PRE DAY 1 2024-11-11 03:32:57 59.3 kg F DIALYZER FLOW-QD 2024-11-11 03:32:57 500 mL/min F KT/V PRESCRIBED 2024-11-11 03:32:57 1.82 F Std Renal KT/V 2024-11-11 03:32:57 N/A F CURRENT KRU 2024-11-11 03:32:57 F Unable to calculate: Post BUN lab result is unknown PATIENT AGE 2024-11-11 03:32:57 79 Years F LENGTH OF DIALYSIS 2024-11-11 03:32:57 181 min F Dialyzer ANA 2024-11-11 03:32:57 1264 Calc F TOTAL HOURS/WEEK DIALYSIS 2024-11-11 03:32:57 8 hrs F Total Kt/V 2024-11-11 03:32:57 1.71 F TBW (Sanchez) 2024-11-11 03:32:57 30.08 Liters F WEIGHT - POST DAY 1 2024-11-11 03:32:57 58.9 kg F nPCR 2024-11-11 03:32:57 0.73 G/KG/D F VM (KT/V MEAN VOL) 2024-11-11 03:32:57 26.9 F WEIGHT (KG) 2024-11-11 03:32:57 59.5 kg F stdKt/V (DIAL) 2024-11-11 03:32:57 N/A F AMPUTATE FACTOR 2024-11-11 03:32:57 0 F Urea nitrogen [Mass/volume] in Serum or Plasma --post dialysis 2024-11-11 03:31:17 9 mg/dL F 9.0-23.0 Urea nitrogen [Mass/volume] in Serum or Plasma 2024-11-10 13:16:16 44 mg/dL F 9.0-23.0 WEIGHT - PRE DAY 1 TOTAL HOURS/WEEK DIALYSIS DIALYZER FLOW-QD PRESCRIBED DAYS/WEEK WEIGHT - POST DAY 1 BLOOD FLOW-QWB LENGTH OF DIALYSIS Dialyzer ANA Std Renal KT/V BSA JAMA Residual kt/v KT/V PRESCRIBED Total Kt/V CURRENT KRU nPCR stdKt/V (DIAL) eKt/V stdKT/V Total VM (KT/V MEAN VOL) spKt/V VT (KT/V TX VOL) TBW (Sanchez) Anemia Description Draw Date Result/Unit Status Ref Range Result Comments TIBC 2025-01-27 03:09:43 211 ug/dL F 250.0-425.0 IRON SATURATION 2025-01-27 03:09:43 32 % F 16.0-46.0 Iron [Mass/volume] in Serum or Plasma 2025-01-27 03:07:01 67 ug/dL F 50.0-170.0 Iron binding capacity.unsaturated [Mass/volume] in Serum or Plasma 2025-01-27 03:07:00 144 ug/dL F 80.0-375.0 Ferritin [Mass/volume] in Serum or Plasma 2025-01-26 17:52:19 458 ng/mL F 7.0-271.0 HCT CALC HGBX3 2025-01-26 14:52:19 35.4 % F 37.0-47.0 MCHC [Mass/volume] by Automated count 2025-01-26 14:51:21 32.3 g/dL F 29.6-35.3 MCV [Entitic volume] by Automated count 2025-01-26 14:51:21 92.8 fL F 80.0-100.0 MCH [Entitic mass] by Automated count 2025-01-26 14:51:21 30 pg F 25.9-34.2 Hematocrit [Volume Fraction] of Blood by Automated count 2025-01-26 14:51:21 36.5 % F 37.0-47.0 Erythrocytes [#/volume] in Blood by Automated count 2025-01-26 14:51:20 3.93 x 10^6 cells/uL F 3.85-5.2 Erythrocyte distribution width [Ratio] by Automated count 2025-01-26 14:51:20 13.1 % F 11.0-15.0 Hemoglobin [Mass/volume] in Blood 2025-01-26 14:51:20 11.8 g/dL F 12.0-16.0 Platelets [#/volume] in Blood by Automated count 2025-01-26 14:51:20 349 x 10^3 cells/uL F 140.0-450.0 HCT CALC HGBX3 2025-01-13 01:53:37 35.7 % F 37.0-47.0 Hemoglobin [Mass/volume] in Blood 2025-01-13 01:49:20 11.9 g/dL F 12.0-16.0 HCT CALC HGBX3 2024-12-29 23:27:01 37.2 % F 37.0-47.0 Erythrocyte distribution width [Ratio] by Automated count 2024-12-29 23:26:14 14 % F 11.0-15.0 Hemoglobin [Mass/volume] in Blood 2024-12-29 23:26:14 12.4 g/dL F 12.0-16.0 Platelets [#/volume] in Blood by Automated count 2024-12-29 23:26:14 348 x 10^3 cells/uL F 140.0-450.0 MCH [Entitic mass] by Automated count 2024-12-29 23:26:14 29.3 pg F 25.9-34.2 MCHC [Mass/volume] by Automated count 2024-12-29 23:26:14 31.4 g/dL F 29.6-35.3 Erythrocytes [#/volume] in Blood by Automated count 2024-12-29 23:26:14 4.22 x 10^6 cells/uL F 3.85-5.2 Hematocrit [Volume Fraction] of Blood by Automated count 2024-12-29 23:26:14 39.3 % F 37.0-47.0 MCV [Entitic volume] by Automated count 2024-12-29 23:26:14 93.1 fL F 80.0-100.0 HCT CALC HGBX3 2024-12-17 12:55:51 see comments F 37.0-47.0 Unable to Calculate. Hemoglobin [Mass/volume] in Blood 2024-12-17 12:55:00 F Recollect - Shipping temp out of range HCT CALC HGBX3 2024-11-25 00:57:08 37.5 % F 37.0-47.0 Erythrocyte distribution width [Ratio] by Automated count 2024-11-25 00:41:06 12.7 % F 11.0-15.0 Hemoglobin [Mass/volume] in Blood 2024-11-25 00:41:06 12.5 g/dL F 12.0-16.0 Platelets [#/volume] in Blood by Automated count 2024-11-25 00:41:06 357 x 10^3 cells/uL F 140.0-450.0 MCH [Entitic mass] by Automated count 2024-11-25 00:41:06 30.2 pg F 25.9-34.2 MCHC [Mass/volume] by Automated count 2024-11-25 00:41:06 32.5 g/dL F 29.6-35.3 Erythrocytes [#/volume] in Blood by Automated count 2024-11-25 00:41:06 4.14 x 10^6 cells/uL F 3.85-5.2 Hematocrit [Volume Fraction] of Blood by Automated count 2024-11-25 00:41:06 38.4 % F 37.0-47.0 MCV [Entitic volume] by Automated count 2024-11-25 00:41:06 92.9 fL F 80.0-100.0 HCT CALC HGBX3 2024-11-10 14:00:05 38.7 % F 37.0-47.0 Hemoglobin [Mass/volume] in Blood 2024-11-10 13:59:20 12.9 g/dL F 12.0-16.0 FluidBP Description Draw Date Result/Unit Status Ref Range Result Comments Sodium [Moles/volume] in Serum or Plasma 2025-01-27 03:07:00 142 mEq/L F 136.0-145.0 Sodium [Moles/volume] in Serum or Plasma 2024-12-30 07:13:34 142 mEq/L F 136.0-145.0 Sodium [Moles/volume] in Serum or Plasma 2024-11-25 06:23:51 140 mEq/L F 136.0-145.0 General Description Draw Date Result/Unit Status Ref Range Result Comments Chloride [Moles/volume] in Serum or Plasma 2025-01-27 03:07:00 107 mEq/L F 98.0-107.0 Aspartate aminotransferase [Enzymatic activity/volume] in Serum or Plasma 2025-01-26 16:07:20 19 U/L F 0.0-33.0 Alanine aminotransferase [Enzymatic activity/volume] in Serum or Plasma 2025-01-26 16:07:20 17 U/L F 10.0-49.0 Chloride [Moles/volume] in Serum or Plasma 2024-12-30 07:13:34 109 mEq/L F 98.0-107.0 Aspartate aminotransferase [Enzymatic activity/volume] in Serum or Plasma 2024-12-29 22:50:15 21 U/L F 0.0-33.0 Alanine aminotransferase [Enzymatic activity/volume] in Serum or Plasma 2024-12-29 22:50:15 19 U/L F 10.0-49.0 Chloride [Moles/volume] in Serum or Plasma 2024-11-25 06:23:51 107 mEq/L F 98.0-107.0 Aspartate aminotransferase [Enzymatic activity/volume] in Serum or Plasma 2024-11-25 03:20:15 20 U/L F 0.0-33.0 Alanine aminotransferase [Enzymatic activity/volume] in Serum or Plasma 2024-11-25 03:20:15 21 U/L F 10.0-49.0 InfectionVaccination Description Draw Date Result/Unit Status Ref Range Result Comments Lymphocytes/100 leukocytes in Blood by Automated count 2025-01-26 14:51:21 21 % F Lymphocytes [#/volume] in Blood by Automated count 2025-01-26 14:51:20 1092 Cells/uL F 620.0-3660.0 Leukocytes [#/volume] in Blood by Automated count 2025-01-26 14:51:20 5.2 x 10^3 cells/uL F 4.0-11.0 Basophils/100 leukocytes in Blood by Automated count 2025-01-26 14:51:20 0.3 % F Monocytes/100 leukocytes in Blood by Automated count 2025-01-26 14:51:20 7 % F Eosinophils/100 leukocytes in Blood by Automated count 2025-01-26 14:51:20 3.2 % F Monocytes [#/volume] in Blood by Automated count 2025-01-26 14:51:20 364 Cells/uL F 0.0-1100.0 Neutrophils [#/volume] in Blood by Automated count 2025-01-26 14:51:20 3562 Cells/uL F 2000.0-8800.0 Basophils [#/volume] in Blood by Automated count 2025-01-26 14:51:20 16 Cells/uL F 0.0-400.0 Neutrophils/100 leukocytes in Blood by Automated count 2025-01-26 14:51:20 68.5 % F Eosinophils [#/volume] in Blood by Automated count 2025-01-26 14:51:20 166 Cells/uL F 0.0-700.0 Basophils/100 leukocytes in Blood by Automated count 2024-12-29 23:26:14 1 % F Neutrophils/100 leukocytes in Blood by Automated count 2024-12-29 23:26:14 54.6 % F Lymphocytes/100 leukocytes in Blood by Automated count 2024-12-29 23:26:14 27.9 % F Monocytes/100 leukocytes in Blood by Automated count 2024-12-29 23:26:14 13.7 % F Eosinophils/100 leukocytes in Blood by Automated count 2024-12-29 23:26:14 2.8 % F Monocytes [#/volume] in Blood by Automated count 2024-12-29 23:26:14 573 Cells/uL F 0.0-1100.0 Basophils [#/volume] in Blood by Automated count 2024-12-29 23:26:14 42 Cells/uL F 0.0-400.0 Eosinophils [#/volume] in Blood by Automated count 2024-12-29 23:26:14 117 Cells/uL F 0.0-700.0 Neutrophils [#/volume] in Blood by Automated count 2024-12-29 23:26:14 2282 Cells/uL F 2000.0-8800.0 Leukocytes [#/volume] in Blood by Automated count 2024-12-29 23:26:14 4.2 x 10^3 cells/uL F 4.0-11.0 Lymphocytes [#/volume] in Blood by Automated count 2024-12-29 23:26:14 1166 Cells/uL F 620.0-3660.0 Monocytes/100 leukocytes in Blood by Automated count 2024-11-25 00:41:06 11.7 % F Lymphocytes/100 leukocytes in Blood by Automated count 2024-11-25 00:41:06 21.3 % F Eosinophils/100 leukocytes in Blood by Automated count 2024-11-25 00:41:06 1.9 % F Neutrophils/100 leukocytes in Blood by Automated count 2024-11-25 00:41:06 63.9 % F Basophils/100 leukocytes in Blood by Automated count 2024-11-25 00:41:06 1.3 % F Monocytes [#/volume] in Blood by Automated count 2024-11-25 00:41:06 593 Cells/uL F 0.0-1100.0 Basophils [#/volume] in Blood by Automated count 2024-11-25 00:41:06 66 Cells/uL F 0.0-400.0 Eosinophils [#/volume] in Blood by Automated count 2024-11-25 00:41:06 96 Cells/uL F 0.0-700.0 Neutrophils [#/volume] in Blood by Automated count 2024-11-25 00:41:06 3240 Cells/uL F 2000.0-8800.0 Leukocytes [#/volume] in Blood by Automated count 2024-11-25 00:41:06 5.1 x 10^3 cells/uL F 4.0-11.0 Lymphocytes [#/volume] in Blood by Automated count 2024-11-25 00:41:06 1080 Cells/uL F 620.0-3660.0 MineralBone Disorder Description Draw Date Result/Unit Status Ref Range Result Comments Alkaline phosphatase [Enzymatic activity/volume] in Serum or Plasma 2025-01-26 16:07:20 100 U/L F 46.0-116.0 CA CORRECTED 2025-01-13 15:58:11 9.9 mg/dL F CA/PHOS PRODUCT 2025-01-13 15:55:21 46.5 Calc F 21.0-53.0 CA*PO4 CORRCTD 2025-01-13 15:55:21 46.5 Calc F 21.0-53.0 Calcium [Mass/volume] in Serum or Plasma 2025-01-13 15:50:57 9.9 mg/dL F 8.7-10.4 Phosphate [Mass/volume] in Serum or Plasma 2025-01-13 04:49:19 4.7 mg/dL F 2.4-5.1 Parathyrin.intact [Mass/volume] in Serum or Plasma 2025-01-13 00:35:20 181 pg/mL F 18.0-80.0 Alkaline phosphatase [Enzymatic activity/volume] in Serum or Plasma 2024-12-29 22:50:15 101 U/L F 46.0-116.0 CA CORRECTED 2024-12-23 01:11:31 9.7 mg/dL F CA/PHOS PRODUCT 2024-12-23 01:10:03 44.6 Calc F 21.0-53.0 CA*PO4 CORRCTD 2024-12-23 01:10:03 44.6 Calc F 21.0-53.0 Calcium [Mass/volume] in Serum or Plasma 2024-12-23 01:03:32 9.7 mg/dL F 8.7-10.4 Parathyrin.intact [Mass/volume] in Serum or Plasma 2024-12-22 21:54:21 177 pg/mL F 18.0-80.0 Phosphate [Mass/volume] in Serum or Plasma 2024-12-22 19:40:19 4.6 mg/dL F 2.4-5.1 CA/PHOS PRODUCT 2024-12-17 12:58:52 F Recollect - Shipping temp out of range,Unable to Calculate. CA*PO4 CORRCTD 2024-12-17 12:58:52 F Recollect - Shipping temp out of range,Unable to Calculate. Phosphate [Mass/volume] in Serum or Plasma 2024-12-17 12:58:16 F Recollect - Shipping temp out of range Calcium [Mass/volume] in Serum or Plasma 2024-12-17 12:58:16 F Recollect - Shipping temp out of range Parathyrin.intact [Mass/volume] in Serum or Plasma 2024-12-17 12:55:00 F Recollect - Shipping temp out of range CA CORRECTED 2024-11-25 04:10:06 9.8 mg/dL F Calcium [Mass/volume] in Serum or Plasma 2024-11-25 04:05:55 9.8 mg/dL F 8.7-10.4 Alkaline phosphatase [Enzymatic activity/volume] in Serum or Plasma 2024-11-25 03:20:15 113 U/L F 46.0-116.0 CA CORRECTED 2024-11-10 17:09:02 10.1 mg/dL F CA/PHOS PRODUCT 2024-11-10 17:06:06 49 Calc F 21.0-53.0 CA*PO4 CORRCTD 2024-11-10 17:06:06 49.4 Calc F 21.0-53.0 Calcium [Mass/volume] in Serum or Plasma 2024-11-10 17:04:12 10 mg/dL F 8.7-10.4 Parathyrin.intact [Mass/volume] in Serum or Plasma 2024-11-10 15:35:20 196 pg/mL F 18.0-80.0 Phosphate [Mass/volume] in Serum or Plasma 2024-11-10 13:16:16 4.9 mg/dL F 2.4-5.1 CA CORRECTED F Nutrition Description Draw Date Result/Unit Status Ref Range Result Comments Potassium [Moles/volume] in Serum or Plasma 2025-01-27 03:07:00 5.6 mEq/L F 3.5-5.1 GLOBULIN 2025-01-26 16:08:05 2.1 g/dL F 0.9-5.0 A/G RATIO 2025-01-26 16:08:05 1.9 Calc F 1.0-2.5 Albumin [Mass/volume] in Serum or Plasma by Bromocresol green (BCG) dye binding method 2025-01-26 16:07:20 4 g/dL F 3.2-4.8 Lactate dehydrogenase [Enzymatic activity/volume] in Serum or Plasma 2025-01-26 16:07:20 124 U/L F 120.0-246.0 Bicarbonate [Moles/volume] in Serum or Plasma 2025-01-26 16:07:20 21 mEq/L F 20.0-31.0 Protein [Mass/volume] in Serum or Plasma 2025-01-26 16:07:20 6.1 g/dL F 5.7-8.2 Potassium [Moles/volume] in Serum or Plasma 2024-12-30 07:13:34 5.9 mEq/L F 3.5-5.1 GLOBULIN 2024-12-29 22:51:10 2.1 g/dL F 0.9-5.0 A/G RATIO 2024-12-29 22:51:10 2 Calc F 1.0-2.5 Lactate dehydrogenase [Enzymatic activity/volume] in Serum or Plasma 2024-12-29 22:50:15 125 U/L F 120.0-246.0 Bicarbonate [Moles/volume] in Serum or Plasma 2024-12-29 22:50:15 21 mEq/L F 20.0-31.0 Albumin [Mass/volume] in Serum or Plasma by Bromocresol green (BCG) dye binding method 2024-12-29 22:50:15 4.1 g/dL F 3.2-4.8 Protein [Mass/volume] in Serum or Plasma 2024-12-29 22:50:15 6.2 g/dL F 5.7-8.2 Potassium [Moles/volume] in Serum or Plasma 2024-11-25 06:23:51 6.1 mEq/L F 3.5-5.1 GLOBULIN 2024-11-25 03:21:11 2.2 g/dL F 0.9-5.0 A/G RATIO 2024-11-25 03:21:11 1.9 Calc F 1.0-2.5 Lactate dehydrogenase [Enzymatic activity/volume] in Serum or Plasma 2024-11-25 03:20:15 124 U/L F 120.0-246.0 Bicarbonate [Moles/volume] in Serum or Plasma 2024-11-25 03:20:15 18 mEq/L F 20.0-31.0 Albumin [Mass/volume] in Serum or Plasma by Bromocresol green (BCG) dye binding method 2024-11-25 03:20:15 4.2 g/dL F 3.2-4.8 Protein [Mass/volume] in Serum or Plasma 2024-11-25 03:20:15 6.4 g/dL F 5.7-8.2 Encounters No encounter information to report Immunizations Ordered Immunization Name Filled Immunization Name Date Status Comments Refusal Reason Pneumococcal conjugate PCV20, polysaccharide [id number] conjugate, adjuvant, PF 2024-07-31 12:21:00 Covid-19 Vaccination 2024-05-15 06:00:00 Influenza Vaccination 2024-03-19 05:00:00 Influenza Vaccination 2024-03-16 05:00:00 TST-PPD intradermal 2024-02-14 11:30:00 Covid-19 Vaccination 2023-04-20 06:00:00 TST-PPD intradermal 2023-02-13 16:44:59 Covid-19 Vaccination 2021-11-17 05:00:00 Covid-19 Vaccination 2021-02-22 05:00:00 Covid-19 Vaccination 2020-08-03 08:00:00 Covid-19 Vaccination 2020-07-13 08:00:00 Pneumococcal conjugate PCV 13 2019-03-12 05:00:00 pneumococcal polysaccharide PPV23 2018-01-15 05:00:00 Plan of Treatment Planned Activity Provider Planned Date Details Commen ts Diagnostic Test Pending Billy Sarmientocell 2023-07-04 06:00:00 Ferritin [Mass/volume] in Serum or Plasma [code = 2276-4] [facility] 2023-06-16 06:00:00 Hemoglobin [Mass/volume] in Blood [code = 718-7] Diagnostic Test [facility] 2024-09-01 05:00:00 Alanine aminotransferase [Enzymatic activity/volume] in Serum or Plasma [code = 1742-6] Diagnostic Test [facility] 2022-12-01 05:00:00 Aluminum [Mass/volume] in Serum or Plasma [code = 5574-9] Diagnostic Test [facility] 2022 06:00:00 Creatinine [Mass/volume] in Serum or Plasma [code = 2160-0] Diagnostic Test [facility] 2022 06:00:00 Sodium [Moles/volume] in Serum or Plasma [code = 2951-2] Diagnostic Test [facility] 2022-05-14 07:33:58 Parathyrin.intact [Mass/volume] in Serum or Plasma [code = 2731-8] Diagnostic Test [facility] 2024-12-10 05:00:00 In-Center Hemodialysis Treatment [code = BIG528] Diet Order Billy Rigo [facility] May 02, 2022 Diet Calorie 30 kcal/kg Fluid Value 1000 mL/d Phosphorus Value 1000 mg/d Potassium Value 2000 mg/d Protein Value 1.2 gm/kg Sodium Value 2000 mg/d Calculated Weight 60 kg MedicationCasper Rigo Quintanilla 2025-02-12 05:00:00Tturnerzion [code = 983850]
--- OUTSIDE RECORDS SUMMARY | 2025-01-27 20:03 | XMS_ITS | Clinical Summary ---
Author Organization [facility] [address] [facility] [address] Address [address] [place] [address] Care Team Providers Care Gun Numberer Name Role Phone Saba Lee NP Primary [...] hypertension 11/22/2020 Dizziness 04/05/2020 ESRD on hemodialysis ([facility]) 03/02/2019 Anemia due to chronic kidney disease, on chronic dialysis 03/02/2019 PADILLA (dyspnea on exertion) 10/30/2018 Acute renal failure superimp osed on stage 3 chronic kidney disease 10/30/2018 Chronic heart failure with p reserved ejection fraction ([facility]) 10/08/2018 Pulmonary HTN ([facility]) 10/08/2018 CVA, old, alterations of sensations 06/23/2018 Aortic atherosclerosis 06/23/2018 Essential hypertension 06/23/2018 PVC (premature ventricular contraction) 06/23/19 19 Weakness 06/23/2018 Claudication [facility] vascular disease [facility]) 06/23/2018 Chronic anticoagulation 06/23/2018 Recurrent falls 06/23/2018 Resolved Problems Problem Noted Date Diagnosed Date Resolved Date Stage 3 chronic kidney disease 10/08/2018 08/29/2023 Dyslipidemia 06/23/2018 05/30/2021 Medical History Medical History Date Comments Chronic kidney disease COPD (chronic obstructive pulmonary disease) Rheumatoid arthritis ([facility]) Hypertension Cataract Stroke ([facility]) Family History Medical History Relation Name Comments [...] on file Legal Sex Female 1:08 PM 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
== END 2025-01-27 20:00 | disposition home or self-care (01) ==
LOC: ANHED 20:00
PROVIDERS: Emergency Provider Emergency Medicine; PCP Internal Medicine Hematology & Oncology
DX: M25.551 Pain in right hip (principal); M19.90 Unspecified osteoarthritis, unspecified site; Z86.73 Personal history of transient ischemic attack (TIA), and cerebral infarction without residual deficits; I10 Essential (primary) hypertension; E78.5 Hyperlipidemia, unspecified; Z86.711 Personal history of pulmonary embolism; Z79.01 Long term (current) use of anticoagulants
CPT/HCPCS: 73502; 99283

== ENCOUNTER 2025-05-18 13:35 | Emergency (ER) | payer MEDICARE, SELFPAY ==
[2025-05-18 13:48] VITALS: BP 117/39; PULSE 89; RESP 16; TEMP 36.8; O2SAT 93
--- NOTE | 2025-05-18 13:50 | ECG_ITS ---
Test Date: 2025-05-18 14:02:50 Measurements Intervals [place] Rate: 92 P: 64 RI: 160 QRS: 50 QRSD: 67 T: 76 QT: 339 QTc: 420 Interpretive Statements SINUS RHYTHM WITH OCCASIONAL SUPRAVENTRICULAR PREMATURE COMPLEXES CANNOT R/O SEPTAL INFARCT, AGE INDETERMINATE ABNORMAL ECG No previous ECG available for comparison Electronically Signed On 05-18-2025 14:35:38 MEMBERSHIP COUNSELOR by Miguelito Vann D.O.
--- OUTSIDE RECORDS SUMMARY | 2025-05-18 15:44 | XMS_ITS | Clinical Summary ---
Author Organization [facility] Address [address] [place] [phone] Phone Care Team Providers Care Dry House Wheeler Name Role Phone Kaushik Alejandrochristie Malena [facility] Primary Care Provider [phone] Allergies No known active allergies Medications amLODIPine [...] 1995 Influenza Vaccine (#1) [address] [place] [id number] [facility] Care Teams Dry House Wheeler Relationship Specialty Start Date End Date Roxann Faulkner, MARS [address] [place] [address] [place] [address] PCP - General 09/18/18
--- OUTSIDE RECORDS SUMMARY | 2025-05-18 15:44 | XMS_ITS | Clinical Summary ---
Author Organization [facility] Doris Mireles Address [address] [place] [address] Care Team Providers Care Bulldozer Operator Name Role Phone Unavailable Primary Care Provider [...] Capsule by mouth daily. Active Vit C-Vit H-Bqfomb-CdPt-L utein (PRESERVISION) 226-90-0.8-5 mg Capsule Take 1 Capsule by mouth daily. Active cyanocobalamin (VITAMIN B-12) 500 mcg tablet Take 500 mcg by mouth daily. Active Active Problems Problem Noted Date Diagnosed Date Leukopenia 01/03/2024 Encounters Date Type Department Care Team Description 03/23/2025 External Device Data STL ABSTRACTION Provider, Abstract [...] Care Team (Late st Contact Info) Description 07/06/2025 2:00 PM RUBY ENGINEER Office Visit [facility] Oncology and Hematology - Carlos A [address] [facility] [address] [place] [address] William Barcenas MD [address] [facility] [address] [place] [address] Health Maintenance Due Date Last Done Comments OSTEOPOROSIS SCREENING 2010 ZOSTER VACCINE (2 of 3) 02/28/2012 01/03/2012 RSV VACCINE (60+ or ) (1 - 1-dose 75+ series) 2020 INFLUENZA VACCINE (#1) 2025 02/15/2019 DTAP/TDAP/TD VACCINES (3 - T d or Tdap) 03/03/2030 03/03/2020, 07/16/2011, 06/03/2004 PNEUMOCOCCAL VACCINE 50+ YEARS Completed 1 , 01/15/2018, 05/16/2017, Additional history exists Insurance MEDICARE PART A AND B [facility]
--- OUTSIDE RECORDS SUMMARY | 2025-05-18 15:44 | XMS_ITS | Clinical Summary ---
Author Organization [facility] Address [address] [place] [address] Care Team Providers Care Chemical Project Engineer Name Role Phone Roxann Faulkner Malena LAYER OUT PLATE GLASS-RADIOLOGY NURSE Primary Care Provider Source Comments [facility],non-owned Affiliates and Associated Physician Practices is amultiple site organization consisting of ambulatory clinics and hospital sitesin [place], [place], [place] and [place]. This disclosure is being madepursuant to the Care Everywhere program and may not contain all information available regarding this patient. Last updated 18.[facility] Allergies No known active allergies Medications * [...] Years Used Date Smoking Tobacco: Former Cigarettes 0 Q uit: 2006 Smokeless Tobacco: Never Tobacco Cessation:Counseling Given: No Alcohol Use Standard Drinks/Week Comments Not Currently 0 (1 standard drink = 0.6 oz pur e alcohol) Comments No Sex and Gender Information Value Date Recorded Sex Assigned at Not on file Legal Sex Female 6:56 AM PARI MUTUEL CLERK Gender Identity Not on file Sexual Orientation Not on file Last Filed Vital Signs Vital Sign Reading Time Taken Comments Blood Pressure 154/67 06/02/2019 3:35 PM PARI MUTUEL CLERK Pulse 76 06/02/2019 3:35 PM PARI MUTUEL CLERK Temperature 36.4 C (97.5 F) 06/02/2019 3:35 PM PARI MUTUEL CLERK Respiratory Rate 16 04/23/2019 9:28 AM PARI MUTUEL CLERK Oxygen Saturation 97% 06/02/2019 3:35 PM PARI MUTUEL CLERK Inhaled Oxygen Concentration - - Weight 47.2 kg (104 lb) 06/02/2019 3:35 PM PARI MUTUEL CLERK Height 167.6 cm (5' 6) 06/02/2019 3:35 PM PARI MUTUEL CLERK Body Mass Index 16.79 06/02/2019 3:35 PM PARI MUTUEL CLERK Plan of Treatment Health Maintenance Due Date Last Done Comments BONE DENSITY TESTING 1945 DTAP/TDAP/TD VACCINES (1 - Tdap) 1964 PNEUMOCOCCAL VACCINE 50+ (1 of 1 - PCV) 1995 ZOSTER VACCINE (1 of 2) 1995 Respiratory Syncytial Virus (RSV) Vaccine Pt: or over 60 yrs (1 - 1-dose 75+ series) 2020 DEPRESSION SCREENING 06/03/2024 COVID-19 VACCINE (2024-2 6 season) 2025 INFLUENZA VACCINE (#1) 2025 02/15/2019 HEPATITIS B [...] this topic Medical Devices Implanted Type Area Archeology Professor Device Identifier Shelf Expiration Date Model / Serial / Lot Stent Eprsth 5cm 7mm Hep Ntnl Eptfe Vbhn Implanted:Qty: 1 on 04/23/2019 by Deric Lopez MD at [facility] Left: Arm [employer] 04/15/2021 [id number] / / [id number] [place] [address] MEDICARE [facility] MEDICARE [facility] Member Subscriber Plan / Payer (Ef fective 2011-Present) Name:Genie Amado Relation to Subscriber:Self Name:GENIE AMADO Payer ID:[id number] (NAIC) Type:PPO Address: [address] [place] [id number] Care Teams Chemical Project Engineer Relationship Specialty Start Date End Date Roxann Faulkner, LAYER OUT PLATE GLASS-RADIOLOGY NURSE [address] [place] [place] [id number] PCP - General 12/30/18
--- OUTSIDE RECORDS SUMMARY | 2025-05-18 15:44 | XMS_ITS | Clinical Summary ---
Author Organization [facility] [address] [facility] [address] Address [address] [place] [address] Care Team Providers Care Senior Merchandiser Name Role Phone Saba Lee NP Primary Care Provider [phone] Allergies Active Allergy Reactions Criticality Noted Date [...] (500 mg total) by mouth daily Active lisinopriL (PRINIVIL,ZEST RIL) 10 mg tablet TAKE 1 TABLET BY MOUTH FOUR DAYS A WEEK ON NON-DIALYSIS DAYS 08/19/19 24 Active cyanocobalamin (Vitamin B-12) 500 mcg tabletIndicati ons:Prevention of Vitamin B12 Deficiency Take 1 tablet (500 mcg total) by mouth daily Active atorvastatin (LIPITOR) 40 mg tablet Take 1 tablet (40 mg total) by mouth daily 08/17/20 25 Active apixaban (ELIQUIS) 2.5 mg tablet Take 1 tablet (2.5 mg total) by mouth 2 (two) times a day 180 tablet 6 03/31/20 25 Active ezetimibe (ZETIA) 10 mg tablet TAKE 1 TABLET(10 MG) BY MOUTH DAILY 90 tablet 2 05/10/20 25 Active ezetimibe (ZETIA) 10 mg tablet TAKE 1 TABLET(10 MG) BY MOUTH DAILY 90 tablet 02/03/20 25 025 Discontinued Active Problems Problem Noted Date Diagnosed Date Bilateral carotid artery stenosis 02/26/2023 Mixed hyperlipidemia 05/30/2021 Labile hypertension 11/22/2020 Dizziness 04/05/2020 ESRD on hemodialysis ([facility]) 03/02/2019 Anemia due to chronic kidney disease, on chronic dialysis 03/02/2019 PADILLA (dyspnea on exertion) 10/30/2018 Acute renal failure superimp osed on stage 3 chronic kidney disease 10/30/2018 Chronic heart failure with p reserved ejection fraction ([facility] 10/08/2018 Pulmonary HTN ([facility]) 10/08/2018 CVA, old, alterations of sensations 06/23/2018 Aortic atherosclerosis 06/23/2018 Essential hypertension 06/23/2018 PVC (premature ventricular contraction) 06/23/19 19 Weakness 06/23/2018 Claudication in peripheral vascular disease ([facility]) 06/23/2018 Chronic anticoagulation 06/23/2018 Recurrent falls 06/23/2018 Resolved Problems Problem Noted Date Diagnosed Date Resolved Date Stage 3 chronic kidney disease 10/08/2018 08/29/2023 Dyslipidemia 06/23/2018 05/30/2021 Encounters Date Type Department Care Team Description 03/31/2025 11:30 AM CDT Office Visit [facility] Card[facility] [address] [place] [address] Zaid Vincent MD Chronic heart failure with preserved ejection fraction (Primary Dx); PAD (peripheral artery disease); History of CVA (cerebrovascular accident); ESRD on hemodialysis ([facility]) from Last 3 Months Medical History Medical History Date Comments Chronic kidney disease COPD (chronic obstructive pulmonary disease) Rheumatoid arthritis (HCC) Hypertension Cataract Stroke ([facility]) Family History Medical History Relation Name Comments Cancer Brother 1 Theodore Pringle Cancer Brother 2 Kurt Pringle Memory loss Brother 3 Antony Pringle Relation Name Status Comments Brother 1 Theodore Pringle Brother 2 Kurt Pringle Brother 3 Antoyn Pringle Social History Tobacco Use Types Packs/Day Years Used Date Smoking Tobacco: Former Cigarettes Q uit: 2007 Smokeless Tobacco: Never Tobacco Cessation:Counseling Given: Not Answered Alcohol Use Standard Drinks/Week Comments No 0 (1 standard drink = 0.6 oz pur e alcohol) Comments Unknown Sex and Gender Information Value Date Recorded Sex Assigned at Not on file Legal Sex Female 1:08 PM CLIENT RESOURCE SPECIALIST Gender Identity Not on file Sexual Orientation Not on file Last Filed Vital Signs Vital Sign Reading Time Taken Comments Blood Pressure 120/60 03/31/2025 11:37 AM CDT Pulse 92 03/31/2025 11:37 AM CDT Temperature 36.4 C (97.5 F) 01/12/2020 3:07 PM CDT Respiratory Rate 16 12/03/2019 10:12 AM CDT Oxygen Saturation 96% 03/31/2025 11:37 AM CDT Inhaled Oxygen Concentration - - Weight 59.5 kg (131 lb 1.6 oz) 03/31/2025 11:37 AM CDT Height 167.6 cm (5' 6) 03/31/2025 11:37 AM CDT Body Mass Index 21.16 03/31/2025 11:37 AM CDT Plan of Treatment Health Maintenance Due Date Last Done Comments Depression Screening 1945 Fall Risk Assessment 1945 Osteoporosis Screening-Bone Density Scan 1945 Hepatitis B Screening 1963 Well Visit 65+ 2010 Influenza Vaccine (#1) 2025 4, 02/15/2019, 05/12/2018 DTaP/Tdap/Td Vaccine (3 - Td or Tdap) 03/03/2030 03/03/2020, 07/16/2011, 06/03/2004 Breast Cancer Screening-Mammogram Discontinued 02/14/2017, 12/12/2015, 12/09/2014, Additional history exists Pneumococcal vaccine 65+ Completed 019, 01/15/2018, 05/16/2017, Additional history exists Zoster Vaccine Completed 12/22/2022, 09/01, 01/03/2012 Insurance MEDICARE MEDICARE [facility] [place] [address] [facility] MEDICARE SUPPLEMENT Member Subscriber Plan / Payer (Ef fective 2025-Present) Name:Chichi Amado Relation to Subscriber:Self Name:Chichi Amado Payer ID:[id number] Group ID:Not on file Type:COMMERCIAL Address: [facility] [address] [place] [id number] Care Teams Senior Merchandiser Relationship Specialty Start Date End Date Saba Lee NP [address] [place] [address] PCP - General Family Medicine 03/11/24
[2025-05-18 16:20] VITALS: BP 151/62; PULSE 76; RESP 18; O2SAT 96
--- NOTE | 2025-05-18 16:26 | ED.WEAKNESS ---
HPI - Weakness General Chief complaint: Weakness Stated complaint: weak Time Seen by Provider: 05/18/25 16:12 Source: patient and family Mode of arrival: wheelchair Limitations: no limitations History of Present Illness HPI Narrative: This is a an 80-year-old female with history of ESRD on dialysis Saturday/Saturday/Saturday, hypertension who presents to the ED for weakness. Patient states that since the end of her dialysis session yesterday, she has been feeling weaker than usual. Son states that fiber 6 days ago, her lisinopril was increased from a few days a week to daily to 2 hypertension during her sessions. She apparently had her blood pressure checked at her assisted living facility this morning and was found to be in a systolic of the 80s so EMS was notified. Per EMS, her blood pressure was systolic in the 100s. At this time, patient has no complaints. Related Data Home Medications ?Medication ?Instructions ?Recorded ?Confirmed ?Last Taken ?Type apixaban 2.5 mg tablet (Eliquis) 2.5 mg PO BID 12/20/19 12/20/19 12/20/19 09:00 History aspirin 81 mg tablet,delayed 81 mg PO DAILY 12/20/19 12/20/19 Unknown History release (Aspir-) atorvastatin 40 mg tablet 40 mg PO DAILY 12/20/19 12/20/19 Unknown History azathioprine 50 mg tablet 25 mg PO DAILY 12/20/19 12/20/19 12/20/19 09:00 History cholecalciferol (vitamin D3) 50 50 mcg PO DAILY 12/20/19 12/20/19 12/20/19 09:00 History mcg (2,000 unit) capsule (Vitamin D3) furosemide 80 mg tablet 80 mg PO BID 12/20/19 12/20/19 12/20/19 09:00 History vit A 300 mcg-C 200 mg-E 27 1 tablet PO BID 12/20/19 12/20/19 12/20/19 09:00 History mg-lutein 2 mg and minerals tablet (I-Boris) vitamin B complex 1 tablet PO DAILY 12/20/19 12/20/19 12/20/19 09:00 History Allergies Allergy/AdvReac Type Severity Reaction Status Date / Time No Known Allergies Allergy Verified 05/08/23 09:13 Review of Systems Review of Systems: Gen.: Denies fevers or chills Eyes: Denies eye pain or visual change ENT: Denies congestion Respiratory: Denies shortness of breath or cough CV: Denies chest pain or palpitations GI: Denies abdominal pain nausea, emesis or diarrhea denies burning, urgency, frequency or hematuria Musculoskeletal: Denies back pain or muscle pain Neuro: As per HPI Skin: Denies rash Except as documented, all other systems reviewed and negative [facility] Past Medical History Medical History (Updated 05/18/25 @ 17:54 by Chevy Barajas DO) Osteoarthritis History of CVA (cerebrovascular accident) History of iritis Hypertension Rheumatoid arthritis Chronic anemia Diastolic dysfunction Grade 3 Moderate mitral valve regurgitation Hyperlipidemia History of pulmonary embolism On Eliquis History of thrombosis Ascending aorta thrombus Surgical History Surgical History History of shoulder surgery H/O bilateral cataract extraction History of bilateral tubal ligation S/P dialysis catheter insertion Av fistula left forearm Family History Family History Mother Cancer Father Diabetes mellitus Sibling Lymphoma Colon cancer Pancreatic cancer Social History Social History Social History: The patient is . She has a son and a daughter. Her son Toby is her durable power proj engineer for healthcare. She is retired from [employer]. She lives at [facility]. She smoked 1 and half to 2 packs of cigarettes a day for 45 years but quit in 2006. She denies any alcohol use marijuana use or substance abuse. The patient is a DNR. Smoking status: Former smoker Alcohol intake: former Substance use: never Gender identity (if verbalized by the patient): Female Spiritual care concerns: No Exam Narrative: APPEARANCE: No acute distress, nontoxic, resting in bed EYES: EOMI HEENT: Normocephalic, atraumatic, OMM RESPIRATORY: No respiratory distress Clear to auscultation bilaterally with no rhonchi wheezing or rales. CARDIOVASCULAR: Regular rate and rhythm without murmurs rubs or gallops. ABDOMINAL: Soft, nontender, nondistended, no rebound or guarding MUSCULOSKELETAl: Moves all extremities. No clubbing, cyanosis or edema. NEURO: Awake and alert. Following commands, speech normal, no focal deficits SKIN:: Warm, dry. No rashes lesions or abrasions PSYCHIATRIC: Normal affect/mood, Course Vital Signs Vital signs: Vital Signs Temperature 98.3 F 05/18/25 13:48 Pulse Rate 89 05/18/25 13:48 Respiratory Rate 16 05/18/25 13:48 Blood Pressure 117/39 L 05/18/25 13:48 Pulse Oximetry 93 05/18/25 13:48 Temperature 98.3 F 05/18/25 13:48 Pulse Rate 98 05/18/25 18:16 Respiratory Rate 19 05/18/25 18:16 Blood Pressure 152/75 H 05/18/25 18:16 Pulse Oximetry 96 05/18/25 18:16 MDM MDM Narrative Medical decision making narrative: 80-year-old female Presenting for weakness. On initial evaluation patient was in no acute distress afebrile, hemodynamic stable. Differentials include but are not limited to: Medication side effect, electrolyte abnormality, UTI Notable exam findings: Heart and lungs clear. Abdomen soft and nontender. I personally reviewed the patient's lab result. Notable lab findings: CBC without significant abnormalities. CMP consistent with her ESRD. UA showed no evidence of AA UTI. Patient was able to ambulate throughout the department. After further discussion with the patient's son suspect that her symptoms are related to her increased frequency of her lisinopril. They were advised to hold the lisinopril tonight and to discuss the dosing changes with her outside laborer tomorrow at dialysis. Patient and son were agreeable to this plan. Given strict return precautions. Differential Diagnosis Differential Diagnosis: Medication side effect, electrolyte abnormality, UTI Lab Data 05/18/25 17:33 05/18/25 17:33 Labs: Lab Results 05/18/25 05/18/25 Range/Units 16:23 17:33 WBC 6.7 (4.5-10.0) K/mm3 RBC 4.17 L (4.2-5.4) M/mm3 Hgb 12.4 (12.0-15.0) g/dL Hct 39.0 (37.0-47.0) % MCV 93.5 (80-100) fl MCH 29.7 (26-34) pg MCHC 31.8 L (32-36) g/dl RDW 14.5 (11.5-14.5) % Plt Count 297 (150-375) k/mm3 MPV 9.4 (7.4-10.4) fl Immature Gran % (Auto) 0.3 (0-0.5) % Neut % (Auto) 63.3 (45.5-73.1) % Lymph % (Auto) 21.8 (18.3-44.2) % [place] % (Auto) 12.5 H (2.6-8.5) % Eos % (Auto) 1.5 (0-4.4) % Baso % (Auto) 0.6 (0.2-1.2) % Lymph # (Auto) 1.45 (0.9-3.2) K/mm3 [place] # (Auto) 0.8 H (0.1-0.6) K/mm3 Eos # (Auto) 0.1 (0-0.3) K/mm3 Baso # (Auto) 0.0 (0.0-0.1) K/mm3 Abs Immat Gran (auto) 0.02 (0.00-0.031) K/mm3 Absolute Neuts (auto) 4.2 (1.3-6.7) K/mm3 Absolute Nucleated RBC 0.000 (0.0-0.012) K/mm3 Nucleated RBC % 0.0 (0.0-0.2) % Sodium 135 L (137-145) mmol/L Potassium 4.2 (3.4-5.0) mmol/L Chloride 97 L (98-107) mmol/L Carbon Dioxide 30 (22-30) mmol/L Anion Gap 8 (4-12) mmol/L BUN 38 H D (7-17) mg/dL Creatinine 2.63 H (0.7-1.0) mg/dL Estim Creat Clear Calc 14 ml/min Estimated GFR 17 L (59 - ) Glucose 94 (65-110) mg/dL Calcium 9.5 (8.4-10.2) mg/dL Phosphorus 4.6 H (2.5-4.5) mg/dL Magnesium 2.0 (1.6-2.3) mg/dL Total Bilirubin 0.5 (0.2-1.3) mg/dL AST 25 (14-36) U/L ALT 14 (6-35) U/L Alkaline Phosphatase 104 (38-126) U/L Total Protein 7.0 (6.3-8.2) g/dL Albumin 3.9 (3.5-5.1) g/dL Urine Color Dark yellow (Yellow) Urine Appearance Cloudy H (Clear) Urine pH 8.0 (5.0-9.0) Ur Specific [place] 1.017 (1.001-1.035) Urine Protein 2+ H (Negative) mg/dL Urine Glucose (UA) Negative (Negative) mg/dL Urine Ketones Trace H (Negative) mg/dL Ur Blood (Man) Negative (Negative) Urine Nitrate Negative (Negative) Urine Bilirubin Negative (Negative) Urine Urobilinogen 1.0 (<2.0) mg/dL Add Ur Microanalysis Reviewed Leukocyte Esterase Rfl 1+ H (Negative) VARUN/UL Urine RBC 0-2 (0-2) /hpf Urine WBC 21-50 H (0-3) /hpf Ur Squamous Epith Cells Occasional (Few) /hpf Urine Bacteria Rare /hpf Urine Casts 6-10 Hyaline Casts Present (None) /lpf Discharge Plan Discharge Clinical Impression: Weakness, Drug side effects Patient Disposition: Home Condition: Stable Instructions: Antibiotic Form Additional Instructions: Please go to dialysis as scheduled. Discuss your medication regimen with your outside laborer. Return to the ED for any new or worsening symptoms. Patient Language: Mongolian Prescriptions: No Action atorvastatin 40 mg Tablet 40 mg PO DAILY azathioprine 50 mg Tablet 25 mg PO DAILY aspirin [Aspir-81] 81 mg Tablet,Delayed Release (Dr/Ec) 81 mg PO DAILY furosemide 80 mg Tablet 80 mg PO BID vitamin B complex Tablet 1 tablet PO DAILY I-Boris 1,000 unit-200 mg-60 unit-2 mg Tablet 1 tablet PO BID cholecalciferol (vitamin D3) [Vitamin D3] 50 mcg (2,000 unit) Capsule 50 mcg PO DAILY Eliquis 2.5 mg Tablet 2.5 mg PO BID metoprolol succinate 25 mg capsule,sprinkle,ER 24hr 12.5 mg PO HS Qty: 15 2RF ciprofloxacin HCl [Cipro] 500 mg tablet 500 mg PO .q48 Qty: 2 0RF Rx Instructions: Given AFTER dialysis on 12/22 and again on 12/24 then stop Follow-up/Referrals: William Barcenas MD [Primary Care Provider, Hematology]
[2025-05-18 16:42] LABS: Add Urine Microscopic? YES; Appearance Urine Cloudy (Clear); Glucose Urine UA Negative (Negative); Leukocyte Esterase Ur 1+ LEU/UL (Negative); Need Manual Microscopic Reviewed; Nitrate Urine Negative (Negative); Specific Grav Ur 1.017 (1.001-1.035)
[2025-05-18 17:15] VITALS: BP 125/56; PULSE 77; RESP 18; O2SAT 96
[2025-05-18 17:39] LABS: Hematocrit 39.0 % (37.0-47.0); Hemoglobin 12.4 g/dL (12.0-15.0); Immature Granulocyte Percent A 0.3 % (0-0.5); Lymphocytes Absolute Auto 1.45 K/mm3 (0.9-3.2); Mean Corpuscular HGB Conc 31.8 g/dl (32-36); Mean Corpuscular Hemoglobin 29.7 pg (26-34); Mean Corpuscular Volume 93.5 fl (80-100); Nucleated Red Blood Cells Absolute Auto 0.000 K/mm3 (0.0-0.012); Nucleated Red Blood Cells Perc 0.0 % (0.0-0.2); Platelet Count Result 297 k/mm3 (150-375); Red Blood Count 4.17 M/mm3 (4.2-5.4); White Blood Count 6.7 K/mm3 (4.5-10.0)
[2025-05-18 17:51] LABS: Alanine Aminotransferase 14 U/L (6-35); Albumin Level 3.9 g/dL (3.5-5.1); Alkaline Phosphatase 104 U/L (38-126); Anion Gap 8 mmol/L (4-12); Aspartate Amino Transferase 25 U/L (14-36); Bilirubin,Total 0.5 mg/dL (0.2-1.3); Blood Urea Nitrogen 38 mg/dL (7-17); Calcium 9.5 mg/dL (8.4-10.2); Carbon Dioxide 30 mmol/L (22-30); Chloride 97 mmol/L (98-107); Estimated CRCL calculation 14 ml/min; Estimated Glomerular Filt Rate 17; Glucose 94 mg/dL (65-110); Magnesium 2.0 mg/dL (1.6-2.3); Potassium 4.2 mmol/L (3.4-5.0); Sodium 135 mmol/L (137-145); Total Protein 7.0 g/dL (6.3-8.2)
[2025-05-18 18:02] VITALS: BP 152/75; PULSE 101; RESP 20; O2SAT 91
--- OUTSIDE RECORDS SUMMARY | 2025-05-18 18:14 | XMS_ITS | Clinical Summary ---
Author Organization [facility] Address [address] [place] [address] Care Team Providers Care Computer Tape Librarian Name Role Phone Roxann Faulkner Malena WASTEWATER PROJECT ENGINEER-FUR REPAIRER Primary Care Provider Source Comments [facility],non-owned Affiliates and Associated Physician Practices is amultiple site organization consisting of ambulatory clinics and hospital sitesin [place], [place], [place] and [place]. This disclosure is being madepursuant to the Care Everywhere program and may not contain all information available regarding this patient. 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 Gender Identity Not on file Sexual Orientation Not on file Last Filed Vital Signs Vital Sign Reading Time Taken Comments Blood Pressure 154/67 06/02/2019 3:35 PM CONE TENDER Pulse 76 06/02/2019 3:35 PM CONE TENDER Temperature 36.4 C (97.5 F) 06/02/2019 3:35 PM CONE TENDER Respiratory Rate 16 04/23/2019 9:28 AM CONE TENDER Oxygen Saturation 97% 06/02/2019 3:35 PM CONE TENDER Inhaled Oxygen Concentration - - Weight 47.2 kg (104 lb) 06/02/2019 3:35 PM CONE TENDER Height 167.6 cm (5' 6) 06/02/2019 3:35 PM CONE TENDER Body Mass Index 16.79 06/02/2019 3:35 PM CONE TENDER Plan of Treatment Health Maintenance Due Date [...] this topic Medical Devices Implanted Type Area Tower Hoist Operator Device Identifier Shelf Expiration Date Model / Serial / Lot Stent Eprsth 5cm 7mm Hep Ntnl Eptfe Vbhn Implanted:Qty: 1 on 04/23/2019 by Deric Lopez MD at [facility] Left: [employer] 04/15/2021 [id number] / / [id number] [place] [address] MEDICARE [facility] MEDICARE [facility] Member Subscriber Plan / Payer (Ef fective 2011-Present) Name:Genie Amado Relation to Subscriber:Self Name:GENIE AMADO Payer ID:[id number] (NAIC) Type:PPO Address: [address] [place] [id number] Care Teams Computer Tape Librarian Relationship Specialty Start Date End Date Roxann Faulkner, WASTEWATER PROJECT ENGINEER-FUR REPAIRER [address] [place] [id number] PCP - General 12/30/18
--- OUTSIDE RECORDS SUMMARY | 2025-05-18 18:14 | XMS_ITS | Clinical Summary ---
Author Organization [facility] [place] [address] Address [address] [place] [address] Care Team Providers Care Finish Painter Name Role Phone Saba Lee NP Primary Care Provider [phone] Allergies Active Allergy Reactions Criticality Noted Date [...] hypertension 11/22/2020 Dizziness 04/05/2020 ESRD on hemodialysis ([facility] 03/02/2019 Anemia due to chronic kidney disease, on chronic dialysis 03/02/2019 PADILLA (dyspnea on exertion) 10/30/2018 Acute renal failure superimp osed on stage 3 chronic kidney disease 10/30/2018 Chronic heart failure with p reserved ejection fraction ([facility]) 10/08/2018 Pulmonary HTN ([facility]) 10/08/2018 CVA, old, alterations of sensations 06/23/2018 Aortic atherosclerosis 06/23/2018 Essential hypertension 06/23/2018 PVC (premature ventricular contraction) 06/23/19 19 Weakness 06/23/2018 Claudication in peripheral vascular disease ([facility]) 06/23/2018 Chronic anticoagulation 06/23/2018 Recurrent falls 06/23/2018 Resolved Problems Problem Noted Date Diagnosed Date Resolved Date Stage 3 chronic kidney disease 10/08/2018 08/29/2023 Dyslipidemia 06/23/2018 05/30/2021 Encounters Date Type Department Care Team Description 03/31/2025 11:30 AM CDT Office Visit [facility] Cardiology [address] [place] [address] Zaid Vincent MD Chronic heart failure with preserved ejection fraction (Primary Dx); PAD (peripheral artery disease); History of CVA (cerebrovascular accident); ESRD on hemodialysis ([facility]) from Last 3 Months Medical History Medical History Date Comments Chronic kidney disease COPD (chronic obstructive pulmonary disease) Rheumatoid arthritis (HCC) Hypertension Cataract Stroke ([facility]) Family History Medical History Relation Name Comments Cancer Brother 1 Theodore Pringle Cancer Brother 2 Kurt Pringle Memory loss Brother 3 Antony Pringle Relation Name Status Comments Brother 1 Theodore Pringle Brother 2 Kurt Pringle Brother 3 Antony Pringle Social History Tobacco [...] on file 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 [id number] [place] [id number] Care Teams Finish Painter Relationship Specialty Start Date End Date Saba Lee NP [address] [place] [address] PCP - General Family Medicine 03/11/24
--- OUTSIDE RECORDS SUMMARY | 2025-05-18 18:14 | XMS_ITS | Clinical Summary ---
Author Organization [facility] Address [address] [place] [id number] Phone Care Team Providers Care Patient Care Name Role Phone Kaushik Alejandrochristie Malena [facility] Primary Care Provider [phone] Allergies No known active allergies Medications amLODIPine [...] 1995 Influenza Vaccine (#1) 2025 Insurance MEDICARE [facility] Care Teams Patient Care Relationship Specialty Start Date End Date Roxann Faulkner, MARS [address] [place] [address] [place] [address] PCP - General 09/18/18
--- OUTSIDE RECORDS SUMMARY | 2025-05-18 18:14 | XMS_ITS | Clinical Summary ---
Author Organization [facility] Doris Mireles Address [address] [place] [address] Care Team Providers Care Inventory Taker Name Role Phone Unavailable Primary Care Provider [...] Capsule by mouth daily. Active Vit C-Vit X-Clqpkl-AyLj-L utein (PRESERVISION) 226-90-0.8-5 mg Capsule Take 1 [...] st Contact Info) Description 07/06/2025 2:00 PM RN POSTPARTUM Office Visit [facility] Oncology and Hematology - Carlos A [address] [facility] [address] [place] [address] William Barcenas MD [address] [place] [address] Health Maintenance Due Date Last [...] exists Insurance MEDICARE PART A AND B [facility]
[2025-05-18 18:16] VITALS: BP 152/75; PULSE 98; RESP 19; O2SAT 96
== END 2025-05-18 18:16 ==
PROVIDERS: Emergency Provider Student in an Organized Health Care Education/Training Program; PCP Internal Medicine Hematology & Oncology
DX: R53.1 Weakness (principal); T46.4X5A Adverse effect of angiotensin-converting-enzyme inhibitors, initial encounter; I12.0 Hypertensive chronic kidney disease with stage 5 chronic kidney disease or end stage renal disease; N18.6 End stage renal disease; Z99.2 Dependence on renal dialysis; I11.9 Hypertensive heart disease without heart failure; I34.0 Nonrheumatic mitral (valve) insufficiency; E78.5 Hyperlipidemia, unspecified; D64.9 Anemia, unspecified; M19.90 Unspecified osteoarthritis, unspecified site; M06.9 Rheumatoid arthritis, unspecified; Z66 Do not resuscitate; Z86.73 Personal history of transient ischemic attack (TIA), and cerebral infarction without residual deficits; Z86.711 Personal history of pulmonary embolism; Z87.891 Personal history of nicotine dependence; Z98.42 Cataract extraction status, left eye; Z98.41 Cataract extraction status, right eye; Z79.82 Long term (current) use of aspirin; Z79.899 Other long term (current) drug therapy; Z79.01 Long term (current) use of anticoagulants
CPT/HCPCS: 36415; 80053; 81001; 83735; 84100; 85025; 87086; 93005; 99283